=== PATIENT | female | born 1975 | race Caucasian/White ===

== ENCOUNTER 2022-12-18 22:47 | Emergency (ER) | payer OTHER, SELFPAY ==
--- NOTE | ~2022-12-18 | XR_ITS ---
Portable chest x-ray Comparison: None Clinical History: Dyspnea Findings: Lungs are clear, without focal consolidation or pleural effusion. Cardiomediastinal silho uette is unremarkable. Cervical spine fixation hardware noted. Impression: Clear lungs. Reviewed, dictated and finalized at location . [facility] SURGEON Impression: Clear lungs.
[2022-12-18 22:52] VITALS: BP 132/79; PULSE 88; RESP 20; TEMP 36.8; O2SAT 100
--- NOTE | 2022-12-18 23:28 | ECG_ITS ---
Measurements Intervals [place] Rate: 83 P: 53 VA: 158 QRS: 35 QRSD: 71 T: 30 QT: 339 QTc: 400 Interpretive Statements SINUS RHYTHM NORMAL ECG NO PREVIOUS ECG AVAILABLE FOR COMPARISON Electronically Signed On 12-19-2022 14:45:45 [employer] by Peyman De Leon M.D.
[2022-12-18 23:59] VITALS: BP 112/71; PULSE 95; RESP 14; TEMP 36.7; O2SAT 97
[2022-12-19] VITALS: PULSE 89
[2022-12-19] MEDS: LORazepam (*CRX) 0.5 MG TABLET PO (00:54)
--- NOTE | 2022-12-19 07:48 | ED.SOB ---
HPI - SOB/Dyspnea General Chief Complaint: Shortness of Breath/Dyspnea Stated Complaint: anxiety Time Seen by Provider: 12/18/22 23:30 History of Present Illness HPI Narrative: Patient with history of anxiety/depression who has been off her medications and is trying to use weed instead try taking a gummy earlier that was different string from what she is used to, and about an hour later started having a feel of anxiety, shortness of breath, and a feeling of lump in her throat. She tried make herself throw up. No chest pain. Related Data Home Medications Medication Instructions Recorded Confirmed baclofen 10 mg tablet 10 mg PO DAILY 10/26/19 bupropion HCl 300 mg 24 hr tablet, 300 mg PO QAM 10/26/19 extended release (Wellbutrin XL) cetirizine 10 mg capsule (Zyrtec) 10 mg PO DAILY 10/26/19 Allergies Allergy/AdvReac Type Severity Reaction Status Date / Time No Known Allergies Allergy Unverified 10/26/19 11:05 Review of Systems Review of Systems: CONST: No fever. HEENT: sore throat C/V: No chest pain RESP: Shortness of breath GI: Nausea : No dysuria. M/S: No joint pain. SKIN: No rash. NEURO: [No headache or focal numbness or weakness] PSYCH: Anxiety PMFSH Past Medical History Medical History (Updated 12/19/22 @ 07:49 by Crista Maurer MD) Anxiety Social History Social History Smoking status: Never smoker Alcohol intake: never Exam Narrative: EXAMINATION OF ORGAN SYSTEMS/BODY AREAS: Constitutional: Vital signs per nursing GENERAL: Slightly anxious HEAD: Normal with no signs of head trauma. EYES: EOMI, conjunctiva normal ENT: Hearing grossly intact, normal voice, airway intact LUNGS: Nonlabored breathing. HEART: [Regular rate and rhythm] ABD: [Soft], [nontender to palpation] EXT: Normal range of motion SKIN: [No rashes or lesions.] NEURO: [Alert and oriented x 3. No gross focal sensory or strength deficits.] PSYCH: Slightly anxious affect Course Vital Signs Vital signs: Vital Signs Temperature 98.2 F 12/18/22 22:52 Pulse Rate 88 12/18/22 22:52 Respiratory Rate 20 02/02/23 22:52 Blood Pressure 132/79 12/18/22 22:52 Pulse Oximetry 100 12/18/22 22:52 Oxygen Delivery Room Air 12/18/22 22:52 Temperature 98.1 F 12/18/22 23:59 Pulse Rate 89 12/19/22 00:00 Respiratory Rate 14 12/18/22 23:59 Blood Pressure 112/71 12/18/22 23:59 Pulse Oximetry 97 12/18/22 23:59 Oxygen Delivery Room Air 12/18/22 22:52 MDM - SOB/Dyspnea MDM Narrative Medical decision making narrative: 47-year-old female presenting with anxiety reaction after trying marijuana edible, vital signs stable here, she is well-appearing on exam, without any pharyngeal edema, and with normal voice, no airway compromise. I did obtain an EKG here that shows, interpretation normal sinus rhythm, rate 83, normal MN, QRS, QTc. chest x-ray on my interpretation does not show any obvious abnormality including no obvious pneumothorax or opacities. Suspect most likely anxiety, doubt PE as she is PERC negative, doubt ACS without chest pain and normal EKG. She is given small dose of Ativan, on reevaluation, is feeling much better, she is tolerating p.o. here without any issues, stable for discharge home and return precautions. I have urged her to follow-up with psychiatry to be back on her medications, she states she already has an appointment. Discharge Plan Discharge Clinical Impression: Anxiety Patient Disposition: Home, Self-Care Condition: Stable Instructions: Antibiotic Form, Anxiety (ED) Additional Instructions: Please follow up with your doctor in the next 2 days; you can always come back to the ER if you feel worse. Prescriptions: No Action bupropion HCl [Wellbutrin XL] 300 mg tablet extended release 24 hr 300 mg PO QAM Zyrtec 10 mg capsule 10 mg PO DAILY baclofen 10 mg tablet 10 mg PO DAILY
== END 2022-12-19 00:55 | disposition home or self-care (01) ==
PROVIDERS: Emergency Provider Emergency Medicine; PCP Emergency Medicine
DX: F41.9 Anxiety disorder, unspecified (principal)
CPT/HCPCS: 71045; 93005; 99283; A9270

== ENCOUNTER 2023-01-30 01:42 | Day surgery (SDC) | payer OTHER, SELFPAY ==
[2023-01-22 11:42] VITALS: BMI 24.7
[2023-01-30 13:05] VITALS: BP 115/72; PULSE 103; RESP 22; TEMP 36.6; O2SAT 99
[2023-01-30] MEDS: LACTATED RINGERS 1,000 ML 150 ML IV CONT (13:21)
--- NOTE | 2023-01-30 13:22 | SUR.PREOP ---
DR. CASH CONFIRMED NOT NEEDING A URINE TEST.
--- NOTE | 2023-01-30 13:33 | P.PNAN_ITS ---
Anes - Initial Pre Proc Eval Procedure: Operation Date: 01/30/23 14:30 Proposed Procedures p Screening Colonoscopy - Sin Campbell MD Date/Time: 01/30/23 13:33 Surgeon: Sin Campbell MD Pre Op Diagnosis: neoplasm screening Patient Data Age: 47 Gender: F Height: 1.68 m Weight: 70 kg Last Vital Signs Temp 36.6 C 01/30/23 13:05 Pulse 103 H 01/30/23 13:05 Resp 22 H 01/30/23 13:05 BP 115/72 01/30/23 13:05 Pulse Ox 99 01/30/23 13:05 O2 Del Method Room Air 01/30/23 13:05 Allergies Allergy/AdvReac Type Severity Reaction Status Date / Time diphenhydramine AdvReac Hypertensio Verified 01/30/23 13:08 [From Benadryl] n fexofenadine AdvReac Other Verified 01/30/23 13:08 Home Medications Medication Instructions Recorded Confirmed Type baclofen 10 mg tablet 10 mg PO DAILY 10/26/19 01/30/23 History bupropion HCl 300 mg 24 hr tablet, 300 mg PO QAM 10/26/19 01/30/23 History extended release (Wellbutrin XL) cetirizine 10 mg capsule (Zyrtec) 10 mg PO DAILY 10/26/19 01/30/23 History sodium,potassium,mag sulfates 17.5 See Rx Instructions PO .COMPLEX 01/15/23 01/30/23 Rx gram-3.13 gram-1.6 gram oral soln #354 mL (Suprep Bowel Prep Kit) eszopiclone 3 mg tablet 3 mg PO DAILY 01/22/23 01/30/23 History levothyroxine 25 mcg tablet 25 mcg PO DAILY 01/22/23 01/30/23 History (Synthroid) liothyronine 5 mcg tablet 5 mcg PO DAILY 01/22/23 01/30/23 History mirabegron 25 mg tablet,extended 25 mg PO DAILY 01/22/23 01/30/23 History release 24 hr (Myrbetriq) topiramate 50 mg tablet 50 mg PO DAILY 01/22/23 01/30/23 History trazodone 50 mg tablet 50 mg PO DAILY 01/22/23 01/30/23 History Patient hx anesthesia problems: none Family hx anesthesia problems: none Results Review: All pre-operative results and documents have been reviewed as part of the pre- operative evaluation. [facility] Past Medical History Medical History Anxiety Social History Social History Smoking status: Never smoker Alcohol intake: never Substance use: never Substance use type: does not use Living arrangements: with family Spiritual care concerns: No Anes - Eval Final PreProcedure Day of Procedure 01/30/23 13:33 Patient weight: normal Heart: regular rate and rhythm Lungs: clear to auscultation Airway: Mallampati scale class II Last oral intake: >/= 8 hours ASA classification: II Emergent: no Anesthetic plan: proceed Anesthesia type and monitoring: general GIVS and standard monitoring Results Review: All pre-operative results and documents have been reviewed as part of the pre- operative evaluation. Informed Consent: The patient's anesthetic plan and its attendant risks and benefits were discussed with the patient/family/POA. Questions were solicited and answers provided to the satisfaction of the patient/family/POA.
--- NOTE | 2023-01-30 13:39 | PM.IMHP ---
H&P: HPI History of Present Illness Date/Time: 01/30/23 13:39 Chief Complaint: Neoplasia screening. Narrative: This is a 47-year-old white female patient referred for screening colonoscopy. Patient's current weight appetite bowel movements are normal. Patient denies abdominal pain. She has had no bleeding. Family history is significant that her mother with colon Cancer. Review of Systems Review of Systems: Review of systems noncontributory. [facility] Past Medical History Medical History Anxiety Social History Social History Smoking status: Never smoker Alcohol intake: never Substance use: never Substance use type: does not use Living arrangements: with family Spiritual care concerns: No Meds Home Medications and Allergies Home Medications Medication Instructions Recorded Confirmed Type baclofen 10 mg tablet 10 mg PO DAILY 10/26/19 01/30/23 History bupropion HCl 300 mg 24 hr tablet, 300 mg PO QAM 10/26/19 01/30/23 History extended release (Wellbutrin XL) cetirizine 10 mg capsule (Zyrtec) 10 mg PO DAILY 10/26/19 01/30/23 History sodium,potassium,mag sulfates 17.5 See Rx Instructions PO .COMPLEX 01/15/23 01/30/23 Rx gram-3.13 gram-1.6 gram oral soln #354 mL (Suprep Bowel Prep Kit) eszopiclone 3 mg tablet 3 mg PO DAILY 01/22/23 01/30/23 History levothyroxine 25 mcg tablet 25 mcg PO DAILY 01/22/23 01/30/23 History (Synthroid) liothyronine 5 mcg tablet 5 mcg PO DAILY 01/22/23 01/30/23 History mirabegron 25 mg tablet,extended 25 mg PO DAILY 01/22/23 01/30/23 History release 24 hr (Myrbetriq) topiramate 50 mg tablet 50 mg PO DAILY 01/22/23 01/30/23 History trazodone 50 mg tablet 50 mg PO DAILY 01/22/23 01/30/23 History Allergies Allergy/AdvReac Type Severity Reaction Status Date / Time diphenhydramine AdvReac Hypertensio Verified 01/30/23 13:08 [From Benadl] n fexofenadine AdvReac Other Verified 01/30/23 13:08 Vital Signs Vital Signs - 24 hr 01/30/23 13:05 Temperature 97.8 F Pulse Rate 103 H Respiratory Rate 22 H Blood Pressure 115/72 Pulse Oximetry 99 Oxygen Delivery Room Air Exam Narrative: Physical exam reveals patient to be alert. Vital signs stable. HEENT exam is unremarkable. Patient is anicteric. Lungs are clear to auscultation and percussion. Heart is without murmur or extra sounds. Abdomen bowel sounds present soft nontender with no organomegaly. Digital external rectal exam normal. Assessment and Plan Assessment and plan (1) Family history of colon cancer in mother: Code(s): Z80.0 - Family history of malignant neoplasm of digestive organs Status: Acute Assessment and Plan: Patient's mother had had colon cancer. Plan for surveillance colonoscopy now consider this at 5 year intervals in the future.
[2023-01-30 14:40] VITALS: BP 112/64; PULSE 96; RESP 22; O2SAT 96
[2023-01-30 14:50] VITALS: BP 133/83; PULSE 94; RESP 23; O2SAT 94
[2023-01-30 15:00] VITALS: BP 128/73; PULSE 86; RESP 20; O2SAT 100
== END 2023-01-30 15:11 | disposition home or self-care (01) ==
PROVIDERS: PCP Emergency Medicine; Visit Provider Internal Medicine Gastroenterology
PROC: 0DJD8ZZ Inspection of Lower Intestinal Tract, Via Natural or Artificial Opening Endoscopic (ICD-10-PCS; CPT 45378; principal; 2023-01-30 14:30)
DX: Z12.11 Encounter for screening for malignant neoplasm of colon (principal); K63.5 Polyp of colon; K64.8 Other hemorrhoids; Z80.0 Family history of malignant neoplasm of digestive organs; F41.9 Anxiety disorder, unspecified
CPT/HCPCS: 45380; 88305; J2704; J7120

== ENCOUNTER 2023-02-03 18:44 | Emergency (ER) | payer OTHER, SELFPAY ==
--- NOTE | 2023-02-03 18:47 | ECG_ITS ---
Measurements Intervals [place] Rate: 109 P: 52 PA: 137 QRS: 57 QRSD: 72 T: 42 QT: 303 QTc: 408 Interpretive Statements SINUS TACHYCARDIA ABNORMAL ECG COMPARED TO ECG 12/19/2022 00:11:55 SINUS TACHYCARDIA NOW PRESENT Electronically Signed On 02-03-2023 21:50:49 CDT by Mark Centeno D.O.
[2023-02-03 19:00] VITALS: BP 128/68; PULSE 111; RESP 16; TEMP 36.7; O2SAT 100
[2023-02-03 19:27] LABS: Basophils Percent Auto 0.5 % (0.2-1.2); Eosinophils Absolute Auto 0.3 K/mm3 (0-0.3); Eosinophils Percent Auto 3.7 % (0-4.4); Hematocrit 40.1 % (37.0-47.0); Hemoglobin 13.8 g/dL (12.0-15.0); Immature Granulocyte Absolute 0.02 K/mm3 (0.00-0.031); Immature Granulocyte Percent A 0.3 % (0-0.5); Lymphocytes Absolute Auto 2.34 K/mm3 (0.9-3.2); Lymphocytes Percent Auto 32.1 % (18.3-44.2); Mean Corpuscular HGB Conc 34.4 g/dl (32-36); Mean Corpuscular Hemoglobin 31.7 pg (26-34); Mean Corpuscular Volume 92.2 fl (80-100); Mean Platelet Volume 8.8 fl (7.4-10.4); Monocytes Absolute Auto 0.4 K/mm3 (0.1-0.6); Monocytes Percent Auto 5.1 % (2.6-8.5); Neutrophils Absolute Auto 4.2 K/mm3 (1.3-6.7); Neutrophils Percent Auto 58.3 % (45.5-73.1); Platelet Count Result 308 k/mm3 (150-375); Red Blood Count 4.35 M/mm3 (4.2-5.4); Red Cell Distribution Width 12.3 % (11.5-14.5); White Blood Count 7.3 K/mm3 (4.5-10.0)
[2023-02-03 19:41] LABS: Alanine Aminotransferase 18 U/L (6-35); Albumin Level 4.4 g/dL (3.5-5.1); Alkaline Phosphatase 65 U/L (38-126); Anion Gap 6 mmol/L (8-16); Aspartate Amino Transferase 23 U/L (14-36); Bilirubin,Total 0.4 mg/dL (0.2-1.3); Blood Urea Nitrogen 16 mg/dL (7-17); Calcium 9.5 mg/dL (8.4-10.2); Carbon Dioxide 30 mmol/L (22-30); Chloride 104 mmol/L (98-107); Estimated Glomerular Filt Rate > 60; Glucose 79 mg/dL (65-110); Sodium 140 mmol/L (137-145)
--- NOTE | 2023-02-03 22:16 | PC.NURSE ---
patient states she has waitied too long and left from waiting area
== END 2023-02-03 22:16 | disposition left against medical advice (07) ==
PROVIDERS: Emergency Provider Emergency Medicine; PCP Emergency Medicine
DX: R00.0 Tachycardia, unspecified (principal); Z53.21 Procedure and treatment not carried out due to patient leaving prior to being seen by health care provider
CPT/HCPCS: 36415; 80053; 85025; 93005; 99199

== ENCOUNTER 2023-06-17 09:16 | Emergency (ER) | payer OTHER, SELFPAY ==
--- NOTE | 2023-06-17 09:21 | ED.FEMALEGU ---
HPI - Female Genitourinary General Chief complaint: Urogenital-Female Stated complaint: UTI SYMPTOMS Time Seen by Provider: 06/17/23 09:21 Source: patient and RN notes reviewed History of Present Illness HPI Narrative: Patient is a 47-year-old female presents to urgent care with complaints of a possible UTI due to urinary frequency, urgency, low back pain and odor. Patient states she has had some bouts of nausea which has been intermittent since her last UTI approximately 1 month ago. Patient states that she was being seen for her yearly physical and they noticed bacteria in her urine. Patient states that her urologist placed her on antibiotic, switched at 3 days later and she completed the 2nd round of antibiotics 1 month ago. Patient states that at that time she had no symptoms. Patient is currently denying any hematuria, current nausea or vomiting, or abdominal pain. Patient denies fever. Patient is increase water intake but otherwise continuing on her medications as prescribed. No other acute complaints. No acute distress noted. Patient aware of the plan of care. Some parts of this dictation were generated by voice recognition software and may contain typographical and/or grammatical inaccuracies. Related Data Home Medications Medication Instructions Recorded Confirmed bupropion HCl 300 mg 24 hr tablet, 300 mg PO QAM 10/26/19 06/17/23 extended release (Wellbutrin XL) cetirizine 10 mg capsule (Zyrtec) 10 mg PO DAILY 10/26/19 06/17/23 eszopiclone 3 mg tablet 3 mg PO DAILY 01/22/23 06/17/23 levothyroxine 25 mcg tablet 25 mcg PO DAILY 01/22/23 06/17/23 (Synthroid) liothyronine 5 mcg tablet 5 mcg PO DAILY 01/22/23 06/17/23 mirabegron 25 mg tablet,extended 25 mg PO DAILY 01/22/23 06/17/23 release 24 hr (Myrbetriq) topiramate 50 mg tablet 50 mg PO DAILY 01/22/23 06/17/23 trazodone 50 mg tablet 50 mg PO DAILY 01/22/23 06/17/23 alprazolam 1 mg tablet 1 mg PO DIRECTED 06/17/23 06/17/23 dulaglutide 1.5 mg/0.5 mL 1.5 mg subcut DIRECTED 06/17/23 06/17/23 subcutaneous pen injector (Trulicity) Allergies Allergy/AdvReac Type Severity Reaction Status Date / Time diphenhydramine AdvReac Hypertensio Verified 06/17/23 09:22 [From Benadryl] n fexofenadine AdvReac Other Verified 06/17/23 09:22 Review of Systems Review of Systems: CONSTITUTIONAL: Denies fever, chills, or sweats. EYES: Denies visual changes, redness, or discharge. ENT: Denies rhinorrhea, congestion, sore throat, or otalgia. CARDIOVASCULAR: Denies chest pain, palpitations, or edema. RESPIRATORY: Denies cough or dyspnea. GASTROINTESTINAL: Reports of suprapubic discomfort and intermittent nausea GENITOURINARY: Reports of urinary frequency, urgency, dysuria and odor SKIN: Denies rash or itching. MUSCULOSKELETAL: Reports of low back pain NEUROLOGIC: Denies headache, numbness, or weakness. All other systems reviewed are negative, except as documented in HPI. [facility] Past Medical History Medical History Anxiety Social History Social History Smoking status: Never smoker Alcohol intake: never Substance use: never Substance use type: does not use Living arrangements: with family Spiritual care concerns: No Comments At the time of my signature, I reviewed and agree with the nursing past medical, surgical, social, and family history. There is no relevant family history pertinent to the patient complaint. Exam Narrative: GENERAL: This is a well-nourished, well-developed patient, in no apparent distress. HEAD: normocephalic, atraumatic. EYES: PERRL. Sclera clear/white. Vision is grossly intact. EARS: External ears normal NOSE: External nose normal with no obvious nasal discharge, nares without redness, no rhinorrhea. THROAT: Mucous membranes moist NECK: Neck supple GASTROINTESTINAL: Abdomen soft, mild right sided suprapu
[2023-06-17 09:24] VITALS: BP 111/71; PULSE 83; RESP 18; TEMP 36.2; O2SAT 97
[2023-06-17 09:29] VITALS: BP 111/71; PULSE 83; RESP 18; TEMP 36.2; O2SAT 97
== END 2023-06-17 09:58 | disposition home or self-care (01) ==
PROVIDERS: Emergency Provider Nurse Practitioner Family; PCP Emergency Medicine
DX: R30.0 Dysuria (principal); F41.9 Anxiety disorder, unspecified
CPT/HCPCS: 81003; 87086; 99213; G0463

== ENCOUNTER 2023-08-14 10:57 | Emergency (ER) | payer OTHER, SELFPAY ==
--- NOTE | 2023-08-14 10:58 | ED.EAR ---
HPI - Ear Problem General Chief complaint: Ear Stated complaint: Left Ear Bleeding/Irritation Time Seen by Provider: 08/14/23 11:10 Source: patient and RN notes reviewed Mode of arrival: ambulatory Limitations: no limitations History of Present Illness HPI Narrative: 47-year-old female presents with concern for drainage and bleeding from her left ear. Reports she noticed it this morning. She denies pain. She denies injury or trauma to her ear. She reports she does use Q-tips. She also uses earplugs at night MD Complaint: ear pain Related Data Home Medications Medication Instructions Recorded Confirmed bupropion HCl 300 mg 24 hr tablet, 300 mg PO QAM 10/26/19 08/14/23 extended release (Wellbutrin XL) cetirizine 10 mg capsule (Zyrtec) 10 mg PO DAILY 10/26/19 08/14/23 eszopiclone 3 mg tablet 3 mg PO DAILY 01/22/23 08/14/23 levothyroxine 25 mcg tablet 25 mcg PO DAILY 01/22/23 08/14/23 (Synthroid) liothyronine 5 mcg tablet 5 mcg PO DAILY 01/22/23 08/14/23 topiramate 50 mg tablet 50 mg PO DAILY 01/22/23 08/14/23 trazodone 50 mg tablet 50 mg PO DAILY 01/22/23 08/14/23 alprazolam 1 mg tablet 1 mg PO DIRECTED 06/17/23 08/14/23 dulaglutide 1.5 mg/0.5 mL 1.5 mg subcut DIRECTED 06/17/23 08/14/23 subcutaneous pen injector (Trulicity) prasterone (dhea) 25 mg tablet 0 mg PO DAILY 08/14/23 08/14/23 (DHEA) Allergies Allergy/AdvReac Type Severity Reaction Status Date / Time diphenhydramine AdvReac Hypertensio Verified 08/14/23 11:06 [From Tanya] n fexofenadine AdvReac Other Verified 08/14/23 11:06 Review of Systems Review of Systems: CONSTITUTIONAL: Denies malaise, chills, sweats, or fever. EYES: Denies visual changes, redness, or discharge. ENT: Denies rhinorrhea, congestion, sinus pain, and sore throat. Reports drainage or bleeding from the left ear CARDIOVASCULAR: Denies chest pain, palpitations, or edema. RESPIRATORY: Denies cough. Denies dyspnea. GASTROINTESTINAL: Denies abdominal pain, nausea, vomiting, diarrhea SKIN: Denies rash or itching. MUSCULOSKELETAL: Denies myalgia. NEUROLOGIC: Denies headache. All systems reviewed & are unremarkable except as noted in HPI and below PMFSH Past Medical History Medical History Anxiety Social History Social History Smoking status: Never smoker Alcohol intake: never Substance use: never Substance use type: does not use Living arrangements: with family Spiritual care concerns: No Comments At time of signature, agree with nursing past medical, surgical, social and family history. There is no relevant family history pertinent to the presenting complaint Exam Narrative: GENERAL: Well-appearing, well-nourished, and in no acute distress. HEAD: Normocephalic EYES: PERRLA, conjunctivae clear ENT: Nares clear. Mucous membranes moist. Right TM pearly monsalve with sharp light reflex, left TM ruptured; no tragal tenderness. NECK: Supple. No lymphadenopathy CHEST: Clear to auscultation, breath sounds equal. No wheezing, rhonchi, rales, or stridor. No respiratory distress, speaks in full sentences. HEART: Regular rate and rhythm. No murmur heard. SKIN: Warm, dry, no rash. NEURO: Alert and oriented x3. PSYCH: Normal mood and affect Course Course Emergency Course: Patient is aware of diagnosis, understands and agrees to treatment plan. Anticipatory guidance given. Patient agrees to follow-up as directed and is aware of reasons to seek care at the emergency department. Portions of this record may have been created with voice recognition software Level of Care: Express Care Visit Vital Signs Vital signs: Reviewed. Medical Decision Making MDM Narrative Medical decision making narrative: Differential diagnosis considered: Duke virus, strep pharyngitis, allergic rhinitis, upper respiratory tract infection, sinusitis, rhinosinusi
[2023-08-14 11:12] VITALS: BP 108/69; PULSE 105; RESP 16; TEMP 36.6; O2SAT 100
== END 2023-08-14 11:22 | disposition home or self-care (01) ==
PROVIDERS: Emergency Provider Nurse Practitioner; PCP Emergency Medicine
DX: H72.92 Unspecified perforation of tympanic membrane, left ear (principal); Z79.899 Other long term (current) drug therapy
CPT/HCPCS: 99213; G0463

== ENCOUNTER 2023-10-06 14:19 | Emergency (ER) | payer OTHER, SELFPAY ==
[2023-10-06 14:32] VITALS: BP 111/62; PULSE 95; RESP 16; TEMP 37.3; O2SAT 100
--- NOTE | 2023-10-06 14:51 | ED.FEMALEGU ---
HPI - Female Genitourinary General Chief complaint: Urogenital-Female Stated complaint: Vaginal problems Time Seen by Provider: 10/06/23 14:50 Source: patient, RN notes reviewed and old records reviewed Mode of arrival: ambulatory Limitations: no limitations History of Present Illness HPI Narrative: 48 year old female presents to [facility] care with complaints of 1.5 weeks duration of vaginal itching but denies any vaginal discharge. Patient reports that she tried some Monistat cream for 2 days and it did not improve her symptoms.Patient denies any new sex partners, denies any new feminine products, new foods, new medications, denies being a diabetic, denies any urinary symptoms.Patient reports that she startedd HRT about 3 months ago through a wellness center. Patient is perimenopausal with last menses over a year ago, last October 2021. MD elicited complaint: other (vaginal itching) Pertinent past history: PID, overactive bladder and other (HRT) Onset (ago): week(s) (1.5) Vaginal discharge: none Associated symptoms: denies other symptoms Treatment prior to arrival: other (Monistat) Sexual activity: Yes Patient : No Related Data Home Medications Medication Instructions Recorded Confirmed bupropion HCl 300 mg 24 hr tablet, 300 mg PO QAM 10/26/19 10/06/23 extended release (Wellbutrin XL) cetirizine 10 mg capsule (Zyrtec) 10 mg PO DAILY 10/26/19 10/06/23 eszopiclone 3 mg tablet 3 mg PO DAILY 01/22/23 10/06/23 levothyroxine 25 mcg tablet 25 mcg PO DAILY 01/22/23 10/06/23 (Synthroid) liothyronine 5 mcg tablet 5 mcg PO DAILY 01/22/23 10/06/23 topiramate 50 mg tablet 50 mg PO DAILY 01/22/23 08/14/23 trazodone 50 mg tablet 50 mg PO DAILY 01/22/23 08/14/23 alprazolam 1 mg tablet 1 mg PO DIRECTED 06/17/23 10/06/23 dulaglutide 1.5 mg/0.5 mL 1.5 mg subcut DIRECTED 06/17/23 10/06/23 subcutaneous pen injector (Trulicity) prasterone (dhea) 25 mg tablet 0 mg PO DAILY 08/14/23 10/06/23 (DHEA) Allergies Allergy/AdvReac Type Severity Reaction Status Date / Time diphenhydramine AdvReac Hypertensio Verified 10/06/23 14:31 [From Benadryl] n fexofenadine AdvReac Other Verified 10/06/23 14:31 Review of Systems Review of Systems: CONSTITUTIONAL: Denies fever, chills, or sweats. EYES: Denies visual changes, redness, or discharge. ENT: Denies rhinorrhea, congestion, sore throat, or otalgia. CARDIOVASCULAR: Denies chest pain, palpitations, or edema. RESPIRATORY: Denies cough or dyspnea. GASTROINTESTINAL: Denies abdominal pain, nausea, vomiting, or diarrhea. GENITOURINARY: Denies dysuria or hematuria.reports internal and external itching of vagina SKIN: Denies rash or itching. MUSCULOSKELETAL: Denies back pain, joint pain, or myalgia. NEUROLOGIC: Denies headache, numbness, or weakness. PSYCHIATRIC: Reports history of anxiety or depression. 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 There is no relevant family history pertinent to the presenting complaint Exam Narrative: GENERAL: Well-appearing, well-nourished, and in no acute distress. HEAD: Normocephalic, atraumatic. EYES: PERRLA and
[2023-10-06 15:09] VITALS: BP 111/62; PULSE 95; RESP 16; TEMP 37.3; O2SAT 100
== END 2023-10-06 15:25 | disposition home or self-care (01) ==
PROVIDERS: Emergency Provider Registered Nurse; PCP Emergency Medicine
DX: N76.0 Acute vaginitis (principal); E06.3 Autoimmune thyroiditis; Z79.899 Other long term (current) drug therapy
CPT/HCPCS: 81003; 99213; G0463

== ENCOUNTER 2023-12-14 17:08 | Emergency (ER) | payer OTHER, SELFPAY ==
[2023-12-14 17:12] VITALS: BP 117/72; PULSE 104; RESP 16; TEMP 36.9; O2SAT 99
--- NOTE | 2023-12-14 17:17 | ED.GENADULT ---
HPI - General Adult General Chief complaint: Upper Respiratory Infection Stated complaint: Sinus Infection Symptoms Source: patient, RN notes reviewed and old records reviewed Mode of arrival: ambulatory Limitations: no limitations History of Present Illness HPI narrative: 48-year-old female presents to [facility] with complaint of right ear pain, pain around right ear, pain in right face with facial swelling, dizziness, that started 2-3 days ago. Patient has been putting tea [place] in her ear without relief. MD complaint: Ear pain Onset (ago): day(s) (2-3) Related Data Home Medications Medication Instructions Recorded Confirmed bupropion HCl 300 mg 24 hr tablet, 300 mg PO QAM 10/26/19 12/14/23 extended release (Wellbutrin XL) cetirizine 10 mg capsule (Zyrtec) 10 mg PO DAILY 10/26/19 12/14/23 eszopiclone 3 mg tablet 3 mg PO DAILY 01/22/23 12/14/23 levothyroxine 25 mcg tablet 25 mcg PO DAILY 01/22/23 12/14/23 (Synthroid) liothyronine 5 mcg tablet 5 mcg PO DAILY 01/22/23 12/14/23 topiramate 50 mg tablet 50 mg PO DAILY 01/22/23 12/14/23 trazodone 50 mg tablet 50 mg PO DAILY 01/22/23 12/14/23 alprazolam 1 mg tablet 1 mg PO DIRECTED 06/17/23 12/14/23 prasterone (dhea) 25 mg tablet 0 mg PO DAILY 08/14/23 12/14/23 (DHEA) Allergies Allergy/AdvReac Type Severity Reaction Status Date / Time diphenhydramine AdvReac Hypertensio Verified 12/14/23 17:13 [From Tanya] n fexofenadine AdvReac Other Verified 12/14/23 17:13 Review of Systems Constitutional: Constitutional: Reports no additional constitutional complaints, Denies body ache(s), Denies chills, Denies fatigue, Denies fever(s) and Denies headache(s) Eyes: Eyes: Reports no additional eye complaints and Denies blurry vision ENT: Reports system reviewed and no additional complaints, except as documented, Reports vertigo, Denies dizziness, Reports ear discharge, Reports otalgia, Reports facial pain, Denies headache(s), Denies nasal congestion, Denies nasal discharge, Denies sinus pain, Denies sinus pressure and Denies sore throat Cardiovascular: Cardiovascular: Reports no additional cardiovascular complaints, Denies chest pain, Denies chest pain at rest, Denies rapid heart rate and Denies dyspnea Respiratory: Respiratory: Reports no additional respiratory complaints, Denies chest congestion, Denies cough, Denies pain on inspiration, Denies pain with cough and Denies dyspnea Gastrointestinal: Gastrointestinal: Denies abdominal pain, Denies diarrhea, Denies nausea and Denies vomiting Integumentary/Breasts: Skin/Breast: Denies rash Neurologic: Reports system reviewed and no additional complaints, except as documented, Denies vertigo, Denies dizziness and Denies headache(s) Endocrine: Endocrine: Denies fatigue PMFSH Past Medical History Medical History Allergic urticaria Anxiety Depression 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 There is no relevant family history pertinent to the patient complaint. Exam Const: General: cooperative, healthy appearing, no acute distress and well nourished Nutritional Appearance: well nourished Orientation/consciousness: patient oriented x3 Limitations: no limitations HENMT: Head: normal to inspection and normocephalic E
== END 2023-12-14 17:34 | disposition home or self-care (01) ==
PROVIDERS: Emergency Provider Registered Nurse; PCP Emergency Medicine
DX: H60.93 Unspecified otitis externa, bilateral (principal); H66.93 Otitis media, unspecified, bilateral; R42 Dizziness and giddiness; E03.9 Hypothyroidism, unspecified; E06.3 Autoimmune thyroiditis; F41.9 Anxiety disorder, unspecified; F32.A Depression, unspecified; N32.81 Overactive bladder
CPT/HCPCS: 99213; G0463

== ENCOUNTER 2023-12-18 17:48 | Emergency (ER) | payer OTHER, SELFPAY ==
[2023-12-18 18:03] VITALS: BP 116/66; PULSE 97; RESP 16; TEMP 36.6; O2SAT 100
--- NOTE | 2023-12-18 18:04 | ECG_ITS ---
Measurements Intervals [place] Rate: 87 P: 37 RI: 150 QRS: 45 QRSD: 83 T: 16 QT: 334 QTc: 403 Interpretive Statements SINUS RHYTHM COMPARED TO ECG 02/03/2023 18:51:30 SINUS RHYTHM NOW PRESENT Electronically Signed On 12-19-2023 12:28:14 SUPERVISORY IT SPECIALIST by Edwardo Caraballo M.D.
--- NOTE | 2023-12-18 18:12 | ED.CHESTPAIN ---
HPI - Chest Pain General Chief Complaint: Chest Pain Stated Complaint: CHEST PRESSURE/SOB/DIZZY/NAUSEA Time Seen by Provider: 12/18/23 17:57 Source: patient and RN notes reviewed Mode of arrival: ambulatory Limitations: no limitations History of Present Illness HPI narrative: Patient presents today complaining constant midsternal chest pain x2 days that has been worsening since onset without radiation. Associated symptoms include shortness of breath, dizziness, lightheadedness, nausea, and pressure behind the eyes. Denies weakness, numbness or tingling in the extremities, abdominal pain. She currently rates her pain 8/10. No [id number] interventions prior to arrival. States she recently had a visit with a ux design lead and had a residential monitor that she wore for period of time. She does not yet have the results. Reports she did have an echocardiogram last year as well after a similar episode. She was told it was anxiety. Patient denies that she is anxious today. Related Data Home Medications Medication Instructions Recorded Confirmed bupropion HCl 300 mg 24 hr tablet, 300 mg PO QAM 10/26/19 12/18/23 extended release (Wellbutrin XL) cetirizine 10 mg capsule (Zyrtec) 10 mg PO DAILY 10/26/19 12/18/23 eszopiclone 3 mg tablet 3 mg PO DAILY 01/22/23 12/18/23 levothyroxine 25 mcg tablet 25 mcg PO DAILY 01/22/23 12/18/23 (Synthroid) liothyronine 5 mcg tablet 5 mcg PO DAILY 01/22/23 12/18/23 topiramate 50 mg tablet 50 mg PO DAILY 01/22/23 12/18/23 trazodone 50 mg tablet 50 mg PO DAILY 01/22/23 12/18/23 alprazolam 1 mg tablet 1 mg PO DIRECTED 06/17/23 12/18/23 prasterone (dhea) 25 mg tablet 0 mg PO DAILY 08/14/23 12/18/23 (DHEA) Allergies Allergy/AdvReac Type Severity Reaction Status Date / Time diphenhydramine AdvReac Hypertensio Verified 12/18/23 17:53 [From Benestuardo] n fexofenadine AdvReac Other Verified 12/18/23 17:53 Review of Systems Review of Systems: CONSTITUTIONAL: Denies body aches, fever, chills, or sweats. EYES: Denies visual changes, redness, or discharge. ENT: Denies rhinorrhea, congestion, sore throat, or otalgia. CARDIOVASCULAR: Denies palpitations, or edema.+ chest pain RESPIRATORY: Denies cough. + shortness of breath GASTROINTESTINAL: Denies abdominal pain, vomiting, or diarrhea.+ nausea GENITOURINARY: Denies dysuria or hematuria. SKIN: Denies rash, itching, or wounds. MUSCULOSKELETAL: Denies back pain, joint pain, or myalgia. NEUROLOGIC: Denies numbness, tingling, or weakness.+ headache, dizziness, lightheadedness PSYCH: Denies depression or anxiety. 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 Please see nursing chart for further information. There is no relevant family history pertinent to the presenting complaint Exam Narrative: GENERAL: Well-appearing, well-nourished, and in no acute distress. HEAD: Normocephalic, atraumatic. EYES: EOMI. No redness or drainage. Conjunctivae normal. ENT: Mucous membranes pink and moist. NECK: Normal AROM. Supple. No lymphadenopathy. CHEST: No respiratory distress. Clear to auscultation. Chest is nontender. HEART: Regular r
== END 2023-12-18 18:12 | disposition short-term general hospital (02) ==
PROVIDERS: Emergency Provider Nurse Practitioner; PCP Emergency Medicine
DX: R06.02 Shortness of breath (principal); R07.9 Chest pain, unspecified; E06.3 Autoimmune thyroiditis; Z79.899 Other long term (current) drug therapy
CPT/HCPCS: 93005; 99213; G0463

== ENCOUNTER 2023-12-18 18:29 | Emergency (ER) | payer OTHER, SELFPAY ==
--- NOTE | ~2023-12-18 | XR_ITS ---
EXAMINATION: XR chest 2V DATE: 12/18/2023 19:17 INDICATION: Shortness of breath and mid anterior chest pain TECHNIQUE: PA and lateral views of the chest were obtained. COMPARISON: Chest radiograph dated 12/18/2022 FINDINGS: The lungs remain clear with no focal airspace opacities, pulmonary edema, pleural effusion or pneumot horax. The cardiomediastinal silhouette is normal. Mild thoracic spondylosis. Again seen is instrumen danilo anterior spinal fusion at a couple levels in the mid to lower cervical spine. IMPRESSION: 1. No acute cardiopulmonary disease. Reviewed, dictated and finalized at location A. IN[facility] MACHINE OFFBEARER
--- NOTE | 2023-12-18 18:34 | ECG_ITS ---
Measurements Intervals [place] Rate: 88 P: 52 IN: 145 QRS: 43 QRSD: 76 T: 24 QT: 333 QTc: 403 Interpretive Statements SINUS RHYTHM COMPARED TO ECG 12/18/2023 18:01:21 NO SIGNIFICANT CHANGES Electronically Signed On 12-19-2023 12:28:37 CITY EDITOR by Edwardo Caraballo M.D.
[2023-12-18 19:10] LABS: Basophils Absolute Auto 0.1 K/mm3 (0.0-0.1); Basophils Percent Auto 0.6 % (0.2-1.2); Eosinophils Absolute Auto 0.2 K/mm3 (0-0.3); Hematocrit 44.1 % (37.0-47.0); Hemoglobin 15.1 g/dL (12.0-15.0); Immature Granulocyte Absolute 0.03 K/mm3 (0.00-0.031); Immature Granulocyte Percent A 0.4 % (0-0.5); Lymphocytes Absolute Auto 1.72 K/mm3 (0.9-3.2); Lymphocytes Percent Auto 21.9 % (18.3-44.2); Mean Corpuscular HGB Conc 34.2 g/dl (32-36); Mean Corpuscular Hemoglobin 31.6 pg (26-34); Mean Corpuscular Volume 92.3 fl (80-100); Mean Platelet Volume 8.9 fl (7.4-10.4); Monocytes Absolute Auto 0.5 K/mm3 (0.1-0.6); Monocytes Percent Auto 6.5 % (2.6-8.5); Neutrophils Absolute Auto 5.4 K/mm3 (1.3-6.7); Neutrophils Percent Auto 68.6 % (45.5-73.1); Platelet Count Result 309 k/mm3 (150-375); Red Blood Count 4.78 M/mm3 (4.2-5.4); White Blood Count 7.9 K/mm3 (4.5-10.0)
[2023-12-18 19:21] LABS: Alanine Aminotransferase 18 U/L (6-35); Albumin Level 4.5 g/dL (3.5-5.1); Alkaline Phosphatase 60 U/L (38-126); Anion Gap 8 mmol/L (8-16); Aspartate Amino Transferase 27 U/L (14-36); Bilirubin,Total 0.5 mg/dL (0.2-1.3); Blood Urea Nitrogen 16 mg/dL (7-17); Calcium 9.7 mg/dL (8.4-10.2); Carbon Dioxide 28 mmol/L (22-30); Chloride 102 mmol/L (98-107); Estimated Glomerular Filt Rate > 60; Glucose 85 mg/dL (65-110); Lipase 185 U/L (23-300); Potassium 3.7 mmol/L (3.4-5.0); Sodium 138 mmol/L (137-145)
[2023-12-18 19:25] LABS: INR 0.9
[2023-12-18 19:32] VITALS: BP 119/59; PULSE 88; RESP 14; TEMP 37.1; O2SAT 100
[2023-12-18 19:33] LABS: Troponin I < 0.012 ng/mL (0.000-0.034)
[2023-12-18] MEDS: ASPIRIN 81 MG CHEWABLE TABLET 324 MG PO (19:38)
[2023-12-18 21:04] VITALS: BP 118/65; PULSE 90; RESP 17; TEMP 36.8; O2SAT 100
[2023-12-18 22:04] VITALS: BP 116/56; PULSE 82; RESP 15; O2SAT 100
[2023-12-18 22:16] VITALS: BP 109/64; PULSE 84; RESP 21; O2SAT 100
--- NOTE | 2023-12-18 22:20 | ED.GENADULT ---
HPI - General Adult General Chief complaint: Chest Pain Stated complaint: CP, SOB, dizzy Time Seen by Provider: 12/18/23 22:02 Source: patient Mode of arrival: ambulatory Limitations: no limitations History of Present Illness HPI narrative: This is a 48-year-old female who presents to the ED with chief complaint of chest pain and heaviness intermittently for the past 2 days. Became more constant today. describes a central pain and heaviness. Denies any exertional symptoms. Denies shortness of breath. She does endorse palpitations. Denies any cardiac history. Denies syncope, lightheadedness, sweats, nausea, vomiting, leg swelling. Does endorse history of anxiety and used to take alprazolam but has not taken this in several years. Related Data Home Medications Medication Instructions Recorded Confirmed bupropion HCl 300 mg 24 hr tablet, 300 mg PO QAM 10/26/19 12/18/23 extended release (Wellbutrin XL) cetirizine 10 mg capsule (Zyrtec) 10 mg PO DAILY 10/26/19 12/18/23 eszopiclone 3 mg tablet 3 mg PO DAILY 01/22/23 12/18/23 levothyroxine 25 mcg tablet 25 mcg PO DAILY 01/22/23 12/18/23 (Synthroid) liothyronine 5 mcg tablet 5 mcg PO DAILY 01/22/23 12/18/23 topiramate 50 mg tablet 50 mg PO DAILY 01/22/23 12/18/23 trazodone 50 mg tablet 50 mg PO DAILY 01/22/23 12/18/23 alprazolam 1 mg tablet 1 mg PO DIRECTED 06/17/23 12/18/23 prasterone (dhea) 25 mg tablet 0 mg PO DAILY 08/14/23 12/18/23 (DHEA) Allergies Allergy/AdvReac Type Severity Reaction Status Date / Time diphenhydramine AdvReac Hypertensio Verified 12/18/23 22:07 [From Benerenl] n fexofenadine AdvReac Other Verified 12/18/23 22:07 Review of Systems Review of Systems: All systems as dictated in HPI PMFSH Past Medical History Medical History Allergic urticaria Anxiety Depression 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 HEAD: Normocephalic, atraumatic. EYES: PERRLA and EOMI. ENT: Nares clear, no rhinorrhea or epistaxis. Mucous membranes moist. Oropharynx without tonsillar hypertrophy exudate or other lesions. NECK: Supple. No adenopathy or masses. CHEST: No respiratory distress. Clear to auscultation. No wheezes rales or rhonchi HEART: Regular rate and rhythm. No murmur heard. Normal peripheral pulses. ABDOMEN: Soft, nontender, nondistended, normal active bowel sounds. MSK: Normal range of motion. No edema. SKIN: Warm, dry, no rash. NEURO: Alert and oriented x3. No focal deficits. PSYCH: Normal mood and affect. Course Vital Signs Vital signs: Vital Signs Temperature 98.8 F 12/18/23 19:32 Pulse Rate 88 12/18/23 19:32 Respiratory Rate 14 12/18/23 19:32 Blood Pressure 119/59 L 12/18/23 19:32 Pulse Oximetry 100 12/18/23 19:32 Oxygen Delivery Room Air 12/18/23 19:32 Temperature 98.2 F 12/18/23 21:04 Pulse Rate 86 12/18/23 23:41 Respiratory Rate 20 12/18/23 23:41 Blood Pressure 106/78 12/18/23 23:41 Pulse Oximetry 98 12/18/23 23:41 Oxygen Delivery Room Air 12/18/23 22:04 Medical Decision Making [facility] Narrative Medical decision making narrative: This is a 48-year-old female who presents to the ED with chief complaint of 2 days of chest pain. Vitals are normal. Exam is Unremarkable. EKG shows n
[2023-12-18 22:43] LABS: Troponin I < 0.012 ng/mL (0.000-0.034)
[2023-12-18] MEDS: MORPHINE SULFATE (*CRX) 4 MG/ML INJ IV PUSH (22:43)
[2023-12-18] MEDS: ONDANSETRON INJ 4 MG/2 ML VIAL IV PUSH (22:43)
[2023-12-18 22:50] LABS: D Dimer 0.35 ug/mL (<0.48)
[2023-12-18 23:01] VITALS: BP 112/67; PULSE 82; RESP 14; O2SAT 98
[2023-12-18 23:41] VITALS: BP 106/78; PULSE 86; RESP 20; O2SAT 98
== END 2023-12-18 23:48 | disposition home or self-care (01) ==
PROVIDERS: Student in an Organized Health Care Education/Training Program; Emergency Provider Physician Assistant; PCP Emergency Medicine
DX: R07.9 Chest pain, unspecified (principal); E06.3 Autoimmune thyroiditis; E03.9 Hypothyroidism, unspecified; N32.81 Overactive bladder
CPT/HCPCS: 36415; 71046; 80053; 83690; 84484; 85025; 85380; 85610; 85730; 93005; 96374; 96375; 99284; A9270; J2270; J2405

== ENCOUNTER 2024-09-15 12:41 | Emergency (ER) | payer OTHER, SELFPAY ==
--- NOTE | ~2024-09-15 | CT_ITS ---
CTA chest PE protocol Ordering provider: Kellen Garcia MD History: 49 years Female with . pleuritic CP, tachycardia . Comparison: None. Technique: CT angiogram chest was performed following timed intravenous injection of contrast. Thin s lice axial images and reformatted coronal images were obtained. Three dimensional reformatted images of the chest were also obtained using a [employer] workstation. . Automated exposure control and iterati ve reconstruction technique were employed. The dose-length product was 173.23 mGy-cm. 100 ML Omnipaqu e 350 was given IV. Findings: PULMONARY ARTERIES: No pulmonary embolus. VISUALIZED THORACIC INLET: Normal. MEDIASTINUM: Aorta/coronary arteries: Mild atheromatous disease. Heart/other: The heart is not enlarged. Lymph nodes: No mediastinal or hilar adenopathy. LUNGS: Groundglass appearance is seen in the right lower lobe superior segment suggestive of atypical or vir al pneumonia. Follow-up to resolution is advised. Dependent atelectatic changes are also noted in the lower lobes. No pulmonary nodules or masses. No infiltrates or effusions. No pneumothorax. VISUALIZED UPPER ABDOMEN: the visualized upper abdomen is normal. MUSCULOSKELETAL: Soft tissues: The superficial soft tissues are normal. Bilateral breast implants. Bones: Age appropriate degenerative changes of the spine. Postoperative changes in the lower cervical area. IMPRESSION: 1. Pneumonia in the superior segment of the right lower lobe. Follow-up to resolution is advised. Reviewed, dictated and finalized at location A. IMPRESSION: 1. Pneumonia in the superior segment of the right lower lobe. Follow-up to res olution is advised.
--- NOTE | ~2024-09-15 | XR_ITS ---
EXAMINATION: XR chest 2V DATE: 09/15/2024 13:32 INDICATION: Chest pain. TECHNIQUE: Frontal and lateral views of the chest were obtained. COMPARISON: Chest 2 views 12/18/2023 FINDINGS: There is no pneumonia, pleural effusion, or pneumothorax. The heart size is normal. There a re changes of anterior fusion procedure in cervical spine. Breast implants are noted. IMPRESSION: 1. No acute cardiopulmonary disease. Reviewed, dictated and finalized at location B.
--- NOTE | 2024-09-15 12:48 | ECG_ITS ---
Test Date: 2024-09-15 12:52:11 Measurements Intervals [place] Rate: 99 P: 58 [place]: 143 QRS: 62 QRSD: 72 T: 48 QT: 300 QTc: 385 Interpretive Statements SINUS RHYTHM No previous ECG available for comparison Electronically Signed On 09-15-2024 12:55:13 CDT by Zacarias Pena M.D.
--- NOTE | 2024-09-15 12:49 | ED_ITS ---
HPI - Chest Pain General Chief Complaint: Chest Pain <Eli Castillo PA-C - Last Filed: 09/16/24 11:40> Stated Complaint: chest pain <Eli Castillo PA-C - Last Filed: 09/16/24 11:40> Time Seen by Provider: 09/15/24 12:49 <Eli Castillo PA-C - Last Filed: 09/16/24 11:40> Focused HPI: This is a 49 year old female that present to the ER for left sided chest pain. Reports the pain is sharp. It makes it difficult for her to breath. Started about 30 minutes prior to arrival. She took a muscle relaxer with little relief. GENERAL: Well-appearing, well-nourished, and in no acute distress. HEAD: Normocephalic, atraumatic. CHEST: Clear to auscultation. ?No respiratory distress. HEART: Regular rate and rhythm.? NEURO: ?Alert and oriented x3. Patient screened in triage and initial orders placed.? ?Additional care and disposition to be based upon?diagnostic testing and treatment. <Eli Castillo PA-C - Last Filed: 09/16/24 11:40> History of Present Illness HPI narrative: 49-year-old female presenting with chest pain. States that earlier today she developed sudden onset sharp left-sided chest pain worsened with deep breathing. States that she did feel short of breath and lightheaded. The pain continued and has radiated to the middle of her chest. states that it has improved somewhat but it is still present. No leg swelling. No further complaints. <Kellen Garcia MD - Last Filed: 09/19/24 16:55> Related Data Home Medications: Home Medications Medication Instructions Recorded Confirmed prasterone (dhea) 25 mg tablet 0 mg PO DAILY 08/14/23 09/13/24 (DHEA) naltrexone 1.5 mg capsule mg PO 03/08/24 09/13/24 progesterone micronized 200 mg 300 mg PO QHS 03/08/24 09/13/24 capsule topiramate 50 mg tablet 50 mg PO BID 03/08/24 09/13/24 <MARY Wright Last Filed: 09/16/24 11:40> Allergies/Adverse Reactions: Allergies Allergy/AdvReac Type Severity Reaction Status Date / Time diphenhydramine AdvReac Hypertensio Verified 09/13/24 12:31 [From Benadryl] n fexofenadine AdvReac Other Verified 09/13/24 12:31 <Eli Castillo PA-C - Last Filed: 09/16/24 11:40> Review of Systems Review of Systems: All systems reviewed & are unremarkable except as noted in HPI and below <Kellen Garcia MD - Last Filed: 09/19/24 16:55> [facility] Past Medical History Medical History: Medical History Allergic urticaria Anxiety BMI 25.0-25.9,adult Depression 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 Other Neuromuscular scoliosis, multiple sites in spine <Eli Castillo PA-C - Last Filed: 09/16/24 11:40> Social History Social History: Social History Smoking status: Never smoker Second hand tobacco smoke exposure: No Alcohol intake: never Substance use: never Substance use type: does not use Do You Feel Safe in your Home?: Yes Lack of Transportation: No Lack of Food: Never True Current Housing: I Have Housing Concerned About Future Housing: No Difficulty Paying Gas/Electric Bills: No Difficulty Paying for Meds: No Currently Unemployed: No Education: Bachelor's Degree Difficulty w/ Childcare or Family Care: No Living arrangements: with family Occupation/Education: retired Additional occupation/education comments: [employer] Gender identity (if verbalized by the patient): Female Spiritual care concerns: No <Eli Castillo PA-C - Last Filed: 09/16/24 11:40> Exam Narrative: GENERAL: Well-appearing, in no acute distress, pleasant cooperative HEAD: Normocephalic, atraumatic. EYES: PERRLA and EOMI. ENT: grossly unremarkable NECK: Supple. CHEST: Clear to auscultation. No respiratory distress. HEART: tachycardic, regular rhythm ABDOMEN: Soft, nontender, nondistended EXTREMITIES: Normal range of motion. No edema. SKIN: Warm, dry, no rash. NEURO: Alert and oriented x3. PSYCH: Normal mood and affect. <Kellen Garcia MD - Last Filed: 09/19/24 16:55> Course Vital Signs Vital signs: Vital Signs Temperature 97.6 F 09/15/24 12:59 Pulse Rate 101 H 09/15/24 12:59 Respiratory Rate 16 09/15/24 12:59 Blood Pressure 103/69 09/15/24 12:59 Pulse Oximetry 100 09/15/24 12:59 Temperature 97.6 F 09/15/24 12:59 Pulse Rate 87 09/15/24 21:49 Respiratory Rate 15 09/15/24 21:49 Blood Pressure 124/82 09/15/24 21:49 Pulse Oximetry 100 09/15/24 21:49 Oxygen Delivery Room Air 09/15/24 18:16 <Eli Castillo PA-C - Last Filed: 09/16/24 11:40> Vital Signs Temperature 97.6 F 09/15/24 12:59 Pulse Rate 101 H 09/15/24 12:59 Respiratory Rate 16 09/15/24 12:59 Blood Pressure 103/69 09/15/24 12:59 Pulse Oximetry 100 09/15/24 12:59 Temperature 97.6 F 09/15/24 12:59 Pulse Rate 87 09/15/24 21:49 Respiratory Rate 15 09/15/24 21:49 Blood Pressure 124/82 09/15/24 21:49 Pulse Oximetry 100 09/15/24 21:49 Oxygen Delivery Room Air 09/15/24 18:16 <Kellen Garcia MD - Last Filed: 09/19/24 16:55> MDM - Chest Pain MDM Narrative Medical decision making narrative: 49-year-old female presenting with pleuritic chest pain. Patient tachycardic upon my evaluation. Remainder of her vitals are within normal limits. EKG per my interpretation shows normal sinus rhythm, no ST elevations or depressions. Blood work is unremarkable. Troponin is undetectable x2. CTA of the chest shows no pulmonary embolus but she does have a right lower lobe pneumonia. Will start her on azithromycin. Discussed appropriate supportive care. Recommend close PCP follow-up. Appropriate return precautions given. Discharged in stable condition. <Kellen Garcia MD - Last Filed: 09/19/24 16:55> Differential Diagnosis Differential diagnosis: Likely pneumothorax, atypical chest pain, costochondritis, chest pain and other ( Pneumonia, pulmonary embolus) <Kellen Garcia MD - Last Filed: 09/19/24 16:55> Medical Records Data Attestation: I reviewed the patient's medical records. <Kellen Garcia MD - Last Filed: 09/19/24 16:55> Lab Data Attestation: I reviewed the patient's lab results. <Kellen Garcia MD - Last Filed: 09/19/24 16:55> Result diagrams: 09/15/24 12:57 09/15/24 12:57 <Eli Castillo PA-C - Last Filed: 09/16/24 11:40> Labs: Lab Results 09/15/24 09/15/24 Range/Units 12:57 18:05 WBC 6.8 (4.5-10.0) K/mm3 RBC 4.44 (4.2-5.4) M/mm3 Hgb 14.1 (12.0-15.0) g/dL Hct 40.6 (37.0-47.0) % MCV 91.4 (80-100) fl MCH 31.8 (26-34) pg MCHC 34.7 (32-36) g/dl RDW 11.9 (11.5-14.5) % Plt Count 365 (150-375) k/mm3 MPV 9.1 (7.4-10.4) fl Immature Gran % (Auto) 0.3 (0-0.5) % Neut % (Auto) 63.4 (45.5-73.1) % Lymph % (Auto) 27.0 (18.3-44.2) % [place] % (Auto) 5.4 (2.6-8.5) % Eos % (Auto) 3.5 (0-4.4) % Baso % (Auto) 0.4 (0.2-1.2) % Lymph # (Auto) 1.83 (0.9-3.2) K/mm3 [place] # (Auto) 0.4 (0.1-0.6) K/mm3 Eos # (Auto) 0.2 (0-0.3) K/mm3 Baso # (Auto) 0.0 (0.0-0.1) K/mm3 Abs Immat Gran (auto) 0.02 (0.00-0.031) K/mm3 Absolute Neuts (auto) 4.3 (1.3-6.7) K/mm3 Absolute Nucleated RBC 0.000 (0.0-0.012) K/mm3 Nucleated RBC % 0.0 (0.0-0.2) % PT 12.9 (11.1-14.7) Seconds INR 1.0 APTT 30.0 (22.3-36.8) Seconds Sodium 137 (137-145) mmol/L Potassium 4.3 (3.4-5.0) mmol/L Chloride 102 (98-107) mmol/L Carbon Dioxide 29 (22-30) mmol/L Anion Gap 6 (4-12) mmol/L BUN 12 (7-17) mg/dL Creatinine 0.80 (0.7-1.0) mg/dL Estim Creat Clear Calc Not Reportable Estimated GFR > 60 (59 - ) Glucose 86 (65-110) mg/dL Calcium 9.5 (8.4-10.2) mg/dL Total Bilirubin 0.5 (0.2-1.3) mg/dL AST 20 (14-36) U/L ALT 13 (6-35) U/L Alkaline Phosphatase 63 (38-126) U/L Troponin I < 0.012 < 0.012 (0.000-0.034) ng/mL Total Protein 8.0 (6.3-8.2) g/dL Albumin 4.4 (3.5-5.1) g/dL Lipase 107 (23-300) U/L <Eli Castillo PA-C - Last Filed: 09/16/24 11:40> Lab Results 09/15/24 09/15/24 Range/Units 12:57 18:05 WBC 6.8 (4.5-10.0) K/mm3 RBC 4.44 (4.2-5.4) M/mm3 Hgb 14.1 (12.0-15.0) g/dL Hct 40.6 (37.0-47.0) % MCV 91.4 (80-100) fl MCH 31.8 (26-34) pg MCHC 34.7 (32-36) g/dl RDW 11.9 (11.5-14.5) % Plt Count 365 (150-375) k/mm3 MPV 9.1 (7.4-10.4) fl Immature Gran % (Auto) 0.3 (0-0.5) % Neut % (Auto) 63.4 (45.5-73.1) % Lymph % (Auto) 27.0 (18.3-44.2) % [place] % (Auto) 5.4 (2.6-8.5) % Eos % (Auto) 3.5 (0-4.4) % Baso % (Auto) 0.4 (0.2-1.2) % Lymph # (Auto) 1.83 (0.9-3.2) K/mm3 [place] # (Auto) 0.4 (0.1-0.6) K/mm3 Eos # (Auto) 0.2 (0-0.3) K/mm3 Baso # (Auto) 0.0 (0.0-0.1) K/mm3 Abs Immat Gran (auto) 0.02 (0.00-0.031) K/mm3 Absolute Neuts (auto) 4.3 (1.3-6.7) K/mm3 Absolute Nucleated RBC 0.000 (0.0-0.012) K/mm3 Nucleated RBC % 0.0 (0.0-0.2) % PT 12.9 (11.1-14.7) Seconds INR 1.0 APTT 30.0 (22.3-36.8) Seconds Sodium 137 (137-145) mmol/L Potassium 4.3 (3.4-5.0) mmol/L Chloride 102 (98-107) mmol/L Carbon Dioxide 29 (22-30) mmol/L Anion Gap 6 (4-12) mmol/L BUN 12 (7-17) mg/dL Creatinine 0.80 (0.7-1.0) mg/dL Estim Creat Clear Calc Not Reportable Estimated GFR > 60 (59 - ) Glucose 86 (65-110) mg/dL Calcium 9.5 (8.4-10.2) mg/dL Total Bilirubin 0.5 (0.2-1.3) mg/dL AST 20 (14-36) U/L ALT 13 (6-35) U/L Alkaline Phosphatase 63 (38-126) U/L Troponin I < 0.012 < 0.012 (0.000-0.034) ng/mL Total Protein 8.0 (6.3-8.2) g/dL Albumin 4.4 (3.5-5.1) g/dL Lipase 107 (23-300) U/L <Kellen Garcia MD - Last Filed: 09/19/24 16:55> Imaging Data Radiologist's impression: ITS Impressions Chest X-Ray 09/15/24 13:38 IMPRESSION: 1. No acute cardiopulmonary disease. Chest CTA 09/15/24 20:27 IMPRESSION: 1. Pneumonia in the superior segment of the right lower lobe. Follow-up to resolution is advised. <Kellen Garcia MD - Last Filed: 09/19/24 16:55> Critical Care Time Critical Care Time Critical Care Time: No <Kellen Garcia MD - Last Filed: 09/19/24 16:55> Discharge Plan Discharge Clinical Impression: Pneumonia, Chest pain, pleuritic <Eli Castillo PA-C - Last Filed: 09/16/24 11:40> Patient Disposition: Home, Self-Care <Eli Castillo PA-C - Last Filed: 09/16/24 11:40> Condition: Stable <Eli Castillo PA-C - Last Filed: 09/16/24 11:40> Instructions: Antibiotic Form, Pneumonia (ED) <MARY Wright Filed: 09/16/24 11:40> Additional Instructions: Your workup today shows pneumonia in your right lower lung. We have started you on antibiotics for this, please complete them as prescribed. We recommend using Tylenol and ibuprofen for pain control. Please alternate between the two so that you do not overdo either one. The remainder of your work-up is normal. Please follow-up closely with your PCP. If your symptoms worsen or other concerning symptoms arise, please return to the ER. <Eli Castillo PA-C - Last Filed: 09/16/24 11:40> Prescriptions: New azithromycin 250 mg tablet See Rx Instructions PO .COMPLEX Qty: 6 0RF Rx Instructions: For 250 mg dose pack: take 500 mg today (day 1), then 250 mg for 4 days (days 2-5) No Action prasterone (dhea) [DHEA] 25 mg Tablet 0 mg PO DAILY meclizine 12.5 mg tablet 12.5 mg PO TID PRN (Reason: dizziness) Qty: 7 0RF eszopiclone 3 mg tablet 3 mg PO DAILY Qty: 90 1RF progesterone micronized 200 mg capsule 300 mg PO QHS topiramate 50 mg tablet 50 mg PO BID naltrexone 1.5 mg capsule PO lorazepam 1 mg tablet 1 mg PO BID PRN (Reason: anxiety) Qty: 60 5RF levothyroxine [Synthroid] 25 mcg tablet 25 mcg PO DAILY Qty: 90 3RF baclofen 10 mg tablet 10 mg PO BID Qty: 60 3RF Zyrtec 10 mg capsule 10 mg PO DAILY Qty: 30 2RF trazodone 50 mg tablet 50 mg PO QHS Qty: 90 0RF <Eli Castillo PA-C - Last Filed: 09/16/24 11:40> Follow-up/Referrals: Luigi Damon MD [Primary Care Provider] - <Eli Castillo PA-C - Last Filed: 09/16/24 11:40>
[2024-09-15 12:59] VITALS: BP 103/69; PULSE 101; RESP 16; TEMP 36.4; O2SAT 100
[2024-09-15 13:07] LABS: Basophils Percent Auto 0.4 % (0.2-1.2); Eosinophils Absolute Auto 0.2 K/mm3 (0-0.3); Eosinophils Percent Auto 3.5 % (0-4.4); Hematocrit 40.6 % (37.0-47.0); Hemoglobin 14.1 g/dL (12.0-15.0); Immature Granulocyte Absolute 0.02 K/mm3 (0.00-0.031); Immature Granulocyte Percent A 0.3 % (0-0.5); Lymphocytes Absolute Auto 1.83 K/mm3 (0.9-3.2); Mean Corpuscular HGB Conc 34.7 g/dl (32-36); Mean Corpuscular Hemoglobin 31.8 pg (26-34); Mean Corpuscular Volume 91.4 fl (80-100); Mean Platelet Volume 9.1 fl (7.4-10.4); Monocytes Absolute Auto 0.4 K/mm3 (0.1-0.6); Monocytes Percent Auto 5.4 % (2.6-8.5); Neutrophils Absolute Auto 4.3 K/mm3 (1.3-6.7); Neutrophils Percent Auto 63.4 % (45.5-73.1); Platelet Count Result 365 k/mm3 (150-375); Red Blood Count 4.44 M/mm3 (4.2-5.4); Red Cell Distribution Width 11.9 % (11.5-14.5); White Blood Count 6.8 K/mm3 (4.5-10.0)
[2024-09-15 13:19] LABS: Prothrombin Time 12.9 Seconds (11.1-14.7)
[2024-09-15 13:25] LABS: Alanine Aminotransferase 13 U/L (6-35); Albumin Level 4.4 g/dL (3.5-5.1); Alkaline Phosphatase 63 U/L (38-126); Anion Gap 6 mmol/L (4-12); Aspartate Amino Transferase 20 U/L (14-36); Bilirubin,Total 0.5 mg/dL (0.2-1.3); Blood Urea Nitrogen 12 mg/dL (7-17); Calcium 9.5 mg/dL (8.4-10.2); Carbon Dioxide 29 mmol/L (22-30); Chloride 102 mmol/L (98-107); Estimated Glomerular Filt Rate > 60; Glucose 86 mg/dL (65-110); Lipase 107 U/L (23-300); Potassium 4.3 mmol/L (3.4-5.0); Sodium 137 mmol/L (137-145)
[2024-09-15 13:29] LABS: Troponin I < 0.012 ng/mL (0.000-0.034)
--- NOTE | 2024-09-15 17:57 | ECG_ITS ---
Test Date: 2024-09-15 17:57:44 Measurements Intervals [place] Rate: 91 P: 40 MI: 135 QRS: 48 QRSD: 90 T: 41 QT: 341 QTc: 420 Interpretive Statements SINUS RHYTHM NORMAL ECG Compared to ECG 09/15/2024 12:52:11 No significant changes Electronically Signed On 09-16-2024 08:09:26 CDT by Mark Centeno D.O.
[2024-09-15 18:18] VITALS: PULSE 96
[2024-09-15] MEDS: ASPIRIN 81 MG CHEWABLE TABLET 324 MG PO (18:26)
[2024-09-15 18:31] LABS: Troponin I < 0.012 ng/mL (0.000-0.034)
[2024-09-15] MEDS: KETOROLAC 15 MG/ML VIAL (*BKC) IV PUSH (19:23)
[2024-09-15] MEDS: MORPHINE SULFATE (*CRX) 4 MG/ML INJ IV PUSH (19:24)
[2024-09-15] MEDS: SODIUM CHLORIDE 0.9% IV 1,000 ML 999 ML IV CONT (19:24)
[2024-09-15 19:27] VITALS: BP 114/52; PULSE 101; RESP 15; O2SAT 100
[2024-09-15] MEDS: AZITHROMYCIN 250 MG TABLET 500 MG PO (21:45)
[2024-09-15 21:49] VITALS: BP 124/82; PULSE 87; RESP 15; O2SAT 100
== END 2024-09-15 21:50 | disposition home or self-care (01) ==
PROVIDERS: Emergency Medicine; Emergency Provider Emergency Medicine; PCP Family Medicine
DX: J18.9 Pneumonia, unspecified organism (principal); R07.81 Pleurodynia; F41.8 Other specified anxiety disorders; E06.3 Autoimmune thyroiditis
CPT/HCPCS: 36415; 71046; 71275; 80053; 83690; 84484; 85025; 85610; 85730; 93005; 96361; 96374; 96375; 99284; A9270; J1885; J2270; J7030; Q9967

== ENCOUNTER 2024-10-10 09:46 | Outpatient (CLI) | payer OTHER, SELFPAY ==
--- NOTE | ~2024-10-10 | XR_ITS ---
XR chest 2V Ordering provider: Joan Kirby NP History: 49 years Female with . follow up CXR. dx pneumonia x 3 wks ago. no improvement . Comparison: None. FINDINGS: MEDIASTINUM: The cardiac silhouette is not enlarged. LUNGS: No , effusions or pneumothorax. Prominent bronchovascular markings are seen in both para cardi ac areas with cystic like changes seen in the lateral view in the area of the lingula and middle lobe which is probably resolving pneumonia. Follow-up advised. OTHER: No free air under the diaphragm. IMPRESSION: Possible residual pneumonia in the area of the lingula. Reviewed, dictated and finalized at location A. ADOPTION COORDINATOR
== END 2024-10-10 09:47 | disposition home or self-care (01) ==
PROVIDERS: PCP Family Medicine
DX: J18.9 Pneumonia, unspecified organism (principal)
CPT/HCPCS: 71046

== ENCOUNTER 2024-10-26 12:44 | Outpatient (CLI) | payer OTHER, SELFPAY ==
--- NOTE | ~2024-10-26 | XR_ITS ---
EXAMINATION: XR chest 2V 10/26/2024 13:09 INDICATION: Follow-up pneumonia PROCEDURE: 2 view chest COMPARISON: 10/10/2024 FINDINGS: The lungs are clear. Interval resolution of lingular infiltrates. The cardiomediastinal penny [place]ou[place] is within normal limits. There are no pleural effusions. There is no pneumothorax suspected . IMPRESSION: 1: NO ACUTE CARDIOPULMONARY DISEASE. Reviewed, dictated and finalized at location B. RVISOR PIPE JOINTS
== END 2024-10-26 12:45 | disposition home or self-care (01) ==
LOC: ANHIMG 12:48
PROVIDERS: PCP Family Medicine
DX: J18.9 Pneumonia, unspecified organism (principal)
CPT/HCPCS: 71046

== ENCOUNTER 2024-10-31 15:15 | Outpatient (CLI) | payer OTHER, SELFPAY ==
[2024-10-31 15:43] LABS: Basophils Percent Auto 0.5 % (0.2-1.2); Eosinophils Absolute Auto 0.2 K/mm3 (0-0.3); Eosinophils Percent Auto 2.6 % (0-4.4); Hematocrit 41.2 % (37.0-47.0); Hemoglobin 14.3 g/dL (12.0-15.0); Immature Granulocyte Absolute 0.01 K/mm3 (0.00-0.031); Immature Granulocyte Percent A 0.1 % (0-0.5); Lymphocytes Absolute Auto 2.25 K/mm3 (0.9-3.2); Lymphocytes Percent Auto 30.4 % (18.3-44.2); Mean Corpuscular HGB Conc 34.7 g/dl (32-36); Mean Corpuscular Hemoglobin 31.3 pg (26-34); Mean Corpuscular Volume 90.2 fl (80-100); Mean Platelet Volume 8.9 fl (7.4-10.4); Monocytes Absolute Auto 0.4 K/mm3 (0.1-0.6); Monocytes Percent Auto 5.7 % (2.6-8.5); Neutrophils Absolute Auto 4.5 K/mm3 (1.3-6.7); Neutrophils Percent Auto 60.7 % (45.5-73.1); Platelet Count Result 348 k/mm3 (150-375); Red Blood Count 4.57 M/mm3 (4.2-5.4); Red Cell Distribution Width 12.3 % (11.5-14.5); White Blood Count 7.4 K/mm3 (4.5-10.0)
[2024-10-31 15:52] LABS: Alanine Aminotransferase 13 U/L (6-35); Albumin Level 4.5 g/dL (3.5-5.1); Alkaline Phosphatase 73 U/L (38-126); Anion Gap 4 mmol/L (4-12); Aspartate Amino Transferase 25 U/L (14-36); Bilirubin,Total 0.5 mg/dL (0.2-1.3); Blood Urea Nitrogen 15 mg/dL (7-17); Calcium 9.4 mg/dL (8.4-10.2); Carbon Dioxide 29 mmol/L (22-30); Chloride 104 mmol/L (98-107); Estimated Glomerular Filt Rate > 60; Glucose 77 mg/dL (65-110); Sodium 137 mmol/L (137-145)
[2024-10-31 16:17] LABS: Erythrocyte Sedimentation Rate 20 mm/hr (0-20)
[2024-11-02 06:08] LABS: CRP, High Sensitivity 2.4 mg/L
== END 2024-10-31 15:16 | disposition home or self-care (01) ==
PROVIDERS: PCP Family Medicine; Visit Provider Family Medicine
DX: G44.89 Other headache syndrome (principal); M35.9 Systemic involvement of connective tissue, unspecified; M54.81 Occipital neuralgia; M79.10 Myalgia, unspecified site; R50.9 Fever, unspecified
CPT/HCPCS: 36415; 80053; 85025; 85652; 86141

== ENCOUNTER 2024-11-12 05:40 | Inpatient (IN) | payer OTHER, SELFPAY ==
[2024-11-12] VITALS (18 sets, daily range): BP systolic 96–140; BP diastolic 48–98; PULSE 83–101; RESP 11–20; TEMP 36.2–36.6; O2SAT 96–100
--- NOTE | ~2024-11-12 | CT_ITS ---
EXAMINATION: CT abdomen pelvis w con DATE: 11/12/2024 08:13 INDICATION: Epigastric and right upper quadrant abdominal pain. TECHNIQUE: Computed tomography (CT) of the abdomen and pelvis was performed with 100 mL Omnipaque-350 intravenous contrast. Automated exposure control and iterative reconstruction technique were employe d. The dose-length product was 251.22 mGy-cm. COMPARISON: None FINDINGS: Minimal dependent atelectasis in the lower lobes. Heart size is normal. No pericardial or pleural eff usion. Bilateral breast implants. There is edematous wall thickening of the gallbladder suspicious fo r acute cholecystitis. Liver, spleen, pancreas, bilateral adrenal glands and kidneys are normal. Mauricio ls including appendix are normal. Bladder, uterus and bilateral adnexa are unremarkable. No free intr aperitoneal gas or fluid. No pathologically enlarged abdominal or pelvic lymphadenopathy. Moderate lo wer thoracic spondylosis. IMPRESSION: 1. Edematous wall thickening of the gallbladder suspicious for acute cholecystitis. Reviewed, dictated and finalized at location A. X ADMINISTRATOR IMPRESSION: 1. Edematous wall thickening of the gallbladder suspicious for acute cholecysti tis.
[2024-11-12 06:03] LABS: Basophils Percent Auto 0.4 % (0.2-1.2); Eosinophils Absolute Auto 0.1 K/mm3 (0-0.3); Hemoglobin 13.8 g/dL (12.0-15.0); Immature Granulocyte Absolute 0.04 K/mm3 (0.00-0.031); Immature Granulocyte Percent A 0.4 % (0-0.5); Lymphocytes Absolute Auto 2.04 K/mm3 (0.9-3.2); Lymphocytes Percent Auto 19.1 % (18.3-44.2); Mean Corpuscular HGB Conc 34.5 g/dl (32-36); Mean Corpuscular Volume 89.9 fl (80-100); Mean Platelet Volume 8.7 fl (7.4-10.4); Monocytes Absolute Auto 0.5 K/mm3 (0.1-0.6); Monocytes Percent Auto 4.3 % (2.6-8.5); Neutrophils Percent Auto 74.8 % (45.5-73.1); Platelet Count Result 304 k/mm3 (150-375); Red Blood Count 4.45 M/mm3 (4.2-5.4); Red Cell Distribution Width 12.4 % (11.5-14.5); White Blood Count 10.7 K/mm3 (4.5-10.0)
[2024-11-12 06:12] LABS: Alanine Aminotransferase 31 U/L (6-35); Alkaline Phosphatase 73 U/L (38-126); Anion Gap 1 mmol/L (4-12); Aspartate Amino Transferase 76 U/L (14-36); Bilirubin,Total 0.6 mg/dL (0.2-1.3); Blood Urea Nitrogen 14 mg/dL (7-17); Carbon Dioxide 28 mmol/L (22-30); Chloride 108 mmol/L (98-107); Estimated CRCL calculation 68 ml/min; Estimated Glomerular Filt Rate > 60; Glucose 82 mg/dL (65-110); Lipase 129 U/L (23-300); Potassium 3.4 mmol/L (3.4-5.0); Sodium 137 mmol/L (137-145)
[2024-11-12 06:24] LABS: BEDSIDEPREGUCG Negative (Negative)
[2024-11-12 06:31] LABS: Add Urine Microscopic? YES; Appearance Urine Cloudy (Clear); Bacteria Urine None Seen /hpf; Bilirubin Urine Negative (Negative); Blood Urine Negative (Negative); Color Urine Yellow (Yellow); Glucose Urine UA Negative (Negative); Ketones Urine Negative (Negative); Leukocyte Esterase Ur Trace LEU/UL (Negative); Nitrate Urine Negative (Negative); Non Pathogenic Casts 0-2; Protein Urine 1+ mg/dL (Negative); RBC Urine 0-2 /hpf (0-2); Specific Grav Ur 1.018 (1.001-1.035); Squamous Epithelial Cell Urine Few /hpf (Few); Urobilinogen Urine 0.2 mg/dL (<2.0); pH Urine >=9.0 (5.0-9.0)
[2024-11-12] MEDS: SODIUM CHLORIDE 0.9% IV 1,000 ML 999 ML IV CONT (08:07)
[2024-11-12] MEDS: HYDROmorphone HCL INJ (*CRX) 1 MG/ML SYR IV PUSH ×4 (08:07→21:46)
--- NOTE | 2024-11-12 09:40 | ED.GENADULT ---
HPI - General Adult General Chief complaint: Abdominal Pain Stated complaint: RUQ pain Time Seen by Provider: 11/12/24 07:01 History of Present Illness HPI narrative: This is a 49-year-old female presenting with chief of right upper quadrant. Patient says the pain started last night 7:00 p.m.. Stabbing pain that radiates to her back. It is constant and severe with no exacerbating relieving symptoms. She has never had pain like this in past. She has had multiple episodes of nausea and vomiting. One episode of loose stools. She denies fevers chills chest pain or shortness of breath. She still has her gallbladder. Related Data Home Medications ?Medication ?Instructions ?Recorded ?Confirmed ?Last Taken ?Type prasterone (dhea) 25 mg tablet 0 mg PO DAILY 08/14/23 10/31/24 Unknown History (DHEA) naltrexone 1.5 mg capsule mg PO 03/08/24 10/31/24 Unknown History progesterone micronized 200 mg 300 mg PO QHS 03/08/24 10/31/24 Unknown History capsule topiramate 50 mg tablet 50 mg PO BID 03/08/24 10/31/24 Unknown History Allergies Allergy/AdvReac Type Severity Reaction Status Date / Time diphenhydramine (From AdvReac Hypertensio Verified 10/31/24 13:39 Benadryl) n fexofenadine AdvReac Other Verified 10/31/24 13:39 PMFSH Past Medical History Medical History BMI 25.0-25.9,adult Overactive bladder Sinus problem Perimenopausal Depression 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 Other Neuromuscular scoliosis, multiple sites in spine Social History Social History Smoking status: Never smoker Second hand tobacco smoke exposure: No Alcohol intake: never Substance use: never Substance use type: does not use Do You Feel Safe in your Home?: Yes Lack of Transportation: No Lack of Food: Never True Current Housing: I Have Housing Concerned About Future Housing: No Difficulty Paying Gas/Electric Bills: No Difficulty Paying for Meds: No Currently Unemployed: No Education: Bachelor's Degree Difficulty w/ Childcare or Family Care: No Living arrangements: with family Occupation/Education: retired Additional occupation/education comments: [employer] Gender identity (if verbalized by the patient): Female Spiritual care concerns: No Exam Narrative: APPEARANCE: No apparent distress. Head: atraumatic. EYES: EOMI, NOSE: Atraumatic NECK: Trachea midline RESPIRATORY: No increased rate of breathing, clear to auscultation CARDIOVASCULAR: RRR, ABDOMINAL: Tenderness to palpation in the epigastric area with voluntary guarding, no CVA tenderness MUSCULOSKELETAl: No obvious deformities NEURO: Alert. Moving 4/4 extremities SKIN:: Warm, dry. Normal color PSYCHIATRIC: Normal affect Course Vital Signs Vital signs: Vital Signs Temperature 97.9 F 11/12/24 05:38 Pulse Rate 100 11/12/24 05:38 Respiratory Rate 18 11/12/24 05:38 Blood Pressure 114/48 L 11/12/24 05:38 Pulse Oximetry 100 11/12/24 05:38 Oxygen Delivery Room Air 11/12/24 05:38 Temperature 97.9 F 11/12/24 05:38 Pulse Rate 96 11/12/24 06:04 Respiratory Rate 18 11/12/24 06:04 Blood Pressure 114/48 L 11/12/24 06:04 Pulse Oximetry 100 11/12/24 06:04 Oxygen Delivery Room Air 11/12/24 05:38 Medical Decision Making [facility] Narrative Medical decision making narrative: -Course: 49 year female presenting with right upper quadrant abdominal pain. CT shows edema and thickening gallbladder wall. White count is 10.7. AST slightly elevated, normal bili and ALT. Patient received fluid resuscitation and pain medication is [employer] to palpation. General surgery has been consulted for acute cholecystitis. Case discussed with Dr. Leonard who will take her on his service. PRN pain medications placed in EMR in consultation w/ surgery. Admitted for further management. -DDX includes but is not limited to: Cholecystitis, Gastritis/PUD, Pancreatitis -Co-morbidities complicating care: Anxiety, migraines, back spasms -Independent interpretation of studies: labs and imaging reviewed -Discussion of Management/Consultants: Alon Leonard -Interventions: Dilaudid 1 mg -> .5 mg, Toradol 15mg, 2 L normal saline, Zosyn -Shared decision making / Disposition:Admitted. Vital Signs Vital Signs: Vital Signs Temperature 97.9 F 11/12/24 05:38 Pulse Rate 100 11/12/24 05:38 Respiratory Rate 18 11/12/24 05:38 Blood Pressure 114/48 L 11/12/24 05:38 Pulse Oximetry 100 11/12/24 05:38 Oxygen Delivery Room Air 11/12/24 05:38 Temperature 97.9 F 11/12/24 05:38 Pulse Rate 96 11/12/24 06:04 Respiratory Rate 18 11/12/24 06:04 Blood Pressure 114/48 L 11/12/24 06:04 Pulse Oximetry 100 11/12/24 06:04 Oxygen Delivery Room Air 11/12/24 05:38 Lab Data 11/12/24 05:57 11/12/24 05:57 Labs: Lab Results 11/12/24 11/12/24 11/12/24 Range/Units 05:57 06:19 06:22 WBC 10.7 H (4.5-10.0) K/mm3 RBC 4.45 (4.2-5.4) M/mm3 Hgb 13.8 (12.0-15.0) g/dL Hct 40.0 (37.0-47.0) % MCV 89.9 (80-100) fl MCH 31.0 (26-34) pg MCHC 34.5 (32-36) g/dl RDW 12.4 (11.5-14.5) % Plt Count 304 (150-375) k/mm3 MPV 8.7 (7.4-10.4) fl Immature Gran % (Auto) 0.4 (0-0.5) % Neut % (Auto) 74.8 H (45.5-73.1) % Lymph % (Auto) 19.1 (18.3-44.2) % [place] % (Auto) 4.3 (2.6-8.5) % Eos % (Auto) 1.0 (0-4.4) % Baso % (Auto) 0.4 (0.2-1.2) % Lymph # (Auto) 2.04 (0.9-3.2) K/mm3 [place] # (Auto) 0.5 (0.1-0.6) K/mm3 Eos # (Auto) 0.1 (0-0.3) K/mm3 Baso # (Auto) 0.0 (0.0-0.1) K/mm3 Abs Immat Gran (auto) 0.04 H (0.00-0.031) K/mm3 Absolute Neuts (auto) 8.0 H (1.3-6.7) K/mm3 Absolute Nucleated RBC 0.000 (0.0-0.012) K/mm3 Nucleated RBC % 0.0 (0.0-0.2) % Sodium 137 (137-145) mmol/L Potassium 3.4 (3.4-5.0) mmol/L Chloride 108 H (98-107) mmol/L Carbon Dioxide 28 (22-30) mmol/L Anion Gap 1 L (4-12) mmol/L BUN 14 (7-17) mg/dL Creatinine 0.80 (0.7-1.0) mg/dL Estim Creat Clear Calc 68 ml/min Estimated GFR > 60 (59 - ) Glucose 82 (65-110) mg/dL Calcium 9.0 (8.4-10.2) mg/dL Total Bilirubin 0.6 (0.2-1.3) mg/dL AST 76 H (14-36) U/L ALT 31 (6-35) U/L Alkaline Phosphatase 73 (38-126) U/L Total Protein 7.0 (6.3-8.2) g/dL Albumin 4.0 (3.5-5.1) g/dL Lipase 129 (23-300) U/L Urine Color Yellow (Yellow) Urine Appearance Cloudy H (Clear) Urine pH >=9.0 H (5.0-9.0) Ur Specific [place] 1.018 (1.001-1.035) Urine Protein 1+ H (Negative) mg/dL Urine Glucose (UA) Negative (Negative) mg/dL Urine Ketones Negative (Negative) mg/dL Ur Blood (Man) Negative (Negative) Urine Nitrate Negative (Negative) Urine Bilirubin Negative (Negative) Urine Urobilinogen 0.2 (<2.0) mg/dL Leukocyte Esterase Rfl Trace H (Negative) MAGEN/UL Urine RBC 0-2 (0-2) /hpf Urine WBC 11-20 H (0-3) /hpf Ur Squamous Epith Cells Few (Few) /hpf Urine Bacteria None seen /hpf Urine Casts 0-2 POC Urine HCG, Qual Negative (Negative) Influenza A (RT-PCR) (Negative) Influenza B (RT-PCR) (Negative) RSV (RT-PCR) (Negative) SARS-CoV-2 RNA (RT-PCR) (Negative) 11/12/24 Range/Units 08:12 WBC (4.5-10.0) K/mm3 RBC (4.2-5.4) M/mm3 Hgb (12.0-15.0) g/dL Hct (37.0-47.0) % MCV (80-100) fl MCH (26-34) pg MCHC (32-36) g/dl RDW (11.5-14.5) % Plt Count (150-375) k/mm3 MPV (7.4-10.4) fl Immature Gran % (Auto) (0-0.5) % Neut % (Auto) (45.5-73.1) % Lymph % (Auto) (18.3-44.2) % [place] % (Auto) (2.6-8.5) % Eos % (Auto) (0-4.4) % Baso % (Auto) (0.2-1.2) % Lymph # (Auto) (0.9-3.2) K/mm3 [place] # (Auto) (0.1-0.6) K/mm3 Eos # (Auto) (0-0.3) K/mm3 Baso # (Auto) (0.0-0.1) K/mm3 Abs Immat Gran (auto) (0.00-0.031) K/mm3 Absolute Neuts (auto) (1.3-6.7) K/mm3 Absolute Nucleated RBC (0.0-0.012) K/mm3 Nucleated RBC % (0.0-0.2) % Sodium (137-145) mmol/L Potassium (3.4-5.0) mmol/L Chloride (98-107) mmol/L Carbon Dioxide (22-30) mmol/L Anion Gap (4-12) mmol/L BUN (7-17) mg/dL Creatinine (0.7-1.0) mg/dL Estim Creat Clear Calc ml/min Estimated GFR (59 - ) Glucose (65-110) mg/dL Calcium (8.4-10.2) mg/dL Total Bilirubin (0.2-1.3) mg/dL AST (14-36) U/L ALT (6-35) U/L Alkaline Phosphatase (38-126) U/L Total Protein (6.3-8.2) g/dL Albumin (3.5-5.1) g/dL Lipase (23-300) U/L Urine Color (Yellow) Urine Appearance (Clear) Urine pH (5.0-9.0) Ur Specific [place] (1.001-1.035) Urine Protein (Negative) mg/dL Urine Glucose (UA) (Negative) mg/dL Urine Ketones (Negative) mg/dL Ur Blood (Man) (Negative) Urine Nitrate (Negative) Urine Bilirubin (Negative) Urine Urobilinogen (<2.0) mg/dL Leukocyte Esterase Rfl (Negative) MAGEN/UL Urine RBC (0-2) /hpf Urine WBC (0-3) /hpf Ur Squamous Epith Cells (Few) /hpf Urine Bacteria /hpf Urine Casts POC Urine HCG, Qual (Negative) Influenza A (RT-PCR) Negative (Negative) Influenza B (RT-PCR) Negative (Negative) RSV (RT-PCR) Negative (Negative) SARS-CoV-2 RNA (RT-PCR) Negative (Negative) Discharge Plan Discharge Clinical Impression: Abdominal pain, RUQ Patient Disposition: Still a Patient Condition: Stable Instructions: Antibiotic Form Patient Language: Albanian Prescriptions: No Action prasterone (dhea) [DHEA] 25 mg Tablet 0 mg PO DAILY progesterone micronized 200 mg capsule 300 mg PO QHS topiramate 50 mg tablet 50 mg PO BID naltrexone 1.5 mg capsule PO lorazepam 1 mg tablet 1 mg PO BID PRN (Reason: anxiety) Qty: 60 5RF levothyroxine [Synthroid] 25 mcg tablet 25 mcg PO DAILY Qty: 90 3RF baclofen 10 mg tablet 10 mg PO BID Qty: 60 3RF Zyrtec 10 mg capsule 10 mg PO DAILY Qty: 30 2RF trazodone 50 mg tablet 50 mg PO QHS Qty: 90 0RF eszopiclone 3 mg tablet 3 mg PO DAILY Qty: 90 1RF benzonatate 100 mg capsule 100 mg PO TID PRN (Reason: cough) Qty: 30 0RF Follow-up/Referrals: Luigi Damon MD [Primary Care Provider] -
[2024-11-12 09:42] LABS: Influenza A QL RT-PCR Negative (Negative); Influenza B QL RT-PCR Negative (Negative); RSV RNA, RT-PCR Negative (Negative); SARS-CoV-2 RNA PCR Negative (Negative)
[2024-11-12] MEDS: HYDROmorphone HCL INJ (*CRX) 1 MG/ML SYR 0.5 MG IV PUSH (10:16)
[2024-11-12] MEDS: PIPERACILLN/TAZ 3.375GM/NS50ML 3.375 GM/50 ML BAG IVPB (10:17)
[2024-11-12] MEDS: SODIUM CHLORIDE 0.9% IV 2,000 ML 999 ML IV CONT (10:17)
[2024-11-12] MEDS: KETOROLAC 15 MG/ML VIAL (*BKC) IV PUSH (10:45)
--- NOTE | 2024-11-12 11:30 | ADMGEN ---
This patient, Aliya Ortega, was admitted to Medical Room 341-01. Report received from LAXMI Hogue. Patient/family oriented to hospital policies and general routines including ID bracelet, bed and alarms, visiting hours, pain management, procedures, bathroom and other care routines, personal items, smoking policy, room service/diet, and visiting hours. Information on how to activate the Rapid Response Team has been discussed. Patient/Family are encouraged to report perceived risks to care and to ask questions if they do not understand what they are told or what they should do.
[2024-11-12] MEDS: LACTATED RINGERS 1,000 ML 125 ML IV CONT (12:15)
[2024-11-12] MEDS: HYDROmorphone HCL INJ (*CRX) 1 MG/ML SYR 2 MG IV PUSH (12:47)
--- NOTE | 2024-11-12 13:20 | PM.CNGS ---
Assessment and Plan Assessment and plan (1) Acute cholecystitis: Code(s): K81.0 - Acute cholecystitis Status: Acute Assessment and Plan: Patient with persistent severe epigastric abdominal pain and imaging consistent with acute cholecystitis. No stones were noted on CT scan but patient may still have gallstones. I explained this to her and described the procedure of laparoscopic cholecystectomy. The procedure, risks, benefits and alternatives were discussed. The usual length of the surgery as well as the recovery time were discussed. All questions were answered. She understands and wishes to proceed. History of Present Illness Consult details Consult date: 11/12/24 Reason for consult: abdominal pain Requesting physician: Moy Butt MD Narrative: Patient is a 49-year-old woman who had pizza for supper last night. She was awakened at about 330 this morning with excruciating epigastric abdominal pain. She had some vomiting as well. The pain was unrelenting and about 430 this morning she went to the emergency room via emergency services. She was evaluated in the emergency room and noted to have epigastric tenderness with guarding. Her white blood cell count was slightly elevated at 10,700 thousand seven hundred. Her liver enzymes were normal outside of a slight elevation of the AST. She had a CT scan of the abdomen and pelvis which showed acute cholecystitis. No stones were noted. Patient received couple of doses of Dilaudid in the emergency room. Since being admitted she continues to require narcotic analgesics for severe epigastric and back pain. She is admitted now for acute cholecystitis with plans to proceed with laparoscopic cholecystectomy today. 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 Other Neuromuscular scoliosis, multiple sites in spine Social History Social History Smoking status: Never smoker Second hand tobacco smoke exposure: No Alcohol intake: never Substance use: never Substance use type: does not use Do You Feel Safe in your Home?: Yes Lack of Transportation: No Lack of Food: Never True Current Housing: I Have Housing Concerned About Future Housing: No Difficulty Paying Gas/Electric Bills: No Difficulty Paying for Meds: No Currently Unemployed: No Education: Bachelor's Degree Difficulty w/ Childcare or Family Care: No Living arrangements: with family Occupation/Education: retired Additional occupation/education comments: [employer] Gender identity (if verbalized by the patient): Female Spiritual care concerns: No Meds Home Medications and Allergies Home Medications ?Medication ?Instructions ?Recorded ?Confirmed ?Type prasterone (dhea) 25 mg tablet 0 mg PO DAILY 08/14/23 10/31/24 History (DHEA) naltrexone 1.5 mg capsule 1.5 mg PO HS 03/08/24 11/12/24 History progesterone micronized 200 mg 300 mg PO QHS 03/08/24 10/31/24 History capsule baclofen 10 mg tablet 10 mg PO BID #60 tabs 07/19/24 11/12/24 Rx cetirizine 10 mg capsule (Zyrtec) 10 mg PO DAILY #30 caps 08/17/24 11/12/24 Rx trazodone 50 mg tablet 50 mg PO QHS #90 tabs 08/31/24 11/12/24 Rx lorazepam 1 mg tablet 1 mg PO BID PRN anxiety #60 tabs 09/13/24 11/12/24 Rx atogepant 60 mg tablet (Qulipta) 60 mg PO DAILY 11/12/24 11/12/24 History eszopiclone 3 mg tablet 3 mg PO HS 11/12/24 11/12/24 History gabapentin 100 mg capsule 100 mg PO HS 11/12/24 11/12/24 History Allergies Allergy/AdvReac Type Severity Reaction Status Date / Time diphenhydramine (From AdvReac Hypertensio Verified 10/31/24 13:39 Benadryl) n fexofenadine AdvReac Other Verified 10/31/24 13:39 Vital Signs Vital Signs - 24 hr 11/12/24 05:38 11/12/24 06:04 11/12/24 07:00 Temperature 36.6 C 36.6 C Pulse Rate 100 96 96 Respiratory Rate 18 18 16 Blood Pressure 114/48 L 114/48 L 106/66 Pulse Oximetry 100 100 100 Oxygen Delivery Room Air 11/12/24 08:00 11/12/24 09:00 11/12/24 10:00 Temperature 36.6 C 36.5 C 36.5 C Pulse Rate 96 93 91 Respiratory Rate 16 16 16 Blood Pressure 125/54 L 106/61 101/52 L Pulse Oximetry 100 98 98 Oxygen Delivery 11/12/24 11:44 Temperature 36.2 C L Pulse Rate 86 Respiratory Rate 18 Blood Pressure 106/56 L Pulse Oximetry 99 Oxygen Delivery Exam Const: General: cooperative, no acute distress, alert, awake and tired appearing; No comfortable Nutritional Appearance: well nourished Orientation/consciousness: No confusion HENMT: Head: normocephalic and atraumatic Mouth: Yes Normal oral and palatal mucosa present Eyes: Conjunctivae: conjunctivae normal Pupils: Equal, round and reactive pupils present EOM: EOMs intact bilaterally Neck: Neck: normal visual inspection, no lymphadenopathy and nontender Resp: Effort & Inspection: normal respiratory effort Auscultation: clear to auscultation bilaterally Cardio: Rate: regular rate Rhythm: regular rhythm Heart sounds: no gallops, no murmurs and no rubs GI: Inspection: normal to inspection, no abdominal wall ecchymosis, no edema, non-distended, scaphoid and scar (Abdominal plasty scar) GI Palp: Yes Firmness to palpation present (GI), Yes Tenderness to palpation present (GI) (Epigastric tenderness with guarding), Yes Guarding due to palpation present (GI), No Hepatomegaly present, No Splenomegaly present, No Hernia present and No Palpable mass present Auscultation: Hypoactive bowel sounds present Skin: Lesions: no lesions Rashes: no rashes Neuro: General: no focal motor deficits and CN's II-XI intact bilaterally Cranial nerves: Yes Equal, round and reactive pupils present, Yes Bilaterally intact EOM present, Yes facial symmetry and Yes Midline tongue present Speech: normal speech Motor exam (neuro): 5/5 motor strength present throughout and Motor abnormalities not present Extrem: General: no clubbing, cyanosis or edema and edema Psych: Appearance: well kempt Speech and movement: Clear speech present Affect: normal affect Attitude: cooperative Thought process: Normal thought process present Insight: Good insight present (Psych) Judgement: Good judgement present (Psych) Results Labs 11/12/24 05:57 11/12/24 05:57 Labs: Abnormal lab results 11/12/24 11/12/24 Range/Units 05:57 06:19 WBC 10.7 H (4.5-10.0) K/mm3 Neut % (Auto) 74.8 H (45.5-73.1) % Abs Immat Gran (auto) 0.04 H (0.00-0.031) K/mm3 Absolute Neuts (auto) 8.0 H (1.3-6.7) K/mm3 Chloride 108 H (98-107) mmol/L Anion Gap 1 L (4-12) mmol/L AST 76 H (14-36) U/L Urine Appearance Cloudy H (Clear) Urine pH >=9.0 H (5.0-9.0) Urine Protein 1+ H (Negative) mg/dL Leukocyte Esterase Rfl Trace H (Negative) MAGEN/UL Urine WBC 11-20 H (0-3) /hpf Diabetes panel 11/12/24 Range/Units 05:57 Sodium 137 (137-145) mmol/L Potassium 3.4 (3.4-5.0) mmol/L Chloride 108 H (98-107) mmol/L Carbon Dioxide 28 (22-30) mmol/L BUN 14 (7-17) mg/dL Creatinine 0.80 (0.7-1.0) mg/dL Glucose 82 (65-110) mg/dL Calcium 9.0 (8.4-10.2) mg/dL AST 76 H (14-36) U/L ALT 31 (6-35) U/L Alkaline Phosphatase 73 (38-126) U/L Total Protein 7.0 (6.3-8.2) g/dL Albumin 4.0 (3.5-5.1) g/dL Calcium panel 11/12/24 Range/Units 05:57 Calcium 9.0 (8.4-10.2) mg/dL Albumin 4.0 (3.5-5.1) g/dL Pituitary panel 11/12/24 Range/Units 05:57 Sodium 137 (137-145) mmol/L Potassium 3.4 (3.4-5.0) mmol/L Chloride 108 H (98-107) mmol/L Carbon Dioxide 28 (22-30) mmol/L BUN 14 (7-17) mg/dL Creatinine 0.80 (0.7-1.0) mg/dL Glucose 82 (65-110) mg/dL Calcium 9.0 (8.4-10.2) mg/dL Adrenal panel 11/12/24 Range/Units 05:57 Sodium 137 (137-145) mmol/L Potassium 3.4 (3.4-5.0) mmol/L Chloride 108 H (98-107) mmol/L Carbon Dioxide 28 (22-30) mmol/L BUN 14 (7-17) mg/dL Creatinine 0.80 (0.7-1.0) mg/dL Glucose 82 (65-110) mg/dL Calcium 9.0 (8.4-10.2) mg/dL Total Bilirubin 0.6 (0.2-1.3) mg/dL AST 76 H (14-36) U/L ALT 31 (6-35) U/L Alkaline Phosphatase 73 (38-126) U/L Total Protein 7.0 (6.3-8.2) g/dL Albumin 4.0 (3.5-5.1) g/dL All other labs normal.
--- NOTE | 2024-11-12 13:29 | WPDHPUPDATE1 ---
History and Physical Update Update Date/Time: 11/12/24 13:29 History and Physical has been reviewed, including an updated exam of the patient. There are NO changes in the patient's condition. Risks, benefits, and alternatives have been discussed and questions answered. Patient agrees to proceed with procedure.
--- NOTE | 2024-11-12 13:33 | PC.NURSE ---
To OR per bed, IV saline locked. Report given to LAXMI Benavides.
[2024-11-12] MEDS: LACTATED RINGERS 1,000 ML 30 ML IV CONT ×2 (13:35→14:58)
--- NOTE | 2024-11-12 13:36 | P.PNAN_ITS ---
Anes - Initial Pre Proc Eval Procedure: Operation Date: 11/12/24 13:30 Proposed Procedures p Laparoscopic Cholecystectomy - Alon Leonard MD Date/Time: 11/12/24 13:36 Surgeon: Alon Leonard MD Pre Op Diagnosis: Eval Cholecystitis Patient Data Age: 49 Gender: F Height: 1.68 m Weight: 73.3 kg Last Vital Signs Temp 97.1 F L 11/12/24 11:44 Pulse 86 11/12/24 11:44 Resp 18 11/12/24 11:44 BP 106/56 L 11/12/24 11:44 Pulse Ox 99 11/12/24 11:44 O2 Del Method Room Air 11/12/24 05:38 Allergies Allergy/AdvReac Type Severity Reaction Status Date / Time diphenhydramine (From AdvReac Hypertensio Verified 10/31/24 13:39 Benadryl) n fexofenadine AdvReac Other Verified 10/31/24 13:39 Home Medications ?Medication ?Instructions ?Recorded ?Confirmed ?Type prasterone (dhea) 25 mg tablet 0 mg PO DAILY 08/14/23 10/31/24 History (DHEA) naltrexone 1.5 mg capsule 1.5 mg PO HS 03/08/24 11/12/24 History progesterone micronized 200 mg 300 mg PO QHS 03/08/24 10/31/24 History capsule baclofen 10 mg tablet 10 mg PO BID #60 tabs 07/19/24 11/12/24 Rx cetirizine 10 mg capsule (Zyrtec) 10 mg PO DAILY #30 caps 08/17/24 11/12/24 Rx trazodone 50 mg tablet 50 mg PO QHS #90 tabs 08/31/24 11/12/24 Rx lorazepam 1 mg tablet 1 mg PO BID PRN anxiety #60 tabs 09/13/24 11/12/24 Rx atogepant 60 mg tablet (Qulipta) 60 mg PO DAILY 11/12/24 11/12/24 History eszopiclone 3 mg tablet 3 mg PO HS 11/12/24 11/12/24 History gabapentin 100 mg capsule 100 mg PO HS 11/12/24 11/12/24 History Laboratory Tests 11/12/24 11/12/24 11/12/24 05:57 06:19 06:22 WBC 10.7 H K/mm3 (4.5-10.0) RBC 4.45 M/mm3 (4.2-5.4) Hgb 13.8 g/dL (12.0-15.0) Hct 40.0 % (37.0-47.0) MCV 89.9 fl (80-100) MCH 31.0 pg (26-34) MCHC 34.5 g/dl (32-36) RDW 12.4 % (11.5-14.5) Plt Count 304 k/mm3 (150-375) MPV 8.7 fl (7.4-10.4) Immature Gran % (Auto) 0.4 % (0-0.5) Neut % (Auto) 74.8 H % (45.5-73.1) Lymph % (Auto) 19.1 % (18.3-44.2) Pettis % (Auto) 4.3 % (2.6-8.5) Eos % (Auto) 1.0 % (0-4.4) Baso % (Auto) 0.4 % (0.2-1.2) Lymph # (Auto) 2.04 K/mm3 (0.9-3.2) Pettis # (Auto) 0.5 K/mm3 (0.1-0.6) Eos # (Auto) 0.1 K/mm3 (0-0.3) Baso # (Auto) 0.0 K/mm3 (0.0-0.1) Abs Immat Gran (auto) 0.04 H K/mm3 (0.00-0.031) Absolute Neuts (auto) 8.0 H K/mm3 (1.3-6.7) Absolute Nucleated RBC 0.000 K/mm3 (0.0-0.012) Nucleated RBC % 0.0 % (0.0-0.2) Sodium 137 mmol/L (137-145) Potassium 3.4 mmol/L (3.4-5.0) Chloride 108 H mmol/L (98-107) Carbon Dioxide 28 mmol/L (22-30) Anion Gap 1 L mmol/L (4-12) BUN 14 mg/dL (7-17) Creatinine 0.80 mg/dL (0.7-1.0) Estim Creat Clear Calc 68 ml/min Estimated GFR > 60 (59 - ) Glucose 82 mg/dL (65-110) Calcium 9.0 mg/dL (8.4-10.2) Total Bilirubin 0.6 mg/dL (0.2-1.3) AST 76 H U/L (14-36) ALT 31 U/L (6-35) Alkaline Phosphatase 73 U/L (38-126) Total Protein 7.0 g/dL (6.3-8.2) Albumin 4.0 g/dL (3.5-5.1) Lipase 129 U/L (23-300) Urine Color Yellow (Yellow) Urine Appearance Cloudy H (Clear) Urine pH >=9.0 H (5.0-9.0) Ur Specific [place] 1.018 (1.001-1.035) Urine Protein 1+ H mg/dL (Negative) Urine Glucose (UA) Negative mg/dL (Negative) Urine Ketones Negative mg/dL (Negative) Ur Blood (Man) Negative (Negative) Urine Nitrate Negative (Negative) Urine Bilirubin Negative (Negative) Urine Urobilinogen 0.2 mg/dL (<2.0) Leukocyte Esterase Rfl Trace H MAGEN/UL (Negative) Urine RBC 0-2 /hpf (0-2) Urine WBC 11-20 H /hpf (0-3) Ur Squamous Epith Cells Few /hpf (Few) Urine Bacteria None seen /hpf Urine Casts 0-2 POC Urine HCG, Qual Negative (Negative) Influenza A (RT-PCR) Influenza B (RT-PCR) RSV (RT-PCR) SARS-CoV-2 RNA (RT-PCR) 11/12/24 08:12 WBC RBC Hgb Hct MCV MCH MCHC RDW Plt Count MPV Immature Gran % (Auto) Neut % (Auto) Lymph % (Auto) Pettis % (Auto) Eos % (Auto) Baso % (Auto) Lymph # (Auto) Pettis # (Auto) Eos # (Auto) Baso # (Auto) Abs Immat Gran (auto) Absolute Neuts (auto) Absolute Nucleated RBC Nucleated RBC % Sodium Potassium Chloride Carbon Dioxide Anion Gap BUN Creatinine Estim Creat Clear Calc Estimated GFR Glucose Calcium Total Bilirubin AST ALT Alkaline Phosphatase Total Protein Albumin Lipase Urine Color Urine Appearance Urine pH Ur Specific [place] Urine Protein Urine Glucose (UA) Urine Ketones Ur Blood (Man) Urine Nitrate Urine Bilirubin Urine Urobilinogen Leukocyte Esterase Rfl Urine RBC Urine WBC Ur Squamous Epith Cells Urine Bacteria Urine Casts POC Urine HCG, Qual Influenza A (RT-PCR) Negative (Negative) Influenza B (RT-PCR) Negative (Negative) RSV (RT-PCR) Negative (Negative) SARS-CoV-2 RNA (RT-PCR) Negative (Negative) Patient hx anesthesia problems: none Family hx anesthesia problems: none Results Review: All pre-operative results and documents have been reviewed as part of the pre- operative evaluation. 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 Other Neuromuscular scoliosis, multiple sites in spine Social History Social History Smoking status: Never smoker Second hand tobacco smoke exposure: No Alcohol intake: never Substance use: never Substance use type: does not use Do You Feel Safe in your Home?: Yes Lack of Transportation: No Lack of Food: Never True Current Housing: I Have Housing Concerned About Future Housing: No Difficulty Paying Gas/Electric Bills: No Difficulty Paying for Meds: No Currently Unemployed: No Education: Bachelor's Degree Difficulty w/ Childcare or Family Care: No Living arrangements: with family Occupation/Education: retired Additional occupation/education comments: [employer] Gender identity (if verbalized by the patient): Female Spiritual care concerns: No Anes - Eval Final PreProcedure Day of Procedure 11/12/24 13:36 Patient weight: overweight Heart: regular rate and rhythm Lungs: clear to auscultation Airway: Mallampati scale class III and special considerations (Prev C spine sx noted, limited extension. Prev post neck pain from occipital neuralgia and draining cyst. ) Neurological: alert and oriented Last oral intake: >/= 8 hours ASA classification: II Emergent: no Anesthetic plan: proceed Anesthesia type and monitoring: general ETT and standard monitoring Results Review: All pre-operative results and documents have been reviewed as part of the pre- operative evaluation. Hx of hashimotos thyroiditis, treated now and clinically euthyroid. Pt had recent occipital neuralgia ablation, now w drainage in the post neck from cyst that opened up. Informed Consent: The patient's anesthetic plan and its attendant risks and benefits were discussed with the patient/family/POA. Questions were solicited and answers provided to the satisfaction of the patient/family/POA.
[2024-11-12] MEDS: BUPIVACAINE/EPINEPHRINE 0.5% 30 ML VIAL INFILTRATE (14:09)
--- NOTE | 2024-11-12 14:57 | P.OP_ITS ---
Procedure Note - Detailed Date of Procedure 11/12/24 Pre-op Diagnosis Acute cholecystitis Post-op Diagnosis Same Procedure Performed Laparoscopic cholecystectomy Surgeon Alon Leonard MD Cloth Neutralizer Sin HASKINS Anesthesia General and Local Indications Patient had pizza for supper last night and was awakened about 3:00 a.m. this morning with excruciating epigastric pain that moved to her back. It was associated with vomiting. She came to the emergency room about 430. Evaluation there showed an elevated white blood cell count, tenderness in the epigastrium, and CT scan was consistent with acute cholecystitis. She has continued to have severe pain requiring intravenous Dilaudid. She is taken to surgery now for acute cholecystitis and laparoscopic cholecystectomy. Findings No large stones were noted, there was no biliary ductal dilatation, liver appeared normal. Description of Procedure Patient was taken to surgery and induced into general anesthesia. The abdomen is prepped and draped. Trocars were placed in the usual fashion using applied Medical optical trocars and a 5 mm camera. The gallbladder was retracted and was quite distended. A laparoscopic aspirator was used and the gallbladder was decompressed. A Vicryl endoloop was then used to close the cholecystotomy. The gallbladder was then freed from adhesions and retracted anterosuperiorly. Traction was placed on the infundibulum and dissection was carried out in the triangle of Calot. The cystic dusky and cystic artery were carefully dissected. Once they were delineated, the gallbladder was dissected off the liver at its lower 3rd. Critical view was achieved. I securely clipped and divided the cystic duct and cystic artery. The gallbladder was then further dissected free of its peritoneal attachments to the liver. It was then placed in an Endo-Catch bag and retrieved through the 10 11 epigastric trocar site. The epigastric trocar was then replaced. We exposed the gallbladder fossa and right upper quadrant. Suction, irrigation and some additional cautery was used in the gallbladder fossa to achieve good hemostasis. Further irrigation and suctioning were then carried out and all looked quite good with no evidence of bleeding or bile leakage. We then evacuated CO2 and removed the trocar sleeves. Skin wounds were closed with subcuticular 4-0 Monocryl skin suture. The wounds were dressed with Exofin surgical adhesive. The patient was awakened and taken to recovery in good condition. Sponge and needle counts were correct x2. Estimated Blood Loss -10 Drains No Packing No Pathology Yes (Gallbladder) Complications None Condition Stable Disposition PACU [facility] Billing Surgery - Charge Forward: Surgery Billing (Laparoscopic cholecystectomy)
[2024-11-12] MEDS: fentaNYL CITRATE INJ (*CRX) 100 MCG/2 ML VIAL 25 MCG IV PUSH ×8 (15:39→16:27)
--- NOTE | 2024-11-12 16:52 | PC.NURSE ---
Returned from OR per bed. Report received from LAXMI Echols.
--- NOTE | 2024-11-12 17:17 | PHAR ---
HOME MED ESZOPICLONE 3 MG TABLE; TAKE 1 TABLET PO DAILY. QULIPTA 60 MG TAB; TAKE 1 TAB PO DAILY. PILLS STILL IN SEAL MOLD YARD CRANE OPERATOR'S BOTTLE WITH PHARMACY LABEL ON IT. VERIFIED BY PHARMACY.
[2024-11-12] MEDS: LACTATED RINGERS 1,000 ML 100 ML IV CONT (17:25)
--- NOTE | 2024-11-12 18:22 | PHAR ---
PT'S HOME MED NALTREXONE 1.5 MG CAPSULE REVIEWED BY PHARMACY. APPEARS TO BE A COMPOUNDED CAPSULE WITH NO IDENTIFIABLE MARKINGS.
[2024-11-12] MEDS: ONDANSETRON INJ 4 MG/2 ML VIAL IV PUSH (20:10)
[2024-11-12] MEDS: oxyCODONE/ACETAMINOPHEN (*CRX) 5-325 MG TABLET 1 TABLET PO (22:16)
[2024-11-12] MEDS: BACLOFEN 10 MG TABLET PO (22:24)
[2024-11-12] MEDS: ESZOPICLONE 3 MG 3 EACH PO (22:24)
[2024-11-12] MEDS: NALTREXONE HCL 1.5 MG 1 EACH PO (22:25)
[2024-11-12] MEDS: traZODone HCL 50 MG TABLET PO (22:25)
[2024-11-13] VITALS (7 sets, daily range): BP systolic 97–117; BP diastolic 41–58; PULSE 74–90; RESP 16–20; TEMP 36.3–36.6; O2SAT 99–100
[2024-11-13] MEDS: IBUPROFEN IV 800 MG/200 ML 800 MG/200 ML BAG 400 MG IVPB (02:03)
[2024-11-13] MEDS: HYDROmorphone HCL INJ (*CRX) 1 MG/ML SYR 2 MG IV PUSH ×3 (04:38→18:39)
--- NOTE | 2024-11-13 04:46 | PC.NURSE ---
Patient has requested dilaudid throughout evening. PO meds and other pain meds were offered, tried and further denied. Stating that they were not successful on alleviating post op pain. Education was provided on the importance of PO pain medications and attainable expectations.
[2024-11-13 06:21] LABS: Hematocrit 31.7 % (37.0-47.0); Hemoglobin 10.8 g/dL (12.0-15.0); Mean Corpuscular HGB Conc 34.1 g/dl (32-36); Mean Corpuscular Hemoglobin 31.1 pg (26-34); Mean Corpuscular Volume 91.4 fl (80-100); Platelet Count Result 256 k/mm3 (150-375); Red Blood Count 3.47 M/mm3 (4.2-5.4); Red Cell Distribution Width 12.8 % (11.5-14.5); White Blood Count 8.8 K/mm3 (4.5-10.0)
[2024-11-13 06:34] LABS: Anion Gap -2 mmol/L (4-12); Blood Urea Nitrogen 6 mg/dL (7-17); Calcium 8.2 mg/dL (8.4-10.2); Carbon Dioxide 27 mmol/L (22-30); Chloride 111 mmol/L (98-107); Estimated CRCL calculation 77 ml/min; Estimated Glomerular Filt Rate > 60; Glucose 90 mg/dL (65-110); Potassium 3.6 mmol/L (3.4-5.0); Sodium 136 mmol/L (137-145)
[2024-11-13] MEDS: BACLOFEN 10 MG TABLET PO (09:23)
[2024-11-13] MEDS: ENOXAPARIN 40 MG/0.4 ML SYRINGE SUB-Q (09:23)
[2024-11-13] MEDS: oxyCODONE/ACETAMINOPHEN (*CRX) 10-325 MG TABLET 1 TAB PO ×2 (09:24→16:05)
[2024-11-13] MEDS: ONDANSETRON INJ 4 MG/2 ML VIAL IV PUSH (12:29)
--- NOTE | 2024-11-13 15:51 | PM.PNGS ---
Progress Note: A&P Assessment and Plan (1) History of laparoscopic cholecystectomy: Code(s): Z90.49 - Acquired absence of other specified parts of digestive tract Status: Acute Assessment and Plan: Doing well postop day 1. Still having quite a bit of pain which is not surprising. Continue oral as well as IV analgesics. Up in a chair and ambulate in room. Continue inpatient stay. (2) Acute cholecystitis: Code(s): K81.0 - Acute cholecystitis Status: Acute Assessment and Plan: Pathology pending. Stones not really noted. (3) Postoperative anemia: Code(s): D64.9 - Anemia, unspecified Status: Acute Assessment and Plan: Quite a drop in her H&H as well as her BUN. I doubt that the IV fluid intake is accurate. It appears that she had over 3 L of IV fluid just in the emergency room. There is no evidence that she is having bleeding and there was very little intraoperative loss. I reassured her regarding this anemia. Will recheck again in the morning. IV fluids have been stopped for now. Subjective Subjective Date/Time Seen: 11/13/24 15:51 Patient reports: still having pain (Requiring pills as well as IV narcotics still), voiding w/o difficulty, no bowel movement, afebrile and other (Eating very little so far) Exam Const: General: cooperative, comfortable, alert, awake and thin Orientation/consciousness: patient oriented x3 and No confusion GI: Inspection: no abdominal wall ecchymosis, no edema, non-distended, incision (All incisions dry and healing), scaphoid and no visible herniation GI Palp: Yes Soft to palpation and Yes Tenderness to palpation present (GI) (Mostly right upper quadrant) Objective Data Vital Signs Vital Signs: Vital Signs - 24 hr 11/12/24 15:55 11/12/24 16:10 11/12/24 16:25 Temperature Pulse Rate 98 91 99 Respiratory Rate 17 11 L 16 Blood Pressure 110/70 116/59 L 114/54 L Pulse Oximetry 100 97 96 Oxygen Delivery Room Air Room Air Room Air 11/12/24 16:46 11/12/24 17:53 11/12/24 18:11 Temperature 36.3 C L 36.2 C L 36.4 C L Pulse Rate 100 95 98 Respiratory Rate 16 16 16 Blood Pressure 114/50 L 118/51 L 96/63 L Pulse Oximetry 96 96 97 Oxygen Delivery 11/12/24 20:00 11/12/24 22:20 11/13/24 02:24 Temperature 36.3 C L 36.4 C L Pulse Rate 93 90 Respiratory Rate 18 18 Blood Pressure 130/66 97/46 L Pulse Oximetry 98 99 Oxygen Delivery Room Air 11/13/24 06:20 11/13/24 09:18 11/13/24 11:08 Temperature 36.3 C L 36.5 C Pulse Rate 87 88 Respiratory Rate 18 17 Blood Pressure 111/56 L 114/54 L 117/49 L Pulse Oximetry 99 99 Oxygen Delivery 11/13/24 14:21 Temperature 36.3 C L Pulse Rate 85 Respiratory Rate 16 Blood Pressure 108/58 L Pulse Oximetry 100 Oxygen Delivery Intake/Output Intake/Output: Intake & Output 11/10/24 11/11/24 11/12/24 11/13/24 23:59 23:59 23:59 23:59 Intake Total 1650 440 Balance 1650 440 Meds/Results Medications: Active Medications Generic Name Dose Route Start Last Admin Trade Name Freq PRN Reason Stop Dose Admin Acetaminophen 500 mg 11/12/24 16:35 Acetaminophen 500 Mg Tablet PO Q6H PRN Pain Rated 1-3 Baclofen 10 mg 11/12/24 17:00 11/13/24 09:23 Baclofen 10 Mg Tablet PO 10 mg BID SARAH Administration Enoxaparin Sodium 40 mg 11/13/24 09:00 11/13/24 09:23 Enoxaparin 40 Mg/0.4 Ml Syringe SUB-Q 40 mg DAILY SARAH Administration Gabapentin 100 mg 11/12/24 21:00 11/12/24 22:25 Gabapentin 100 Mg Capsule PO Not Given HS SARAH Hydromorphone HCl 2 mg 11/12/24 16:35 11/13/24 11:09 Hydromorphone Hcl Inj (*Crx) 1 Mg/Ml Syr IV PUSH 2 mg Q2H PRN Administration Breakthrough Pain Rated 7-10 or NPO Hydromorphone HCl 1 mg 11/12/24 16:35 11/12/24 21:46 Hydromorphone Hcl Inj (*Crx) 1 Mg/Ml Syr IV PUSH 1 mg Q2H PRN Administration Breakthrough Pain Rated 4-6 or NPO Ibuprofen 800 mg in 200 mls @ 400 mls/hr 11/12/24 16:35 11/13/24 02:48 Caldolor 800 Mg/200 Ml IVPB Infused Q6H PRN Infusion Breakthrough Pain Rated 1-3 or NPO Loratadine 10 mg 11/13/24 09:00 11/13/24 09:23 Loratadine 10 Mg Tablet PO Not Given QAM SARAH Lorazepam 1 mg 11/12/24 16:35 Lorazepam (*Crx) 1 Mg Tablet PO BID PRN anxiety Naloxone HCl 0.1 mg 11/12/24 16:35 Naloxone Hcl 0.4 Mg/Ml Vial IV PUSH Q2M PRN Opiate Reversal Atogepant [Qulipta] 60 mg 11/13/24 09:00 11/13/24 09:22 60 Mg Tablet Home PO 12/13/24 08:59 Not Given Med DAILY SARAH Eszopiclone 3 Mg 3 mg 11/12/24 21:00 11/12/24 22:24 Tablet Home Med PO 12/12/24 20:59 3 mg HS SARAH Administration Non-Formulary ( 1 each 11/12/24 21:00 11/12/24 22:25 Naltrexone Hcl 1.5 PO 12/12/24 20:59 1 each Mg Oral Capsule) HS SARAH Administration Ondansetron HCl 4 mg 11/12/24 10:25 11/13/24 12:29 Ondansetron Inj 4 Mg/2 Ml Vial IV PUSH 4 mg Q4H PRN Administration Nausea Oxycodone/Acetaminophen 1 tablet 11/12/24 16:35 11/12/24 22:16 Oxycodone/Acetaminophen (*Crx) 5-325 Mg Tablet PO 1 tablet Q4H PRN Administration Pain Rated 4-6 Oxycodone/Acetaminophen 1 tab 11/12/24 16:35 11/13/24 09:24 Oxycodone/Acetaminophen (*Crx) 10-325 Mg Tablet PO 1 tab Q6H PRN Administration Pain Rated 7-10 Trazodone HCl 50 mg 11/12/24 21:00 11/12/24 22:25 Trazodone Hcl 50 Mg Tablet PO 50 mg QHS SARAH Administration Radiology Results: ITS Impressions Abdomen/Pelvis CT 11/12/24 09:29 IMPRESSION: 1. Edematous wall thickening of the gallbladder suspicious for acute cholecystitis. Labs Labs: Laboratory Results - last 24 hr 11/13/24 05:27 WBC 8.8 RBC 3.47 L Hgb 10.8 L D Hct 31.7 L MCV 91.4 MCH 31.1 MCHC 34.1 RDW 12.8 Plt Count 256 MPV 9.0 Sodium 136 L Potassium 3.6 Chloride 111 H Carbon Dioxide 27 Anion Gap -2 L BUN 6 L D Creatinine 0.70 Estim Creat Clear Calc 77 Estimated GFR > 60 Glucose 90 Calcium 8.2 L H&H as well as BUN dropped significantly from yesterday to this morning. Most consistent with IV fluid resuscitation.
[2024-11-13] MEDS: oxyCODONE/ACETAMINOPHEN (*CRX) 5-325 MG TABLET 1 TABLET PO (21:30)
[2024-11-14 03:00] VITALS: BP 103/49; PULSE 81; RESP 20; TEMP 36.2; O2SAT 98
[2024-11-14] MEDS: oxyCODONE/ACETAMINOPHEN (*CRX) 10-325 MG TABLET 1 TAB PO (04:16)
[2024-11-14 05:55] VITALS: BP 115/66; PULSE 73; RESP 20; TEMP 36.4; O2SAT 99
[2024-11-14 06:01] LABS: Hematocrit 32.7 % (37.0-47.0); Mean Corpuscular HGB Conc 33.6 g/dl (32-36); Mean Corpuscular Volume 95.1 fl (80-100); Mean Platelet Volume 8.9 fl (7.4-10.4); Platelet Count Result 244 k/mm3 (150-375); Red Blood Count 3.44 M/mm3 (4.2-5.4); Red Cell Distribution Width 12.8 % (11.5-14.5); White Blood Count 6.3 K/mm3 (4.5-10.0)
[2024-11-14 06:17] LABS: Alanine Aminotransferase 51 U/L (6-35); Albumin Level 3.2 g/dL (3.5-5.1); Alkaline Phosphatase 50 U/L (38-126); Anion Gap -2 mmol/L (4-12); Aspartate Amino Transferase 43 U/L (14-36); Bilirubin,Total 0.3 mg/dL (0.2-1.3); Blood Urea Nitrogen 7 mg/dL (7-17); CRP < 0.5 mg/dL (<1.0); Calcium 8.5 mg/dL (8.4-10.2); Carbon Dioxide 33 mmol/L (22-30); Chloride 106 mmol/L (98-107); Estimated CRCL calculation 61 ml/min; Estimated Glomerular Filt Rate > 60; Glucose 85 mg/dL (65-110); Potassium 3.3 mmol/L (3.4-5.0); Sodium 137 mmol/L (137-145)
[2024-11-14] MEDS: oxyCODONE/ACETAMINOPHEN (*CRX) 5-325 MG TABLET 1 TABLET PO ×2 (08:26→12:40)
[2024-11-14] MEDS: ENOXAPARIN 40 MG/0.4 ML SYRINGE SUB-Q (08:26)
[2024-11-14] MEDS: BACLOFEN 10 MG TABLET PO (08:26)
--- NOTE | 2024-11-14 11:15 | P.DS_ITS ---
DS: Admitting Diagnosis Discharge Date 11/14/2024 Admitting Diagnosis Acute cholecystitis DS: Discharge Diagnosis Discharge Diagnosis (1) Acute cholecystitis: Code(s): K81.0 - Acute cholecystitis Status: Acute DS: Summary Hospital Course Reason for hospitalization: This is a 49-year-old woman who presented to the ED 2 days ago for evaluation of epigastric abdominal pain. Workup in the ED showed CT evidence of acute cholecystitis. She was admitted in the setting for treatment and surgical evaluation. Hospital Course: The patient continued to have severe abdominal pain after admission and decided to proceed with surgery after discussing treatment options. She underwent laparoscopic cholecystectomy by Dr. Agosto on 11/12/2024. She was found to have acute cholecystitis in surgery was straightforward. She was requiring IV analgesics for pain control postop day 1. Postoperative labs showed a drop in her hemoglobin as well as her BUN. She did not have any signs of active bleeding and this was felt to likely be dilutional given at least 3-4 liters of IV fluids on admission. She was monitored postoperatively and transition to oral pain medications. By postop day 2, her postoperative pain was controlled with Percocet. Her hemoglobin actually went up slightly to 11.0 on labs this morning. Potassium 3.3 today and replaced with oral KCL. She is tolerating a low-fat diet. She is stable for discharge today. Status at Discharge Functional status at discharge: independent ambulation Overall status at discharge: patient is progressing back to baseline Time Spent with Patient Time attestation: Total time spent providing and/or coordinating discharge services: Exam Const: General: comfortable and no acute distress GI: Inspection: non-distended and incision (incisions dry and intact) GI Palp: Yes Soft to palpation, Yes Tenderness to palpation present (GI) (incisional) and No Guarding due to palpation present (GI) Auscultation: normal bowel sounds Neuro: General: moves all extremities and no focal motor deficits Extrem: General: no edema Psych: Mental Status: mental status grossly normal Insight: Good insight present (Psych) DS: Data Data Completed and Pending Pending studies at discharge: Pending at discharge 11/12/24 14:13 Surgical [PTH] Routine Labs on day of discharge: Labs from last 24 hours 11/14/24 05:25 WBC 6.3 RBC 3.44 L Hgb 11.0 L Hct 32.7 L MCV 95.1 MCH 32.0 MCHC 33.6 RDW 12.8 Plt Count 244 MPV 8.9 Sodium 137 Potassium 3.3 L Chloride 106 Carbon Dioxide 33 H Anion Gap -2 L BUN 7 Creatinine 0.90 Estim Creat Clear Calc 61 Estimated GFR > 60 Glucose 85 Calcium 8.5 Total Bilirubin 0.3 AST 43 H ALT 51 H Alkaline Phosphatase 50 C-Reactive Protein < 0.5 Total Protein 6.0 L Albumin 3.2 L Procedures/Treatments: Procedures Operation Date: 11/12/24 13:30 Actual Procedure Side Surgeon p Laparoscopic Cholecystectomy Alon Agosto MD Imaging Radiologist's impression: ITS Impressions Abdomen/Pelvis CT 11/12/24 09:29 IMPRESSION: 1. Edematous wall thickening of the gallbladder suspicious for acute cholecystitis. Discharge Plan Discharge Attending physician on discharge: Alon Agosto Discharging Clinician: Tami Atwood Anticipated Discharge Date/Time: 11/14/24 11:20 Patient Disposition: Home, Self-Care Activity: may shower, no straining, no driving and other - see discharge instructions Diet: low fat Wound Care Instructions: incision open to air Discharge Instructions: DISCHARGE INSTRUCTION SHEET FOR HERNIA AND LAP VANESSA SURGERIES DR. AGOSTO 1. May shower the day after surgery over incisions. Do not submerge in water for 2 weeks. 2. Call office for: * Wound increasingly painful or bleeding * Vomiting * Fever of greater than 101 degrees 3. Expect some blood on dressing and old blood on skin. 4. If no bowel movement for three days, take 1 oz. (30 ml) Milk of Magnesia, if no results, take Fleets enema. 5. No heavy lifting > 10-15 pounds x 2-3 weeks for laparoscopic cholecystectomy. 6. No driving for 3 days or while taking narcotic pain medications. 7. Up walking 10-30 minutes three times per day. 8. Resume previous home medications. 9. Follow-up in [address] Agosto. Call for an appointment. [phone] 10. Oral pain medications prescription will be sent to the pharmacy electronically. Patient Instructions: Antibiotic Form Patient Language: Icelandic Stand Alone Forms: General Discharge Information Follow-up/Referrals: Alon Agosto MD [Physician] - 2 Weeks Discharge Medications: New oxycodone-acetaminophen 5-325 mg Tablet 1 tablet PO Q4-6H PRN (Reason: Pain Rated 4-6) Qty: 20 0RF potassium chloride 20 mEq Packet 20 meq PO DAILY Qty: 6 0RF Continued prasterone (dhea) [DHEA] 25 mg Tablet 0 mg PO DAILY progesterone micronized 200 mg capsule 300 mg PO QHS naltrexone 1.5 mg capsule 1.5 mg PO HS lorazepam 1 mg tablet 1 mg PO BID PRN (Reason: anxiety) Qty: 60 5RF Qulipta 60 mg tablet 60 mg PO DAILY gabapentin 100 mg capsule 100 mg PO HS eszopiclone 3 mg tablet 3 mg PO HS baclofen 10 mg tablet 10 mg PO BID Qty: 60 3RF Zyrtec 10 mg capsule 10 mg PO DAILY Qty: 30 2RF trazodone 50 mg tablet 50 mg PO QHS Qty: 90 0RF Date of admission: 11/12/24 10:26 Primary Care Provider: Luigi Damon Admitting Provider: Alon Agosto Attending physician on admission: Alon Agosto Condition: Stable Quality VTE Prophylaxis VTE prophylaxis: mechanical ordered and pharmacologic ordered
[2024-11-14] MEDS: POTASSIUM CHLORIDE 20 MEQ PACKET (FOR LIQUID) PO (12:00)
== END 2024-11-14 13:10 | disposition home or self-care (01) | DRG 419 ==
LOC: ANHED 10:30 → ANH3MED 10:58
PROVIDERS: Emergency Medicine; Admitting Provider Surgery; Emergency Provider Emergency Medicine; PCP Family Medicine; Visit Provider Nurse Practitioner Family
PROC: 0FT44ZZ Resection of Gallbladder, Percutaneous Endoscopic Approach (ICD-10-PCS; CPT 47562; principal; 2024-11-12 13:30)
DX: K81.0 Acute cholecystitis (principal); D64.89 Other specified anemias; E06.3 Autoimmune thyroiditis; N32.81 Overactive bladder; F41.9 Anxiety disorder, unspecified; F32.A Depression, unspecified; Z20.822 Contact with and (suspected) exposure to COVID-19; Z80.0 Family history of malignant neoplasm of digestive organs
CPT/HCPCS: 36415; 74177; 80048; 80053; 81001; 81025; 83690; 85025; 85027; 86140; 87086; 87637; 88304; 96361; 99285; A9270; G0378; J0330; J1100; J1171; J1650; J1741; J1885; J2405; J2543; J2704; J3010; J7030; J7120; Q9967

== ENCOUNTER 2024-12-05 10:38 | Outpatient (CLI) | payer OTHER, SELFPAY ==
[2024-12-05 11:16] LABS: Basophils Absolute Auto 0.1 K/mm3 (0.0-0.1); Basophils Percent Auto 1.1 % (0.2-1.2); Eosinophils Absolute Auto 0.2 K/mm3 (0-0.3); Eosinophils Percent Auto 4.2 % (0-4.4); Hematocrit 42.1 % (37.0-47.0); Hemoglobin 14.2 g/dL (12.0-15.0); Immature Granulocyte Absolute 0.01 K/mm3 (0.00-0.031); Immature Granulocyte Percent A 0.2 % (0-0.5); Lymphocytes Absolute Auto 1.88 K/mm3 (0.9-3.2); Lymphocytes Percent Auto 35.7 % (18.3-44.2); Mean Corpuscular HGB Conc 33.7 g/dl (32-36); Mean Corpuscular Hemoglobin 31.2 pg (26-34); Mean Corpuscular Volume 92.5 fl (80-100); Mean Platelet Volume 8.9 fl (7.4-10.4); Monocytes Absolute Auto 0.3 K/mm3 (0.1-0.6); Monocytes Percent Auto 6.1 % (2.6-8.5); Neutrophils Absolute Auto 2.8 K/mm3 (1.3-6.7); Neutrophils Percent Auto 52.7 % (45.5-73.1); Platelet Count Result 361 k/mm3 (150-375); Red Blood Count 4.55 M/mm3 (4.2-5.4); Red Cell Distribution Width 12.7 % (11.5-14.5); White Blood Count 5.3 K/mm3 (4.5-10.0)
[2024-12-05 11:37] LABS: Alanine Aminotransferase 11 U/L (6-35); Albumin Level 4.4 g/dL (3.5-5.1); Alkaline Phosphatase 62 U/L (38-126); Anion Gap 8 mmol/L (4-12); Aspartate Amino Transferase 18 U/L (14-36); Bilirubin,Total 0.5 mg/dL (0.2-1.3); Blood Urea Nitrogen 13 mg/dL (7-17); CRP < 0.5 mg/dL (<1.0); Calcium 9.3 mg/dL (8.4-10.2); Carbon Dioxide 29 mmol/L (22-30); Chloride 103 mmol/L (98-107); Estimated Glomerular Filt Rate > 60; Glucose 86 mg/dL (65-110); Potassium 4.1 mmol/L (3.4-5.0); Sodium 140 mmol/L (137-145)
== END 2024-12-05 10:39 | disposition home or self-care (01) ==
LOC: ANHLAB 10:40
PROVIDERS: Visit Provider Surgery
DX: R10.11 Right upper quadrant pain (principal)
CPT/HCPCS: 36415; 80053; 85025; 86140

== ENCOUNTER 2024-12-06 11:28 | Emergency (ER) | payer OTHER, SELFPAY ==
[2024-12-06] VITALS (8 sets, daily range): BP systolic 108–149; BP diastolic 67–87; PULSE 96–104; RESP 16–18; TEMP 36.6; O2SAT 98–100
--- NOTE | ~2024-12-06 | US_ITS ---
US right upper quadrant INDICATION: Abdominal pain. Recent cholecystectomy. PROCEDURE: Realtime right upper abdominal ultrasound. COMPARISON: CT dated 11/12/2024 FINDINGS: Pancreas not well visualized due to bowel gas. Liver echotexture is normal without focal m ass or intrahepatic biliary dilatation. There is normal directional flow in the portal vein. Gallbladder is surgically absent. Common bile duct measures 4 mm. IMPRESSION: 1: Unremarkable limited abdominal ultrasound status post recent cholecystectomy. Reviewed, dictated and finalized at location A. POTATO ARRANGER IMPRESSION: 1: Unremarkable limited abdominal ultrasound status post recent cholecystectomy .
--- NOTE | ~2024-12-06 | CT_ITS ---
CT of the Abdomen and Pelvis: Indication: Abdominal pain, status post cholecystectomy Technique: 2.5 mm axial scans were obtained through the abdomen and pelvis following intravenous adm inistration of 100 cc of Omnipaque 350. Dose reduction technique was used on this scan by utilizing a utomated exposure control and iterative reconstruction technique. The dose-length product (DLP) was 3 49.56 mGy-cm. COMPARISON: 11/12/2024 Findings: Scans through the lung bases are unremarkable. The liver, spleen, pancreas, adrenals and kidneys are within normal limits. Status post cholecystecto my. No evidence of aortic aneurysm. No lymphadenopathy. No bowel obstruction or bowel wall thickening. There is no evidence to suggest acute appendicitis. Images through the pelvis were performed. Urinary bladder unremarkable. No pelvic mass seen. No ascit es. Impression: No significant abnormalities seen. Reviewed, dictated and finalized at [facility]. VISION SCRIPT WRITER Impression: No significant abnormalities seen.
[2024-12-06 12:13] LABS: BEDSIDEPREGUCG Negative (Negative)
[2024-12-06 12:28] LABS: Basophils Percent Auto 0.5 % (0.2-1.2); Eosinophils Absolute Auto 0.2 K/mm3 (0-0.3); Eosinophils Percent Auto 3.2 % (0-4.4); Hematocrit 41.2 % (37.0-47.0); Hemoglobin 14.4 g/dL (12.0-15.0); Immature Granulocyte Absolute 0.02 K/mm3 (0.00-0.031); Immature Granulocyte Percent A 0.3 % (0-0.5); Lymphocytes Absolute Auto 1.98 K/mm3 (0.9-3.2); Lymphocytes Percent Auto 33.4 % (18.3-44.2); Mean Corpuscular Hemoglobin 31.6 pg (26-34); Mean Corpuscular Volume 90.4 fl (80-100); Mean Platelet Volume 8.7 fl (7.4-10.4); Monocytes Absolute Auto 0.3 K/mm3 (0.1-0.6); Monocytes Percent Auto 5.4 % (2.6-8.5); Neutrophils Absolute Auto 3.4 K/mm3 (1.3-6.7); Neutrophils Percent Auto 57.2 % (45.5-73.1); Platelet Count Result 348 k/mm3 (150-375); Red Blood Count 4.56 M/mm3 (4.2-5.4); Red Cell Distribution Width 12.4 % (11.5-14.5); White Blood Count 5.9 K/mm3 (4.5-10.0)
[2024-12-06 12:29] LABS: Alanine Aminotransferase 11 U/L (6-35); Albumin Level 4.4 g/dL (3.5-5.1); Alkaline Phosphatase 72 U/L (38-126); Anion Gap 10 mmol/L (4-12); Aspartate Amino Transferase 20 U/L (14-36); Bilirubin,Total 0.6 mg/dL (0.2-1.3); Blood Urea Nitrogen 13 mg/dL (7-17); Calcium 9.1 mg/dL (8.4-10.2); Carbon Dioxide 24 mmol/L (22-30); Chloride 104 mmol/L (98-107); Estimated CRCL calculation 68 ml/min; Estimated Glomerular Filt Rate > 60; Glucose 90 mg/dL (65-110); Lipase 104 U/L (23-300); Potassium 4.1 mmol/L (3.4-5.0); Sodium 138 mmol/L (137-145)
[2024-12-06 12:30] LABS: Add Urine Microscopic? NO; Appearance Urine Clear (Clear); Bilirubin Urine Negative (Negative); Blood Urine Negative (Negative); Color Urine Yellow (Yellow); Glucose Urine UA Negative (Negative); Ketones Urine Negative (Negative); Leukocyte Esterase Ur Negative LEU/UL (Negative); Nitrate Urine Negative (Negative); Protein Urine Negative (Negative); Specific Grav Ur 1.014 (1.001-1.035); Urobilinogen Urine 0.2 mg/dL (<2.0); pH Urine 6.5 (5.0-9.0)
[2024-12-06] MEDS: SODIUM CHLORIDE 0.9% IV 1,000 ML 999 ML IV CONT (12:35)
[2024-12-06] MEDS: ONDANSETRON INJ 4 MG/2 ML VIAL IV PUSH ×2 (12:35→15:37)
[2024-12-06] MEDS: HYDROmorphone HCL INJ (*CRX) 1 MG/ML SYR IV PUSH ×2 (12:35→15:38)
--- NOTE | 2024-12-06 13:15 | ED_ITS ---
HPI - General Adult General Chief complaint: Abdominal Pain Stated complaint: gallbladder surgery two days ago, N/V Time Seen by Provider: 12/06/24 12:19 History of Present Illness HPI narrative: Patient 49-year-old female who presents emergency department with chief complaint of right upper quadrant pain. The patient reports she had a cholecystectomy done by Dr. Leonard and reports he has continued to have pain in her right upper quadrant since then. The patient was seen in the office yesterday and was concerned for possible bile leak. Patient is scheduled to have a HIDA scan in the near future but is having scheduling difficulties. Related Data Home Medications ?Medication ?Instructions ?Recorded ?Confirmed ?Last Taken ?Type prasterone (dhea) 25 mg tablet 0 mg PO DAILY 08/14/23 11/14/24 Unknown History (DHEA) naltrexone 1.5 mg capsule 1.5 mg PO HS 03/08/24 11/12/24 11/11/24 History progesterone micronized 200 mg 300 mg PO QHS 03/08/24 11/14/24 Unknown History capsule atogepant 60 mg tablet (Qulipta) 60 mg PO DAILY 11/12/24 11/12/24 Unknown History eszopiclone 3 mg tablet 3 mg PO HS 11/12/24 11/12/24 11/11/24 History gabapentin 100 mg capsule 100 mg PO HS 11/12/24 11/12/24 Unknown History Allergies Allergy/AdvReac Type Severity Reaction Status Date / Time diphenhydramine (From AdvReac Hypertensio Verified 12/06/24 11:53 Benadryl) n fexofenadine AdvReac Other Verified 12/06/24 11:53 Review of Systems 2 Review of Systems: A 10 system review of systems was completed on the patient and is negative except for what is stated in the HPI. Nursing and ancillary documentation was reviewed. 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 Leonard Hx of abdominoplasty Status post hysteroscopic ablation of endometrium H/O cervical spine surgery History of breast augmentation Family History Family History Father Multiple sclerosis Diabetes mellitus Mother Carcinoma of colon Sibling No problems noted. Other Neuromuscular scoliosis, multiple sites in spine Social History Social History Smoking status: Never smoker Second hand tobacco smoke exposure: No Alcohol intake: never Substance use: never Substance use type: does not use Do You Feel Safe in your Home?: Yes Lack of Transportation: No Lack of Food: Never True Current Housing: I Have Housing Concerned About Future Housing: No Difficulty Paying Gas/Electric Bills: No Difficulty Paying for Meds: No Currently Unemployed: No Education: Bachelor's Degree Difficulty w/ Childcare or Family Care: No Living arrangements: with family Occupation/Education: retired Additional occupation/education comments: [employer] Gender identity (if verbalized by the patient): Female Spiritual care concerns: No Exam 2 Narrative: GENERAL: Well-appearing, well-nourished, and in no acute distress. HEAD: Normocephalic, atraumatic. EYES: PERRLA and EOMI. ENT: Nares clear, no rhinorrhea or epistaxis. Mucous membranes moist. NECK: Supple. CHEST: Clear to auscultation. No respiratory distress. HEART: Regular rate and rhythm. No murmur heard. Normal peripheral pulses. ABDOMEN: Soft, tenderness to palpation the right upper quadrant, nondistended, normal active bowel sounds. EXTREMITIES: Normal range of motion. No edema. SKIN: Warm, dry, no rash. NEURO: No focal deficits. Alert and oriented x3. PSYCH: Normal mood and affect. Course Vital Signs Vital signs: Vital Signs Temperature 36.6 C 12/06/24 11:39 Pulse Rate 104 H 12/06/24 11:39 Respiratory Rate 18 12/06/24 11:39 Blood Pressure 124/78 12/06/24 11:39 Pulse Oximetry 100 12/06/24 11:39 Oxygen Delivery Room Air 12/06/24 11:39 Temperature 36.6 C 12/06/24 11:39 Pulse Rate 96 12/06/24 12:37 Respiratory Rate 18 12/06/24 12:37 Blood Pressure 110/75 12/06/24 12:37 Pulse Oximetry 100 12/06/24 12:37 Oxygen Delivery Room Air 12/06/24 11:39 Medical Decision Making MDM Narrative Medical decision making narrative: Differential diagnosis includes bile leak, postoperative pain Laboratory studies were obtained on the patient which within normal limits Gallbladder ultrasound was negative CT scan of the abdomen pelvis showed no acute abnormality Attempts were made to obtain a HIDA scan in the emergency department but there is currently not enough dosing to be able to do the study this was discussed with Dr. Leonard who will follow the patient as an outpatient Vital Signs Vital Signs: Vital Signs Temperature 36.6 C 12/06/24 11:39 Pulse Rate 104 H 12/06/24 11:39 Respiratory Rate 18 12/06/24 11:39 Blood Pressure 124/78 12/06/24 11:39 Pulse Oximetry 100 12/06/24 11:39 Oxygen Delivery Room Air 12/06/24 11:39 Temperature 36.6 C 12/06/24 11:39 Pulse Rate 96 12/06/24 12:37 Respiratory Rate 18 12/06/24 12:37 Blood Pressure 110/75 12/06/24 12:37 Pulse Oximetry 12/06/24 12:37 Oxygen Delivery Room Air 12/06/24 11:39 Lab Data 12/06/24 11:56 12/06/24 11:56 Labs: Lab Results 12/06/24 12/06/24 12/06/24 Range/Units 11:56 12:07 12:11 WBC 5.9 (4.5-10.0) K/mm3 RBC 4.56 (4.2-5.4) M/mm3 Hgb 14.4 (12.0-15.0) g/dL Hct 41.2 (37.0-47.0) % MCV 90.4 (80-100) fl MCH 31.6 (26-34) pg MCHC 35.0 (32-36) g/dl RDW 12.4 (11.5-14.5) % Plt Count 348 (150-375) k/mm3 MPV 8.7 (7.4-10.4) fl Immature Gran % (Auto) 0.3 (0-0.5) % Neut % (Auto) 57.2 (45.5-73.1) % Lymph % (Auto) 33.4 (18.3-44.2) % Ramsey % (Auto) 5.4 (2.6-8.5) % Eos % (Auto) 3.2 (0-4.4) % Baso % (Auto) 0.5 (0.2-1.2) % Lymph # (Auto) 1.98 (0.9-3.2) K/mm3 Ramsey # (Auto) 0.3 (0.1-0.6) K/mm3 Eos # (Auto) 0.2 (0-0.3) K/mm3 Baso # (Auto) 0.0 (0.0-0.1) K/mm3 Abs Immat Gran (auto) 0.02 (0.00-0.031) K/mm3 Absolute Neuts (auto) 3.4 (1.3-6.7) K/mm3 Absolute Nucleated RBC 0.000 (0.0-0.012) K/mm3 Nucleated RBC % 0.0 (0.0-0.2) % Sodium 138 (137-145) mmol/L Potassium 4.1 (3.4-5.0) mmol/L Chloride 104 (98-107) mmol/L Carbon Dioxide 24 (22-30) mmol/L Anion Gap 10 (4-12) mmol/L BUN 13 (7-17) mg/dL Creatinine 0.76 (0.7-1.0) mg/dL Estim Creat Clear Calc 68 ml/min Estimated GFR > 60 (59 - ) Glucose 90 (65-110) mg/dL Calcium 9.1 (8.4-10.2) mg/dL Total Bilirubin 0.6 (0.2-1.3) mg/dL AST 20 (14-36) U/L ALT 11 (6-35) U/L Alkaline Phosphatase 72 (38-126) U/L Total Protein 7.0 (6.3-8.2) g/dL Albumin 4.4 (3.5-5.1) g/dL Lipase 104 (23-300) U/L Urine Color Yellow (Yellow) Urine Appearance Clear (Clear) Urine pH 6.5 (5.0-9.0) Ur Specific [place] 1.014 (1.001-1.035) Urine Protein Negative (Negative) mg/dL Urine Glucose (UA) Negative (Negative) mg/dL Urine Ketones Negative (Negative) mg/dL Ur Blood (Man) Negative (Negative) Urine Nitrate Negative (Negative) Urine Bilirubin Negative (Negative) Urine Urobilinogen 0.2 (<2.0) mg/dL Leukocyte Esterase Rfl Negative (Negative) MAGEN/UL POC Urine HCG, Qual Negative (Negative) Discharge Plan Discharge Clinical Impression: Abdominal pain Patient Disposition: Home, Self-Care Condition: Stable Instructions: Antibiotic Form, Abdominal Pain (ED) Additional Instructions: Please follow-up with Dr. Leonard. Please get the HIDA scan done as an outpatient Patient Language: Syrian Prescriptions: New oxycodone-acetaminophen [Percocet] 5-325 mg tablet 1 tablet PO Q6H PRN (Reason: pain) Qty: 12 0RF ondansetron 4 mg tablet,disintegrating 4 mg PO Q8H PRN (Reason: nausea and vomiting) Qty: 10 0RF ondansetron 4 mg tablet,disintegrating 4 mg PO Q8H PRN (Reason: nausea and vomiting) Qty: 10 0RF No Action prasterone (dhea) [DHEA] 25 mg Tablet 0 mg PO DAILY progesterone micronized 200 mg capsule 300 mg PO QHS naltrexone 1.5 mg capsule 1.5 mg PO HS lorazepam 1 mg tablet 1 mg PO BID PRN (Reason: anxiety) Qty: 60 5RF Qulipta 60 mg tablet 60 mg PO DAILY gabapentin 100 mg capsule 100 mg PO HS eszopiclone 3 mg tablet 3 mg PO HS baclofen 10 mg tablet 10 mg PO BID Qty: 60 3RF Zyrtec 10 mg capsule 10 mg PO DAILY Qty: 30 2RF trazodone 50 mg tablet 50 mg PO QHS Qty: 90 0RF Follow-up/Referrals: UNKNOWN,DOCTOR [Primary Care Provider] -
--- OUTSIDE RECORDS SUMMARY | 2024-12-08 17:52 | XMS_ITS | Clinical Summary ---
Author Organization [facility] Address [address] [place] [place] [address] Care Team Providers Care Funeral Home Manager Name Role Phone Luigi Damon MD Primary Care Provider [phone] Source Comments [facility],non-owned Affiliates and Associated Physician Practices is amultiple site organization consisting of ambulatory clinics and hospital sitesin [place], [place], [place] and [place]. This disclosure is being madepursuant to the Care Everywhere program and may not contain all information available regarding this patient. Last updated 18.[facility] Allergies Active Allergy Reactions Criticality Noted Date Comments Benadryl Elevated Blood Pressure Medium 03/19/2003 Cat Hair Extract Urticaria,Eye Redness,Shortness of Breath High 11/17/2022 Diphenhydramine Elevated Blood Pressure,Other Medium 02/05/2008 Raised B/P when given IV during Promethazine Other,Psychiatric Medium 04/19/2001 Irrational behavior, Hallucinations Shakes, Lack of Control
Reaction(s ): Unknown; Note: SHAKES, LACK OF CONTROL Medications * Be aware that medications may not be up to date on this document. Alwaysverify current medications with the patient. Medication Sig Dispensed Refills Start Date End Date Status triamcinolone acetonide (Kenalog) injection 1 mL Active ALPRAZolam (Xanax) 0.5 MG tablet 12/18/2023 Active cetirizine (ZyrTEC) 10 MG tablet Active Estradiol (ESTROGEL TD) 07/20/2023 Active LORazepam (Ativan) 0.5 MG tablet 03/06/2023 Active liothyronine (Cytomel) 5 MCG tablet Active meclizine (Antivert) 12.5 MG tablet 12/14/2023 Active meloxicam (Mobic) 15 MG tablet 11/17/2022 Active naltrexone 1 mg/ml compd solution 10/19/2023 Active testosterone 100 mg/DHEA 50mg/g 100 mg/50 mg/gm CREA topical compd 07/20/2023 Active progesterone 100 MG SUPP SUPP 07/20/2023 Active spironolactone (Aldactone) 100 MG tablet 04/05/2024 Active SUMAtriptan (Imitrex) 50 MG tablet 11/17/2022 Active Testosterone 11/03/2023 Active topiramate (Topamax) 100 MG tablet Active topiramate (Topamax) 50 MG tablet 04/19/2012 Active traZODone (Desyrel) 50 MG tablet 04/19/2011 Active levothyroxine (Synthroid) 25 MCG tablet Take 1 (one) tablet by mouth 03/08/2024 Active eszopiclone (Lunesta) 3 MG tablet Take 1 (one) tablet by mouth 03/08/2024 Active buPROPion XL 24hr (Wellbutrin-XL) 150 MG tablet Take 1 (one) tablet by mouth 01/12/2024 Active erenumab-aooe (Aimovig) 70 MG/ML auto injector pen Inject 1 mL subcutaneously 04/04/2024 Active baclofen (Lioresal) 10 MG tablet Take 1 (one) tablet by mouth 01/12/2024 Active ROPivacaine 5 MG/ML SOLN 50 mL, EPINEPHrine 1 MG/ML SOLN 0.3 mg, morphine 4 MG/ML SOLN 4 mg, ketorolac 30 mg/mL SOLN 30 mg Active Galcanezumab-gnlm (Emgality) 120 MG/ML auto-injector pen Inject 1 mL subcutaneously 03/31/2024 Active tirzepatide (Mounjaro) 7.5 MG/0.5ML injection Inject 12.5 mg subcutaneously every 7 days Takes on Fridays Active estradiol 0.0125% vaginal cream Insert 1 (one) g into the vagina at bedtime Active oxyCODONE, immediate release, (Roxicodone) 5 MG tabletIndications :Bilateral occipital neuralgia Take 1 (one) tablet by mouth every 6 hours as needed for Pain 20 tablet 05/23/2024 Active Additional Information Patient not taking.Reported on 11/02/2024 acetaminophen (Tylenol) 325 MG tablet Take 2 (two) tablets by mouth Every 6 Hours (03,09,15,21) Maximum allowable Acetaminophen amount = 4 Grams (4000 mg) / 24 hours. 60 tablet 05/23/2024 Active gabapentin (Neurontin) 300 MG capsule Take 1 (one) capsule by mouth 2 times daily 60 capsule 05/23/2024 Active Additional Information Patient not taking.Reported on 11/02/2024 oxyCODONE, immediate release, (Roxicodone) 5 MG tabletIndications :Bilateral occipital neuralgia Take 1 (one) tablet by mouth every 6 hours as needed for Pain 15 tablet 05/25/2024 Active Additional Information Patient not taking.Reported on 11/02/2024 traMADol (Ultram) 50 MG tablet Take 1 (one) tablet by mouth once Takes at night Active methylPREDNISolon e (Medrol Dosepak) 4 MG tablet Take by mouth as directed Take as directed by mouth per package instructions. 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 Claustrophobia 05/17/2024 Fear of flying 05/17/2024 Hyperlipidemia, unspecified 05/17/2024 Other spondylosis with radiculopathy, cervical r egion 05/17/2024 Stress incontinence (female) (male) 05/17/2024 Urticaria due to cold and heat 05/17/2024 Chronic migraine w/o aura w/ o status migrainosus, not intractable 12/29/2023 Pain of both hip joints 02/20/2023 Buster thyroiditis, fibrous variant 2 DUB (dysfunctional uterine bleeding) 10/01/2017 Fibroid 10/01/2017 Post-traumatic stress disorder, chronic 05/23/20 16 Occipital neuralgia 01/18/2016 Cervicalgia 12/19/2015 Overview (05/17/2024): As she has already tried PT, chiropractor, and pain managment w/o success for this, I will place referral for Dr. Martinez. Other specified disorders of bone density and structure, unspecified site 02/08/2012 Hypermetropia, unspecified eye 03/09/2009 Migraine headache 11/11/2007 Chronic pain disorder 04/19/2001 Adjustment disorder with mixed anxiety and depre ssed mood Decreased libido Insomnia, unspecified Encounters Date Type Department Care Team Description 12/08/2024 3:08 PM [facility] Hospital Encounter [facility] CAT SCAN [address] [place] [address] Krystin Granados PA-C 12/08/2024 3:07 PM [facility] Hospital Encounter [facility] CAT SCAN [address] [place] [address] Krystin Granados PA-C 12/08/2024 Travel 11/25/2024 Travel 11/02/2024 10:30 AM CLUB LICENSEE Office Visit [facility] Surgery [address] [place] [address] Negrita Moore MD Bilateral occipital neuralgia (Primary Dx); Chronic migraine w/o aura w/o status migrainosus, not intractable; Fluid collection at surgical site, initial encounter 11/02/2024 Travel from Last 3 Months Social History Tobacco Use Types Packs/Day Years Used Date Smoking Tobacco: Former Cigarettes 0.1 2 2 000 - 2002 Passive Smoke Exposure: Past Smokeless Tobacco: Never Tobacco Cessation:Counseling Given: Not Answered Alcohol Use Standard Drinks/Week Comments Yes 0 (1 standard drink = 0.6 oz pur e alcohol) rare Sex and Gender Information Value Date Recorded Sex Assigned at Not on file Gender Identity Not on file Sexual Orientation Not on file Last Filed Vital Signs Vital Sign Reading Time Taken Comments Blood Pressure 98/74 11/02/2024 10:19 AM CLUB LICENSEE Pulse 87 11/02/2024 10:19 AM CLUB LICENSEE Temperature 36.9 ??C (98.4 ??F) 08/10/2024 1:01 PM CD T Respiratory Rate 18 08/10/2024 1:01 PM CDT Oxygen Saturation 100% 11/02/2024 10:19 AM CLUB LICENSEE Inhaled Oxygen Concentration - - Weight 64.9 kg (143 lb) 11/02/2024 10:19 AM CLUB LICENSEE Height 160 cm (5' 3 ) 11/02/2024 10:19 AM CLUB LICENSEE Body Mass Index 25.33 11/02/2024 10:19 AM CLUB LICENSEE Plan of Treatment Upcoming Encounters Date Type Department Care Team (Late st Contact Info) Description 12/14/2024 1:30 PM CLUB LICENSEE Office Visit [facility] - [facility] [address] [phone] Esequiel Chapman MD [address] [place] [address] Health Maintenance Due Date Last Done Comments COLOGUARD (AGES 45-75) - COLON CA SCREENING 1973 COLON MONITORING 1973 COLONOSCOPY - COLON CA SCREENING 1973 CT COLONOGRAPHY - COLON CA SCREENING 1973 Colorectal Cancer Screening 1973 FIT - COLON CA SCREENING 1973 FLEX SIG - COLON CA SCREENING 1973 LIPID TESTING 1973 MAMMOGRAM 1973 PAP SMEAR 1973 HIV SCREENING 1988 HEPATITIS C SCREENING 08/29/1991 DTAP/TDAP/TD VACCINES (1 - Tdap) 1992 HEPATITIS B VACCINE (1 of 3 - 19+ 3-dose series) 1992 PNEUMOCOCCAL VACCINE 50+ (1 of 1 - PCV) 2023 ZOSTER VACCINE (1 of 2) 2023 COVID-19 VACCINE (4 - season) 2024 03/31/2022, 06/14/2021, 04/04/2021 INFLUENZA VACCINE (#1) 2024 7, 08/29/2014, 08/24/2013, Additional history exists SCREENING FOR DIABETES 11/02/2024 DEPRESSION SCREENING 11/16/2024 HIB VACCINE Aged Out No longer eligi ble based on patient's age to complete this topic HPV VACCINE Aged Out No longer eligi ble based on patient's age to complete this topic MENINGOCOCCAL (Group B) VACCINE Aged Out No longer eligible based on patient's age to complete this topic MENINGOCOCCAL VACCINE Aged Out No shubham sonu eligible based on patient's age to complete this topic Procedures Procedure Name Priority Date/Time Associated Diagnosis Comments CREATININE - POCT INTERFACED Routine 12/08/2024 3:16 PM CLUB LICENSEE from Last 3 Months Results * (ABNORMAL) CREATININE - POCT INTERFACED (12/08/2024 3:16 PM CLUB LICENSEE) Creatinine POCT 1.18 0.30 - 1.30 mg/dL 12/08/2024 3:18 PM CLUB LICENSEE [facility] eGFR 56(L) >=90 mL/min/1.7 3 m2 12/08/2024 3:18 PM CLUB LICENSEE [facility] Blood BLOOD SPECIMEN / Unknown 12/08/2024 3:16 PM CLUB LICENSEE 12/08/2024 3:18 PM CLUB LICENSEE Krystin Granados PA-C LAB - POINT OF CARE ORDERABLES Performing Organization Address City/State/[facility] Co de Phone Number [facility] [address] [place] [address], [facility] [phone] from Last 3 Months Care Teams Funeral Home Manager Relationship Specialty Start Date End Date Luigi Damon MD [address] [place] [address] PCP - General Family Medicine 06/03/24
--- OUTSIDE RECORDS SUMMARY | 2024-12-08 17:52 | XMS_ITS | Referral Summary ---
Author Organization [facility] Address [address] [place] [address] Care Team Providers Care Vegetable Handler Name Role Phone Luigi Damon MD Primary Care Provider [phone] Source Comments [facility],non-owned Affiliates and Associated Physician Practices is amultiple site organization consisting of ambulatory clinics and hospital sitesin [place], [place], [place] and [place]. This disclosure is being madepursuant to the Care Everywhere program and may not contain all information available regarding this patient. Last updated 18.[facility] Encounters Date Type Department Care Team Description 12/08/2024 Travel 12/08/2024 3:07 PM ACID REMOVER Hospital Encounter [facility] CAT SCAN [address] [place] [address] Krystin Granados PA-C 12/08/2024 3:08 PM ACID REMOVER Hospital Encounter [facility] [address] [place] [address] Krystin Granados PA-C 11/25/2024 Travel 11/02/2024 Travel 11/02/2024 10:30 AM ACID REMOVER Office Visit [facility] - [facility] [address] [place] [address] Negrita Moore MD Bilateral occipital neuralgia (Primary Dx); Chronic migraine w/o aura w/o status migrainosus, not intractable; Fluid collection at surgical site, initial encounter from Last 3 Months Allergies Active Allergy Reactions Criticality Noted Date [...] Take 1 (one) tablet by mouth 01/12/2024 5 Active erenumab-aooe (Aimovig) 70 MG/ML auto injector [...] depre ssed mood Decreased libido Insomnia, unspecified Social History Tobacco Use Types Packs/Day Years [...] Comments Blood Pressure 98/74 11/02/2024 10:19 AM ACID REMOVER Pulse 87 11/02/2024 10:19 AM ACID REMOVER Temperature 36.9 ??C (98.4 ??F) 08/10/2024 1:01 PM CD T Respiratory Rate 18 08/10/2024 1:01 PM CDT Oxygen Saturation 100% 11/02/2024 10:19 AM ACID REMOVER Inhaled Oxygen Concentration - - Weight 64.9 kg (143 lb) 11/02/2024 10:19 AM ACID REMOVER Height 160 cm (5' 3 ) 11/02/2024 10:19 AM ACID REMOVER Body Mass Index 25.33 11/02/2024 10:19 AM ACID REMOVER Plan of Treatment Upcoming Encounters Date Type Department Care Team (Late st Contact Info) Description 12/14/2024 1:30 PM ACID REMOVER Office Visit [facility] - Plastic Surgery [address] [phone] Esequiel Chapman MD [address] [place] [address] Procedures Procedure Name Priority Date/Time Associated Diagnosis Comments CREATININE - POCT INTERFACED Routine 12/08/2024 3:16 PM ACID REMOVER from Last 3 Months Results * (ABNORMAL) CREATININE - POCT INTERFACED (12/08/2024 3:16 PM ACID REMOVER) Creatinine POCT 1.18 0.30 - 1.30 mg/dL 12/08/2024 3:18 PM ACID REMOVER [facility] eGFR 56(L) >=90 mL/min/1.7 3 m2 12/08/2024 3:18 PM ACID REMOVER [facility] Blood BLOOD SPECIMEN / Unknown 12/08/2024 3:16 PM ACID REMOVER 12/08/2024 3:18 PM ACID REMOVER Krystin Granados PA-C LAB - POINT OF CARE ORDERABLES [facility] [address] [place] [address], [facility] [phone] from Last 3 Months Care Teams Vegetable Handler Relationship Specialty Start Date End Date Luigi Damon MD [address] [place] [phone] PCP - General Family Medicine 06/03/24
--- OUTSIDE RECORDS SUMMARY | 2024-12-08 17:52 | XMS_ITS | Patient Health Summary ---
Author Organization [facility] Address [address] [place] [address] Care Team Providers Care Biodiesel Production Associate Name Role Phone Luigi Damon MD Primary Care Provider [phone] Note from [facility],non-owned Affiliates and Associated Physician Practices is amultiple site organization consisting of ambulatory clinics and hospital sitesin [place], [place], [place] and [place]. This disclosure is being madepursuant to the Care Everywhere program and may not contain all information available regarding this patient. Last updated 18.[facility] Allergies * Benadryl(Elevated Blood Pressure) -Medium Criticality * Cat Hair Extract(Urticaria,Eye Redness,Shortness of Breath) -High Criticality * Diphenhydramine(Elevated Blood Pressure,Other) -Medium Criticality * Promethazine(Other,Psychiatric) -Medium Criticality Medications * Be aware that medications may not be up to date on this document. Alwaysverify current medications with the patient. * triamcinolone acetonide (Kenalog) injection 1 mL * ALPRAZolam (Xanax) 0.5 MG tablet(Started 12/18/2023) * cetirizine (ZyrTEC) 10 MG tablet * Estradiol (ESTROGEL TD)(Started 07/20/2023) * LORazepam (Ativan) 0.5 MG tablet(Started 03/06/2023) * liothyronine (Cytomel) 5 MCG tablet * meclizine (Antivert) 12.5 MG tablet(Started 12/14/2023) * meloxicam (Mobic) 15 MG tablet(Started 11/17/2022) * naltrexone 1 mg/ml compd solution(Started 10/19/2023) * testosterone 100 mg/DHEA 50mg/g 100 mg/50 mg/gm CREA topical compd(Started 07/20/2023) * progesterone 100 MG SUPP SUPP(Started 07/20/2023) * spironolactone (Aldactone) 100 MG tablet(Started 04/05/2024) * SUMAtriptan (Imitrex) 50 MG tablet(Started 11/17/2022) * Testosterone(Started 11/03/2023) * topiramate (Topamax) 100 MG tablet * topiramate (Topamax) 50 MG tablet(Started 04/19/2012) * traZODone (Desyrel) 50 MG tablet(Started 04/19/2011) * levothyroxine (Synthroid) 25 MCG tablet(Started 03/08/2024) Take 1 (one) tablet by mouth * eszopiclone (Lunesta) 3 MG tablet(Started 03/08/2024) Take 1 (one) tablet by mouth * buPROPion XL 24hr (Wellbutrin-XL) 150 MG tablet(Started 01/12/2024) Take 1 (one) tablet by mouth * erenumab-aooe (Aimovig) 70 MG/ML auto injector pen(Started 04/04/2024) Inject 1 mL subcutaneously * baclofen (Lioresal) 10 MG tablet(Started 01/12/2024) Take 1 (one) tablet by mouth * ROPivacaine 5 MG/ML SOLN 50 mL, EPINEPHrine 1 MG/ML SOLN 0.3 mg, morphine 4 MG/ML SOLN 4 mg, ketorolac 30 mg/mL SOLN 30 mg * Galcanezumab-gnlm (Emgality) 120 MG/ML auto-injector pen(Started 03/31/2024) Inject 1 mL subcutaneously * tirzepatide (Mounjaro) 7.5 MG/0.5ML injection Inject 12.5 mg subcutaneously every 7 days Takes on Fridays * estradiol 0.0125% vaginal cream Insert 1 (one) g into the vagina at bedtime * oxyCODONE, immediate release, (Roxicodone) 5 MG tablet(Started 05/23/2024) Take 1 (one) tablet by mouth every 6 hours as needed for Pain * acetaminophen (Tylenol) 325 MG tablet(Started 05/23/2024) Take 2 (two) tablets by mouth Every 6 Hours (03,09,15,21) Maximum allowable Acetaminophen amount = 4 Grams (4000 mg) / 24 hours. * gabapentin (Neurontin) 300 MG capsule(Started 05/23/2024) Take 1 (one) capsule by mouth 2 times daily * oxyCODONE, immediate release, (Roxicodone) 5 MG tablet(Started 05/25/2024) Take 1 (one) tablet by mouth every 6 hours as needed for Pain * traMADol (Ultram) 50 MG tablet Take 1 (one) tablet by mouth once Takes at night * methylPREDNISolone (Medrol Dosepak) 4 MG tablet(Started 06/08/2024) Take by mouth as directed Take as directed by mouth per package instructions. * gabapentin (Neurontin) 100 MG capsule(Started 11/02/2024) Take 1 (one) capsule by mouth at bedtime Active Problems Problem Noted Date Diagnosed Date [...] 05/23/20 16 Occipital neuralgia 01/18/2016 Cervicalgia 12/19/2015 Other specified disorders of bone density and [...] Comments Blood Pressure 98/74 11/02/2024 10:19 AM FIRE EXTINGUISHER REPAIRER INSPECTOR Pulse 87 11/02/2024 10:19 AM FIRE EXTINGUISHER REPAIRER INSPECTOR Temperature 36.9 ??C (98.4 ??F) 08/10/2024 1:01 PM CD T Respiratory Rate 18 08/10/2024 1:01 PM CDT Oxygen Saturation 100% 11/02/2024 10:19 AM FIRE EXTINGUISHER REPAIRER INSPECTOR Inhaled Oxygen Concentration - - Weight 64.9 kg (143 lb) 11/02/2024 10:19 AM FIRE EXTINGUISHER REPAIRER INSPECTOR Height 160 cm (5' 3 ) 11/02/2024 10:19 AM FIRE EXTINGUISHER REPAIRER INSPECTOR Body Mass Index 25.33 11/02/2024 10:19 AM FIRE EXTINGUISHER REPAIRER INSPECTOR Procedures * CREATININE - POCT INTERFACED(Performed 12/08/2024) * ENDOTRACHEAL TUBE NOTE(Performed 05/23/2024) * IA TRANSECT GREAT OCCIPITAL NERV(Performed 05/23/2024) Performed for Bilateral occipital neuralgia Results * (ABNORMAL) CREATININE - POCT INTERFACED (12/08/2024 3:16 PM FIRE EXTINGUISHER REPAIRER INSPECTOR) Creatinine POCT 1.18 0.30 - 1.30 mg/dL 12/08/2024 3:18 PM FIRE EXTINGUISHER REPAIRER INSPECTOR [facility] eGFR 56(L) >=90 mL/min/1.7 3 m2 12/08/2024 3:18 PM FIRE EXTINGUISHER REPAIRER INSPECTOR [facility] Blood BLOOD SPECIMEN / Unknown 12/08/2024 3:16 PM FIRE EXTINGUISHER REPAIRER INSPECTOR 12/08/2024 3:18 PM FIRE EXTINGUISHER REPAIRER INSPECTOR Krystin Granados PA-C LAB - POINT OF CARE ORDERABLES [facility] [address] [place] [id number], [facility] [phone] * ETT LINE PERFORMABLE (05/23/2024 8:59 AM CDT) Narrative Anaid Pruitt Anes Asst - 05/23/2024 8:59 AM CDT Anaid Pruitt Anes Asst ? 05/23/2024 ??9:00 AM Endotracheal Tube Placement: ? Patient Location: OR. Intubation Event Date/Time: ??05/23/2024 8:33 AM Procedure: intubation ([id number]) Procedure Section: ?? Sedation: under general anesthesia. Indications for Airway Management: ??anesthesia Procedure pretreatments used? ??No Induction: standard IV Patient Position: ??sniffing Mask Ventilation: easy. Blade Type: Escobedo Blade Size: 2 Laryngoscopy View: grade 1 (full cords) Intubation Adjuncts: cricoid pressure and stylet Tube: endotracheal tube Placement: oral Tube type: cuff - inflated Tube Size (MM): 6.5 Depth of Insertion (CM): 21 Measured From: lips Cuff volume (mL): ??8 Cuff Inflated With: air Number of Attempts: 1. Placement Verified By: direct visualization, bilateral breath sounds, chest auscultation and CO2 monitor Tube secured with: ??adhesive tape. Dentition unchanged? ??Yes Difficult Airway? ??No. Procedure Start Time: 05/23/2024 8:33 AM. Staff Section ? Anesthesia Provider: Anaid Pruitt Anes Asst, Performed the procedure Yony Garduno MD [facility] Care Teams Biodiesel Production Associate Relationship Specialty Start Date End Date Luigi Damon MD [address] [place] [address] PCP - General Family Medicine 06/03/24
--- OUTSIDE RECORDS SUMMARY | 2024-12-08 17:52 | XMS_ITS ---
Author Organization [facility] Address [address] [place] [address] Care Team Providers Care Remelt Sugar Boiler Name Role Phone Marisol YARBROUGH, Luigi Primary Care Provider Dr. Peyman Yen Unavailable [phone] REASON FOR VISIT Reschedule Botox Encounters Encounter Location Date Provider Diagnosis [facility] [address] [place] [address] 11/29/2024 Peyman Alberto Plan Of Treatment Next Appt Details Provider Name:Sharmin steward, 12/15/2024 10:30:00 AM, [address] [facility], [address], [place], [address], Progress Notes * Aliya BANSALDOB: [birth year] (49 yo F)Acc No.[id number]:11/29/2024 Patient:?Aliya BANSAL :1975???Age:49 Y???Sex:Female Address:[address] [place] [address], [id number] * true * Date:? 

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
--- OUTSIDE RECORDS SUMMARY | 2024-12-08 17:52 | XMS_ITS ---
Author Organization [facility] Address [address] [place] [address] Care Team Providers Care Capacity Planner Name Role Phone Marisol YARBROUGH, Luigi Primary Care Provider Dr. Peyman Yen Unavailable [phone] Sharmin Santos Unavailable [phone] REASON FOR VISIT Kar YI Approved 10/03/2024-05/01/2025 Encounters Encounter Location Date Provider Diagnosis [facility] [address] [place] [address] 11/02/2024 Sharmin Santos Plan Of Treatment Next Appt Details Provider Name:Sharmin steward, 12/15/2024 10:30:00 AM, [address] [facility], [address], [address], Progress Notes * Aliya BANSALDOB: [birth year] (49 yo F)Acc No.[id number]:11/02/2024 Patient:?Aliya BANSAL :1975???Age:49 Y???Sex:Female Address:[address] [place] [address], [address] * true * Date:? Generated for Printi ng/Faxing/eTransmitting on:?12/08/2024 05:52 PM MANAGER ROOM
--- OUTSIDE RECORDS SUMMARY | 2024-12-08 17:53 | XMS_ITS | Patient Health Record ---
Author Organization [facility] Address [address] [facility] [address] [place] [address] Care Team Providers Care Seo Strategist Name Role Phone Weston YARBROUGH, Jamison Primary Care Provider Cedric RosenbergStephanie Unavailable [phone] Reason For Referral No Information Plan Of Treatment No Information Insurance Providers Payer Name Payer Address Payer Phone Subscriber Number Group Number Insured Name Patient Relationship to Insured Coverage Start Date Coverage End Date [employer] [address] [place] [address] [id number] Aliya Ortega Self - patient is the insured Medical (General) History Surgical History Surgery Date(Month/Year) endometrial ablation; 2023-02-07 Cervical spine surgery; 2023-02-07
--- OUTSIDE RECORDS SUMMARY | 2024-12-08 17:53 | XMS_ITS ---
Author Organization [facility] Address [address] [facility] [address] [place] [address] Care Team Providers Care Laundry Operator Wash Room Name Role Phone Weston YARBROUGH, Jamison Primary Care Provider Unavailabl e hCet Stephanie Unavailable [phone] zzzzMigration, zzzzProvider Unavailable Unav ailable REAS[place] V[place]IT [place] [place] En[place] Location Date Provider Diagnosis [facility] [address] [facility] [address] [place] [address] 09/06/2023 zzzzProvider zzzzMigration Plan Of Treatment No Information Progress Notes * ROLF AliyaDOB: [birth year] (49 yo F)Acc No.[id number]:09/06/2023 Patient:?Aliya BANSAL :1975???Age:48 Y???Sex:Female Address:[address] [facility] [address] Subjective: * Chief Complaints: * ???[place] [place] Medical History:? * Surgical History:?Cervical s pine surgery; [id number] ablation; 2023-02-07 * Hospitalization/Major Diagno stic Procedure:? * Family History:?Migrated Fam patsy History: Colon cancer , Diabetes , Multiple sclerosis , Stroke .? * Medications:? Objective: * Vitals:? * Physical Examination:? Assessment: Plan: * Treatment: * Procedure Codes:? * * Date:?
--- OUTSIDE RECORDS SUMMARY | 2024-12-08 17:53 | XMS_ITS | Continuity of Care Document ---
Author Organization [facility] Address [address] [address] [place] [address] Phone Care Team Providers Care Chemical Preparer Name Role Phone Jamison Ontiveros MD Unavailable Unavailable Allergies, Adverse Reactions, Alerts Substance Reaction Status Criticality DIPHENHYDRAMINE HCL AnaphylaxisAltered Heart Rate Acti ve No Information cat dander Hives / Skin RashRed EyesTrouble Breathin g Active No Information Medications Medication Instructions Dosage Effective Dates (start - stop) Status Comments Ativan 0.5 mg tablet take 1 Tablet by oral route 3 times every day as needed as needed 0.5 MG - Active PRN for anxiety, avoid driving or operate machines Trulicity 1.5 mg/0.5 mL subcutaneous pen injector inject (1.5MG) by subcutaneous route every week 1.5 MG - Active Lunesta 3 mg tablet take 1 tablet by oral route every day at bedtime 3 MG - Active Zyrtec 10 mg tablet take 1 tablet by oral route every day 10 MG - Active trazodone 50 mg tablet take 1 tablet by oral route every bedtime after meals 50 MG - Active Synthroid 25 mcg tablet take 1 tablet by oral route every day 25 MCG - Active cyclobenzaprine 10 mg tablet take 1 tablet by oral route 2 times every day as needed 10 MG - Active PRN for pain , avoid driving or operate machines Wellbutrin XL 300 mg 24 hr tablet, extended release take 1 tablet by oral route every morning 300 MG - Active Addyi 100 mg tablet take 1 tablet by oral route every day at bedtime 100 MG - Active Myrbetriq 25 mg tablet,extended release take 1 tablet by oral route every day swallowing whole with water. Do not crush, chew and/or divide. 25 MG - Active Imitrex 50 mg tablet take 1 tablet by oral route as needed 50 MG - Active PRN for migraine meloxicam 15 mg tablet take 1 tablet by oral route every day 15 MG - Active Topamax 100 mg tablet take 1 Tablet by oral route 1 times every day - Active Procedures Procedure Date OFFICE/OUTPATIENT VISIT, EST OFFICE/OUTPATIENT VISIT, EST OFFICE/OUTPATIENT VISIT, EST OFFICE/OUTPATIENT VISIT, EST OFFICE/OUTPATIENT VISIT, EST OFFICE/OUTPATIENT VISIT, EST OFFICE/OUTPATIENT VISIT, EST OFFICE/OUTPATIENT VISIT, EST OFFICE/OUTPATIENT VISIT, EST OFFICE/OUTPATIENT VISIT, EST OFFICE/OUTPATIENT VISIT, EST OFFICE/OUTPATIENT VISIT, NEW Advance Directives Directive Yes / No Effective Date File Name No Information Encounters Encounter Description Practice Location Reason(s) For Visit Diagnoses Date Provider Providers Copied on Encounter OFFICE/OUTPA TIENT VISIT, [facility], [address] [place], [id number], tel:[phone] [facility] [place] anxiety1 (chief complaint) Generalized Anxiety Disorder 4 Weston Garcia [address] [facility] [place], [address] , [place]. tel:[phone] [facility] [place], [address] [facility] [place] [address], [place] tel:[phone] [facility] [place] No Information 3 Weston Garcia [address], [address] [place], [address] , [place]. tel:[phone] OFFICE/OUTPA TIENT VISIT, [facility], [address] [place], [address], [place] tel:[phone] [facility] [place] hashimoto1 (chief complaint) back pain1 (chief complaint) sick (chief complaint) insomnia1 (chief complaint) weight gain1 (chief complaint) Primary insomniaHashimoto's thyroiditisOther spondylosis, lumbar regionAbnormal weight gainViral infection 3 Weston Swift. [address], [place], [place], [address] , [place]. tel:[phone] OFFICE/OUTPA TIENT VISIT, [facility], [address] [place], [address], [place] tel:[phone] [facility] [place] urine creatine (chief complaint) hematuria1 (chief complaint) UTI1 (chief complaint) Asymptomatic microscopic hematuriaAcute cystitis without hematuriaRenal disease 3 Weston Swfit. [address] [facility] [place], [address] , [place]. tel:[phone] OFFICE/OUTPA TIENT VISIT, [facility], [address] [place], [address], [place] tel:[phone] [facility] [place] urine creatine1 (chief complaint) allergy1 (chief complaint) insomnia1 (chief complaint) hashimoto1 (chief complaint) back pain1 (chief complaint) Other spondylosis, lumbar regionHashimoto's thyroiditisAllergic rhinitis due to pollenPrimary insomniaAsymptomati c microscopic hematuria 3 Weston Swift. [address], [place], [place], [address] , [place]. tel:[phone] OFFICE/OUTPA TIENT VISIT, EST [facility] [place], [address] [place], [address], [place] tel:[phone] [facility] [place] anxiety1 (chief complaint) insomnia1 (chief complaint) tachycardi a1 (chief complaint) weight1 (chief complaint) Primary insomniaGeneralized Anxiety DisorderPalpitation sAbnormal weight gain Feb- 3 Weston Swift. [address], [place], [place], [address] , [place]. tel:[phone] OFFICE/OUTPA TIENT VISIT, [facility], [address], [place], [place], [address], [place] tel:[phone] [facility] [place] tachycardi a1 (chief complaint) anxiety1 (chief complaint) weight gain1 (chief complaint) PalpitationsHashimo to's thyroiditisGenerali zed Anxiety DisorderAbnormal weight gain 3 Ontiveros Jamison. [address], [place], [place], [address] , [place]. tel:[phone] OFFICE/OUTPA TIENT VISIT, [facility], [address], [place], [place], [address], [place] tel:[phone] [facility] [place] polyp1 (chief complaint) tachycardi a1 (chief complaint) anxiety1 (chief complaint) Generalized Anxiety DisorderHashimoto's thyroiditisPolyp of colonPalpitations 3 Ontiveros Jamison. [address], [place], [place], [address] , [place]. tel:[phone] OFFICE/OUTPA TIENT VISIT, [facility], [address], [place], [place], [address], [place] tel:[phone] [facility] [place] hashimoto1 (chief complaint) b12 (chief complaint) joint pain1 (chief complaint) anxiety1 (chief complaint) Murali's thyroiditisGenerali zed Anxiety DisorderPain in unspecified jointVitamin B12 deficiencyEncounter for oth screening for malignant neoplasm of breastEncounter for screening for malignant neoplasm of colon 3 Ontiveros Jamison. [address], [place], [place], [address] , [place]. tel:[phone] OFFICE/OUTPA TIENT VISIT, [facility], [address], [place], [place], [address], [place] tel:[phone] [facility] [place] anxiety1 (chief complaint) Generalized Anxiety DisorderDyspnea 3 Weston Swift. [address], [place], [place], [address] , [place]. tel:[phone] OFFICE/OUTPA TIENT VISIT, [facility], [address], [place], [place], [address], [place] tel:[phone] [facility] [place] insomnia1 (chief complaint) hashimoto1 (chief complaint) weight1 (chief complaint) joint pain1 (chief complaint) anxiety1 (chief complaint) Primary insomniaHashimoto's thyroiditisPain in unspecified jointAbnormal weight gainPain in right hipGeneralized Anxiety Disorder 3 Weston Swift. [address], [place], [place], [address] , [place]. [phone] OFFICE/OUTPA TIENT VISIT, [facility], [address], [place], [place], [address], [place] tel:[phone] [facility] [place] weight gain1 (chief complaint) Murali's thyroiditisAbnormal weight gain 3 Weston Swift. [address], [place], [place], [address] , [place]. [phone] OFFICE/OUTPA TIENT VISIT, [facility], [address], [place], [place], [address], [place] tel:[phone] [facility] [place] hashimoto1 (chief complaint) anxiety1 (chief complaint) insomnia1 (chief complaint) OAB (chief complaint) headache1 (chief complaint) neck pain1 (chief complaint) Abnormal weight gainPrimary insomniaTension headacheHashimoto's thyroiditisOveracti ve bladderCervicalgiaD epressionDecreased libido 3 Weston Swift. [address], [place], [place], [address] , [place]. tel:[phone] Family History Family Member Type Diagnosis Age At Onset Mother Problem stroke (Cause Of ) 72 Father Problem DM Brother Problem Alive and well Father Problem MS Mother Problem colon CA 72 Payers Payer name Insurance type Covered republican ID Authoriza tion(s) No Information Social History Type Description Quantity Date Captured Comments Alcohol Use Details hard liquor 2 drinks rarely Caffeine Use Details energy drinks 0-1 drinks per day Tobacco Use Status Current non-smoker 22 Smoking Status Never smoker Sex Female Chief Complaint And Reason For Visit From encounter dated '12/28/2023 17:18'. anxiety1 (chief complaint). Description: Pt has chronic anxiety and depression Pt takes wellbutrin and ativan PRn and doing ok Pt did not picking supervisor refill for ativan from last year and the script . Pt only takes ativan PRn. Pt denies any suicidal or homicidal thought or any crying spells . Plan Of Treatment Date Type Action Status Referral Ordered: Pain Medicine (related to Other spondylosis, lumbar region) ordered Referral Ordered: Referrals: Pain Medicine. Evaluate and treat ordered Referral Ordered: MRI LUMBAR SPINE W/O DYE ordered Referral Ordered: Cardiology (related to Palpitations) ordered Referral Ordered: Referrals: Cardiology. Evaluate and treat ordered Referral Ordered: COLONOSCOPY AND BIOPSY ordered Referral Ordered: MAMMOGRAM, SCREENING ordered Referral Referred To: Stephanie Rosenberg MD [address] [facility]
[address] [place], [place], [address] Ordered: Referrals: Stephanie Rosenberg MD. Evaluate and treat ordered Referral Ordered: SHAHNAZ BLACK -Allopathic & Osteopathic Physicians : Orthopaedic Surgery (related to Pain in right hip) ordered Referral Referred To: SHAHNAZ BLACK [facility] [place], [place], [phone] Ordered: Referrals: Allopathic & Osteopathic Physicians : Orthopaedic Surgery. SHAHNAZ BLACK. Evaluate and treat ordered Referral Ordered: Manjinder Bowles MD -[facility]opathic [facility]opathic Physicians : Obstetrics & Gynecology (related to Decreased libido) ordered Referral Ordered: Urology (related to Overactive bladder) ordered Referral Ordered: Neurology (related to Tension headache) ordered Referral Referred To: Manjinder Bowles MD [address] [facility] [place], [place], [phone] Ordered: Referrals: Allopathic & Osteopathic Physicians : Obstetrics & Gynecology. Manjinder Bowles MD. Evaluate and treat ordered Referral Ordered: Referrals: Neurology. Evaluate and treat ordered Referral Ordered: Referrals: Urology. Evaluate and treat ordered History Of Present Illness Encounter Date Complaint History Of Prese nt Illness anxiety1 Pt has chronic a nxiety and depression Pt takes wellbutrin and ativan PRn and doing ok Pt did not picking supervisor refill for ativan from last year and the script . Pt only takes ativan PRn. Pt denies any suicidal or homicidal thought or any crying spells . hashimoto1 Pt has murali . Pt is on synthroid Pt saw a [employer] at chiropractor office and she is on progesterone ,T3. 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 Pt states that she is feeling better with above meds. back pain1 Pt has chronic l ow back pain Pt denies any loss of bowel or bladder control or saddle area paresthesia Pt denies any neuropathy symptoms. Her MRI is unremarkable. sick Pt c/o acute ons et of sinus congestion ,dry cough, muscle ache, headache for 5 days Pt denies any fever Pt had negative COVID testing yesterday Pt was vaccinated for COVID without boosters insomnia1 Pt has chronic i nsomnia. Pt takes lunesta and doing ok. Pt needs refill weight gain1 Pt has gained la rge amount of weight Pt went to [facility] and she has been eating poorly urine creatine Pt has high urin creatine on UA from lab from [facility] .pt had repeat 24 hour urine creatine which was in normal range hematuria1 Pt does not have any hematuria on repeat microscopic urine test UTI1 Pt c/o mild dysu paula with some low pelvic pressure with mild nausea with urinary frequency and urgency x 2 days Pt denies any fever chill ,vomiting . Pt denies any flank pain urine creatine1 Pt did some lab work from [facility] recently and her renal function and serum creatine is ok but urine creatine is high around 300, then 100s .she also has some hematuria as well. pt denies any urinary symptoms allergy1 Pt has seasonal allergy. Pt is on zyrtec and doing ok. insomnia1 Pt has insomnia Pt takes trazodone qhs PRN and doing ok. hashimoto1 Pt has murali and pt takes synthroid and doing ok Pt denies any dysphagia or neck pain back pain1 Pt has chronic l ow back pain. Pt denies any sciatica Pt denies any loss of bowel or bladder control or saddle area paresthesia Pt has been doing chiropractice adjustment but has not helped. Pt c/o constant low back pain with muscle spasm, especially with movement. Pt denies any injury weight1 Pt stared trulic ity 1.5 mg sc weekly and she notices appetite suppression Pt has not lost much weight yet tachycardia1 Pt has mild tach ycardia with palpitation, which resolved without cytomel. Pt has blanca with cardiology next week. anxiety1 Pt has chronic a nxiety and depression Pt takes wellbutrin and ativan and she is doing well Pt denies any suicidal or homicidal thought. Pt denies any crying spells Pt take ativan 0.5 mg in AM and she takes 1 mg at night which works very well for her. Pt is off buspar. insomnia1 Pt has chronic i nsomnia Pt takes lunesta qhs and doing well Pt denies any snoring tachycardia1 Pt recently went to ER due to tachycardia and she was told that it is due to anxiety Pt also stopped taking cytomel and her tachycardia resolved. Pt denies any chest pain or sob or palpitation anxiety1 Pt has anxiety a nd depression Pt takes wellbutrin, buspar and she feels that ativan PRn is helping anxiety .Pt denies any suicidal or homicidal thought Pt denies any crying spells weight gain1 Pt has been miah gaines to try to lose weight Pt has not lost much weight Pt denies any Gi side effects polyp1 Pt had colonosco py done last week which showed hyperplastic polyp and she needs to repeat in 5 years .Pt denies any lower GI issue tachycardia1 pt has been noti cing intermittent tachycardia wit palpitation Pt denies any chest pain, Pt went to Er last night and she had EKG and some lab done and she was told that tachyoddia due to anxiety? anxiety1 Pt has chronic a nxiety and depression Pt takes wellbutrin and buspar and she still feels very anxious. Pt is worried about her daughter health and she also has some stress building her home. hashimoto1 Pt has murali , which is confirmed by lab and ultrasound. Pt is 25 mcg synthroid and she felt much more energy and focused and currently the symptoms returned similar like before starting synthroid .Pt feels fatigue, cloudy brained and also intermittent flash of dizziness. Pt denies any headache Pt denies any syncope. Pt states that all her symptoms went away when she first started the synthroid but now returned. b12 Pt has high b12 Pt has been taking b12 supplement joint pain1 Pt has bilateral hip, wrist and chronic neck pain. ,pt has mildly high ETA protein. Her RA and lupus all negative. Pt does have chronic neck pain post multiple cervical surgery. anxiety1 Pt has chronic a nxiety and depression Pt takes wellbutrin and buspar and she is doing better Pt denies any suicidal or homicidal thought pt denies any crying spells Pt states that buspar does help with anxiety anxiety1 Pt has chronic a nxiety and depression. Pt takes wellbutrin 300 mg in AM ,Pt denies any suicidal or homicidal thought Pt denies any crying spells. Pt has been having more anxiety lately with frequent panic attacks. Pt just moved here and she has a lot of going on with kids and building new house and she has been very excessively anxious and she has been having panic attacks. Pt had a panic attacks two weeks ago after trying some gummy edibles. Pt states that she will not try marijuana anymore. Pt had acute onset of panic attacks, shortness of breath, lump in her throat. Pt was transferred to ER via ambulance and she had negative EKG and chest x ray and sent home after some ativan, which did make her feel better. insomnia1 Pt has chronic i nsomnia Pt takes lunesta and doing ok Pt denies any insomnia while on lunesta hashimoto1 Pt has murali pt denies any dysphagia or neck pain Pt takes synthroid 25 mcg synthroid and she did feel better but now she feels lethargic again recently with dizziness. Pt states that fatigue and dizziness resolved when she first tarted synthroid. Pt denies any headache weight1 Pt started ozemp ic last month since she already paid for it and she has not tried trulicity yet Pt will finish ozempic for two more weeks and then she will try trulicity then. Pt did lose some weight with ozempic Pt denies any side effects joint pain1 Pt has diffuse j oint pain including hip, neck, and hand. Pt states that right hip pain is worse Pt states that she has tendinitis with right hip chronically. Pt denies any recent injury Pt denies any hip swelling or erythema or warmth anxiety1 Pt has chronic a nxiety and depression Pt takes wellbutrin and doing well Pt denies any suicidal or homicidal thought pt denies any crying spells weight gain1 Pt has murali thyroid disease and she is on synthroid and she gained more than 20 pounds during last 6 months Pt is seeing weight management clinic and she was started o ozempic recently which is very expensive and not covered by her insurance. insomnia1 Pt has chronic i nsomnia Pt takes lunesta and trazodone and doing ok OAB Pt has OAB Pt is on mybetriq and doing ok. 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 headache1 Pt has chronic t ension and migraine headache. Pt takes imitrex Prn and she takes topamax and she gets botox injection regularly .Pt needs neurology referral. Pt had normal MRi of brain in the past for headache . Pt doing ok with botox and topamax and imitrex PRN neck pain1 Pt has chronic n lydia pain. Pt is s/p cervical fusion x 2 .Pt takes baclofen PRN and doing ok Pt denies any radiculopathy hashimoto1 Pt has murali . Pt denies any dysphagia or neck pain Pt just started on synthroid recently. Pt had thyroid ultrasound several weeks ago anxiety1 Pt has chronic a nxiety and depression. Pt takes wellbutrin and doing ok Pt denies any suicidal or homicidal thought Pt denies any crying spells Instructions Date Instruction Additional Infor mation No Information Assessments Type Assessment Date assessment Generalized Anxiety Disorder Dec Mental Status Date Cognitive Assessment Orientation - [place] ed to time, place, person, situation.
--- OUTSIDE RECORDS SUMMARY | 2024-12-08 17:53 | XMS_ITS | Patient Health Record ---
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 Peyman Sommers Unavailable [phone] [facility], Provider Unavailable Unavailab Sharmin Rubin Unavailable [phone] Allergies Allergen (clinical drug ingredient) Drug/Non Drug Allergy documented on EMR Reaction Allergy Type Onset Date Status diphenhydramine Benadryl Allergy other reaction Drug Allergy Active ondansetron Ondansetron other reaction Drug Allergy Active Reason For Referral Reason [id number] Referring Provider First Name Luigi Referring Provider Last Name Marisol Referred Organization [facility] Referred Provider Peyman Alberto Referred Address [address] [place], [place],[address], Referred Provider Specialty Neurology Referral Priority Routine Reason Botox PA for G43.709 Diagnosis 1 Chronic migraine wit hout aura, not intractable, without status migrainosus (G43.709) Referral Organization [facility] Referring Provider First Name Peyman Referring Provider Last Name Remy Referring Provider Speciality Neurology Referred Organization [facility] Referred Provider Abhay Alberto Referred Address [address] [place], [place],[address], Referred Provider Specialty Neurology Referral Priority Routine Reason Evaluate and treat Diagnosis 1 Cervicalgia (M54.2) Diagnosis 2 Myalgia, unspecified site (M79.10) Referral Organization [facility] Referring Provider First Name Peyman Referring Provider Last Name Remy Referring Provider Speciality Neurology Referred Provider [facility] [place] Referral Priority Routine Reason 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 Diagnosis 1 Myalgia, unspecified site (M79.10) Diagnosis 2 Occipital neuralgia (M54.81) Referral Organization [facility] Referring Provider First Name Peyman Referring Provider Last Name Remy [facility] Referred Provider Esequiel Chapman Referred Provider Specialty Plastic and Reconstructive Surgery Referral Priority Routine Reason Evaluate and treat PT for myofascial work and scar tissue massage Diagnosis 1 Cervicalgia (M54.2) Diagnosis 2 Myalgia, unspecified site (M79.10) Referring Provider First Name Sharmin Referring Provider Last Name Tom Referring Provider [facility] Neurology Referred Provider [facility] PT [place] Referral Priority Routine Medications Medication SIG (Take, Route, Frequency, Duration) Notes Start Date End Date Status Tirzepatide 7.5 MG/0.5ML as directed Subcutaneous Active Imitrex 100 MG 1 tab(s) orally once Active Levothyroxine Sodium 25 MCG 1 tab(s) orally once a day Active Doxycycline 40 MG 1 capsule in the morning on an empty stomach Orally Once a day Not-Taking Lunesta 3 MG 1 tab(s) orally once [...] 1 tab(s) orally once a day Active Baclofen 10 MG 1 tab(s) orally 3 times a day Active traMADol HCl 50 MG 1 tab(s) orally every 6 hours Active diazePAM 10 MG 1 tablet Orally once, prior to MRI for 1 days As needed 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 06/09/2024 Active Topamax 50 MG 1 tab(s) orally 2 times a day Active Qulipta 60 MG 1 tab(s) orally once a day for 30 days 03/24/2024 Active Social History Tobacco Use: Social History Observation Description Date Details (start date - stop date) Never Smoker NA - NA Smoking Smart Form: Question Answer Notes Are you a: never smoker Tobacco Control (Standard) Question Answer Notes Tobacco use: Nonsmoker Problems Problem Type SNOMED Code ICD Code Onset Dates Problem Status W/U Status Risk Notes Problem Chronic migraine without aura, non-refractory (disorder) (055095365986014 ) Migraine without aura, not intractable, without status migrainosus (G43.009) Active confirmed Problem Migraine with aura (0189858) Migraine with aura, not intractable, without status migrainosus (G43.109) Active confirmed Problem Chronic migraine without aura, non-intractable (325714799272210 ) Chronic migraine without aura, not intractable, without status migrainosus (G43.709) Active confirmed Problem Insomnia (534044138) Insomnia, unspecified (G47.00) Active confirmed Problem Cervicalgia (04798012) Cervicalgia (M54.2) Active confirmed Problem Occipital neuralgia (37501744) Occipital neuralgia (M54.81) Active confirmed Problem Paresthesia (finding) (31790932) Paresthesia of skin (R20.2) Active confirmed Vital Signs Respiratory Rate 17 /min 03/31/2024 Oximetry 100 % 06/09/2024 Blood pressure diastolic 78 mm Hg 06/09/2024 Height 67 in 11/01/2024 Blood pressure systolic 110 mm Hg 06/09/2024 Weight 150.6 lbs 06/09/2024 BMI 23.58 kg/m2 06/09/2024 Encounters Encounter Location Date Provider Diagnosis [address] [address] 04/30/2024 Provider [facility] Chronic migraine without aura, not intractable, without status migrainosus G43.[address] [employer] [address] [address] 03/24/2024 Peyman Alberto Chronic migraine without aura, not intractable, without status migrainosus G43.709 ; Cervicalgia M54.2 ; Myalgia, unspecified site M79.10 ; Occipital neuralgia M54.81 and Insomnia, unspecified G47.00 [address] [employer] [address] [place] [address] 03/31/2024 Peyman Alberto Chronic migraine without aura, not intractable, without status migrainosus G43.709 ; Cervicalgia M54.2 ; Myalgia, unspecified site M79.10 ; Occipital neuralgia M54.81 and Insomnia, unspecified G47.00 [facility] [address] [place], [place] [address] [address] [place] [address] 06/09/2024 Peyman Alberto Chronic migraine without aura, not intractable, without status migrainosus G43.709 and Paresthesia of skin R20.2 [facility] [address] [place], [place] [address] [address] [address] 06/15/2024 Peyman Alberto Chronic migraine without aura, not intractable, without status migrainosus G43.[address] [employer] [address] [address] 09/08/2024 Sharmin Santos Chronic migraine without aura, not intractable, without status migrainosus G43.709 ; Cervicalgia M54.2 ; Myalgia, unspecified site M79.10 and Occipital neuralgia M54.81 [facility] [address] [place] [address] 11/01/2024 Sharmin Santos Chronic migraine without aura, not intractable, without status migrainosus G43.709 ; Cervicalgia M54.2 ; Myalgia, unspecified site M79.10 and Occipital neuralgia M54.81 [facility] [address] [place], [place] [address] [address] [address] 03/28/2024 Peyman Alberto [facility] [address] [place] [address] 03/28/2024 Peyman Alberto Chronic migraine without aura, not intractable, without status migrainosus G43.709 [facility] [address] [place], [place] [address] [address] [place] [address] 04/12/2024 Peyman Alberto [facility] [address] [place] [address] 06/09/2024 Peyman Alberto [facility] [address] [place] [address] 06/14/2024 Peyman Alberto [facility] [address] [place] [address] 06/21/2024 Peyamn Alberto [facility] [address] [place] [address] 06/23/2024 Peyman Alberto [facility] [address] [place] [address] 08/23/2024 Peyman Alberto [facility] [address] [place] [address] 11/01/2024 Sharmin Santos [facility] [address] [place] [address] 11/02/2024 Sharmin Santos [facility] [address] [facility] [address] [place] [address] 11/29/2024 Peyman Alberto Assessments Encounter Date Diagnosis (ICD Code) Assessment Notes Treatment Notes Treatment Clinical Notes Section Notes 03/24/2024 Chronic migraine without aura, not intractable, without status migrainosus (ICD-10 - G43.709) -Abortive treatment plan: Sumatriptan 100 mg.-Preventive treatment plan: Continue topiramate at present dose. Continue Botox, we will take over injections here. Add injections to bilateral masseter and levator scapulae. I gave a sample injection of Aimovig 70 mg. Add Qulipta 60 mg. Patient counseled r.e. potential side effects. Assess effect of injections today. -Educated the patient on migraine lifestyle recommendations. I recommended the following measures: avoid known triggers of migraine, drink > 100 fluid ounces of non-caffeinated fluid daily, limit caffeine to 2 servings/day, sleep 7-8 hours/night and address any sleep concerns with us and report symptoms of snoring or fatigue; healthy management of stress; avoid treating headaches more than 2 days/week with abortive medication unless approved in treatment plan; can take Riboflavin 400 mg and Magnesium 500 mg daily as supplements; keep scheduled follow-up appointments CancelRx Response got Denied on 2024-03-30 16:27:45 for 'Qulipta 60 mg tablet'Pharmacy Notes: Patient no longer under Provider care. [facility] Address: [address] [place], [address] Phone: [phone] Fax: [phone] She has intractable chronic migraine. Cervicalgia and myofascial pain are significant triggers. Will try trigger point injections and peripheral nerve blocks today. Recommended PT. Continue to advance anti-migraine therapy. 03/24/2024 Cervicalgia (ICD-10 - M54.2) Physical Therapy at [facility] PT in [place]. She has intractable chronic migraine. Cervicalgia and myofascial pain are significant triggers. Will try trigger point injections and peripheral nerve blocks today. Recommended PT. Continue to advance anti-migraine therapy. 03/28/2024 Chronic migraine without aura, not intractable, without status migrainosus (ICD-10 - G43.709) 03/31/2024 Chronic migraine without aura, not intractable, without status migrainosus (ICD-10 - G43.709) -Abortive treatment plan: Sumatripan 100 mg. -Preventive treatment plan: Continue Topiramate 100 mg daily. Continue Botox injections. Prescribe Aimovig 70 mg q4 weeks. Assess effect of injections today. -Educated the patient on migraine lifestyle recommendations. I recommended the following measures: avoid known triggers of migraine, drink > 100 fluid ounces of non-caffeinated fluid daily, limit caffeine to 2 servings/day, sleep 7-8 hours/night and address any sleep concerns with us and report symptoms of snoring or fatigue; healthy management of stress; avoid treating headaches more than 2 days/week with abortive medication unless approved in treatment plan; can take Riboflavin 400 mg and Magnesium 500 mg daily as supplements; keep scheduled follow-up appointments 03/31/2024 Cervicalgia (ICD-10 - M54.2) 04/30/2024 Chronic migraine without aura, not intractable, without status migrainosus (ICD-10 - G43.709) 06/09/2024 Chronic migraine without aura, not intractable, without status migrainosus (ICD-10 - G43.709) -Abortive treatment plan: Sumatriptan.-Preve ntive treatment plan: Topiramate, Aimovig, Botox.-Educated the patient on migraine lifestyle recommendations. I recommended the following measures: avoid known triggers of migraine, drink > 100 fluid ounces of non-caffeinated fluid daily, limit caffeine to 2 servings/day, sleep 7-8 hours/night and address any sleep concerns with us and report symptoms of snoring or fatigue; healthy management of stress; avoid treating headaches more than 2 days/week with abortive medication unless approved in treatment plan; can take Riboflavin 400 mg and Magnesium 500 mg daily as supplements; keep scheduled follow-up appointments Recommend Brain MRI to r/o minor cerebral ischemia or CHIEF SUBSTATION OPERATOR demyelination as cause of left-sided facial numbness, noting that this could also be a migrainosus symptom 06/09/2024 Paresthesia of skin (ICD-10 - R20.2) Brain MRI w/wo contrast to evaluate. Prescribe Valium 10 mg #1 to take prior to MRI. 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 Recommend Brain MRI to r/o minor cerebral ischemia or CHIEF SUBSTATION OPERATOR demyelination as cause of left-sided facial numbness, noting that this could also be a migrainosus symptom 06/15/2024 Chronic migraine without aura, not intractable, without status migrainosus (ICD-10 - G43.709) 09/08/2024 Chronic migraine without aura, not intractable, without status migrainosus (ICD-10 - G43.709) MRI brain did not show evidence of ischemia or demyelination. I referred the patient to PT for myofascial work and scar tissue massage. This should help with the pain and pressure sensation she continues to have in the posterior head and occipital region s/p nerve decompression surgery. -Abortive treatment plan: Continue Sumatriptan.-Preve ntive treatment plan: Discontinue Aimovig. Continue Topamax. Continue Botox. -Educated the patient on migraine lifestyle recommendations. I recommended the following measures: avoid known triggers of migraine, drink > 100 fluid ounces of non-caffeinated fluid daily, limit caffeine to 2 servings/day, sleep 7-8 hours/night and address any sleep concerns with us and report symptoms of snoring or fatigue; healthy management of stress; avoid treating headaches more than 2 days/week with abortive medication unless approved in treatment plan; can take Riboflavin 400 mg and Magnesium 500 mg daily as supplements; keep scheduled follow-up appointments 09/08/2024 Cervicalgia (ICD-10 - M54.2) Referral to PT for myofascial work and scar tissue massage to [facility] in [place]. 11/01/2024 Chronic migraine without aura, not intractable, without status migrainosus (ICD-10 - G43.709) -Abortive treatment plan: Continue sumatriptan-Preven tive treatment plan: Continue topamax 100 mg daily. Continue Botox. Start Qulipta 60 mg.-Educated the patient on migraine lifestyle recommendations. I recommended the following measures: avoid known triggers of migraine, drink > 100 fluid ounces of non-caffeinated fluid daily, limit caffeine to 2 servings/day, sleep 7-8 hours/night and address any sleep concerns with us and report symptoms of snoring or fatigue; healthy management of stress; avoid treating headaches more than 2 days/week with abortive medication unless approved in treatment plan; can take Riboflavin 400 mg and Magnesium 500 mg daily as supplements; keep scheduled follow-up appointments 11/01/2024 Cervicalgia (ICD-10 - M54.2) Resume PT for myofascial work and scar tissue massage when possible. 4) Follow up with Dr. Chapman (s/p nerve decompression surgery). 09/08/2024 Myalgia, unspecified site (ICD-10 - M79.10) Referral to PT for myofascial work and scar tissue massage to [facility] in [place]. 11/01/2024 Myalgia, unspecified site (ICD-10 - M79.10) Resume PT for myofascial work and scar tissue massage when possible. 03/24/2024 Myalgia, unspecified site (ICD-10 - M79.10) Physical Therapy at [facility] PT in [place]. Assess effect of injections today. She has intractable chronic migraine. Cervicalgia and myofascial pain are significant triggers. Will try trigger point injections and peripheral nerve blocks today. Recommended PT. Continue to advance anti-migraine therapy. 03/31/2024 Myalgia, unspecified site (ICD-10 - M79.10) Assess effect of injections today. 11/01/2024 Occipital neuralgia (ICD-10 - M54.81) Follow up with Dr. Chapman (s/p nerve decompression surgery). 09/08/2024 Occipital neuralgia (ICD-10 - M54.81) 03/31/2024 Occipital neuralgia (ICD-10 - M54.81) Assess effect of injections today. Referral to Dr. Esequiel Chapman at [facility] for bilateral greater occipital and supraorbital neurolysis. 03/24/2024 Occipital neuralgia (ICD-10 - M54.81) Continue current medications. Assess effect of injections today She has intractable chronic migraine. Cervicalgia and myofascial pain are significant triggers. Will try trigger point injections and peripheral nerve blocks today. Recommended PT. Continue to advance anti-migraine therapy. 03/24/2024 Insomnia, unspecified (ICD-10 - G47.00) Recommended melatonin 5 to 10 mg an hour before bedtime. Discussed sleep hygiene and stress reduction. Discussed how sleep disruption can affect headaches or migraine She has intractable chronic migraine. Cervicalgia and myofascial pain are significant triggers. Will try trigger point injections and peripheral nerve blocks today. Recommended PT. Continue to advance anti-migraine therapy. 03/31/2024 Insomnia, unspecified (ICD-10 - G47.00) Recommended melatonin 10 mg an hour before bedtime. Discussed sleep hygiene and stress reduction. Discussed how sleep disruption can affect headaches or migraine Plan Of Treatment Pending Test Test Name Order Date MRI : Brain (with and without gadolinium ) 06/09/2024 Next Appt Details Provider Name:Sharmin steward, 12/15/2024 10:30:00 AM, [address] [facility], [address], [address], Insurance Providers Payer Name Payer Address Payer Phone Subscriber Number Group Number Insured Name Patient Relationship to Insured Coverage Start Date Coverage End Date [facility] [address] [place] [phone] [id number] Aliya Ortega Self - patient is the insured Medical (General) History Medical History History ICD Code Migraine with aura Cervical DDD s/p spinal fusion [facility] Surgical History Surgery Date(Month/Year) Cervical spinal fusion Tonsillectomy
--- OUTSIDE RECORDS SUMMARY | 2024-12-08 17:53 | XMS_ITS | Data Portability ---
Author Organization [facility], Main Office Address [address] [place] [address] Care Team Providers Care Media Relations Specialist Name Role Phone BELÉN VICENTE Primary Care Provider MELISSA VICENTE Referring Provider [phone] Assessment Encounter Date Assessment Date Assessment LastModified by Organization Details LastModified Time 02/20/2023 02/20/2023 47-year-old female presenting for follow-up of her bilateral trochanteric bursitis. She got cortisone injections last time, and they helped quite a lot. She has been doing physical therapy and that has helped with the pain as well. She does report noticing some pain in the groin and low back, but her primary complaint is still over the lateral hips. Physical exam: She has tenderness palpation of bilateral greater trochanter and distal down the ITB band. She has minimal discomfort with hip range of motion. She has negative straight leg raise bilateral plan Will continue physical therapy and anti-inflammato farrukh. We gave her a renewal for a PT order. Follow-up in 6 weeks [email or web address] Not available 02/20/2023 12:22:00 Plan of Treatment Reminders Order Date Submit Date Provider Last Modified By Organization Details Last Modified Time Details Appointments None recorded. Lab None recorded. Referral physical therapist referral - continuatio n of therapy for pete hip 2022 023 [facility], [address], [place], [address], 09:57:33 Procedures None recorded. Surgeries None recorded. Imaging None recorded. Medication Orders None recorded. Patient TargetsNo targets recorded. Patient InstructionsNo instructions recorded. Reason for Referral Physical Therapist Referral for Bilateral hip joint pain Pete hip continuation of therapy for pete hip Referring Physician: Freddy Hagen, Orthopedic Surgery, Encounter Date: 02/20/2023 Results Created Date Observation Date Name Description Value Unit Range Abnormal Flag Note LastModifiedBy Organization Detail LastModifiedTime 12/31/19 23 12/31/2022 XR, hip, unila teral , 2 or 3 view No observ ation record ed. [id number] [place] [address], [place], [address], 01/15/2023 01:52:19 Result Notes None recorded. Problems Name Problem SNOMED Code Status Onset Date Resolution Date Notes Provider Name and Address Organization Details Recorded Time Bilateral hip joint pain [id number] 100 Active 2022 BEATRICE Cabrera, [place] - [facility] [employer] [facility] 10:48:42 Problem Notes None recorded. Procedures Surgical History Date Name Laterality Status Provider Name and Address Organization Details Recorded Time Neck Surgeries completed Not Available [facility] 01/15/2023 01:48:46 Imaging Results Imaging Date Name Status LastModified by Organiz ation Details LastModified Time 12/31/2022 XR, hip, unilateral , 2 or 3 view completed [id number] [place] [address] [facility] [address] [address], [place], [address], 01/15/2023 01:52:19 Procedure Notes None recorded. Medical Equipment None Reported. Allergies Allergen ID Allergen Name Allergen Category Reaction Reaction Severity Criticality Documentation Date Start Date Code Code System Note Provider Name and Address Organization Details Recorded Time 97621 Benadryl medicatio n Not available Not available Not available 01/15/202304460 7 RxNorm Not Available [facility] 01:52:15 Medications Name Sig Start Date Stop Date Status Note LastModified by Organization Details LastModified Time cyclobenzap rine 10 mg tablet active Not Available Not Available Not Available trazodone 50 mg tablet active Not Available Not Available Not Available cetirizine 10 mg tablet active Not Available Not Available Not Available benzonatate 200 mg capsule 12/31 completed Not Available Not Available Not Available hydrocodone 5 mg-acetamin ophen 325 mg tablet active Not Available Not Available No t Available meloxicam 15 mg tablet active Not Available Not Available Not Available sumatriptan 50 mg tablet active Not Available Not Available Not Available acetaminoph en 300 mg-codeine 30 mg tablet 12/31 completed Not Available Not Available Not Available Tamiflu 75 mg capsule 12/31 completed Not Available Not Available Not Available liothyronin e 5 mcg tablet active Not Available Not Available Not Available lorazepam 0.5 mg tablet TAKE 1 TABLET BY MOUTH TWICE DAILY NEEDED FOR ANXIETY. AVOID DRIVING active Not Available Not Available No t Available Valium 5 mg tablet 12/31 completed Not Available Not Available Not Available Synthroid 25 mcg tablet active Not Available Not Available Not Available Kenalog 10 mg/mL suspension for injection In office injection administe red by the provider active [facility]: 0003- 0494- 20 Not Available Not Available Not Available baclofen 10 mg tablet active Not Available Not Available No t Available buspirone 7.5 mg tablet active Not Available Not Available Not Available polyethylen e glycol 3350 17 gram/dose oral powder 12/31 completed Not Available Not Available Not Available methylpredn isolone 4 mg tablets in a dose pack 12/31 completed Not Available Not Available Not Available topiramate 100 mg tablet active Not Available Not Available Not Available Premarin 0.625 mg/gram vaginal cream active Not Available Not Available Not Available Wellbutrin XL 300 mg 24 hr tablet, extended release active Not Available Not Available Not Available topiramate 50 mg tablet active Not Available Not Available Not Available eszopiclone 3 mg tablet active Not Available Not Available Not Available sodium,pota ssium,mag sulfates 17.5 gram-3.13 gram-1.6 gram oral soln MIX AND DRINK DIRECTED active Not Available Not Available No t Available ropivacaine (PF) 5 mg/mL (0.5 %) injection solution Take 20 mg by injection route. active [facility] 38923 -064- 01 Not Available Not Available Not Available Myrbetriq 25 mg tablet,exte nded release active Not Available Not Available Not Available Trulicity 0.75 mg/0.5 mL subcutaneou s pen injector active Not Available Not Available Not Available Addyi 100 mg tablet TAKE 1 TABLET BY MOUTH EVERY NIGHT AT BEDTIME active Not Available Not Available No t Available [facility] ODT 75 mg disintegrat ing tablet 12/31 completed Not Available Not Available Not Available Vitals Date Recorded Body mass index (BMI) Body height Body weight Provider Name and Address Organization Details Last Updated DateTime 12/31/2022 25.3 kg/m2 167.64 cm 97866 g Not Available [facility] 01/15/2023 01:49:27 Date Recorded Body height Body mass index (BMI) Body weight Provider Name and Address Organization Details Last Updated DateTime 02/20/2023 167.64 cm 24.7 kg/m2 11182.63 g BEATRICE Cabrera [place] [facility] 02/20/2023 10:48:20 Social History None recorded. Functional Status None recorded. Mental Status None recorded. Family History Relationship Description Onset Age of this Age Resolved Age Notes LastModified by Organization Details LastModified Time Mother Cerebrovascu lar accident [id number] Not available 01/15/2023 01:48:49 Mother Family history of malignant neoplasm [id number] Not available 01/15/2023 01:48:50 Father Hypertensive disorder [id number] Not available 01/15/2023 01:48:50 Father Diabetes mellitus [id number] Not available 01/15/2023 01:48:50 Medical History Condition Response SKIN PROBLEMS Y ARTHRITIS Y URINARY/BLADDER/KIDNEY PROBLEMS Y Gynecological HistoryNo gynecological history recorded. Obstetrics History GPAL:G 0 P 0 0 0 0 Past Encounters Encounter ID Performer Location Encounter Start Date Encounter Closed Date Diagnosis/Indication Diagnosis SNOMED-CT Code Diagnosis ICD10 Code Diagnosis Note [id number] [facility] [place] [address] [place] [address] 12/31/2022 00:00:00 12/31/2022 12:16:48 [id number] Freddy Hagen MD [facility] [place] [address] [place] [address] 02/20/2023 10:46:35 02/20/2023 11:27:24 Bilateral hip joint pain [id number] 7825292 M25.551 M25.552 Health Concerns Section Related Observation LastModified by Organization Detai ls LastModified Time None Recorded Concern Status LastModified by Organization Details LastModified Time None Recorded Advance Directives Directive None Recorded Payers Encounter Date Sequence Insurance Name Policy Number Policy Hartman Covered Member ID Hartman Member ID Guarantor Name 02/20/2023 1 [facility] - DOS PRIOR TO 2024 - [employer] () Andrew Ortega [id number] Aliya Ortega OBGyn Episode No OBEpisode recorded.
--- OUTSIDE RECORDS SUMMARY | 2024-12-08 17:53 | XMS_ITS ---
Author Organization [facility] Address [address] [place] [address] Care Team Providers Care Machine Ii Engraver Name Role Phone Weston YARBROUGH, Jamison Primary Care Provider Unavailabl e Chet Stephanie Unavailable [phone] zzzzMigration, zzzzProvider Unavailable Unav ailable REASON FOR VISIT [facility] Encounters Encounter Location Date Provider Diagnosis [facility] [address] [facility] [address] [place] [address] 09/05/2023 zzzzProvider zzzzMigration Plan Of Treatment No Information Progress Notes * Aliya BANSALDOB: [birth year] (49 yo F)Acc No.[id number]:09/05/2023 Patient:?Xiomara BANSALricia :1975???Age:48 Y???Sex:Female Address:[address] [address] Subjective: * Chief Complaints: * ???[facility] * Medical History:? * Surgical History:? * Hospitalization/Major Diagno stic Procedure:? * Medications:? Objective: * Vitals:? * Physical Examination:? Assessment: Plan: * Treatment: * Procedure Codes:? * * Date:?
--- OUTSIDE RECORDS SUMMARY | 2024-12-08 17:53 | XMS_ITS | Clinical Summary ---
Author Organization [facility] Address [address] [place] [address]. [place], [place] [address] [place] [address] Care Team Providers Care Display Designer Outside Name Role Phone Jamison Otniveros MD Primary Care Provider [phone] Allergies Active Allergy Reactions Criticality Noted Date Comments Diphenhydramine Other (see comment) Low 01/01/2023 Hypertension Promethazine Unknown Low 01/01/2023 Medications Eszopiclone 3 MG Tab Take 3 mg by mouth nightly at bedtime. 12/12/2022 Active baclofen (LIORESAL) 10 MG tablet Take 1 tablet (10 mg total) by mouth 3 (three) times daily as needed. 12/02/2022 Active TRULICITY 1.5 MG/0.5ML injection Inject 1.5 mg into the skin once a week. 03/06/2023 Active SYNTHROID 25 MCG tablet Take 1 tablet (25 mcg total) by mouth every morning. 01/18/2023 Active LORazepam (ATIVAN) 0.5 MG tablet Take 1 tablet (0.5 mg total) by mouth 3 (three) times daily as needed. 03/06/2023 Active traZODone (DESYREL) 50 MG tablet Take 1 tablet (50 mg total) by mouth nightly as needed. 03/16/2023 Active cetirizine (ZYRTEC) 10 MG tablet Take 1 tablet (10 mg total) by mouth daily. 03/26/2022 Active SUMAtriptan (IMITREX) 50 MG tablet Take 1 tablet (50 mg total) by mouth as needed. 01/12/2023 Active topiramate (TOPAMAX) 50 MG Tab Take 1 tablet (50 mg total) by mouth 2 (two) times daily. 01/01/2023 Active vibegron (GEMTESA) 75 MG tablet Take 1 tablet (75 mg total) by mouth daily. Active ALPRAZolam (XANAX) 1 MG tabletIndicatio ns:Chest pressure Take 1 tablet (1 mg total) by mouth nightly as needed for Sleep. 12 tablet 05/29/2023 Active Active Problems No known active problems Family History Medical History Relation Comments Diabetes Father Hypertension Maternal Grandfather Hypertension Maternal Grandmother Thyroid Disease Maternal Grandmother Stroke Mother Relation Status Comments Brother Alive Father Alive Maternal Grandfather Maternal Grandmother Mother (Age 71) Social History Tobacco Use Types Packs/Day Years Used Date Smoking Tobacco: Former Cigarettes Q uit: 2001 Smokeless Tobacco: Former Tobacco Cessation:Counseling Given: Not Answered Alcohol Use Standard Drinks/Week Comments Not Currently 0 (1 standard drink = 0.6 oz pur e alcohol) Comments No Sex and Gender Information Value Date Recorded Sex Assigned at Not on file Legal Sex Female 9:15 AM CDT Gender Identity Not on file Sexual Orientation Not on file Occupation Industry Job Start Date Job End Date [employer] Not on file Not on file Not on file Last Filed Vital Signs Vital Sign Reading Time Taken Comments Blood Pressure 126/81 05/29/2023 2:00 PM CDT Pulse 79 05/29/2023 2:00 PM CDT Temperature 36.4 ??C (97.6 ??F) 05/29/2023 11:10 AM C DT Respiratory Rate 21 05/29/2023 2:00 PM CDT Oxygen Saturation 98% 05/29/2023 2:00 PM CDT Inhaled Oxygen Concentration - - Weight 69.4 kg (153 lb) 05/29/2023 11:10 AM CDT Height 170.2 cm (5' 7 ) 05/29/2023 11:10 AM CDT Body Mass Index 23.96 05/29/2023 11:10 AM CDT Plan of Treatment Health Maintenance Due Date Last Done Comments Cervical Cancer Screening Pa p Smear (Age 30 to 64) Every 3 Years 1973 Colorectal Cancer Screening Colonoscopy (10 Years) 1973 Annual Physical 1976 Hepatitis C 1991 DTaP, Tdap and Td Vaccines ( 1 - Tdap) 1992 Hepatitis B Vaccines (1 of 3 - 19+ 3-dose series) 1992 Cervical Cancer Screening Pa p with HPV Testing (Age 30 to 64) Every 5 Years 2003 Cervical Cancer Screening with HPV 2003 Mammogram Screening 2013 Zoster Vaccines (1 of 2) 2023 COVID-19 Vaccine (1 - 2023-2 5 season) 2024 Influenza Adult (#1) 2024 Meningococcal Vaccine Aged Out No shubham sonu eligible based on patient's age to complete this topic Pneumococcal Vaccine: Pediat rics (0 to 5 Years) and At-Risk Patients (6 to 64 Years) Aged Out No longer eligible b ased on patient's age to complete this topic RSV Immunizations Under 20 Months Aged Out No longer eligible based on patient's age to complete this topic Insurance Care Teams Display Designer Outside Relationship Specialty Start Date End Date Jamison Ontiveros MD [address] [place] [address] PCP - General FAMILY PRACTICE 02/26/23
--- OUTSIDE RECORDS SUMMARY | 2024-12-08 17:53 | XMS_ITS | Data Portability ---
Author Organization [facility] Address [address] [place] [address] Assessment No assessment recorded. Plan of Treatment Reminders Order Date Submit Date Provider Last Modified By Organization Details Last Modified Time Details Appointments None recorded . Lab cortisol , am, serum 03/10/20 [email or web address] [facility], [address] [place] [address], [address], 2 12:16:44 dexameth asone, serum 03/10/20 [email or web address] [facility], [address], [address], 2 12:16:43 HbA1c (hemoglo bin A1c), blood 03/10/20 [place] [employer] [facility], [address] [facility], [address], [address], 2 07:39:57 BMP, serum or plasma 03/10/20 [employer] [facility], [address] [facility], [address], [address], 2 07:39:56 insulin, serum 03/10/20 [place] [employer] [facility], [address], [address], 2 07:39:57 Referral None recorded . Procedures None recorded . Surgeries None recorded . Imaging None recorded . Medication Orders None recorded . Patient TargetsNo targets recorded. Patient InstructionsNo instructions recorded. Reason for Referral None Reported. Results Created Date Observation Date Name Description Value Unit Range Abnormal Flag Note LastModifiedBy Organization Detail LastModifiedTime 03/10/20 22 03/11/2022 BASIC METAB OLIC PANEL glucose 92 mg/dL 65-99 normal Fasti ng refer ence inter zuri Not Available [employer] [address] [place], [address], 03/11/2022 07:39:56 03/10/20 22 03/11/2022 BASIC METAB OLIC PANEL urea nitrogen (BUN) 24 mg/dL 7-25 normal Not Available [facility] [employer] [address] [place], [address], 03/11/2022 07:39:56 03/10/20 22 03/11/2022 BASIC METAB OLIC PANEL creatinine 0.84 mg/dL 0.50-1 .10 normal Not Available [facility] [employer] [address] [place], [address], 03/11/2022 07:39:56 03/10/20 22 03/11/2022 BASIC METAB OLIC PANEL eGFR non-afr. sudanese 82 mL/mi n/1.7 3m2 > or = 60 normal Not Available [employer] [address] [place], [address], 03/11/2022 07:39:56 03/10/20 22 03/11/2022 BASIC METAB OLIC PANEL eGFR 95 mL/mi n/1.7 3m2 > or = 60 normal Not Available [employer] [address] [place], [address], 03/11/2022 07:39:56 03/10/20 22 03/11/2022 BASIC METAB OLIC PANEL BUN/creatini ne ratio NOT APPLIC ABLE (calc ) 6-22 Not Available [employer] [address] [place], [address], 03/11/2022 07:39:56 03/10/20 22 03/11/2022 BASIC METAB OLIC PANEL sodium 142 mmol/ L 135-14 6 normal Not Available [address] [place], [address], 03/11/2022 07:39:56 03/10/20 22 03/11/2022 BASIC METAB OLIC PANEL potassium 4.6 mmol/ L 3.5-5. 3 normal Not Available [facility] [employer] [address] [place], [address], 03/11/2022 07:39:56 03/10/20 22 03/11/2022 BASIC METAB OLIC PANEL chloride 109 mmol/ L 98-110 normal Not Available [address] [place], [address], 03/11/2022 07:39:56 03/10/20 22 03/11/2022 BASIC METAB OLIC PANEL carbon dioxide 27 mmol/ L 20-32 normal Not Available [facility] [employer] [address] [place], [address], 03/11/2022 07:39:56 03/10/20 22 03/11/2022 BASIC METAB OLIC PANEL calcium 9.3 mg/dL 8.6-10 .2 normal Not Available [facility] [employer] [address] [place], [address], 03/11/2022 07:39:56 03/10/20 22 03/11/2022 INSUL IN insulin 6.0 uIU/m L normal Refer ence Range < or = 19.6 Risk: Optim al < or = 19.6 Moder ate NA High >19.6 Adult cardi ovasc ular event risk categ ory cut point s (opti mal, moder ate, high) are based on [facility] popul ation data from 11/04 11. This insul in assay shows stron g cross -reac tivit y for some insul in analo gs (lisp ro, aspar t, and glarg ine) and much lower cross -reac tivit y with other s (dete tavia, gluli sine) . Not Available [employer] [facility] [place], [address], 03/11/2022 07:39:57 03/10/20 22 03/11/2022 HEMOG LOBIN A1C hemoglobin A1C 5.0 %_of_ total _HGB <5.7 normal For the purpo se of scree sonny for the prese nce of diabe debra: <5.7% Consi stent with the absen ce of diabe debra 5.7-6 .4% Consi stent with incre ased risk for diabe debra (pred iabet es) > or =6.5% Consi stent with diabe debra This assay resul t is consi stent with a decre ased risk of diabe debra. Curre ntly, no conse nsus exist s nury rios use of hemog lobin A1c for diagn osis of diabe debra in child stacey. Accor ding to Ameri can Diabe debra Assoc iatio n (ADA) guide lines , hemog lobin A1c <7.0% repre sents optim al contr ol in non-p regna nt diabe tic patie nts. Diffe rent metri cs may apply to speci fic patie nt popul ation s. Stand ards of Medic al Care in Diabe debra(A DA). Not Available [employer] [place], [address], 03/11/2022 07:39:57 03/11/20 22 03/19/2022 DEXAM ETHAS ONE dexamethason e 150 NG/dL Refer ence Range s for Dexam ethas one: Basel ine: Less than 20 ng/dL 1 mg dexam ethas one overn ight: 180-5 50 ng/dL (8:00 -10:0 0 AM) This test was devel oped and its liz tical perfo rmanc e jaoo cteri stics have been deter mined by [facility] [employer] Kamla Capyanira trano . It has not been clear ed or appro ivan by FDA. This assay has been valid ated pursu ant to the CLIA regul ation s and is used for clini kati purpo ses. Not Available [employer] [facility] [address] [place], [address], 03/19/2022 12:16:43 03/11/20 22 03/19/2022 CORTI ANGUS, A.M. cortisol, A.M. 0.6 mcg/d L low Refer ence Range 8 a.m. (7-9 a.m.) Speci men: 4.0-2 2.0 Not Available [employer] [facility] [address] [place], [address], 03/19/2022 12:16:44 Result Notes None recorded. 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 Naveed Zamarripa MD [address], [place], [address], [facility] 2 18:50:40 Posttraumatic stress disorder 55136722 Active 2021 Naveed Zamarripa MD [address], [place], [place], [address] [place] [address] 3, [facility] 2 18:50:57 Chronic pain 78462324 Active 2021 Naveed Zamarripa MD [address], [place], [address], [facility] 2 18:51:05 Migraine 74343803 Active 2021 Naveed Zamarripa MD [address], [place], [address], [facility] 2 18:51:12 Problem Notes None recorded. Procedures Surgical History Date Name Laterality Status Provider Name and Address Organization Details Recorded Time 11/16/19 18 primary fusion of cervical spine completed Mora [facility] 03/06/2022 10:01:05 11/16/19 11 primary fusion of cervical spine completed Mora [facility] 03/06/2022 10:01:02 11/16/18 98 tonsillectomy completed Mora Edi [facility] 03/06/2022 10:01:13 11/16/18 98 LEEP completed Mora Edi [facility] 03/06/2022 10:01:25 Imaging Results None recorded. Procedure Notes None recorded. Medical Equipment None Reported. Allergies Allergen ID Allergen Name Allergen Category Reaction Reaction Severity Criticality Documentation Date Start Date Code Code System Note Provider Name and Address Organization Details Recorded Time 1397337 Benadryl medicatio n Not available Not available Not available 03/06/202256297 7 RxNorm Mora Edi null, [facility] 2 10:01:39 7731170 Phenergan medicatio n Not available Not available Not available 03/06/2022 84905 8 RxNorm Mora Edi null, [facility] 2 10:01:45 Medications Name Sig Start Date Stop Date Status Note LastModified by Organization Details LastModified Time trazodone 50 mg tablet active Not Available Not Available No t Available cetirizine 10 mg tablet active Not Available Not Available Not Available meloxicam 15 mg tablet active Not Available Not Available No t Available topiramate 25 mg tablet active Not Available Not Available Not Available Imitrex 50 mg tablet Take by oral route. active prn Not Available Not Available No t Available DOK 100 mg capsule 03/06 completed Not Available Not Available Not Available baclofen 10 mg tablet active Not Available Not Available No t Available olopatadine 0.1 % eye drops active Not Available Not Available Not Available codeine 10 mg-guaifenes in 100 mg/5 mL oral liquid 03/06 completed Not Available Not Available Not Available polyethylene glycol 3350 17 gram/dose oral powder active Not Available Not Available Not Available diazepam 5 mg tablet 03/06 completed Not Available Not Available Not Available Premarin 0.625 mg/gram vaginal cream active Not Available Not Available Not Available bupropion HCl XL 300 mg 24 hr tablet, extended release active Not Available Not Available Not Available eszopiclone 3 mg tablet active Not Available Not Available Not Available Addyi 100 mg tablet TAKE 1 TABLET BY MOUTH EVERY NIGHT AT BEDTIME active Not Available Not Available No t Available Sodium Fluoride 5000 Plus 1.1 % dental cream BRUSH YOUR TEETH ONCE TO THREE TIMES DAILY active Not Available Not Available No t Available Vitals Date Recorded Body weight Body mass index (BMI) Body height Heart rate Systolic blood pressure Diastolic blood pressure Provider Name and Address Organization Details Last Updated DateTime 2 34142.3 3 g 26.8 kg/m2 167.64 cm 76 /min 118 mm[Hg] 64 mm[Hg] Carlita Soto [facility] 2 08:51:26 Social History Question Answer Notes LastModified by Organizat ion Details LastModified Time Tobacco Smoking Status Never Smoker Mora schultz, [facility] 03/06/2022 10:04:37 What Is Your Level Of Alcohol Consumption? None Information not available 03/06/2022 How Many Children Do You Have? 2 Information not available 03/06/2022 Sex: Unknown Functional Status None recorded. Mental Status None recorded. Family History Relationship Description Onset Age of this Age Resolved Age Notes LastModified by Organization Details LastModified Time Father Multiple sclerosis lung Not available 2021 10:03:11 Mother Malignant tumor of colon lung Not available 2021 10:03:22 Mother Malignant tumor of lung lung Not available 2021 10:03:33 Unspecified Relation Disorder of thyroid gland grandm other lung Not available 03/06/2022 10:03:53 Unspecified Relation Malignant neoplasm of brain grandf ather lung Not available 03/06/2022 10:04:08 Daughter Disorder of thyroid gland lung Not available 2021 10:04:13 Medical History No medical history recorded. Gynecological HistoryNo gynecological history recorded. 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 Unless TFTs beginning to move into hypothyroi dism (elevating TSH) there is no role for beginning treatment now. Weight gain 8746252 R63. 5 Will assess for cortisol excess in light of her concerns. This test to be done in the near future. Diabetes m benedict screening 988174307 Z13.1 Labs today. Health Concerns Section Related Observation LastModified by Organization Detai ls LastModified Time None Recorded Concern Status LastModified by Organization Details LastModified Time None Recorded Advance Directives Directive None Recorded Payers Encounter Date Sequence Insurance Name Policy Number Policy Hartman Covered Member ID Hartman Member ID Guarantor Name 03/10/2022 1 [facility] () Aliya Ortega [id number] Aliya Jordan Notes Date Note Type Note Provider Name and Address Organization Details Recorded Time 03/10/2022 text/html Aliya has bee n diagnosed with euthroid Buster's based on positive TPO Ab and normal TFTs (TSH 0.955 in January 2022). She is concerned about a number of sx to include ongoing weight gain. She wonders about insulin resistance and diabetic risk. Her last period was over 5 months ago and she has had labs that suggest moving into menopause. Naveed Zamarripa MD [address], [place], [address], [facility] [employer] [facility] 03/10/2022 18:57:29 OBGyn Episode No OBEpisode recorded.
--- OUTSIDE RECORDS SUMMARY | 2024-12-08 17:53 | XMS_ITS | Clinical Summary ---
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
--- OUTSIDE RECORDS SUMMARY | 2024-12-08 17:53 | XMS_ITS | Data Portability ---
Author Organization [place] - [facility], Main Office - [facility] Address [address] [place] [address] Assessment No assessment recorded. Plan of Treatment Reminders Order Date Submit Date Provider Last Modified By Organization Details Last Modified Time Details Appointments None recorded. Lab None recorded. Referral None recorded. Procedures None recorded. Surgeries None recorded. Imaging XR, cervical spine, 4 or 5 view 2017 018 [email or web address] 0 [facility], [address] [place] [address], [address], 8 09:22:09 electromyo gram - Bilateral Upper Extremity EMG/NCS.Pl ease FAX report to [email or web address] [place] [address]), [address] [place], [address], 8 11:40:33 XR, cervical spine, 2 or 3 view 2017 018 [email or web address] 0 [facility], [address] [place] [address], [address], 8 14:32:51 Medication Orders carisoprod ol 350 mg tablet 2017 018 [id number], [address] [place] [address], [place], [id number], 8 10:58:55 Senokot-S 8.6 mg-50 mg tablet 2017 018 [facility] #[id number], [address] [facility], [place], [id number], 8 10:57:35 hydrocodon e 10 mg-acetami nophen 325 mg tablet 2017 018 [facility] #[id number], [address] [facility], [place], [id number], 8 10:58:55 hydrocodon e 10 mg-acetami nophen 325 mg tablet 2017 018 [id number], [address] [facility], [place], [id number], 8 13:29:47 Lunesta 2 mg tablet 2017 018 [id number], [address], [place], [id number], 8 13:29:47 tizanidine 4 mg tablet 2017 018 [facility], [address] [facility], [place], [id number], 8 13:26:32 hydrocodon e 10 mg-acetami nophen 325 mg tablet [address] [facility] #01213, [address], [place], [id number], 8 14:34:11 tizanidine 4 mg tablet [address] [facility] #[id number], [address] [facility], [place], [id number], 8 14:34:11 Patient TargetsNo targets recorded. Patient Instructions Encounter Date Encounter Id Patient Instructions Last Modified By Organization Details Last Modified Time 07/22/2018 [id number] neck pain: care instructions [facility] Not available 07/22/2018 08:37:58 carpal tunnel syndrome: care instructions dpa Not available 07/22/2018 09:16:09 carpal tunnel syndrome: exercises [email or web address] Not available 07/22/2018 09:16:09 I reviewed the images with the patient. I discussed with her that she does have findings on the MRI although they are not severe and without pressure on the cord or nerves. However, she does have some findings on the exam. I recommended that she consider continued non operative modalities. I also discussed the options of an ACDF at C4-5 and C6-7 which will require removal of the plate at C5-6. I also recommended that she go ahead with an EMG of the bilateral upper extremities. I advised that if she does have the carpal tunnel then some of the hand symptoms would not resolve with ACDF. She would like to continue with the EMG/NCS. I will have her contacted once this is completed. This note was written using a scribe, Arely Hester PA-C. While all attempts were made to remove errors in this human resources recruiter the note may contain typographical, grammatical, and contextual errors. dpa Not available 07/22/2018 09:21:35 09/16/2018 [id number] Patient elects t o proceed with surgery as scheduled; ACDF C4-5, C6-7; GISELLE with fusion exploration at C5-6 on 09/17/2018. Patient received her post operative medications today. Prior to prescribing, the state prescription drug monitoring program database was reviewed to eliminate duplicate prescribing and over-prescribing of controlled substances. Consent and orders completed. I had a long discussion today regarding the risks, benefits, alternatives/optio ns, and the procedure. Models were used as appropriate to describe the procedure in detail. I informed the patient that not every single possible outcome can be discussed but the major possible complications were discussed. Those discussed were the risk of blood clots in the legs or lungs, pneumonias, heart attacks, strokes, blindness and even . Also the risk of great vessel injury or esophageal injury was discussed as well as the intraoperative risks of nerve root injury causing chronic pain, numbness, or weakness in an extremity. The risk of spinal cord injury was also discussed with the concomitant risk of quadriplegia or paraplegia. Also, the risk of dural tears or punctures was discussed as well as postoperative infections. Additionally, I discussed the guarantee of difficulty swallowing and hoarseness after the procedure and that these are typically temporary but there is a small risk of permanency. Overall, no guarantees about outcomes were made. The patient verbalized understanding of all issues discussed. The patient elects to proceed and solicits surgery. Verbal consent was obtained to proceed with the procedure. The written consent will be signed at the hospital. This note was written using a Arely wilson PA-C. While all attempts were made to remove errors in this human resources recruiter the note may contain typographical, grammatical, and contextual errors. dpa Not available 09/16/2018 12:29:57 09/30/2018 [id number] Routine precautions and restrictions were provided for cervical fusion about two weeks postoperatively. The restrictions discussed are basically the same as upon hospital discharge. Prohibition of NSAIDs was stressed. The patient was instructed to continue the use of cervical collar as previously instructed and begin to taper the use of narcotics. Refills were provided as needed. Follow-up in about 4-6 weeks. I will provide her with tizanidine for the muscle spasms and a prescription for Lunesta for sleeping. I will also refill her hydrocodone today. I will see her back at her next scheduled visit on 10/21/2018 before she moves away. This note was written using a Arely wilson PA-C. While all attempts were made to remove errors in this human resources recruiter the note may contain typographical, grammatical, and contextual errors. dpa Not available 09/30/2018 13:30:15 10/21/2018 [id number] Routine precautions and restrictions were provided for cervical fusion about 6-8 weeks postoperatively. The patient may now use NSAIDs as desired and will wean from the cervical collar. The patient was instructed to taper off all narcotics but refills were provided as needed. The patient may now begin lifting up to about 25 pounds at home as desired and may increase all other activities of daily living as the body allows. This is her last visit due to moving. She will have repeat radiographs completed once she has moved and will send those to me to review. She will contact the office as needed. This note was written using a scribe, Cassandra Guzman CMA. While all attempts were made to remove errors in this human resources recruiter the note may contain typographical, grammatical, and contextual errors. [email or web address] Not available 10/21/2018 14:38:11 Reason for Referral None Reported. Results Created Date Observation Date Name Description Value Unit Range Abnormal Flag Note LastModifiedBy Organization Detail LastModifiedTime 08/06/20 18 elect romyo gram + nerve condu ction study No observ ation record ed. [email or web address] Not Available 11/2017 16:23:30 09/18/20 18 09/17/2018 XR, cervi kati spine No observ ation record ed. breanna [facility] [address], [place], [place], [address], 09/20/2018 16:15:33 09/18/20 18 09/17/2018 XR, cervi kati spine No observ ation record ed. breanna [facility] [address], [place], [address], 09/20/2018 16:18:06 Result Notes None recorded. Procedures Surgical History Date Name Laterality Status Provider Name and Address Organization Details Recorded Time 09/22/20 18 ANTERIOR CERVICAL DISCECTOMY AND FUSION FOR DECOMPRESSION (SURG) completed Rachel Paul [facility] 09/22/2018 11:21:50 Neck or Cervical Spine Surgery completed Lily Pang [facility] 07/22/2018 08:22:21 tonsilectomy/joya oids completed Lily Pang [facility] 07/22/2018 08:22:24 [place] Teeth Extraction completed Lily Pang [facility] 07/22/2018 08:22:27 General Surgery completed Lily Pang [facility], 07/22/2018 08:22:32 Imaging Results Imaging Date Name Status LastModified by Organization Details LastModified Time 08/06/2018 electromyogram + nerve conduction study completed [email or web address] Information not available 08/16/2018 16:23:30 09/17/2018 XR, cervical spine completed breanna Saucedo [facility] [address], [place], [address], 09/20/2018 16:15:33 09/17/2018 XR, cervical spine completed [facility] Lewis Barrios [facility] [address] [place], [address], 09/20/2018 16:18:06 Procedure Notes None recorded. Medical Equipment None Reported. Allergies Allergen ID Allergen Name Allergen Category Reaction Reaction Severity Criticality Documentation Date Start Date Code Code System Note Provider Name and Address Organization Details Recorded Time [id number] 2824e Phenergan medicatio n Not available Not available Not available 07/22/2018 47936 8 RxNorm Not Available Not Available Not Available [id number] 2824e Benadryl medicatio n Not available Not available Not available 07/22/2018 80856 7 RxNorm Not Available Not Available Not Available Medications Name Sig Start Date Stop Date Status Note LastModified by Organization Details LastModified Time carisoprodo l 350 mg tablet TK 1 T PO Q 8 H PRN FOR MUSCLE SPASMS active Not Available Not Available No t Available cyclobenzap rine 10 mg tablet 2017 active Not Available Not Available Not Avai lable tizanidine 2 mg tablet 07/22 completed Not Available Not Available Not Available tizanidine 4 mg tablet Take 1 tablet every 8 hours by oral route as needed. 2017 active Not Available Not Available Not Avai lable ondansetron HCl 8 mg tablet 07/22 completed Not Available Not Available Not Available Imitrex STATdose Pen 6 mg/0.5 mL subcutaneou s pen injector 07/22 completed Not Available Not Available Not Available methylpredn isolone 4 mg tablet 07/22 completed Not Available Not Available Not Available sumatriptan 50 mg tablet 07/22 completed Not Available Not Available Not Available topiramate 25 mg tablet TK 1 T PO BID active Not Available Not Available No t Available hydroxyzine HCl 50 mg tablet active Not Available Not Available Not Available acetaminoph en 300 mg-codeine 30 mg tablet 07/22 completed Not Available Not Available Not Available sulfamethox azole 800 mg-trimetho prim 160 mg tablet 07/22 completed Not Available Not Available Not Available hydrocodone 10 mg-acetamin ophen 325 mg tablet 1-2 tablets every 4 hours as needed for pain 2017 active Not Available Not Available Not Avai lable tramadol 50 mg tablet TK 1 T PO Q 6 H PRN P active Not Available Not Available No t Available ondansetron 8 mg disintegrat ing tablet 07/22 completed Not Available Not Available Not Available prednisone 10 mg tablets in a dose pack TAKE BY MOUTH DAILY DIRECTED ON PACKAGE active Not Available Not Available No t Available meloxicam 7.5 mg tablet TK 1 TO 2 TS PO QD PRN WITH FOOD active Not Available Not Available No t Available oxycodone-a cetaminophe n 5 mg-325 mg tablet active Not Available Not Available No t Available amoxicillin 875 mg tablet TK 1 T PO BID FOR 7 DAYS active Not Available Not Available No t Available famotidine 20 mg tablet active Not Available Not Available Not Available IBU 600 mg tablet TK 1 T PO WITH 2 EXTRA STRENGTH TYLENOL QID FOR 3 TO 5 DAYS FOR PAIN active Not Available Not Available No t Available baclofen 10 mg tablet TK 1 T PO BID IN THE MORNING AND AT NOON active Not Available Not Available No t Available bupropion HCl XL 150 mg 24 hr tablet, extended release active Not Available Not Available Not Available Senokot-S 8.6 mg-50 mg tablet 1-4 tabs PO BID PRN 2017 active Not Available Not Available Not Avai lable eszopiclone 2 mg tablet TK 1 T PO ONCE D active Not Available Not Available No t Available Lunesta 3 mg tablet TK 1 T PO QD HS active Not Available Not Available No t Available Lunesta active Not Available Not Avail able Not Available diclofenac 1 % topical gel APPLY 1 GRAM AA TID active Not Available Not Available No t Available Vitals Date Recorded Heart rate Provider Name an d Address Organization Details Last Updated DateTime 07/22/2018 109 /min Lily Pang [facility], 07/22/2018 08:18:41 Date Recorded Body height Provider Name an d Address Organization Details Last Updated DateTime 07/22/2018 167.64 cm Lily BAUTISTA [facility], 07/22/2018 08:18:45 Date Recorded Body mass index (BMI) Body weight Provider Name and Address Organization Details Last Updated DateTime 07/22/2018 23.4 kg/m2 20899.89 g Lily BAUTISTA - [facility], 07/22/2018 08:18:52 Date Recorded Body height Provider Name an d Address Organization Details Last Updated DateTime 10/21/2018 167.64 cm Jagruti BAUTISTA - [facility], 10/21/2018 13:59:57 Date Recorded Body mass index (BMI) Body weight Provider Name and Address Organization Details Last Updated DateTime 10/21/2018 23.4 kg/m2 16714.89 g Jagruti BAUTISTA - [facility], 10/21/2018 14:00:04 Date Recorded Heart rate Provider Name an d Address Organization Details Last Updated DateTime 10/21/2018 97 /min Jagruti BAUTISTA - [facility], 10/21/2018 14:00:22 Date Recorded Systolic blood pressure Diastolic blood pressure Provider Name and Address Organization Details Last Updated DateTime 07/22/2018 123 mm[Hg] 85 mm[Hg] Lily BAUTISTA - [facility], 07/22/2018 08:18:39 Date Recorded Systolic blood pressure Diastolic blood pressure Provider Name and Address Organization Details Last Updated DateTime 10/21/2018 113 mm[Hg] 77 mm[Hg] Jagruti BAUTISTA - [facility], 10/21/2018 14:00:10 Social History Question Answer Notes LastModified by Organizat ion Details LastModified Time Tobacco Smoking Status Never Smoker LILY Noriega - [facility], 07/22/2018 08:20:49 Do You Have An Advance Directive? Yes Information not available 07/22/2018 What Is Your Level Of Alcohol Consumption? None Information not available 07/22/2018 How Many Years Have You Consumed Alcohol? 0 Information not available 07/22/2018 Is Blood Transfusion Acceptable In An Emergency? Yes Information not available 07/22/2018 How Much Tobacco Do You Chew? None Information not available 07/22/2018 Are You Currently Employed? No Information not available 07/22/2018 Which Illicit Or Recreational Drugs Have You Used? None Information not available 07/22/2018 Who Is Your Employer? Retired Information not available 07/22/2018 What Is Your Occupation? Retired Information not available 07/22/2018 Which Of Your Hands Is Dominant? Right Information not available 07/22/2018 Single Or Multi-level Home/work? Multi Level Home Information not available 07/22/2018 How Many Years Have You Used Illicit Or Recreational Drugs? 0 Information not available 07/22/2018 Live Alone Or With Others? With Others Information not available 07/22/2018 Samaritan Preference Religion Information not available 07/22/2018 Ethnic Identity Informati on not available 07/22/2018 Diet Type Regular Information no t available 07/22/2018 Education Level College Informati on not available 07/22/2018 Current Resident Of Care Home Or Rehab Facility No Information not available 07/22/2018 If Yes, Name And Phone Number Of Facility No Information not available 07/22/2018 Marital Status Informatio n not available 07/22/2018 What Was The Date Of Your Most Recent Tobacco Screening? 10/21/2018 Information not available 06/08/2019 How Many Children Do You Have? 2 Information not available 07/22/2018 At What Age Did You Start Smoking Tobacco? 0 Information not available 07/22/2018 How Much Tobacco Do You Smoke? No Information not available 07/22/2018 What Types Of Sporting Activities Do You Participate In? None Information not available 07/22/2018 General Stress Level Low Information not available 07/22/2018 How Many Years Have You Smoked Tobacco? 0 Information not available 07/22/2018 Sex: Unknown Functional Status Question Answer Note LastModified by Organization D etails LastModified Time Are you able to care for yourself? Yes Information n ot available 07/22/2018 What is your exercise level? None Information not available 07/22/2018 Mental Status None recorded. Family History Relationship Description Onset Age of this Age Resolved Age Notes LastModified by Organization Details LastModified Time Father No current problems or disability Not available 04/2018 08:20:43 Mother No current problems or disability Not available 04/2018 08:20:43 Notes:10/21/18 TD Medical History Condition Response Pancreatitis N HEME - Anemia N Gout N Hyperthyroidism N Rheumatoid arthritis N Irritable bowel syndrome N Osteoarthrosis N HEENT - Wears corrective lenses Y COPD N Depression Y Pneumonia N Peptic ulcer disease N History of head and neck tumor N NEURO - Cerebral palsy N Skin infection N Active aids N Mitral valve prolapse N Renal failure N HIV positive N GI - GERD N Joint injury N Hypercholesterolemia N Hypoparathyroidism N MS - Fracture N Cerebrovascular accident N Fibromyalgia N PSYCHE - Claustrophobia Y Neuromuscular disease N Poliomyelitis / post polio N ENDOCRINE - Obesity N Hearing impairment N Dysvascular amputation LE N Other diagnosis Y Anxiety disorder N Deformity N CHEST - Sleep apnea N Crohn's disease N Pulmonary embolism N Chronic venous stasis disease N Psychosis N Coagulopathy N Cardiac valvular disease N Asthma N Blood clotting disorder N Are you under pain mgmt treatment N Fragility fracture N Vertigo N Hepatitis N Neuropathy N Coronary artery disease N Pressure sore N Diabetes Type II (NIDDM) N Skin ulceration N Bipolar disorder N Hypothyroidism N Legally blind N Glaucoma N Peripheral vascular disease N Pacemaker N Sinusitis / sinus infection N Cystic fibrosis N Sickle cell N Cholecystitis N VASCULAR - Deep venous thrombosis N Osteomyelitis N SKIN - Rash N INFECTIOUS - Current active infection N Previous myocadial infarction N Heart murmur N Itp / ttp N Lupus Arthritis N Congestive heart failure N Skin bruising N Diabetes Type I (IDDM) N HEART - Arrhythmia N Chemically anticoagulated N Fracture non-union N Dental caries / gingivitis N Dysvascular gangrene N - Cystitis N Renal dialysis N Dementia N Diverticulitis N Ulcerative colitis N MISC - Cancer N Seizure disorder N Organ transplant N Hypertension N Osteoporosis N Gynecological HistoryNo gynecological history recorded. Obstetrics History GPAL:G 0 P 0 0 0 0 Past Encounters Encounter ID Performer Location Encounter Start Date Encounter Closed Date Diagnosis/Indication Diagnosis SNOMED-CT Code Diagnosis ICD10 Code Diagnosis Note [id number] Nick Reddy MD [facility] [address] [place] [address] 07/22/2018 08:09:01 07/22/2018 09:22:08 Neck pain 03815398 M54.2 Carpal meg martin syndrome 75531706 G56.03 bilateral Cervical s pondylosis without myelopathy 565485121 M47.812 C5-6 Cervical radiculitis 110 20613 M54.12 bilateral [id number] Nick Reddy MD [facility] [address] [place] [address] 09/16/2018 10:24:08 09/16/2018 11:16:22 Cervical radiculitis 82912041 M54.12 bilateral Cervical s pondylosis without myelopathy 605429226 M47.812 C5-6 Carpal meg martin syndrome 75031469 G56.03 bilateral Neck pain 40919631 M54.2 Spinal citlaly nosis in cervical region 77062668 M48.02 ACDF C4-5, C6-7; GISELLE with fusion exploratio n at C5-6 on 09/17/2018 . 07/22/2018 appt notes: I reviewed the images with the patient. I discussed with her that she does have findings on the MRI although they are not severe and without pressure on the cord or nerves. However, she does have some findings on the exam. I recommende d that she consider continued non operative modalities . I also discussed the options of an ACDF at C4-5 and C6-7 which will require removal of the plate at C5-6. I also recommende d that she go ahead with an EMG of the bilateral upper extremitie s. I advised that if she does have the carpal tunnel then some of the hand symptoms would not resolve with ACDF. She would like to continue with the EMG/NCS. I will have her contacted once this is completed. 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 Postproced ural state finding [id number] Z98.890 s/p ACDF C4-5, C6-7; GISELLE with fusion exploratio n at C5-6 on 09/17/2018 . [id number] Nick Reddy MD [facility] [address] [place] [address] 10/21/2018 13:54:54 10/21/2018 14:32:51 Spinal stenosis in cervical region 81053966 M48.02 Resolved s/p ACDF C4-5, C6-7; GISELLE with fusion exploratio n at C5-6 on 09/17/2018 . Postproced ural state finding [id number] Z98.890 s/p ACDF C4-5, C6-7; GISELLE with fusion exploratio n at C5-6 on 09/17/2018 . Health Concerns Section Related Observation LastModified by Organization Detai ls LastModified Time None Recorded Concern Status LastModified by Organization Details LastModified Time None Recorded Advance Directives Directive Y: Payers Encounter Date Sequence Insurance Name Policy Number Policy Hartman Covered Member ID Hartman Member ID Guarantor Name 07/22/2018 1 [employer] () Andrew Ortega [id number] Aliya Ortega 09/16/2018 1 [employer] () Andrew Ortega [id number] Aliya Ortega 09/30/2018 1 [employer] () Andrew Ortega [id number] Aliya Ortega 10/21/2018 1 [employer] () Andrew Ortega [id number] Aliya Ortega Notes Date Note Type Note Provider Name and Address Organization Details Recorded Time 07/22/2018 text/html C-spineReported bypatient.Location:b ilateral Quality:constant Severity:severe Duration:18 years Context:cannot identify Alleviating Factors:rest; OTC medication; NSAIDs; antispasmodics Aggravating Factors:lifting; carrying; twisting; pushing/pulling; ROM; weightbearing; previous surgery; computer use Associated Symptoms:instability ( tripping );radiati on down arm Previous Surgery:surgical procedure: (Fusion at C5-6); date: (2010) Prior Imaging:MRI Previous Injections:helped a little Previous Physical Therapy:helped a little Work Related:no Working:no; RetiredNotes: Never a smokerPMH:Depression , Claustrophobia 07/22/2018 42 year old female here today for evaluation of her cervical spine. She is known to me as I have operated on her . She has had about 18 years of neck pain and had surgery in 2010 at [facility]. She has had trigger point injections, facet injections, FREEDOM's, PT, and botox injections as well. She reports that she has headaches associated with the neck pain. She reports that she does have radicular pain into the bilateral upper extremities. She reports that she takes tramadol, lunesta, baclofen, tizanidine but no narcotics. She does not wish to continue with medications. She is currently in PM. She has had an EMG with a positive findings for carpal tunnel but this has been some time ago. She does describe some tripping with ambulation. Her most recent FREEDOM was last year and she has done PT recently here on her cervical spine. Nick Reddy MD [address] [place], [address], [facility] - [facility], 07/22/2018 09:22:15 09/16/2018 text/html C-spineReported bypatient.Location:b ilateral Quality:constant Severity:severe Duration:18 years Context:cannot identify Alleviating Factors:rest; OTC medication; NSAIDs; antispasmodics Aggravating Factors:lifting; carrying; twisting; pushing/pulling; ROM; weightbearing; previous surgery; computer use Associated Symptoms:instability ( tripping );radiati on down arm Previous Surgery:surgical procedure: (Fusion at C5-6); date: (2010) Prior Imaging:MRI Previous Injections:helped a little Previous Physical Therapy:helped a little Work Related:no Working:no; RetiredNotes: Never a smokerPMH:Depression , Claustrophobia 07/22/2018 42 year old female here today for evaluation of her cervical spine. She is known to me as I have operated on her . She has had about 18 years of neck pain and had surgery in 2010 at [facility]. She has had trigger point injections, facet injections, FREEDOM's, PT, and botox injections as well. She reports that she has headaches associated with the neck pain. She reports that she does have radicular pain into the bilateral upper extremities. She reports that she takes tramadol, lunesta, baclofen, tizanidine but no narcotics. She does not wish to continue with medications. She is currently in PM. She has had an EMG with a positive findings for carpal tunnel but this has been some time ago. She does describe some tripping with ambulation. Her most recent FREEDOM was last year and she has done PT recently here on her cervical spine. 09/16/2018 43 year old female here today for follow up of her lumbar spine. Patient opted to proceed with surgery as scheduled on 09/17/2018; ACDF C4-5, C6-7; GISELLE with fusion exploration at C5-6. Nick Reddy MD [address] [place], [address], [facility] - [facility], 09/16/2018 12:30:11 09/30/2018 text/html Fracture/Post-Op Follow UpReported bypatient.Numbness:n one Weakness:none Tingling:none 07/22/2018 42 year old female here today for evaluation of her cervical spine. She is known to me as I have operated on her . She has had about 18 years of neck pain and had surgery in 2010 at [facility]. She has had trigger point injections, facet injections, FREEDOM's, PT, and botox injections as well. She reports that she has headaches associated with the neck pain. She reports that she does have radicular pain into the bilateral upper extremities. She reports that she takes tramadol, lunesta, baclofen, tizanidine but no narcotics. She does not wish to continue with medications. She is currently in PM. She has had an EMG with a positive findings for carpal tunnel but this has been some time ago. She does describe some tripping with ambulation. Her most recent FREEDOM was last year and she has done PT recently here on her cervical spine. 09/16/2018 43 year old female here today for follow up of her lumbar spine. Patient opted to proceed with surgery as scheduled on 09/17/2018; ACDF C4-5, C6-7; GISELLE with fusion exploration at C5-6. 09/30/2018 43 year old female here today for her 2 week follow up s/p ACDF C4-5, C6-7; GISELLE with fusion exploration at C5-6 on 09/17/2018. She is doing well but does report some interscapular pain and some trouble sleeping. Her headaches have resolved. She does report that she had an allergic reaction to Soma. This required ED visit. She requests something different for the muscle spasms. She is moving November 01 due to her being in the . Nick Reddy MD [address] [place], [address], [facility] - [facility], 09/30/2018 13:30:26 10/21/2018 text/html Fracture/Post-Op Follow UpReported bypatient.Numbness:n one Weakness:none Tingling:none 07/22/2018 42 year old female here today for evaluation of her cervical spine. She is known to me as I have operated on her . She has had about 18 years of neck pain and had surgery in 2010 at [facility]. She has had trigger point injections, facet injections, FREEDOM's, PT, and botox injections as well. She reports that she has headaches associated with the neck pain. She reports that she does have radicular pain into the bilateral upper extremities. She reports that she takes tramadol, lunesta, baclofen, tizanidine but no narcotics. She does not wish to continue with medications. She is currently in PM. She has had an EMG with a positive findings for carpal tunnel but this has been some time ago. She does describe some tripping with ambulation. Her most recent FREEODM was last year and she has done PT recently here on her cervical spine. 09/16/2018 43 year old female here today for follow up of her lumbar spine. Patient opted to proceed with surgery as scheduled on 09/17/2018; ACDF C4-5, C6-7; GISELLE with fusion exploration at C5-6. 09/30/2018 43 year old female here today for her 2 week follow up s/p ACDF C4-5, C6-7; GISELLE with fusion exploration at C5-6 on 09/17/2018. She is doing well but does report some interscapular pain and some trouble sleeping. Her headaches have resolved. She does report that she had an allergic reaction to Soma. This required ED visit. She requests something different for the muscle spasms. She is moving November 01 due to her being in the . 10/21/2018 43 year old female here today for her 6 week follow up s/p ACDF C4-5, C6-7; GISELLE with fusion exploration at C5-6 on 09/17/2018. She is doing well without complaints. She is moving to [place] for her husbands job. Nick Reddy MD [address] [place], [address], [place] - [facility], 10/21/2018 14:43:36 OBGyn Episode No OBEpisode recorded.
--- OUTSIDE RECORDS SUMMARY | 2024-12-08 17:54 | XMS_ITS | Clinical Summary ---
Author Organization [facility] Medical Office Building B Address [address] [place] [address] Care Team Providers Care Tsa Screener Name Role Phone Luigi Damon MD Primary Care Provider + [phone] Allergies Active Allergy Reactions Criticality Noted Date Comments Cat Dander Hives,Redness,Cindy rtness of breath High 11/17/2022 Cat Hair Standardized Allergenic Extract Eye irritation,Shortn ess of breath,Urticaria High 11/17/2022 Diphenhydramine Other (See comments) Medium 03/19/2003 Hypertension Raised B/P when given IV during Promethazine Mental status changes,Other (See comments) Medium 04/19/2001 Hallucinations Irrational behavior, Hallucinations Shakes, Lack of Control
Reaction(s ): Unknown; Note: SHAKES, LACK OF CONTROL Medications baclofen (LIORESAL) 10 mg tablet 3 Active busPIRone (BUSPAR) 7.5 mg tablet Take 1 tablet (7.5 mg total) by mouth 2 (two) times a day 3 Active Addyi 100 mg tablet 3 Active Wellbutrin XL 300 mg 24 hr tablet 3 Active eszopiclone (LUNESTA) 3 mg tablet 3 Active cetirizine (ZyrTEC) 10 mg tablet Take 1 tablet (10 mg total) by mouth daily 2 Active cyclobenzaprine (FLEXERIL) 10 mg tablet Take 1 tablet (10 mg total) by mouth every 12 hours 3 Active LORazepam (ATIVAN) 0.5 mg tablet Take 1 tablet (0.5 mg total) by mouth 3 (three) times a day as needed 3 Active meloxicam (Mobic) 15 mg tablet Take 1 tablet (15 mg total) by mouth daily 3 Active SUMAtriptan (IMITREX) 50 mg tablet Take 1 tablet (50 mg total) by mouth as needed 3 Active traZODone (DESYREL) 50 mg tablet Take 1 tablet (50 mg total) by mouth nightly as needed 3 Active topiramate (TOPAMAX) 50 mg tabletIndicatio ns:Chronic migraine w/o aura w/o status migrainosus, not intractable Take 1 tablet (50 mg total) by mouth 2 (two) times a day 60 tablet 11 3 Active testosterone micronized, bulk, 100 % powder 2 3 Active ALPRAZolam (XANAX) 0.5 mg tablet Take by mouth 2 (two) times a day as needed 4 Active Emgality Pen 120 mg/mL pen injector Inject 120 mg under the skin 4 03/30/20 25 Active hydrOXYzine (ATARAX) 50 mg tablet Take 1 tablet (50 mg total) by mouth 3 (three) times a day as needed 8 Active spironolactone (ALDACTONE) 100 mg tablet 4 Active tirzepatide (Mounjaro) 7.5 mg/0.5 mL pen injector Inject 7.5 mg under the skin once a week Active traMADoL (ULTRAM) 50 mg tablet Take 1 tablet (50 mg total) by mouth once Active naltrexone 1.5 mg capsule Take by mouth daily Active estradioL (ESTRACE) 0.01 % (0.1 mg/gram) vaginal cream Insert 2 g into the vagina daily Active levothyroxine (SYNTHROID) 50 mcg tabletIndicatio ns:Buster's disease,Abnorma l thyroid function test 1 tab po morning with empty stomach, 45 minutes before food/medications /supplement. Taking consistently and correctly to ensure good/stable absorption of the thyroid hormone medication. 30 tablet 3 4 Active Active Problems Problem Noted Date Diagnosed Date Chronic migraine w/o aura w/ o status migrainosus, not intractable 12/29/2023 Surgical History Surgery Date Site/Laterality Comments NECK SURGERY Medical History Medical History Date Comments Headache, tension-type Migraine Family History Medical History Relation Name Comments Diabetes Father Stroke Mother Relation Name Status Comments Father Mother Social History Tobacco Use Types Packs/Day Years Used Date Smoking Tobacco: Never Smokeless Tobacco: Never Tobacco Cessation:Counseling Given: Not Answered Personal Safety Answer Date Recorded Getting School Help Needed Not on file 11/22 Comments Unknown Sex and Gender Information Value Date Recorded Sex Assigned at Not on file Legal Sex Female 3:03 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 Gender Identity Not on file Sexual Orientation Not on file Obstetrics History Last Filed Vital Signs Vital Sign Reading Time Taken Comments Blood Pressure 114/80 08/04/2024 1:50 PM CDT Pulse 98 08/04/2024 1:50 PM CDT Temperature 36.4 ??C (97.6 ??F) 08/04/2024 1:50 PM CD T Respiratory Rate 18 03/24/2024 10:5 8 AM CDT Oxygen Saturation 96% 03/24/2024 10: 58 AM CDT Inhaled Oxygen Concentration - - Weight 66.2 kg (145 lb 14.4 oz) 08/04/2024 1:50 PM CDT Height 170.2 cm (5' 7 ) 08/04/2024 1:50 PM CDT Body Mass Index 22.85 08/04/2024 1:50 PM CDT Plan of Treatment Health Maintenance Due Date Last Done Comments Breast Cancer Screening-Mammogram 1973 Cervical Cancer Screening 1973 Colon Cancer Screening-Colonoscopy 1973 Depression Screening 1973 Hepatitis C Screening 1973 Regular Well Visit/Exam 18-64 1991 DTaP/Tdap/Td Vaccine (2 - Td or Tdap) 05/13/2022 05/13/2012, 05/31/2003, 06/17/1993 Zoster Vaccine (1 of 2) 2023 Covid-19 Vaccine ( season) 2024 03/31/2022, 06/14/2021, 04/04/2021 Influenza Vaccine (#1) 2024 7, 08/29/2014, 08/24/2013, Additional history exists Pneumococcal vaccine <65 Aged Out No longer eligible based on patient's age to complete this topic Insurance [facility] Care Teams Tsa Screener Relationship Specialty Start Date End Date Luigi Damon MD [address] [place] [address] PCP - General Family Medicine 03/24/24
--- OUTSIDE RECORDS SUMMARY | 2024-12-08 17:54 | XMS_ITS | Referral Summary ---
Author Organization [facility] Medical Office Building B Address [address] [place] [address] Care Team Providers Care Vibrator Equipment Tester Name Role Phone Luigi Damon MD Primary Care Provider + [phone] Allergies Active Allergy Reactions Criticality Noted Date [...] w/ o status migrainosus, not intractable 12/29/2023 Social History Tobacco Use Types Packs/Day Years Used Date Smoking Tobacco: Never Smokeless Tobacco: Never Tobacco Cessation:Counseling Given: Not Answered Personal Safety Answer Date Recorded Getting School Help Needed Not on file 11/22 Comments Unknown Sex and Gender Information Value Date Recorded Sex Assigned at Not on file Legal Sex Female 3:03 PM 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
--- OUTSIDE RECORDS SUMMARY | 2024-12-08 18:15 | XMS_ITS | Continuity of Care Document ---
Author Organization [facility] Address [address] [place] [address] [place] [address] Phone Care Team Providers Care Ferry Pilot Name Role Phone Jamison Ontiveros MD Unavailable [...] route every morning 300 MG - Active Topamax 100 mg tablet take 1 Tablet by oral route 1 times every day - Active meloxicam 15 mg tablet take 1 tablet by oral route every day 15 MG - Active Imitrex 50 mg tablet take 1 tablet by oral route as needed 50 MG - Active PRN for migraine Myrbetriq 25 mg tablet,extended release take 1 tablet by oral route every day swallowing whole with water. Do not crush, chew and/or divide. 25 MG - Active Addyi 100 mg tablet take 1 tablet by oral route every day at bedtime 100 MG - Active Procedures Procedure Date OFFICE/OUTPATIENT VISIT, [...] Providers Copied on Encounter OFFICE/OUTPA TIENT VISIT, [facility], [address] [place], [place], [id number], tel:[phone] [facility] anxiety1 (chief complaint) Generalized Anxiety Disorder 4 Weston Garcia [address] [facility] [place], [address] , [place]. tel:[phone] [facility], [address] [place], [address], [place] tel:[phone] [facility] No Information 3 Weston Garcia [address], [address] [place], [address] , [place]. tel:[phone] OFFICE/OUTPA TIENT VISIT, [facility], [address] [place], [address], [place] tel:[phone] [facility] hashimoto1 (chief complaint) back pain1 (chief complaint) sick (chief complaint) insomnia1 (chief complaint) weight gain1 (chief complaint) Primary insomniaHashimoto's thyroiditisOther spondylosis, lumbar regionAbnormal weight gainViral infection 3 Weston Swift. [address], [place], [place], [address] , [place]. tel:[phone] OFFICE/OUTPA TIENT VISIT, [facility], [address] [place], [address], [place] tel:[phone] [facility] urine creatine (chief complaint) hematuria1 (chief complaint) UTI1 (chief complaint) Asymptomatic microscopic hematuriaAcute cystitis without hematuriaRenal disease 3 Weston Swift. [address] [facility] [place], [address] , [place]. tel:[phone] OFFICE/OUTPA TIENT VISIT, [facility], [address] [place], [address], [place] tel:[phone] [facility] urine creatine1 (chief complaint) allergy1 (chief complaint) insomnia1 (chief complaint) hashimoto1 (chief complaint) back pain1 (chief complaint) Other spondylosis, lumbar regionHashimoto's thyroiditisAllergic rhinitis due to pollenPrimary insomniaAsymptomati c microscopic hematuria 3 Weston Swift. [address], [place], [place], [address] , [place]. tel:[phone] OFFICE/OUTPA TIENT VISIT, EST [facility], [address] [place], [address], [place] tel:[phone] [facility] anxiety1 (chief complaint) insomnia1 (chief complaint) tachycardi a1 (chief complaint) weight1 (chief complaint) Primary insomniaGeneralized Anxiety DisorderPalpitation sAbnormal weight gain Feb- 3 Weston Swift. [address], [place], [place], [address] , [place]. tel:[phone] OFFICE/OUTPA TIENT VISIT, [facility], [address], [place], [place], [address], [place] tel:[phone] [facility] tachycardi a1 (chief complaint) anxiety1 (chief complaint) weight gain1 (chief complaint) PalpitationsHashimo to's thyroiditisGenerali zed Anxiety DisorderAbnormal weight gain 3 Ontiveros Jamison. [address], [address], [place], [place], [address] , [place]. tel:[phone] OFFICE/OUTPA TIENT VISIT, [facility], [address], [place], [place], [address], [place] tel:[phone] [facility] polyp1 (chief complaint) tachycardi a1 (chief complaint) anxiety1 (chief complaint) Generalized Anxiety DisorderHashimoto's thyroiditisPolyp of colonPalpitations 3 Ontiveros Jamison. [address], [address], [place], [place], [address] , [place]. tel:[phone] OFFICE/OUTPA TIENT VISIT, [facility], [address], [place], [place], [address], [place] tel:[phone] [facility] hashimoto1 (chief complaint) b12 (chief complaint) joint pain1 (chief complaint) anxiety1 (chief complaint) Murali's thyroiditisGenerali zed Anxiety DisorderPain in unspecified jointVitamin B12 deficiencyEncounter for oth screening for malignant neoplasm of breastEncounter for screening for malignant neoplasm of colon 3 Ontievros Jamison. [address], [place], [place], [address] , [place]. tel:[phone] OFFICE/OUTPA TIENT VISIT, [facility], [address], [place], [place], [address], [place] tel:[phone] [facility] anxiety1 (chief complaint) Generalized Anxiety DisorderDyspnea 3 Weston Swift. [address], [place], [place], [address] , [place]. tel:[phone] OFFICE/OUTPA TIENT VISIT, [facility], [address], [place], [place], [address], [place] tel:[phone] [facility] insomnia1 (chief complaint) hashimoto1 (chief complaint) weight1 (chief complaint) joint pain1 (chief complaint) anxiety1 (chief complaint) Primary insomniaHashimoto's thyroiditisPain in unspecified jointAbnormal weight gainPain in right hipGeneralized Anxiety Disorder 3 Weston Swift. [address], [place], [place], [address] , [place]. [phone] OFFICE/OUTPA TIENT VISIT, [facility], [address], [place], [place], [address], [place] tel:[phone] [facility] weight gain1 (chief complaint) Murali's thyroiditisAbnormal weight gain 3 Weston Swift. [address], [place], [place], [address] , [place]. [phone] OFFICE/OUTPA TIENT VISIT, [facility], [address], [place], [place], [address], [place] tel:[phone] [facility] hashimoto1 (chief complaint) anxiety1 (chief complaint) insomnia1 (chief complaint) OAB (chief complaint) headache1 (chief complaint) neck pain1 (chief complaint) Abnormal weight gainPrimary insomniaTension headacheHashimoto's thyroiditisOveracti ve bladderCervicalgiaD epressionDecreased libido 3 Weston Swift. [address], [place], [place], [address] , [place]. tel:[phone] Family History Family Member Type Diagnosis Age At Onset Mother Problem stroke (Cause Of ) 72 Father Problem DM Brother Problem Alive and well Father Problem MS Mother Problem colon CA 72 Payers Payer name Insurance type Covered constitution party ID Authoriza tion(s) No Information Social History [...] PRn and doing ok Pt did not machine pecan picker refill for ativan from last year and [...] Referred To: Stephanie Rosenberg MD [address] [facility]
[address] [place], [place], [address] Ordered: Referrals: Stephanie Rosenberg MD. Evaluate and treat ordered Referral Ordered: SHAHNAZ BLACK -Allopathic & Osteopathic Physicians : Orthopaedic Surgery (related to Pain in right hip) ordered Referral Referred To: SHAHNAZ BLACK [facility] [place], [place], [phone] Ordered: Referrals: Allopathic & Osteopathic Physicians : Orthopaedic Surgery. SHAHNAZ BLACK. Evaluate and treat ordered Referral Ordered: Manjinder Bowles MD -[facility]opathic [facility] Osteopathic Physicians : Obstetrics & Gynecology (related to Decreased libido) ordered Referral Ordered: Urology (related to Overactive bladder) ordered Referral Ordered: Neurology (related to Tension headache) ordered Referral Referred To: Manjinder Bowles MD [address] [facility] [place], [place], [phone] Ordered: Referrals: Allopathic & Osteopathic Physicians : [...] PRn and doing ok Pt did not machine pecan picker refill for ativan from last year and the script . Pt only takes ativan PRn. Pt denies any suicidal or homicidal thought or any crying spells . hashimoto1 Pt has murali . Pt is on synthroid Pt saw a TELETYPE TECHNICIAN at chiropractor office and she is on progesterone ,T3. T4 and naltrexone and DHEA and she was referred to endo by her canoe inspector final and she is waiting for blanca. Pt [...] urin creatine on UA from lab from [facility] .pt had repeat 24 hour urine creatine [...] creatine1 Pt did some lab work from [facility] recently and her renal function and serum [...] mybetriq and doing ok. Pt needs uro real estate associate attorney referral. headache1 Pt has chronic t ension [...] Mental Status Date Cognitive Assessment Orientation - [place] ed to time, place, person, situation.
--- OUTSIDE RECORDS SUMMARY | 2024-12-08 18:15 | XMS_ITS | Clinical Summary ---
Author Organization [facility] Address [address] [place] [address] Care Team Providers Care Special Assets Officer Name Role Phone Luigi Damon MD Primary Care Provider [phone] Source Comments [facility],non-owned Affiliates and Associated Physician Practices is amultiple site organization consisting of ambulatory clinics and hospital sitesin [place], [place], [place] and [place]. This disclosure is being madepursuant to the Care Everywhere program and may not contain all information available regarding this patient. Last updated 18.[facility] Allergies Active Allergy Reactions Criticality Noted Date [...] Department Care Team Description 12/08/2024 3:08 PM [facility] Hospital Encounter [facility] CAT SCAN [address] [place] [address] Krystin Granados PA-C 12/08/2024 3:07 PM [facility] Hospital Encounter [facility] CAT SCAN [address] [place] [address] Krystin Granados PA-C 12/08/2024 Travel 11/25/2024 Travel 11/02/2024 10:30 AM GAS FLOW REGULATOR Office Visit [facility] - Plastic Surgery [address] [facility] [place] [address] Negrita Moore MD Bilateral occipital neuralgia (Primary [...] Comments Blood Pressure 98/74 11/02/2024 10:19 AM GAS FLOW REGULATOR Pulse 87 11/02/2024 10:19 AM GAS FLOW REGULATOR Temperature 36.9 ??C (98.4 ??F) 08/10/2024 1:01 PM CD T Respiratory Rate 18 08/10/2024 1:01 PM CDT Oxygen Saturation 100% 11/02/2024 10:19 AM GAS FLOW REGULATOR Inhaled Oxygen Concentration - - Weight 64.9 kg (143 lb) 11/02/2024 10:19 AM GAS FLOW REGULATOR Height 160 cm (5' 3 ) 11/02/2024 10:19 AM GAS FLOW REGULATOR Body Mass Index 25.33 11/02/2024 10:19 AM GAS FLOW REGULATOR Plan of Treatment Upcoming Encounters Date Type Department Care Team (Late st Contact Info) Description 12/14/2024 1:30 PM GAS FLOW REGULATOR Office Visit [facility] - Plastic Surgery [address] [id number] Esequiel Chapman MD [address] [place] [address] Health Maintenance Due Date Last [...] - POCT INTERFACED Routine 12/08/2024 3:16 PM GAS FLOW REGULATOR from Last 3 Months Results * (ABNORMAL) CREATININE - POCT INTERFACED (12/08/2024 3:16 PM GAS FLOW REGULATOR) Creatinine POCT 1.18 0.30 - 1.30 mg/dL 12/08/2024 3:18 PM GAS FLOW REGULATOR [facility] eGFR 56(L) >=90 mL/min/1.7 3 m2 12/08/2024 3:18 PM GAS FLOW REGULATOR [facility] Blood BLOOD SPECIMEN / Unknown 12/08/2024 3:16 PM GAS FLOW REGULATOR 12/08/2024 3:18 PM GAS FLOW REGULATOR Krystin Granados PA-C LAB - POINT OF CARE ORDERABLES Performing Organization Address City/State/[facility] Co de Phone Number [facility] [address] [place] [address], [facility] [phone] from Last 3 Months Care Teams Special Assets Officer Relationship Specialty Start Date End Date Luigi Damon MD [address] [place] [address] PCP - General Family Medicine 06/03/24
--- OUTSIDE RECORDS SUMMARY | 2024-12-08 18:15 | XMS_ITS | Referral Summary ---
Author Organization [facility] Address [address] [place] [address] Care Team Providers Care Corporate Compliance Officer Name Role Phone Luigi Damon MD Primary Care Provider [phone] Source Comments [facility],non-owned Affiliates and Associated Physician Practices is amultiple site organization consisting of ambulatory clinics and hospital sitesin [place], [place], [place] and [place]. This disclosure is being madepursuant to the Care Everywhere program and may not contain all information available regarding this patient. Last updated 18.[facility] Encounters Date Type Department Care Team Description 12/08/2024 Travel 12/08/2024 3:07 PM PRESS WRITER Hospital Encounter [facility] CAT SCAN [address] [place] [address] Krystin Granados PA-C 12/08/2024 3:08 PM PRESS WRITER Hospital Encounter [facility] CAT SCAN [address] [place] [address] Krystin Granados PA-C 11/25/2024 Travel 11/02/2024 Travel 11/02/2024 10:30 AM PRESS WRITER Office Visit [facility] - Plastic Surgery [address] [facility] [place] [address] Negrita Moore MD Bilateral occipital neuralgia (Primary [...] Comments Blood Pressure 98/74 11/02/2024 10:19 AM PRESS WRITER Pulse 87 11/02/2024 10:19 AM PRESS WRITER Temperature 36.9 ??C (98.4 ??F) 08/10/2024 1:01 PM CD T Respiratory Rate 18 08/10/2024 1:01 PM CDT Oxygen Saturation 100% 11/02/2024 10:19 AM PRESS WRITER Inhaled Oxygen Concentration - - Weight 64.9 kg (143 lb) 11/02/2024 10:19 AM PRESS WRITER Height 160 cm (5' 3 ) 11/02/2024 10:19 AM PRESS WRITER Body Mass Index 25.33 11/02/2024 10:19 AM PRESS WRITER Plan of Treatment Upcoming Encounters Date Type Department Care Team (Late st Contact Info) Description 12/14/2024 1:30 PM PRESS WRITER Office Visit [facility] - Plastic Surgery [address] [id number] Esequiel Chapman MD [address] [place] [address] Procedures Procedure Name Priority Date/Time Associated Diagnosis Comments CREATININE - POCT INTERFACED Routine 12/08/2024 3:16 PM PRESS WRITER from Last 3 Months Results * (ABNORMAL) CREATININE - POCT INTERFACED (12/08/2024 3:16 PM PRESS WRITER) Creatinine POCT 1.18 0.30 - 1.30 mg/dL 12/08/2024 3:18 PM PRESS WRITER [facility] eGFR 56(L) >=90 mL/min/1.7 3 m2 12/08/2024 3:18 PM PRESS WRITER [facility] Blood BLOOD SPECIMEN / Unknown 12/08/2024 3:16 PM PRESS WRITER 12/08/2024 3:18 PM PRESS WRITER Krystin Granados PA-C LAB - POINT OF CARE ORDERABLES [facility] [address] [place] [address], [place] [phone] from Last 3 Months Care Teams Corporate Compliance Officer Relationship Specialty Start Date End Date Luigi Damon MD [address] [place] [phone] PCP - General Family Medicine 06/03/24
--- OUTSIDE RECORDS SUMMARY | 2024-12-08 18:15 | XMS_ITS | Clinical Summary ---
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
--- OUTSIDE RECORDS SUMMARY | 2024-12-08 18:15 | XMS_ITS | Patient Health Summary ---
Author Organization [facility] Address [address] [place] [address] Care Team Providers Care City Engineer Name Role Phone Luigi Damon MD Primary Care Provider [phone] Note from [facility],non-owned Affiliates and Associated Physician Practices is amultiple site organization consisting of ambulatory clinics and hospital sitesin [place], [place], [place] and [place]. This disclosure is being madepursuant to the Care Everywhere program and may not contain all information available regarding this patient. Last updated 18.[facility] Allergies * Benadryl(Elevated Blood Pressure) -Medium Criticality [...] Comments Blood Pressure 98/74 11/02/2024 10:19 AM [employer]OTECTION [employer]IE[employer] Pulse 87 11/02/2024 10:19 AM [employer]OTECTION [employer] Temperature 36.9 ??C (98.4 ??F) 08/10/2024 1:01 PM CD T Respiratory Rate 18 08/10/2024 1:01 PM CDT Oxygen Saturation 100% 11/02/2024 10:19 AM [employer] Inhaled Oxygen Concentration - - Weight 64.9 kg (143 lb) 11/02/2024 10:19 AM [employer] Height 160 cm (5' 3 ) 11/02/2024 10:19 AM [employer]OTECTION [employer] Body Mass Index 25.33 11/02/2024 10:19 AM [employer]OTECTION [employer] Procedures * CREATININE - POCT INTERFACED(Performed 12/08/2024) * ENDOTRACHEAL TUBE NOTE(Performed 05/23/2024) * MA TRANSECT GREAT OCCIPITAL NERV(Performed 05/23/2024) Performed for Bilateral occipital neuralgia Results * (ABNORMAL) CREATININE - POCT INTERFACED (12/08/2024 3:16 PM [employer]) Creatinine POCT 1.18 0.30 - 1.30 mg/dL 12/08/2024 3:18 PM [employer] [facility] eGFR 56(L) >=90 mL/min/1.7 3 m2 12/08/2024 3:18 PM [employer] [facility] Blood BLOOD SPECIMEN / Unknown 12/08/2024 3:16 PM [employer]OTECTION [employer] 12/08/2024 3:18 PM [employer] Krystin Granados PA-C LAB - POINT OF CARE ORDERABLES [facility] [address] [place] [address], [facility] [phone] * ETT LINE PERFORMABLE (05/23/2024 8:59 AM CDT) Narrative Anaid Pruitt Anes Asst - 05/23/2024 8:59 AM CDT Anaid Pruitt Anes Asst ? 05/23/2024 ??9:00 AM Endotracheal Tube Placement: ? Patient Location: OR. Intubation Event Date/Time: ??05/23/2024 8:33 AM Procedure: intubation ([id number]) Procedure Section: ?? Sedation: under general anesthesia. [...] procedure Yony Garduno MD GENERAL ANESTHESIA O [facility] Care Teams City Engineer Relationship Specialty Start Date End Date Luigi Damon MD [address] [place] [address] PCP - General Family Medicine 06/03/24
--- OUTSIDE RECORDS SUMMARY | 2024-12-08 18:16 | XMS_ITS | Referral Summary ---
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
--- OUTSIDE RECORDS SUMMARY | 2024-12-08 18:16 | XMS_ITS | Clinical Summary ---
Author Organization [facility] Address [address] [place] [address]. [place], [place] [address] [place] [address] Care Team Providers Care Medical Records Auditor Name Role Phone Jamison Ontiveros MD Primary Care Provider [phone] Allergies Active Allergy Reactions Criticality Noted Date [...] to complete this topic Insurance Care Teams Medical Records Auditor Relationship Specialty Start Date End Date Jamison Ontiveros MD [address] [place] [address] PCP - General FAMILY PRACTICE 02/26/23
--- OUTSIDE RECORDS SUMMARY | 2024-12-08 18:16 | XMS_ITS | Clinical Summary ---
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
== END 2024-12-06 16:19 | disposition home or self-care (01) ==
PROVIDERS: Emergency Medicine; Emergency Provider Emergency Medicine
DX: R10.11 Right upper quadrant pain (principal); E06.3 Autoimmune thyroiditis; F41.8 Other specified anxiety disorders
CPT/HCPCS: 36415; 74177; 76705; 80053; 81003; 81025; 83690; 85025; 96361; 96374; 96375; 96376; 99284; J1171; J2405; J7030; Q9967

== ENCOUNTER 2024-12-20 08:08 | Outpatient (CLI) | payer OTHER, SELFPAY ==
--- NOTE | ~2024-12-20 | NM_ITS ---
EXAMINATION: NM hepatobiliary wo pharm DATE: 12/20/2024 10:03 INDICATION: Right upper quadrant abdominal pain status post cholecystectomy. COMPARISON: CT abdomen and pelvis 12/06/2024 TECHNIQUE: 5 mCi Tc-99m mebrofenin (Choletec) was administered intravenously. Scintigraphic images o f the abdomen were obtained for one hour. FINDINGS: There is normal clearance of radiotracer from the blood pool. There is homogeneous tracer u ptake by the liver. Activity progresses to the bowel. IMPRESSION: 1. No bile leak. Reviewed, dictated and finalized at location A. D FINISHER IMPRESSION: 1. No bile leak.
--- OUTSIDE RECORDS SUMMARY | 2024-12-20 08:18 | XMS_ITS | Continuity of Care Document ---
Author Organization [facility] Address [address] [place] [address] [place] [address] Phone Care Team Providers Care Flame Burner Name Role Phone Jamison Ontiveros MD Unavailable [...] day at bedtime 3 MG - Active Synthroid 25 mcg tablet take 1 tablet by oral route every day 25 MCG - Active trazodone 50 mg tablet take 1 tablet by oral route every bedtime after meals 50 MG - Active Zyrtec 10 mg tablet take 1 tablet by oral route every day 10 MG - Active cyclobenzaprine 10 mg tablet take [...] on Encounter OFFICE/OUTPA TIENT VISIT, [facility], [address] [place], [place], [address], tel:[phone] [facility] anxiety1 (chief complaint) Generalized Anxiety Disorder 4 Weston Garcia [address] [facility] [place], [address] , [place]. tel:[phone] [facility], [address] [employer] [place], [address], [place] tel:[phone] [facility] No Information 3 Weston Garcia [address], [address], [address] , [place]. tel:[phone] OFFICE/OUTPA TIENT VISIT, [facility], [address] [place], [place], [address], [place] tel:[phone] [facility] hashimoto1 (chief complaint) back pain1 (chief complaint) sick (chief complaint) insomnia1 (chief complaint) weight gain1 (chief complaint) Primary insomniaHashimoto's thyroiditisOther spondylosis, lumbar regionAbnormal weight gainViral infection 3 Weston Swift. [address], [place], [place], [address] , [place]. tel:[phone] OFFICE/OUTPA TIENT VISIT, [facility], [address] [place], [place], [address], [place] tel:[phone] [facility] urine creatine (chief complaint) hematuria1 (chief complaint) UTI1 (chief complaint) Asymptomatic microscopic hematuriaAcute cystitis without hematuriaRenal disease 3 Weston Swift. [address] [facility] [place], [address] , [place]. tel:[phone] OFFICE/OUTPA TIENT VISIT, [facility], [address] [place], [address], [place] tel:[phone] [facility] urine creatine1 (chief complaint) allergy1 (chief complaint) insomnia1 (chief complaint) hashimoto1 (chief complaint) back pain1 (chief complaint) Other spondylosis, lumbar regionHashimoto's thyroiditisAllergic rhinitis due to pollenPrimary insomniaAsymptomati c microscopic hematuria 3 Weston Swift. [address], [place], [place], [address] , [place]. tel:[phone] OFFICE/OUTPA TIENT VISIT, EST [facility], [address] [place], [address], [place] tel:[phone] [facility] anxiety1 (chief complaint) insomnia1 (chief complaint) tachycardi a1 (chief complaint) weight1 (chief complaint) Primary insomniaGeneralized Anxiety DisorderPalpitation sAbnormal weight gain Feb- 3 Weston Swift. [address], [place], [place], [address] , [place]. tel:[phone] OFFICE/OUTPA TIENT VISIT, [facility], [address], [place], [place], [address], [place] tel:[phone] [facility] tachycardi a1 (chief complaint) anxiety1 (chief complaint) weight gain1 (chief complaint) PalpitationsHashimo to's thyroiditisGenerali zed Anxiety DisorderAbnormal weight gain 3 Ontiveros Jamison. [address], [place], [place], [address] , [place]. tel:[phone] OFFICE/OUTPA TIENT VISIT, [facility], [address], [place], [place], [address], [place] tel:[phone] [facility] polyp1 (chief complaint) tachycardi a1 (chief complaint) anxiety1 (chief complaint) Generalized Anxiety DisorderHashimoto's thyroiditisPolyp of colonPalpitations 3 Ontiveros Jamison. [address], [address], [place], [place], [address] , [place]. tel:[phone] OFFICE/OUTPA TIENT VISIT, [facility], [address], [place], [place], [address], [place] tel:[phone] [facility] hashimoto1 (chief complaint) b12 (chief complaint) joint pain1 (chief complaint) anxiety1 (chief complaint) Murali's thyroiditisGenerali zed Anxiety DisorderPain in unspecified jointVitamin B12 deficiencyEncounter for oth screening for malignant neoplasm of breastEncounter for screening for malignant neoplasm of colon 3 Ontiveros Jamison. [address], [address], [place], [place], [address] , [place]. tel:[phone] OFFICE/OUTPA TIENT VISIT, [facility], [address], [place], [place], [address], [place] tel:[phone] [facility] anxiety1 (chief complaint) Generalized Anxiety DisorderDyspnea 3 Weston Swift. [address], [place], [place], [address] , [place]. tel:[phone] OFFICE/OUTPA TIENT VISIT, [facility], [address], [place], [place], [address], [place] tel:[phone] [facility] insomnia1 (chief complaint) hashimoto1 (chief complaint) weight1 (chief complaint) joint pain1 (chief complaint) anxiety1 (chief complaint) Primary insomniaHashimoto's thyroiditisPain in unspecified jointAbnormal weight gainPain in right hipGeneralized Anxiety Disorder 3 Weston Swift. [address], [place], [place], [address] , [place]. [phone] OFFICE/OUTPA TIENT VISIT, [facility], [address], [place], [place], [address], [place] tel:[phone] [facility] weight gain1 (chief complaint) Murali's thyroiditisAbnormal weight gain 3 Weston Swift. [address], [place], [place], [address] , [place]. [phone] OFFICE/OUTPA TIENT VISIT, [facility], [address], [place], [place], [address], [place] tel:[phone] [facility] hashimoto1 (chief complaint) anxiety1 (chief complaint) insomnia1 (chief complaint) OAB (chief complaint) headache1 (chief complaint) neck pain1 (chief complaint) Abnormal weight gainPrimary insomniaTension headacheHashimoto's thyroiditisOveracti ve bladderCervicalgiaD epressionDecreased libido 3 Weston Swift. [address], [place], [place], [address] , [place]. tel:[phone] Family History Family Member Type Diagnosis Age At Onset Mother Problem stroke (Cause Of ) 72 Father Problem DM Brother Problem Alive and well Father Problem MS Mother Problem colon CA 72 Payers Payer name Insurance type Covered libertarian ID Authoriza tion(s) No Information Social History [...] PRn and doing ok Pt did not burr picker refill for ativan from last year [...] To: Stephanie Rosenberg MD [address] [facility]
[address] [place], [place], [id number] Ordered: Referrals: Stephanie Rosenberg MD. Evaluate and treat ordered Referral Ordered: SHAHNAZ BLACK -Allopathic & Osteopathic Physicians : Orthopaedic Surgery (related to Pain in right hip) ordered Referral Referred To: SHAHNAZ BLACK [facility] [place], [place], [phone] Ordered: Referrals: Allopathic & Osteopathic Physicians : Orthopaedic Surgery. SHAHNAZ BLACK. Evaluate and treat ordered Referral Ordered: Neurology (related to Tension headache) ordered Referral Ordered: Urology (related to Overactive bladder) ordered Referral Ordered: Manjinder Bowles MD -[facility]opathic & Osteopathic Physicians : Obstetrics & Gynecology (related to Decreased libido) ordered Referral Referred To: Manjinder Bowles MD [address] [facility] [place], [place], [phone] Ordered: Referrals: Allopathic & Osteopathic Physicians : [...] PRn and doing ok Pt did not burr picker refill for ativan from last year and the script . Pt only takes ativan PRn. Pt denies any suicidal or homicidal thought or any crying spells . hashimoto1 Pt has murali . Pt is on synthroid Pt saw a HOUSE RN at chiropractor office and she is on progesterone ,T3. T4 and naltrexone and DHEA and she was referred to endo by her detective captain and she is waiting for blanca. Pt [...] Umberto and she has been eating poorly UTI1 Pt c/o mild dysu paula with some low pelvic pressure with mild nausea with urinary frequency and urgency x 2 days Pt denies any fever chill ,vomiting . Pt denies any flank pain hematuria1 Pt does not have any hematuria on repeat microscopic urine test urine creatine Pt has high urin creatine on UA from lab from [facility] .pt had repeat 24 hour urine creatine which was in normal range back pain1 Pt has chronic l ow back pain. Pt denies any sciatica Pt denies any loss of bowel or bladder control or saddle area paresthesia Pt has been doing chiropractice adjustment but has not helped. Pt c/o constant low back pain with muscle spasm, especially with movement. Pt denies any injury hashimoto1 Pt has murali and pt takes synthroid and doing ok Pt denies any dysphagia or neck pain insomnia1 Pt has insomnia Pt takes trazodone qhs PRN and doing ok. allergy1 Pt has seasonal allergy. Pt is on zyrtec and doing ok. urine creatine1 Pt did some lab work from [facility] recently and her renal function and serum creatine is ok but urine creatine is high around 300, then 100s .she also has some hematuria as well. pt denies any urinary symptoms anxiety1 Pt has chronic a nxiety and depression Pt takes wellbutrin and ativan and she is doing well Pt denies any suicidal or homicidal thought. Pt denies any crying spells Pt take ativan 0.5 mg in AM and she takes 1 mg at night which works very well for her. Pt is off buspar. tachycardia1 Pt has mild tach ycardia with palpitation, which resolved without cytomel. Pt has blanca with cardiology next week. weight1 Pt stared trulic ity 1.5 mg sc weekly and she notices appetite suppression Pt has not lost much weight yet insomnia1 Pt has chronic i nsomnia Pt [...] weight Pt denies any Gi side effects anxiety1 Pt has chronic a nxiety and depression Pt takes wellbutrin and buspar and she still feels very anxious. Pt is worried about her daughter health and she also has some stress building her home. tachycardia1 pt has been noti cing intermittent tachycardia wit palpitation Pt denies any chest pain, Pt went to [facility] last night and she had EKG and some lab done and she was told that tachyoddia due to anxiety? polyp1 Pt had colonosco py done last week which showed hyperplastic polyp and she needs to repeat in 5 years .Pt denies any lower GI issue hashimoto1 Pt has murali , which is [...] ativan, which did make her feel better. anxiety1 Pt has chronic a nxiety and depression Pt takes wellbutrin and doing well Pt denies any suicidal or homicidal thought pt denies any crying spells joint pain1 Pt has diffuse j oint pain including hip, neck, and hand. Pt states that right hip pain is worse Pt states that she has tendinitis with right hip chronically. Pt denies any recent injury Pt denies any hip swelling or erythema or warmth weight1 Pt started ozemp ic last month since she already paid for it and she has not tried trulicity yet Pt will finish ozempic for two more weeks and then she will try trulicity then. Pt did lose some weight with ozempic Pt denies any side effects hashimoto1 Pt has murali pt denies any dysphagia or neck pain Pt takes synthroid 25 mcg synthroid and she did feel better but now she feels lethargic again recently with dizziness. Pt states that fatigue and dizziness resolved when she first tarted synthroid. 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 neck pain1 Pt has chronic n lydia pain. Pt is s/p cervical fusion x 2 .Pt takes baclofen PRN and doing ok Pt denies any radiculopathy headache1 Pt has chronic t ension and migraine headache. Pt takes imitrex Prn and she takes topamax and she gets botox injection regularly .Pt needs neurology referral. Pt had normal MRi of brain in the past for headache . Pt doing ok with botox and topamax and imitrex PRN OAB Pt has OAB Pt is on mybetriq and doing ok. Pt needs uro home office claim specialist referral. insomnia1 Pt has chronic i nsomnia Pt takes lunesta and trazodone and doing ok hashimoto1 Pt has murali . Pt denies [...] Mental Status Date Cognitive Assessment Orientation - [place] ed to time, place, person, situation.
--- OUTSIDE RECORDS SUMMARY | 2024-12-20 08:18 | XMS_ITS | Data Portability ---
Author Organization [facility], Main Office Address [address] [place] [address] Care Team Providers Care Head Batcher Name Role Phone BELÉN VICENTE Primary Care Provider [phone] MELISSA VICENTE Referring Provider Assessment Encounter Date Assessment Date Assessment LastModified [...] of therapy for pete hip 2022 023 [facility], [address], [place], [address], 09:57:33 Procedures None recorded. Surgeries None recorded. [...] 3 view No observ ation record ed. [id number] [facility] [place] [address], [place], [address], 01/15/2023 01:52:19 Result Notes None recorded. Problems Name Problem SNOMED Code Status Onset Date Resolution Date Notes Provider Name and Address Organization Details Recorded Time Bilateral hip joint pain 80940030454149 100 Active 2022 BEATRICE Cabrera, [place] - [facility] [employer] [facility] 10:48:42 Problem Notes None recorded. Procedures Surgical History Date Name Laterality Status Provider Name and Address Organization Details Recorded Time Neck Surgeries completed Not Available Formerly [facility] 01/15/2023 01:48:46 Imaging Results Imaging Date Name Status LastModified by Organiz ation Details LastModified Time 12/31/2022 XR, hip, unilateral , 2 or 3 view completed [id number] [facility] [place] [address], [address], 01/15/2023 01:52:19 Procedure Notes None recorded. Medical Equipment None Reported. Allergies Allergen ID Allergen Name Allergen Category Reaction Reaction Severity Criticality Documentation Date Start Date Code Code System Note Provider Name and Address Organization Details Recorded Time 37063 Benadryl medicatio n Not available Not available Not available 01/15/202308036 7 RxNorm Not Available [facility] 01:52:15 Medications Name Sig Start Date Stop [...] injection administe red by the provider active [facility]: 0003- 0494- 20 Not Available Not Available [...] Take 20 mg by injection route. active [facility] 01321 -064- 01 Not Available Not Available Not Available Myrbetriq 25 mg tablet,exte nded release active Not Available Not Available Not Available Trulicity 0.75 mg/0.5 mL subcutaneou s pen injector active Not Available Not Available Not Available Addyi 100 mg tablet TAKE 1 TABLET BY MOUTH EVERY NIGHT AT BEDTIME active Not Available Not Available No t Available [facility] ODT 75 mg disintegrat ing tablet 12/31 completed Not Available Not Available Not Available Vitals Date Recorded Body mass index (BMI) Body height Body weight Provider Name and Address Organization Details Last Updated DateTime 01/15/2023 25.3 kg/m2 167.64 cm 87431 g Not Available [facility] 01/15/2023 01:49:27 Date Recorded Body height Body mass index (BMI) Body weight Provider Name and Address Organization Details Last Updated DateTime 02/20/2023 167.64 cm 24.7 kg/m2 10067.63 g BEATRICE Cabrera [place] - [facility] 02/20/2023 10:48:20 Social History None recorded. Functional Status None recorded. Mental Status None recorded. Family History Relationship Description Onset Age of this Age Resolved Age Notes LastModified by Organization Details LastModified Time Mother Cerebrovascu lar accident [id number] Not available 01/15/2023 01:48:49 Mother Family history of malignant neoplasm [id number] Not available 01/15/2023 01:48:50 Father Hypertensive disorder [id number] Not available 01/15/2023 01:48:50 Father Diabetes mellitus [id number] Not available 01/15/2023 01:48:50 Medical History Condition Response URINARY/BLADDER/KIDNEY PROBLEMS Y SKIN PROBLEMS Y ARTHRITIS Y Gynecological HistoryNo gynecological history recorded. Obstetrics History GPAL:G 0 P 0 0 0 0 Past Encounters Encounter ID Performer Location Encounter Start Date Encounter Closed Date Diagnosis/Indication Diagnosis SNOMED-CT Code Diagnosis ICD10 Code Diagnosis Note [id number] [facility] [place] [address] [place] [address] 12/31/2022 00:00:00 12/31/2022 12:16:48 [id number] Freddy Hagen MD [facility] [place] [address] [place] [address] 02/20/2023 10:46:35 02/20/2023 11:27:24 Bilateral hip joint pain [id number] M25.551 M25.552 Health Concerns Section Related Observation LastModified by Organization Detai ls LastModified Time None Recorded Concern Status LastModified by Organization Details LastModified Time None Recorded Advance Directives Directive None Recorded Payers Encounter Date Sequence Insurance Name Policy Number Policy Hartman Covered Member ID Hartman Member ID Guarantor Name 02/20/2023 1 [facility] - DOS PRIOR TO 2024 - [employer] () Andrew Ortega [id number] Aliya Ortega OBGyn Episode No OBEpisode recorded.
--- OUTSIDE RECORDS SUMMARY | 2024-12-20 08:19 | XMS_ITS | Clinical Summary ---
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
--- OUTSIDE RECORDS SUMMARY | 2024-12-20 08:19 | XMS_ITS | Referral Summary ---
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
--- OUTSIDE RECORDS SUMMARY | 2024-12-20 08:19 | XMS_ITS | Clinical Summary ---
Author Organization [facility] Address [address] [place] [address] Care Team Providers Care Data Collection Interviewer Name Role Phone Luigi Damon MD Primary Care Provider [phone] Source Comments [facility],non-owned Affiliates and Associated Physician Practices is amultiple site organization consisting of ambulatory clinics and hospital sitesin [place], [place], [place] and [place]. This disclosure is being madepursuant to the Care Everywhere program and may not contain all information available regarding this patient. Last updated 18.[facility] Allergies Active Allergy Reactions Criticality Noted Date [...] mouth at bedtime 30 capsule 11/02/2024 Active tirzepatide (Mounjaro) 7.5 MG/0.5ML injection as directed Subcutaneous Active azithromycin (Zithromax) 250 MG tablet TK 2 TS PO ON DAY 1, THEN TK 1 T PO D FOR 4 DAYS 09/16/2024 Active benzonatate (Tessalon) 100 MG capsule Take 1 (one) capsule by mouth 3 times daily as needed for cough 10/12/2024 Active cefUROXime (Ceftin) 500 MG tablet Take 1 (one) tablet by mouth every 12 hours 10/10/2024 Active diazePAM (Valium) 10 MG tablet 1 tablet Orally once, prior to MRI for 1 days As needed 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 06/09/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 Active doxycycline (Oracea) 40 MG capsule 1 capsule in the morning on an empty stomach Orally Once a day Active dulaglutide (Trulicity) 0.75 MG/0.5ML injection Active Naltrexone HCl, Pain, (Lotrexone) 1.5 MG CAPS Take by mouth once daily Active ondansetron, disintegrating, (Zofran ODT) 4 MG tablet DISSOLVE 1 TABLET ON THE TONGUE EVERY 8 HOURS NEEDED FOR NAUSEA OR VOMITING 12/08/2024 Active oxyCODONE-acetami nophen (Percocet) 5-325 MG tablet Take 1 (one) tablet by mouth every 6 hours as needed pain 12/06/2024 Active Klor-Con 20 MEQ packet DISSOLVE CONTENTS OF 1 PACKET IN LIQUID AND TAKE BY MOUTH DAILY 11/14/2024 Active Active Problems Problem Noted Date Diagnosed [...] Encounters Date Type Department Care Team Description 12/14/2024 1:30 PM PROFILE TRIMMER Office Visit [facility] - Plastic Surgery [address] [place] [phone] Esequiel Chapman MD Cubital tunnel syndrome on left (Primary Dx); Spine pain 12/14/2024 Travel 12/08/2024 3:08 PM PROFILE TRIMMER - 12/08/2024 11:59 PM PROFILE TRIMMER Hospital Encounter [facility] CAT SCAN [address] [place] [address] Krystin Granados PA-C Discharge Disposition: Home or Self Care 12/08/2024 3:07 PM PROFILE TRIMMER Hospital Encounter [facility] CAT SCAN [address] [place] [address] Krystin Granados PA-C Discharge Disposition: Home or Self Care 12/08/2024 Travel 11/25/2024 Travel 11/02/2024 10:30 AM PROFILE TRIMMER Office Visit [facility] - Plastic Surgery [address] [place] [address] Negrita Moore MD Bilateral occipital neuralgia (Primary [...] Comments Blood Pressure 98/74 11/02/2024 10:19 AM PROFILE TRIMMER Pulse 105 12/14/2024 1:23 PM PROFILE TRIMMER Temperature 37.1 ??C (98.8 ??F) 12/14/2024 1:23 PM CS T Respiratory Rate 18 12/14/2024 1:23 PM PROFILE TRIMMER Oxygen Saturation 99% 12/14/2024 1:23 PM PROFILE TRIMMER Inhaled Oxygen Concentration - - Weight 65.8 kg (145 lb) 12/14/2024 1:23 PM PROFILE TRIMMER Height 160 cm (5' 3 ) 12/14/2024 1:23 PM PROFILE TRIMMER Body Mass Index 25.69 12/14/2024 1:23 PM PROFILE TRIMMER Plan of Treatment Upcoming Encounters Date Type Department Care Team (Late st Contact Info) Description 12/27/2024 10:30 AM PROFILE TRIMMER Appointment [facility] EEG/EMG [address] [place] [phone] Shaneka Ma DO [address] [place] [address] 02/22/2025 1:15 PM CDT Office Visit [facility] - [facility] [address] [phone] Esequiel Chapman MD [address] [place], [place] [phone] Health Maintenance Due Date Last Done Comments [...] VACCINE (1 of 2) 2023 COVID-19 VACCINE ( - season) 2024 03/31/2022, 06/14/2021, 04/04/2021 INFLUENZA [...] Procedure Name Priority Date/Time Associated Diagnosis Comments CT HEAD W CONTRAST NAM 12/08/2024 3: 28 PM PROFILE TRIMMER Bilateral occipital neuralgia Chronic migraine w/o aura w/o status migrainosus, not intractable Fluid collection at surgical site, initial encounter CT NECK SOFT TISSUE W CONT NAM 12/08/2024 3:27 PM PROFILE TRIMMER Bilateral occipital neuralgia Chronic migraine w/o aura w/o status migrainosus, not intractable Fluid collection at surgical site, initial encounter CREATININE - POCT INTERFACED Routine 12/08/2024 3:16 PM PROFILE TRIMMER from Last 3 Months Results * CT Head W Contrast (12/08/2024 3:28 PM PROFILE TRIMMER) Anatomical Region Laterality Modality Head Computed Tomogra phy 12/09/2024 8:41 AM PROFILE TRIMMER Impressions 12/09/2024 2:32 PM PROFILE TRIMMER IMPRESSION: 1.No significant fluid collection at the scalp identified. No other pathologic process identified. > Dictated by Josué Kumar MD - Diagnostic Milieu Counselor. I, Anderson Ignacio MD have personally reviewed and interpreted this examination/study. > Interpreting Provider: Anderson Ignacio MD on 12/09/2024 2:32 PM Narrative 12/09/2024 2:32 PM PROFILE TRIMMER PROCEDURE: ??CT HEAD W CONTRAST, DATE/TIME OF EXAM: ??12/08/2024 3:30 PM, LOCATION ??[facility] INDICATION: M54.81: Bilateral occipital neuralgia G43.709: Chronic migraine w/o aura w/o status migrainosus, not intractable T88.8XXA: Fluid collection at surgical site, initial encounter EXAMINATION: Computed tomography (CT) of the head with contrast ADDITIONAL CLINICAL INFORMATION: Ordering Provider Reason For Exam: ??fluid collection to the posterior occiput s/p migraine surgery on May 2024 with plastic surgery. Fluid collection/drainage from posterior scalp. Technologist Note: Additional: ??Right and left third and lesser occipital nerves neurectomy, Right greater occipital nerve neurectomy, Left greater occipital nerve neurectomy. CONTRAST: ??IOPAMIDOL 76 % IV SOLN:100 mL TECHNIQUE: CT of the head was performed without contrast according to standard protocol. CT dose reduction technique was used, including Automated Exposure Control. COMPARISON: No prior study is available for comparison at the time of this dictation. FINDINGS: No acute intra- or extra-axial fluid collections are identified. The ventricles are of normal size, shape, and morphology. The basilar cisterns are patent. No mass effect or midline shift is seen. The monsalve-white matter differentiation is normal. No acute calvarial fracture is identified. The orbits appear normal. The paranasal sinuses are clear. The mastoid air cells are clear. No soft tissue abnormality is identified. [place] right cerebellar tonsil (series 5 image 32). No pathologic contrast enhancement. Thickening of frontal bone anteriorly at calvarium. Procedure Note Anderson Ignacio MD - 12/09/2024 PROCEDURE: CT HEAD W CONTRAST, DATE/TIME OF EXAM: 12/08/2024 3:30 PM, LOCATION [facility] INDICATION: M54.81: Bilateral occipital neuralgia G43.709: Chronic migraine w/o aura w/o status migrainosus, notintractable T88.8XXA: Fluid collection at surgical site, initial encounter EXAMINATION: Computed tomography (CT) of the head with contrast ADDITIONAL CLINICAL INFORMATION: Ordering Provider Reason For Exam: fluid collection to the posterior occiput s/p migraine surgery on May 2024 with plastic surgery. Fluid collection/drainage from posterior scalp. Technologist Note: Additional: Right and left third and lesser occipital nervesneurectomy, Right greater occipital nerve neurectomy, Left greater occipital nerve neurectomy. CONTRAST: IOPAMIDOL 76 % IV SOLN:100 mL TECHNIQUE: CT of the head was performed without contrast according to standard protocol. CT dose reduction technique was used, including Automated Exposure Control. COMPARISON: No prior study is available for comparison at the time ofthis dictation. FINDINGS: No acute intra- or extra-axial fluid collections are identified. The ventricles are of normal size, shape, and morphology. The basilarcisterns are patent. No mass effect or midline shift is seen. The monsalve-whitematter differentiation is normal. No acute calvarial fracture is identified.The orbits appear normal. The paranasal sinuses are clear. The mastoid air cells are clear. No soft tissue abnormality is identified. [place] cerebellar tonsil (series 5 image 32). No pathologic contrastenhancement. Thickening of frontal bone anteriorly at calvarium. IMPRESSION: 1.No significant fluid collection at the scalp identified. No other pathologic process identified. > Dictated by Josué Kumar MD - Diagnostic Milieu Counselor. Anderson Wills MD have personally reviewed and interpreted this examination/study. > Interpreting Provider: Anderson Ignacio MD on 12/09/2024 2:32 PM Krystin YI-C CT ORDERABLES * CT Neck Soft Tissue W Cont (12/08/2024 3:27 PM PROFILE TRIMMER) Anatomical Region Laterality Modality Head Computed Tomogra phy 12/09/2024 8:05 AM PROFILE TRIMMER Impressions 12/09/2024 3:08 PM PROFILE TRIMMER IMPRESSION: 1. No pathologic process identified in the neck. 2. Postsurgical changes of anterior cervical discectomy and fusion at C4-C7 vertebral bodies. The left screw in C7 vertebral body is fractured. Report dictated by Josué Kumar MD, (residential real estate assistant). Anderson Wills MD have personally reviewed and interpreted this examination/study. > Interpreting Provider: Anderson Ignacio MD on 12/09/2024 3:08 PM Narrative 12/09/2024 3:08 PM PROFILE TRIMMER PROCEDURE: ??CT NECK SOFT TISSUE W CONT, DATE/TIME OF EXAM: ??12/08/2024 3:28 PM, LOCATION ??[facility] INDICATION: M54.81: Bilateral occipital neuralgia G43.709: Chronic migraine w/o aura w/o status migrainosus, not intractable T88.8XXA: Fluid collection at surgical site, initial encounter ADDITIONAL CLINICAL INFORMATION: Ordering Provider Reason For Exam: ??fluid collection to the posterior occiput s/p migraine surgery on May 2024 with plastic surgery. Fluid collection/drainage from posterior scalp. Technologist Note: Additional: ??Right and left third and lesser occipital nerves neurectomy, Right greater occipital nerve neurectomy, Left greater occipital nerve neurectomy. TECHNIQUE: CT of the neck was performed following the uneventful administration of intravenous contrast according to standard protocol. Contrast: IOPAMIDOL 76 % IV SOLN:100 mL COMPARISON: No prior study is available for comparison at the time of this dictation. FINDINGS: Multiple small subcentimeter lymph nodes are noted in both sides of the neck with no evidence of cervical lymphadenopathy. The muscles of the neck appear normal. The cervical internal carotid arteries and internal jugular veins appear normal. Fascial planes are preserved and the deep spaces of the neck appear normal. The nasopharynx, oropharynx, hypopharynx and larynx appear normal. The visualized airway is patent. The visualized portions of the posterior fossa and brain appear normal. There is cervical degenerative disc and joint disease. The visualized orbits and paranasal sinuses appear normal. The thyroid gland is normal. The visible lung apices are clear. Postsurgical changes of anterior cervical discectomy and fusion at the C4-C7 vertebral bodies. The left screw in the C7 vertebral body is fractured. Procedure Note Anderson Ignacio MD - 12/09/2024 PROCEDURE: CT NECK SOFT TISSUE W CONT, DATE/TIME OF EXAM: 53:28 PM, LOCATION [facility] INDICATION: M54.81: Bilateral occipital neuralgia G43.709: Chronic migraine w/o aura w/o status migrainosus, notintractable T88.8XXA: Fluid collection at surgical site, initial encounter ADDITIONAL CLINICAL INFORMATION: Ordering Provider Reason For Exam: fluid collection to the posterior occiput s/p migraine surgery on May 2024 with plastic surgery. Fluid collection/drainage from posterior scalp. Technologist Note: Additional: Right and left third and lesser occipital nervesneurectomy, Right greater occipital nerve neurectomy, Left greater occipital nerve neurectomy. TECHNIQUE: CT of the neck was performed following the uneventful administration of intravenous contrast according to standard protocol. Contrast: IOPAMIDOL 76 % IV SOLN:100 mL COMPARISON: No prior study is available for comparison at the time ofthis dictation. FINDINGS: Multiple small subcentimeter lymph nodes are noted in both sides of the neck with no evidence of cervical lymphadenopathy. The muscles of theneck appear normal. The cervical internal carotid arteries and internaljugular veins appear normal. Fascial planes are preserved and the deep spaces of the neck appear normal. The nasopharynx, oropharynx, hypopharynx andlarynx appear normal. The visualized airway is patent. The visualized portions of the posterior fossa and brain appear normal. There is cervical degenerative disc and joint disease. The visualized orbits and paranasal sinuses appear normal. The thyroid gland is normal. The visible lung apices are clear. Postsurgical changes of anterior cervical discectomy and fusion at the C4-C7 vertebral bodies. The left screw in the C7 vertebral body is fractured. IMPRESSION: 1. No pathologic process identified in the neck. 2. Postsurgical changes of anterior cervical discectomy and fusion atC4-C7 vertebral bodies. The left screw in C7 vertebral body is fractured. Report dictated by Josué Kumar MD, (residential real estate assistant). I, Anderson Ignacio MD have personally reviewed and interpreted this examination/study. > Interpreting Provider: Anderson Ignacio MD on 12/09/2024 3:08 PM Krystin rGanados PA-C CT ORDERABLES * (ABNORMAL) CREATININE - POCT INTERFACED (12/08/2024 3:16 PM PROFILE TRIMMER) Creatinine POCT 1.18 0.30 - 1.30 mg/dL 12/08/2024 3:18 PM PROFILE TRIMMER [facility] eGFR 56(L) >=90 mL/min/1.7 3 m2 12/08/2024 3:18 PM PROFILE TRIMMER [facility] Blood BLOOD SPECIMEN / Unknown 12/08/2024 3:16 PM PROFILE TRIMMER 12/08/2024 3:18 PM PROFILE TRIMMER Krystin Granados PA-C LAB - POINT OF CARE ORDERABLES [facility] [address] [place] [address], [facility] [phone] from Last 3 Months Care Teams Data Collection Interviewer Relationship Specialty Start Date End Date Luigi Damon MD [address] [place] [address] PCP - General Family Medicine 06/03/24
--- OUTSIDE RECORDS SUMMARY | 2024-12-20 08:19 | XMS_ITS | Referral Summary ---
Author Organization [facility] Address [address] [place] [address] Care Team Providers Care Component Lab Tech Name Role Phone Luigi Damon MD Primary Care Provider [phone] Source Comments [facility],non-owned Affiliates and Associated Physician Practices is amultiple site organization consisting of ambulatory clinics and hospital sitesin [place], [place], [place] and [place]. This disclosure is being madepursuant to the Care Everywhere program and may not contain all information available regarding this patient. Last updated 18.[facility] Encounters Date Type Department Care Team Description 12/14/2024 Travel 12/14/2024 1:30 PM SPORTS TEAM MARKETING INTERN Office Visit [facility] - Plastic Surgery [address] [address] Esequiel Chapman MD Cubital tunnel syndrome on left (Primary Dx); Spine pain 12/08/2024 Travel 12/08/2024 3:07 PM SPORTS TEAM MARKETING INTERN Hospital Encounter [facility] CAT SCAN [address] [place] [address] Krystin Granados PA-C Discharge Disposition: Home or Self Care 12/08/2024 3:08 PM SPORTS TEAM MARKETING INTERN - 12/08/2024 11:59 PM SPORTS TEAM MARKETING INTERN Hospital Encounter [facility] CAT SCAN [address] [place] [address] Krystin Granados PA-C Discharge Disposition: Home or Self Care 11/25/2024 Travel 11/02/2024 Travel 11/02/2024 10:30 AM SPORTS TEAM MARKETING INTERN Office Visit [facility] - Plastic Surgery [address] [facility] [place] [phone] Negrita Moore MD Bilateral occipital neuralgia (Primary [...] 1 days 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/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 Active doxycycline (Oracea) 40 MG [...] Former Cigarettes 0.1 2 2 000 - 2001 Passive Smoke Exposure: Past Smokeless Tobacco: Never [...] Comments Blood Pressure 98/74 11/02/2024 10:19 AM SPORTS TEAM MARKETING INTERN Pulse 105 12/14/2024 1:23 PM SPORTS TEAM MARKETING INTERN Temperature 37.1 ??C (98.8 ??F) 12/14/2024 1:23 PM CS T Respiratory Rate 18 12/14/2024 1:23 PM SPORTS TEAM MARKETING INTERN Oxygen Saturation 99% 12/14/2024 1:23 PM SPORTS TEAM MARKETING INTERN Inhaled Oxygen Concentration - - Weight 65.8 kg (145 lb) 12/14/2024 1:23 PM SPORTS TEAM MARKETING INTERN Height 160 cm (5' 3 ) 12/14/2024 1:23 PM SPORTS TEAM MARKETING INTERN Body Mass Index 25.69 12/14/2024 1:23 PM SPORTS TEAM MARKETING INTERN Plan of Treatment Upcoming Encounters Date Type Department Care Team (Late st Contact Info) Description 12/27/2024 10:30 AM SPORTS TEAM MARKETING INTERN Appointment [facility] EEG/EMG [address] [place] [phone] Shaneka Ma DO [address] [place] [phone] 02/22/2025 1:15 PM CDT Office Visit [facility] - [facility] Surgery [address] [phone] Esequiel Chapman MD [address] [place], [place] [phone] Procedures Procedure Name Priority Date/Time Associated Diagnosis Comments CT HEAD W CONTRAST [facility] 12/08/2024 3: 28 PM SPORTS TEAM MARKETING INTERN Bilateral occipital neuralgia Chronic migraine w/o aura w/o status migrainosus, not intractable Fluid collection at surgical site, initial encounter CT NECK SOFT TISSUE W CONT [facility] 12/08/2024 3:27 PM SPORTS TEAM MARKETING INTERN Bilateral occipital neuralgia Chronic migraine w/o aura w/o status migrainosus, not intractable Fluid collection at surgical site, initial encounter CREATININE - POCT INTERFACED Routine 12/08/2024 3:16 PM SPORTS TEAM MARKETING INTERN from Last 3 Months Results * CT Head W Contrast (12/08/2024 3:28 PM SPORTS TEAM MARKETING INTERN) Anatomical Region Laterality Modality Head Computed Tomogra phy 12/09/2024 8:41 AM SPORTS TEAM MARKETING INTERN Impressions 12/09/2024 2:32 PM SPORTS TEAM MARKETING INTERN IMPRESSION: 1.No significant fluid collection at the scalp identified. No other pathologic process identified. > Dictated by Josué Kumar MD - Diagnostic Cupola Tapper Helper. IAnderson MD have personally reviewed and interpreted this examination/study. > Interpreting Provider: Anderson Ignacio MD on 12/09/2024 2:32 PM Narrative 12/09/2024 2:32 PM SPORTS TEAM MARKETING INTERN PROCEDURE: ??CT HEAD W CONTRAST, DATE/TIME OF EXAM: ??12/08/2024 3:30 PM, LOCATION ??[facility] INDICATION: M54.81: Bilateral occipital neuralgia G43.709: Chronic [...] clear. No soft tissue abnormality is identified. [place] right cerebellar tonsil (series 5 image 32). No pathologic contrast enhancement. Thickening of frontal bone anteriorly at calvarium. Procedure Note Anderson Ignacio MD - 12/09/2024 PROCEDURE: CT HEAD W CONTRAST, DATE/TIME OF EXAM: 12/08/2024 3:30 PM, LOCATION [facility] INDICATION: M54.81: Bilateral occipital neuralgia G43.709: Chronic [...] clear. No soft tissue abnormality is identified. [place] cerebellar tonsil (series 5 image 32). No pathologic contrastenhancement. Thickening of frontal bone anteriorly at calvarium. IMPRESSION: 1.No significant fluid collection at the scalp identified. No other pathologic process identified. > Dictated by Josué Kumar MD - Diagnostic Cupola Tapper Helper. Anderson Wills MD have personally reviewed and interpreted this examination/study. > Interpreting Provider: Anderson Ignacio MD on 12/09/2024 2:32 PM Krystin Granados PA-C CT ORDERABLES * CT Neck Soft Tissue W Cont (12/08/2024 3:27 PM SPORTS TEAM MARKETING INTERN) Anatomical Region Laterality Modality Head Computed Tomogra phy 12/09/2024 8:05 AM SPORTS TEAM MARKETING INTERN Impressions 12/09/2024 3:08 PM SPORTS TEAM MARKETING INTERN IMPRESSION: 1. No pathologic process identified in the neck. 2. Postsurgical changes of anterior cervical discectomy and fusion at C4-C7 vertebral bodies. The left screw in C7 vertebral body is fractured. Report dictated by Josué Kumar MD, (university president). Anderson Wills MD have personally reviewed and interpreted this examination/study. > Interpreting Provider: Anderson Ignacio MD on 12/09/2024 3:08 PM Narrative 12/09/2024 3:08 PM SPORTS TEAM MARKETING INTERN PROCEDURE: ??CT NECK SOFT TISSUE W CONT, DATE/TIME OF EXAM: ??12/08/2024 3:28 PM, LOCATION ??[facility] INDICATION: M54.81: Bilateral occipital neuralgia G43.709: Chronic [...] CONT, DATE/TIME OF EXAM: 53:28 PM, LOCATION [facility] INDICATION: M54.81: Bilateral occipital neuralgia G43.709: Chronic [...] fractured. Report dictated by Josué Kumar MD, (university president). I, Anderson Ignacio MD have personally reviewed and interpreted this examination/study. > Interpreting Provider: Anderson Ignacio MD on 12/09/2024 3:08 PM Krystin Granados PA-C CT ORDERABLES * (ABNORMAL) CREATININE - POCT INTERFACED (12/08/2024 3:16 PM SPORTS TEAM MARKETING INTERN) Creatinine POCT 1.18 0.30 - 1.30 mg/dL 12/08/2024 3:18 PM SPORTS TEAM MARKETING INTERN [facility] eGFR 56(L) >=90 mL/min/1.7 3 m2 12/08/2024 3:18 PM SPORTS TEAM MARKETING INTERN [facility] Blood BLOOD SPECIMEN / Unknown 12/08/2024 3:16 PM SPORTS TEAM MARKETING INTERN 12/08/2024 3:18 PM SPORTS TEAM MARKETING INTERN Krystin Granados PA-C LAB - POINT OF CARE ORDERABLES Performing Organization Address City/State/[facility] Co de Phone Number [facility] [address] [place] [address], [facility] [phone] from Last 3 Months Care Teams Component Lab Tech Relationship Specialty Start Date End Date Luigi Damon MD [address] [place] [phone] PCP - General Family Medicine 06/03/24
--- OUTSIDE RECORDS SUMMARY | 2024-12-20 08:19 | XMS_ITS | Clinical Summary ---
Author Organization [facility] Address [address] [place] [address] Care Team Providers Care Charge Accounts Audit Clerk Name Role Phone Luigi Damon MD Primary Care Provider [phone] Allergies Active Allergy Reactions Criticality Noted Date [...] on file Legal Sex Female 3:03 PM FIGURE MODEL Gender Identity Not on file Sexual Orientation [...] patient's age to complete this topic Insurance [facility] Care Teams Charge Accounts Audit Clerk Relationship Specialty Start Date End Date Luigi Damon MD [address] [place] [address] PCP - General Family Medicine 03/24/24
--- OUTSIDE RECORDS SUMMARY | 2024-12-20 08:19 | XMS_ITS | Patient Health Summary ---
Author Organization [facility] Address [address] [place] [address] Care Team Providers Care Refrigeration Service Inspector Name Role Phone Luigi Damon MD Primary Care Provider [phone] Note from [facility],non-owned Affiliates and Associated Physician Practices is amultiple site organization consisting of ambulatory clinics and hospital sitesin [place], [place], [place] and [place]. This disclosure is being madepursuant to the Care Everywhere program and may not contain all information available regarding this patient. Last updated 18.[facility] Allergies * Benadryl(Elevated Blood Pressure) [...] 1 (one) capsule by mouth at bedtime * tirzepatide (Mounjaro) 7.5 MG/0.5ML injection as directed Subcutaneous * azithromycin (Zithromax) 250 MG tablet(Started 09/16/2024) TK 2 TS PO ON DAY 1, THEN TK 1 T PO D FOR 4 DAYS * benzonatate (Tessalon) 100 MG capsule(Started 10/12/2024) Take 1 (one) capsule by mouth 3 times daily as needed for cough * cefUROXime (Ceftin) 500 MG tablet(Started 10/10/2024) Take 1 (one) tablet by mouth every 12 hours * diazePAM (Valium) 10 MG tablet(Started 06/09/2024) 1 tablet Orally once, prior to MRI for 1 days As needed 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 * doxycycline (Oracea) 40 MG capsule 1 capsule in the morning on an empty stomach Orally Once a day * dulaglutide (Trulicity) 0.75 MG/0.5ML injection * Naltrexone HCl, Pain, (Lotrexone) 1.5 MG CAPS Take by mouth once daily * ondansetron, disintegrating, (Zofran ODT) 4 MG tablet(Started 12/08/2024) DISSOLVE 1 TABLET ON THE TONGUE EVERY 8 HOURS NEEDED FOR NAUSEA OR VOMITING * oxyCODONE-acetaminophen (Percocet) 5-325 MG tablet(Started 12/06/2024) Take 1 (one) tablet by mouth every 6 hours as needed pain * Klor-Con 20 MEQ packet(Started 11/14/2024) DISSOLVE CONTENTS OF 1 PACKET IN LIQUID AND TAKE BY MOUTH DAILY Active Problems Problem Noted Date Diagnosed Date 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 Claustrophobia 05/17/2024 Fear of flying 05/17/2024 Hyperlipidemia, unspecified 05/17/2024 Other spondylosis with radiculopathy, cervical r egion 05/17/2024 Stress incontinence (female) (male) 05/17/2024 Urticaria due to cold and heat 05/17/2024 Chronic migraine w/o aura w/ o status migrainosus, not intractable 12/29/2023 Pain of both hip joints 02/20/2023 Buster thyroiditis, fibrous variant DUB (dysfunctional uterine bleeding) 10/01/2017 Fibroid 10/01/2017 [...] Comments Blood Pressure 98/74 11/02/2024 10:19 AM MARGARINE CHURN OPERATOR Pulse 105 12/14/2024 1:23 PM MARGARINE CHURN OPERATOR Temperature 37.1 ??C (98.8 ??F) 12/14/2024 1:23 PM CS T Respiratory Rate 18 12/14/2024 1:23 PM MARGARINE CHURN OPERATOR Oxygen Saturation 99% 12/14/2024 1:23 PM MARGARINE CHURN OPERATOR Inhaled Oxygen Concentration - - Weight 65.8 kg (145 lb) 12/14/2024 1:23 PM MARGARINE CHURN OPERATOR Height 160 cm (5' 3 ) 12/14/2024 1:23 PM MARGARINE CHURN OPERATOR Body Mass Index 25.69 12/14/2024 1:23 PM MARGARINE CHURN OPERATOR Procedures * CT HEAD W CONTRAST(Performed 12/08/2024) Performed for Bilateral occipital neuralgia, Chronic migraine w/o aura w/o status migrainosus, not intractable, Fluid collection at surgical site, initial encounter * CT NECK SOFT TISSUE W CONT(Performed 12/08/2024) Performed for Bilateral occipital neuralgia, Chronic migraine w/o aura w/o status migrainosus, not intractable, Fluid collection at surgical site, initial encounter * CREATININE - POCT INTERFACED(Performed 12/08/2024) * ENDOTRACHEAL TUBE NOTE(Performed 05/23/2024) * DE TRANSECT GREAT OCCIPITAL NERV(Performed 05/23/2024) Performed for Bilateral occipital neuralgia Results * CT Head W Contrast (12/08/2024 3:28 PM MARGARINE CHURN OPERATOR) Anatomical Region Laterality Modality Head Computed Tomogra phy 12/09/2024 8:41 AM MARGARINE CHURN OPERATOR Impressions 12/09/2024 2:32 PM MARGARINE CHURN OPERATOR IMPRESSION: 1.No significant fluid collection at the scalp identified. No other pathologic process identified. > Dictated by Josué Kumar MD - Diagnostic Director Industrial. I, Anderson Ignacio MD have personally reviewed and interpreted this examination/study. > Interpreting Provider: Anderson Ignacio MD on 12/09/2024 2:32 PM Narrative 12/09/2024 2:32 PM MARGARINE CHURN OPERATOR PROCEDURE: ??CT HEAD W CONTRAST, DATE/TIME OF EXAM: ??12/08/2024 3:30 PM, LOCATION ??[facility] INDICATION: M54.81: Bilateral occipital neuralgia G43.709: [...] clear. No soft tissue abnormality is identified. [place] right cerebellar tonsil (series 5 image 32). No pathologic contrast enhancement. Thickening of frontal bone anteriorly at calvarium. Procedure Note Anderson Ignacio MD - 12/09/2024 PROCEDURE: CT HEAD W CONTRAST, DATE/TIME OF EXAM: 12/08/2024 3:30 PM, LOCATION [facility] INDICATION: M54.81: Bilateral occipital neuralgia G43.709: [...] clear. No soft tissue abnormality is identified. [place] cerebellar tonsil (series 5 image 32). No pathologic contrastenhancement. Thickening of frontal bone anteriorly at calvarium. IMPRESSION: 1.No significant fluid collection at the scalp identified. No other pathologic process identified. > Dictated by Josué Kumar MD - Diagnostic Director Industrial. Anderson Wills MD have personally reviewed and interpreted this examination/study. > Interpreting Provider: Anderson Ignacio MD on 12/09/2024 2:32 PM Krystin Granados PA-C CT ORDERABLES * CT Neck Soft Tissue W Cont (12/08/2024 3:27 PM MARGARINE CHURN OPERATOR) Anatomical Region Laterality Modality Head Computed Tomogra phy 12/09/2024 8:05 AM MARGARINE CHURN OPERATOR Impressions 12/09/2024 3:08 PM MARGARINE CHURN OPERATOR IMPRESSION: 1. No pathologic process identified in the neck. 2. Postsurgical changes of anterior cervical discectomy and fusion at C4-C7 vertebral bodies. The left screw in C7 vertebral body is fractured. Report dictated by Josué Kumar MD, (vice president education). Anderson Wills MD have personally reviewed and interpreted this examination/study. > Interpreting Provider: Anderson Ignacio MD on 12/09/2024 3:08 PM Narrative 12/09/2024 3:08 PM MARGARINE CHURN OPERATOR PROCEDURE: ??CT NECK SOFT TISSUE W CONT, DATE/TIME OF EXAM: ??12/08/2024 3:28 PM, LOCATION ??[facility] INDICATION: M54.81: Bilateral occipital neuralgia G43.709: [...] SOFT TISSUE W CONT, DATE/TIME OF EXAM: :28 PM, LOCATION [facility] INDICATION: M54.81: Bilateral occipital neuralgia G43.709: [...] fractured. Report dictated by Josué Kumar MD, (vice president education). I, Anderson Ignacio MD have personally reviewed and interpreted this examination/study. > Interpreting Provider: Anderson Ignacio MD on 12/09/2024 3:08 PM Krystin YI-Fabiana CT ORDERABLES * (ABNORMAL) CREATININE - POCT INTERFACED (12/08/2024 3:16 PM MARGARINE CHURN OPERATOR) Creatinine POCT 1.18 0.30 - 1.30 mg/dL 12/08/2024 3:18 PM MARGARINE CHURN OPERATOR [facility] eGFR 56(L) >=90 mL/min/1.7 3 m2 12/08/2024 3:18 PM MARGARINE CHURN OPERATOR [facility] Blood BLOOD SPECIMEN / Unknown 12/08/2024 3:16 PM MARGARINE CHURN OPERATOR 12/08/2024 3:18 PM MARGARINE CHURN OPERATOR Krystin Granados PA-C LAB - POINT OF CARE ORDERABLES [address] [address], [facility] [phone] * ETT LINE PERFORMABLE (05/23/2024 8:59 AM CDT) Narrative Anaid Pruitt Anes Asst - 05/23/2024 8:59 AM CDT PruittAnaid goncalves Anes Asst ? 05/23/2024 ??9:00 AM Endotracheal Tube Placement: ? Patient Location: OR. Intubation Event Date/Time: ??05/23/2024 8:33 AM Procedure: intubation (86201) Procedure Section: ?? Sedation: under general anesthesia. [...] procedure Yony Garduno MD GENERAL ANESTHESIA [facility] Teams Refrigeration Service Inspector Relationship Specialty Start Date End Date Luigi Damon MD [address] [place] [address] PCP - General Family Medicine 06/03/24
--- OUTSIDE RECORDS SUMMARY | 2024-12-20 08:19 | XMS_ITS | Clinical Summary ---
Author Organization [facility] Address [address] [place] [address]. [place], [place] [address] [place] [address] Care Team Providers Care Architecture Faculty Member Name Role Phone Jamison Ontiveros MD Primary Care Provider [phone] Allergies Active Allergy Reactions Criticality Noted Date [...] season) 2024 Influenza Adult (#1) 2024 Meningococcal B Vaccine Aged Out No l onger eligible based on patient's age to complete this topic Meningococcal Vaccine Aged Out No shubham sonu [...] to complete this topic Insurance Care Teams Architecture Faculty Member Relationship Specialty Start Date End Date Jamison Ontiveros MD [facility] [place] [address] PCP - General FAMILY PRACTICE 02/26/23
== END 2024-12-20 08:09 | disposition home or self-care (01) ==
PROVIDERS: PCP Family Medicine; Visit Provider Surgery
DX: Z90.49 Acquired absence of other specified parts of digestive tract (principal)
CPT/HCPCS: 78226; A9537

== ENCOUNTER 2025-06-01 14:49 | Outpatient (CLI) | payer OTHER, SELFPAY ==
--- OUTSIDE RECORDS SUMMARY | 2025-06-01 14:56 | XMS_ITS | Data Portability ---
Author Organization [facility] Address [address] [place] [address] Assessment No assessment recorded. Plan of Treatment Reminders Order Date Submit Date Provider Last Modified By Organization Details Last Modified Time Details Appointments None recorded . Lab cortisol , am, serum 03/10/20 [facility], [address], [address], 2 12:16:44 dexameth asone, serum 03/10/20 [facility], [address], [address], 2 12:16:43 HbA1c (hemoglo bin A1c), blood 03/10/20 BRIAN [facility], [address], [address], 2 07:39:57 BMP, serum or plasma 03/10/20 [facility], [address], [address], 2 07:39:56 insulin, serum 03/10/20 [facility], [address], [address], 2 07:39:57 Referral None recorded . Procedures [...] ng refer ence inter zuri Not Available [facility] [address] [place], [address], 03/11/2022 07:39:56 03/10/20 22 03/11/2022 BASIC METAB OLIC PANEL urea nitrogen (BUN) 24 mg/dL 7-25 normal Not Available [facility] [address] [place], [address], 03/11/2022 07:39:56 03/10/20 22 03/11/2022 BASIC METAB OLIC PANEL creatinine 0.84 mg/dL 0.50-1 .10 normal Not Available [facility] [address] [place], [address], 03/11/2022 07:39:56 03/10/20 22 03/11/2022 BASIC METAB OLIC PANEL eGFR non-afr. hungarian 82 mL/mi n/1.7 3m2 > or = 60 normal Not Available [facility] [address] [place], [address], 03/11/2022 07:39:56 03/10/20 22 03/11/2022 BASIC METAB OLIC PANEL eGFR 95 mL/mi n/1.7 3m2 > or = 60 normal Not Available [facility] [address] [place], [address], 03/11/2022 07:39:56 03/10/20 22 03/11/2022 BASIC METAB OLIC PANEL BUN/creatini ne ratio NOT APPLIC ABLE (calc ) 6-22 Not Available [facility] [address] [place], [address], 03/11/2022 07:39:56 03/10/20 22 03/11/2022 BASIC METAB OLIC PANEL sodium 142 mmol/ L 135-14 6 normal Not Available [facility] [address] [place], [address], 03/11/2022 07:39:56 03/10/20 22 03/11/2022 BASIC METAB OLIC PANEL potassium 4.6 mmol/ L 3.5-5. 3 normal Not Available [facility] [address] [place], [address], 03/11/2022 07:39:56 03/10/20 22 03/11/2022 BASIC METAB OLIC PANEL chloride 109 mmol/ L 98-110 normal Not Available [address] [place], [address], 03/11/2022 07:39:56 03/10/20 22 03/11/2022 BASIC METAB OLIC PANEL carbon dioxide 27 mmol/ L 20-32 normal Not Available [facility] [address] [place], [address], 03/11/2022 07:39:56 03/10/20 22 03/11/2022 BASIC METAB OLIC PANEL calcium 9.3 mg/dL 8.6-10 .2 normal Not Available [facility] [address] [place], [address], 03/11/2022 07:39:56 03/10/20 22 03/11/2022 INSUL IN [...] (dete tavia, gluli sine) . Not Available [facility] [place], [address], 03/11/2022 07:39:57 03/10/20 22 03/11/2022 HEMOG LOBIN [...] Curre ntly, no conse nsus exist s regar blanca use of hemog lobin A1c for diagn [...] Care in Diabe debra(A DA). Not Available [facility] [place], [address], 03/11/2022 07:39:57 03/11/20 22 03/19/2022 DEXAM ETHAS ONE dexamethason e 150 NG/dL Refer ence Range s for Dexam ethas one: Basel ine: Less than 20 ng/dL 1 mg dexam ethas one overn ight: 180-5 50 ng/dL (8:00 -10:0 0 AM) This test was devel oped and its liz tical perfo rmanc e joao cteri stics have been deter mined by [facility] [place] [employer] [facility] . It has not been clear ed or appro ivan by FDA. This assay has been valid ated pursu ant to the CLIA regul ation s and is used for clini kati purpo ses. Not Available [facility] [address] [place], [address], 03/19/2022 12:16:43 03/11/20 22 03/19/2022 CORTI ANGUS, A.M. cortisol, A.M. 0.6 mcg/d L low Refer ence Range 8 a.m. (7-9 a.m.) Speci men: 4.0-2 2.0 Not Available [facility] [address] [place], [address], 03/19/2022 12:16:44 Result Notes None recorded. 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 2 18:50:40 Posttraumatic stress disorder 45460805 Active 2021 Naveed Zamarripa MD [address], [place], [address], [facility] 2 18:50:57 Chronic pain 60679241 Active 2021 Naveed Zamarripa MD [address], [place], [address], [facility] 2 18:51:05 Migraine 57767302 Active 2021 Naveed Zamarripa MD [address], [place], [address], [facility] 2 18:51:12 Problem Notes None recorded. Procedures Surgical History Date Name Laterality Status Provider Name and Address Organization Details Recorded Time 11/16/19 18 primary fusion of cervical spine completed [facility] 03/06/2022 10:01:05 11/16/19 11 primary fusion of cervical spine completed [facility] 03/06/2022 10:01:02 11/16/18 98 tonsillectomy completed Mora Edi [facility] 03/06/2022 10:01:13 11/16/18 98 LEEP completed Mora Edi [facility] 03/06/2022 10:01:25 Imaging Results None recorded. Procedure Notes None recorded. Medical Equipment None Reported. Allergies Allergen ID Allergen Name Allergen Category Reaction Reaction Severity Criticality Documentation Date Start Date Code Code System Note Provider Name and Address Organization Details Recorded Time 3072498 Benadryl medicatio n Not available Not available Not available 03/06/202229374 7 RxNorm Mora Edi null, [facility] 2 10:01:39 0754705 Phenergan medicatio n Not available Not available Not available 03/06/2022 68788 8 RxNorm Mora Edi null, [facility] 2 10:01:45 Medications Name Sig Start [...] index (BMI) Body height Heart rate Systolic And Diastolic Provider Name and Address Organization Details Last Updated DateTime 03/10/2022 77805.33 g 26.8 kg/m2 167.64 cm 76 /min 118/64 mm[Hg] Carlita Soto [facility] 03/10/2022 08:51:26 Social History Question Answer Notes LastModified by Organizat ion Details LastModified Time Tobacco Smoking Status Never Smoker Mora schultz [facility] 03/06/2022 10:04:37 How Many Children Do You Have? 2 Information not available 03/06/2022 Sex: Unknown Functional Status Question Answer Note LastModified by Organization D etails LastModified Time What is your level of alcohol consumption? None Information not available 03/06/2022 Mental Status None recorded. Family History Relationship Description Onset Age of this Age Resolved Age Notes LastModified by Organization Details LastModified Time Father Multiple sclerosis lung Not available 2021 10:03:11 Mother Malignant tumor of colon lung Not available 2021 10:03:22 Mother Malignant neoplasm of lung lung Not available 2021 10:03:33 [...] SNOMED-CT Code Diagnosis ICD10 Code Diagnosis Note [id number] Naveed Zamarripa MD [facility] _[place] [facility]* [address] [place] [address],[address] [address] 03/10/2022 08:06:25 03/10/2022 10:45:31 Buster thyroiditis 89202381 E06.3 We discussed Buster' s pathophysi ology and indication s for LT4 therapy. Unless TFTs beginning to move into hypothyroi dism (elevating TSH) there is no role for beginning treatment now. Weight gain 9185041 R63. 5 Will assess for cortisol excess in light of her concerns. This test to be done in the near future. Diabetes shirley mcmullen screening 323189281 Z13.1 Labs today. Health Concerns Section Related Observation LastModified by Organization Detai ls LastModified Time None Recorded Concern Status LastModified by Organization Details LastModified Time None Recorded Advance Directives Directive None Recorded Payers Insurance Date Sequence Insurance Name Policy Number Policy Hartman Covered Member ID Hartman Member ID Guarantor Name 03/14/2022 1 [facility] () Aliya Ortega [id number] Aliya Ortega Notes Date Note Type Note [...] Zamarripa MD [address], [place], [address], [facility] 03/10/2022 18:57:29 OBGyn Episode No OBEpisode recorded.
--- OUTSIDE RECORDS SUMMARY | 2025-06-01 14:56 | XMS_ITS | Encounter Summary ---
Author Organization [facility] Address [facility] [place] [address] Care Team Providers Care Lead Auditor Name Role Phone Jamison Ontiveros MD Primary Care Provider [phone] Luigi Damon MD Primary Care Provider [phone] Encounter Details Date Type Department Care Team (Late st Contact Info) Description 03/22/2025 Pre-Procedure Call [facility] Pre[place] [address] Yeni Shell, DIRECTOR OUTCOMES [address] [facility] [address] [place] [address] Anesthesia Record Procedure Summary Procedure Name Responsible Anesthesiologist Anesthesia Start Time Anesthesia Stop Time MRI CERV SPINE WWO CON Vania Singh MD 03/29/25 1052 03/29/25 1152 Events Date Time Event Comment 03/29/2025 0844 0844 AN Anesthesia Prepped 1052 An Start Patient ID and consent checked and patient reassessed. 1052 An Start Data 1057 An Data Art 1058 Preoxygenation 1059 An Induction The patient was reevaluated immediately before moderate or deep sedation use and before anesthesia induction. 1100 An LMA 1102 Anesthesia Ready 1149 An Emergence 1152 LMA Removed 1152 Face Mask Applied 1152 an stop data 1152 Post Anesthetic Care Handoff I completed my handoff to the receiving nurse during which we: 1. Identified the patient 2. Identified the responsible provider 3. Reviewed the pertinent medical history 4. Discussed the surgical course 5. Reviewed intra-op anesthesia management and issues during anesthesia 6. Set expectations for post-procedure period 7. Allowed opportunity for questions and acknowledgement of understanding. 1152 An Stop Meds * Agents No agents on file. * Blood No blood administrations on file. Lines, Drains, and Airways Type Details Placement Removal Peripheral IV Placement Date: 03/16 03/10; Placement Time: 0904; Placed Outside of This Facility?: No; Size: 18 G; Orientation: Left; Location: Antecubital; Site Prep: Chlorhexidine; Local Anesthetic: None; Insertion attempts: 1; Ultrasound-guided Placement?: No; Patient Tolerance: Tolerated well; Removal Date: 03/29/25; Removal Time: 1259; Removal Reason: Patient Discharged 03/29/25 0904 by Kinza Andrews RN 03/29/25 1259 by Carol Baron RN Supraglottic Airway Placement Date: 03/16 03/10; Placement Time: 1100; Mask Ventilate: Not attempted; Airway Device: LMA; LMA Size: 4; Placed Outside of This Facility?: No; Placed By: QUINN; Style: i-gel; Insertion Attempts:1; Breath Sounds:Clear bilaterally, Equal bilaterally; Placement Verified By: Capnography, Auscultation, Chest Rise; Extubation Assessment: Patient spontaneously breathing, Deep breathes w/equal chest movements, Atraumatic, Able to swallow; Removal Date: 03/29/25; Removal Time: 1152; Removal Person: SOFTWARE RELIABILITY ENGINEER; Removal Reason: End of Case 03/29/25 1100 by Zhanna Hollingsworth CRNA 03/29/25 1152 by Manuel Sommer CRNA documented in this encounter Social History Tobacco Use Types Packs/Day Years Used Date Smoking Tobacco: Former Cigarettes 0.5 32.5 S tarted: 1992 Smokeless Tobacco: Former Tobacco Cessation:Counseling Given: Not Answered Alcohol Use Standard Drinks/Week Comments Not Currently 0 (1 standard drink = 0.6 oz pur e alcohol) Comments No Sex and Gender Information Value Date Recorded Sex Assigned at Female 02/20/2025 12:47 PM CDT Legal Sex Female 9:15 AM CDT Gender Identity Not on file Sexual Orientation Not on file Occupation Industry Job Start Date Job End Date [employer] Not on file Not on file Not on file documented as of this encounter Last Filed Vital Signs Vital Sign Reading Time Taken Comments Blood Pressure - - Pulse - - Temperature - - Respiratory Rate - - Oxygen Saturation - - Inhaled Oxygen Concentration - - Weight 60.3 kg (133 lb) 03/22/2025 3:36 PM CDT Height 167.6 cm (5' 6) 03/22/2025 3:36 PM CDT Body Mass Index 21.47 03/22/2025 3:36 PM CDT documented in this encounter Progress Notes * Neris Bhakta RN - 03/22/2025 3:20 PM CDT Claustrophobia is getting worse. Failed open MRI with ativan/valium. MRI needed. She had 2 neck surgeries and still has numbness/tingling. Possible broken screw at C7 Can you climb 2 flights of stairs without CP or extreme SOB? Yes, denies CP or extreme SOB Are you physically able to do the same things today that you could 6 months ago? yes What is your average blood pressure? 115/70s Any recent heart testing? (EKG, stress test, Echo?) 2022 Do you see a cant gang sawyer? Who is it? None 0800 Arrival, will drive her home and stay ovenright NPO after midnight documented in this encounter OR Notes * OR PreOp - Kellen Obando CNP - 03/22/2025 3:52 PM CDT Chart reviewed. Per phone interview, patient denies any SOB/CP with 2 FOS or recent changes in activity tolerance in past 6 months. Per phone interview, patient denies having a cant gang sawyer. Previoustesting 2/2 palpitations available and results copied. Per RN Note: Claustrophobia is getting worse. Failed open MRI with ativan/valium. MRI needed. She had 2 neck surgeries and still has numbness/tingling. Possible broken screw at C7 EKG 05/29/23 SINUS RHYTHM No previous ECG available for comparison No ischemic changes Rate 86 Echo 05/29/23 The left ventricular size is normal. The left ventricular systolic function is normal. Estimated left ventricular ejection fraction is 65-70%. Left ventricular diastolic function is normal. The right ventricular size is normal. Right ventricular systolic function is normal MCT 03/27/23 40-day mobile cardiac telemetry with limited data totaling only 11% of the total monitoring. There were no sustained arrhythmias observed. documented in this encounter Plan of Treatment Not on file documented as of this encounter Visit Diagnoses Not on filedocumented in this encounter Care Teams Lead Auditor Relationship Specialty Start Date End Date Jamison Ontiveros MD [address] [place] [address] PCP - General FAMILY PRACTICE 02/26/23 03/27/25 Luigi Damon MD [address] [place] [address] PCP - General FAMILY PRACTICE 03/28/25 documented as of this encounter
--- OUTSIDE RECORDS SUMMARY | 2025-06-01 14:56 | XMS_ITS | Encounter Summary ---
Author Organization [facility] Address [facility] [place] [address] Care Team Providers Care Fingernail Sculpturer Name Role Phone Luigi Damon MD Primary Care Provider [phone] Reason for Referral * Imaging (Routine) - Closed Specialty Diagnoses / Procedures Referred By Contac t Referred To Contact RADIOLOGY Diagnoses Neck pain Procedures CT CERV SPINE WO Jodi Garcia MD [address] [facility] [address] [place] [address] Phone: tel: fax: Referral ID Status Reason Start Date Expiration Date Visits Re quested Visits Authorized [id number] Closed 04/17/2025 04/18/2026 1 1 Reason for Visit * Imaging (Routine) - Closed Specialty Diagnoses / Procedures Referred By Contac t Referred To Contact RADIOLOGY Diagnoses Neck pain Procedures CT CERV SPINE WO Jodi Garcia MD [address] [facility] [address] [place] [address] Phone: tel: fax: Referral ID Status Reason Start Date Expiration Date Visits Re quested Visits Authorized [id number] Closed 04/17/2025 04/18/2026 1 1 Encounter Details Date Type Department Care Team (Latest Contact Info) Description 05/30/2025 12:42 PM CDT - 05/30/2025 11:59 PM CDT Hospital Encounter [facility] [place] [address] [place] [address] Jodi Uriostegui MD [address] [facility] [address] [place] [address] Arrived Discharge Disposition: Home or Self Care (Routine Discharge) Social History Tobacco Use Types Packs/Day Years Used Date Smoking Tobacco: Former Cigarettes 0.5 2 1 - 1994 Smokeless Tobacco: Former Alcohol Use Standard Drinks/Week Comments Not Currently [...] on file documented as of this encounter Medications at Time of Discharge AJOVY 225 MG/1.5ML Solution Prefilled Syringe every 30 (thirty) days. For Migraine 02/17/2025 baclofen (LIORESAL) 10 MG tablet Take 2 tablets (20 mg total) by mouth 3 (three) times daily as needed. 12/02/2022 cetirizine (ZYRTEC) 10 MG tablet Take 1 tablet (10 mg total) by mouth daily. 03/26/2022 Eszopiclone 3 MG Tab Take 3 mg by mouth nightly at bedtime. 12/12/2022 LIOTRIX, T3-T4, OR Take 1 tablet by mouth daily. 70/10mcg LORazepam (ATIVAN) 0.5 MG tablet Take 2 tablets (1 mg total) by mouth 2 (two) times a day. 03/06/2023 Naltrexone HCl, Pain, (NALTREX) 4.5 MG Cap Take 1 tablet by mouth daily. NON FORMULARY Glutathione injections, NAD injections pregabalin (LYRICA) 100 MG capsule Take 1 capsule (100 mg total) by mouth 3 (three) times daily. Usually takes 2 times/day 02/23/2025 SUMAtriptan (IMITREX) 50 MG tablet Take 1 tablet (50 mg total) by mouth as needed. 01/12/2023 Testosterone Powder Apply 0.1 Applications topically daily. Under bicep daily 08/31/2024 tirzepatide (MOUNJARO) 12.5 MG/0.5ML injectionIndicat ions:Diabetes Mellitus Inject into the skin once a week. Indications: Diabetes Thursday topiramate (TOPAMAX) 50 MG Tab Take 1 tablet (50 mg total) by mouth 2 (two) times daily. 01/01/2023 traZODone (DESYREL) 50 MG tablet Take 1 tablet (50 mg total) by mouth nightly as needed. 03/16/2023 vitamin D3, cholecalciferol, 125 mcg capsule Take 1 capsule (125 mcg total) by mouth daily. documented as of this encounter Plan of Treatment Pending Results Name Type Priority Associated Diagnoses Date /Time CT CERV SPINE WO CON CT Routine Neck pain 05/30/2025 1:00 PM CDT Scheduled Orders Name Type Priority Associated Diagnoses Orde r Schedule CT CERV SPINE WO CON CT Routine Neck pain Once for 1 Occurrences starting 05/30/2025 until 05/30/2025 documented as of this encounter Visit Diagnoses Diagnosis Neck pain Cervicalgia documented in this encounter Care Teams Fingernail Sculpturer Relationship Specialty Start Date End Date Luigi Damon MD [address] [place] [address] PCP - General FAMILY PRACTICE 03/28/25 documented as of this encounter
--- OUTSIDE RECORDS SUMMARY | 2025-06-01 14:57 | XMS_ITS | Referral Summary ---
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 Gender Identity Not on file Sexual Orientation Not on file Last Filed Vital Signs Vital Sign Reading Time Taken Comments Blood Pressure 114/80 08/04/2024 1:50 PM CDT Pulse 98 08/04/2024 1:50 PM CDT Temperature 36.4 C (97.6 F) 08/04/2024 1:50 PM CDT Respiratory Rate 18 03/24/2024 10:5 8 AM CDT Oxygen Saturation 96% 03/24/2024 10: 58 AM CDT Inhaled Oxygen Concentration - - Weight 66.2 kg (145 lb 14.4 oz) 08/04/2024 1:50 PM CDT Height 170.2 cm (5' 7) 08/04/2024 1:50 PM CDT Body Mass Index 22.85 08/04/2024 1:50 PM CDT Plan of Treatment Not on file Insurance [facility] Care Teams Coremaking Machine Setter Relationship Specialty Start Date End Date Luigi Damon MD [address] [place] [address] PCP - General Family Medicine 03/24/24
--- OUTSIDE RECORDS SUMMARY | 2025-06-01 14:57 | XMS_ITS | Clinical Summary ---
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 Gender Identity Not on file Sexual [...] (1 of 2) 2023 Covid-19 Vaccine ( - season) 2024 03/31/2022, 06/14/2021, 04/04/2021 Influenza Vaccine (#1) 2025 7, 08/29/2014, 08/24/2013, Additional history exists Hepatitis B Screening Completed 08/29/2014 , 03/20/2014, 02/14/2014 Pneumococcal vaccine <65 Aged Out No longer eligible based on patient's age to complete this topic Insurance [facility] Care Teams Metal Template Maker Relationship Specialty Start Date End Date Luigi Damon MD [address] [place] [address] PCP - General Family Medicine 03/24/24
--- OUTSIDE RECORDS SUMMARY | 2025-06-01 14:57 | XMS_ITS | Clinical Summary ---
Author Organization [facility] Address [address] [place] [address] Care Team Providers Care Crm Administrator Name Role Phone Luigi Damon MD Primary Care Provider [phone] Allergies Active Allergy Reactions Criticality Noted Date Comments Diphenhydramine Other (see comment) Low 01/01/2023 Hypertension Promethazine Other (see comment) Low 01/01/2023 Oversedation - lost 24 hours of the day Medications Eszopiclone 3 MG Tab Take 3 mg by mouth nightly at bedtime. 3 Active baclofen (LIORESAL) 10 MG tablet Take 2 tablets (20 mg total) by mouth 3 (three) times daily as needed. 3 Active LORazepam (ATIVAN) 0.5 MG tablet Take 2 tablets (1 mg total) by mouth 2 (two) times a day. 3 Active traZODone (DESYREL) 50 MG tablet Take 1 tablet (50 mg total) by mouth nightly as needed. 3 Active cetirizine (ZYRTEC) 10 MG tablet Take 1 tablet (10 mg total) by mouth daily. 2 Active SUMAtriptan (IMITREX) 50 MG tablet Take 1 tablet (50 mg total) by mouth as needed. 3 Active topiramate (TOPAMAX) 50 MG Tab Take 1 tablet (50 mg total) by mouth 2 (two) times daily. 3 Active tirzepatide (MOUNJARO) 12.5 MG/0.5ML injectionIndica tions:Diabetes Mellitus Inject into the skin once a week. Indications: Diabetes Cathleen Active pregabalin (LYRICA) 100 MG capsule Take 1 capsule (100 mg total) by mouth 3 (three) times daily. Usually takes 2 times/day 5 Active Naltrexone HCl, Pain, (NALTREX) 4.5 MG Cap Take 1 tablet by mouth daily. Active LIOTRIX, T3-T4, OR Take 1 tablet by mouth daily. 70/10mcg Active Testosterone Powder Apply 0.1 Applications topically daily. Under bicep daily 4 Active NON FORMULARY Glutathione injections, NAD injections Active vitamin D3, cholecalciferol , 125 mcg capsule Take 1 capsule (125 mcg total) by mouth daily. Active AJOVY 225 MG/1.5ML Solution Prefilled Syringe every 30 (thirty) days. For Migraine 5 Active Active Problems No known active problems Encounters Date Type Department Care Team Description 05/30/2025 12:42 PM CDT - 05/30/2025 11:59 PM CDT Hospital Encounter [facility] [place] [address] Jodi Uriostegui MD Arrived Discharge Disposition: Home or Self Care (Routine Discharge) 05/30/2025 Travel 03/29/2025 10:52 AM CDT Anesthesia Event [facility] [place] [address] Vania Singh MD Jarvis, Brittany L, CORPORATE SECURITY OFFICER 03/29/2025 7:55 AM CDT - 03/29/2025 1:07 PM CDT Hospital Encounter [facility] [place] [address] Yeni Shell FNP Non-Staff, Provider Discharge Disposition: Home or Self Care (Routine Discharge) 03/29/2025 Travel 03/22/2025 Pre-Procedure Call [facility] [place] [address] Capar, Yeni R, SCREW MACHINE TOOL SETTER from Last 3 Months Family History Medical History Relation Comments Diabetes Father Hypertension Maternal Grandfather Hypertension Maternal Grandmother Thyroid Disease Maternal Grandmother Stroke Mother Relation Status Comments Brother Alive Father Alive Maternal Grandfather Maternal Grandmother Mother (Age 71) Social History Tobacco Use Types Packs/Day Years Used Date Smoking Tobacco: Former Cigarettes 0.5 2 1 993 - 1994 Smokeless Tobacco: Former Tobacco Cessation:Counseling Given: Not [...] Sign Reading Time Taken Comments Blood Pressure 108/69 03/29/2025 12:56 PM CDT Pulse 89 03/29/2025 12:56 PM CDT Temperature 36.1 C (97 F) 03/29/2025 12:56 PM CDT Respiratory Rate 18 03/29/2025 12:5 6 PM CDT Oxygen Saturation 98% 03/29/2025 12: 56 PM CDT Inhaled Oxygen Concentration - - Weight 60.3 kg (132 lb 15.7 oz) 03/29/2025 8:54 AM CDT Height 167.6 cm (5' 5.98) 03/29/2025 8:54 AM CD T Body Mass Index 21.47 03/29/2025 8:54 AM CDT Plan of Treatment Health Maintenance Due Date Last Done Comments Cervical Cancer Screening Pap Smear (Age 30 to 64) Every 3 Years 1973 Colorectal Cancer Screening Colonoscopy (10 Years) 1973 Annual Physical 1976 Hepatitis C 1991 Cervical Cancer Screening Pap with HPV Testing (Age 30 to 64) Every 5 Years 2003 Cervical Cancer Screening with HPV 2003 Mammogram Screening 2013 Pneumococcal Vaccine: 50+ Years (1 of 1 - PCV) 2023 Zoster Vaccines (1 of 2) 2023 COVID-19 Vaccine ( season) 2024 03/31/2022, 06/14/2021, 04/04/2021 DTaP, Tdap and Td Vaccines (3 - Td or Tdap) 10/04/2034 10/04/2024, 05/13/2012, 05/31/2003, Additional history exists Meningococcal Vaccine Aged Out 02/06/2005, 993 No longer eligible based on patient's age to complete this topic Hepatitis B Vaccines Completed 08/29/2014, 03/20/2014, 02/14/2014 Meningococcal B Vaccine Aged Out No l onger eligible based on patient's age to complete this topic RSV Immunizations Under 20 Months Aged Out No longer eligible based on patient's age to complete this topic Procedures Procedure Name Priority Date/Time Associated Diagnosis Comments MRI CERV SPINE WWO CON Routine 03/29/2025 12:01 PM CDT Neck pain from Last 3 Months Results * MRI CERV SPINE WWO CON (03/29/2025 12:01 PM CDT) Anatomical Region Laterality Modality Spine Magnetic Resonan ce 04/03/2025 10:0 7 AM CDT Impressions 04/05/2025 9:16 AM CDT IMPRESSION: Mild multilevel cervical spondylosis, as described above. Ordered By: YENI SHELL Interpreted By: Andrew Ignacio MD, 04/03/2025 10:07 AM Narrative 04/05/2025 9:[address] [facility] [address] [place], [place] [address] Examination: MRI CERV SPINE WWO CON, 03/29/2025 10:50 AM. Technique: Multiplanar multisequence magnetic resonance images of the cervical spine were obtained before and after the administration of 12 mL of Dotarem injected through the IV, without evidence of an adverse reaction. Clinical history: Cervicalgia, neck pain Comparison: None available Findings: There is straightening of the normal cervical lordosis that is likely positional. The cervical vertebral bodies and facets are well aligned. The cervical vertebral body heights are preserved. Anterior fusion of C4-5. Additional anterior fusion of C6-7. Suggestion of incomplete segmentation involving the C5-6 intervertebral disc level. The cervical spinal cord has a normal signal throughout its course. No abnormal enhancement of the cervical spinal cord. C2-3: No significant spinal canal or neural foraminal stenosis. C3-4: No significant spinal canal or neural foraminal stenosis. C4-5: Posterior endplate marginal osteophytes impress the ventral thecal sac. No significant spinal canal stenosis. Uncovertebral joint hypertrophy. Mild left neural foraminal stenosis. No right neural foraminal stenosis. C5-6: No significant spinal canal or neural foraminal stenosis. C6-7: Posterior endplate marginal osteophytes impress the ventral thecal sac. No significant spinal canal stenosis. Uncovertebral joint hypertrophy. Mild to moderate left neural foraminal stenosis. Mild right neural foraminal stenosis. C7-T1: No significant spinal canal or neural foraminal stenosis. Procedure Note Andrew Ignacio MD - 04/05/[address] [address] Examination: MRI CERV SPINE [facility], 03/29/2025 10:50 AM. Technique: Multiplanar multisequence magnetic resonance images of thecervical spine were obtained before and after the administration of 12 mLof Dotarem injected through the IV, without evidence of an adversereaction. Clinical history: Cervicalgia, neck pain Comparison: None available Findings: There is straightening of the normal cervical lordosis that is likelypositional. The cervical vertebral bodies and facets are well aligned. Thecervical vertebral body heights are preserved. Anterior fusion of C4-5.Additional anterior fusion of C6- 7. Suggestion of incomplete segmentationinvolving the C5-6 intervertebral disc level. The cervical spinal cord hasa normal signal throughout its course. No abnormal enhancement of thecervical spinal cord. C2-3: No significant spinal canal or neural foraminal stenosis. C3-4: No significant spinal canal or neural foraminal stenosis. C4-5: Posterior endplate marginal osteophytes impress the ventral thecalsac. No significant spinal canal stenosis. Uncovertebral jointhypertrophy. Mild left neural foraminal stenosis. No right neuralforaminal stenosis. C5-6: No significant spinal canal or neural foraminal stenosis. C6-7: Posterior endplate marginal osteophytes impress the ventral thecalsac. No significant spinal canal stenosis. Uncovertebral jointhypertrophy. Mild to moderate left neural foraminal stenosis. Mild rightneural foraminal stenosis. C7-T1: No significant spinal canal or neural foraminal stenosis. IMPRESSION: Mild multilevel cervical spondylosis, as described above. Ordered By: YENI SHELL Interpreted By: Andrew Ignacio MD, 04/03/2025 10:07 AM us Yeni Shell SCREW MACHINE TOOL SETTER MRI Final Result from Last 3 Months Insurance Care Teams Crm Administrator Relationship Specialty Start Date End Date Luigi Damon MD [address] [place] [address] PCP - General FAMILY PRACTICE 03/28/25
--- OUTSIDE RECORDS SUMMARY | 2025-06-01 14:57 | XMS_ITS ---
MANUAL LYMPHATIC DRAINAGE, MANUAL TRACTION), 1 OR MORE REGIONS, EACH 15 MINUTES 02/12 DoD INJECTION(S), ANESTHETIC AGENT(S) AND/OR STEROID; GREATER OCCIPITAL NERVE 10/27 DoD WAIVER SERVICES; NOT OTHERWISE SPECIFIED (NOS) 10/21 DoD WAIVER SERVICES; NOT OTHERWISE SPECIFIED (NOS) 09/11 DoD INSERTION OF NON-INDWELLING BLADDER CATHETER (EG, STRAIGHT CATHETERIZATION FOR RESIDUAL URINE) 09/02 [facility] ELECTROCARDIOGRAM, ROUTINE ECG WITH AT LEAST 12 LEADS; WITH INTERPRETATION AND REPORT 07/22 [facility] CHEMODENERVATION OF TRUNK MUSCLE(S); 1-5 MUSCLE(S) 07/15 DoD WAIVER SERVICES; NOT OTHERWISE SPECIFIED (NOS) 07/15 DoD WAIVER SERVICES; NOT OTHERWISE SPECIFIED (NOS) 04/17 [facility] OUTPATIENT CLINIC VISIT SPECIMEN COLLECTION FOR SEVERE ACUTE RESPIRATORY SYNDROME CORONAVIRUS 2 (SARS-COV-2) (CORONAVIRUS DISEASE [COVID-19]), ANY SPECIMEN SOURCE 04/17 [facility] SEVERE AC RESPIRATORY SYNDROME CORONAVIRUS 2 (SARSCOV-2) (CORONAVIRUS DIS [COVID-19]) VACCINE,MRNALNP,SP CATINA PROTEIN,PRESERVATI VE FREE,30 MCG/0.3ML DOSAGE,DILUENT RECONSTITUTED,FOR INTRAMUSCULAR USE 03/31 DoD INJECTION(S); SINGLE OR MULTIPLE TRIGGER POINT(S), 3 OR MORE MUSCLES 12/30 DoD WAIVER SERVICES; NOT OTHERWISE SPECIFIED (NOS) 12/25 DoD TELE ASSESS & MGT SRV PROV QUAL NONPHYS HLTH CARE PRO TO EST PAT,PARENT,GUARD NOT ORIG REL ASSESS & MGT SRV PROV W/IN PREV 7 DAYS NOR LEAD ASSESS & MGT SRV/PX W/IN NXT 24 HR/SOON APT;5-10 MIN MED DIS 12/23 DoD WAIVER SERVICES; NOT OTHERWISE SPECIFIED (NOS) 11/12 DoD INJECTION(S), ANESTHETIC AGENT(S) AND/OR STEROID; GREATER OCCIPITAL NERVE 09/11 DoD WAIVER SERVICES; NOT OTHERWISE SPECIFIED (NOS) 09/05 DoD WAIVER SERVICES; NOT OTHERWISE SPECIFIED (NOS) 07/17 DoD TELE ASSESS & MGT SRV PROV QUAL NONPHYS HLTH CARE PRO TO EST PAT,PARENT,GUARD NOT ORIG REL ASSESS & MGT SRV PROV W/IN PREV 7 DAYS NOR LEAD ASSESS & MGT SRV/PX W/IN NXT 24 HR/SOON APT;5-10 MIN MED DIS 07/15 DoD SCREENING PAPANICOLAOU SMEAR; OBTAINING, PREPARING AND CONVEYANCE OF CERVICAL OR VAGINAL SMEAR TO LABORATORY 06/21 DoD IMMUNIZATION ADM,INTRAMUSCULAR INJ,SEVERE AC RESPIRATORY SYNDROME CORONAVIR 2 (SARSCOV-2) (CORONAVIR DIS [COVID-19]) VACC,MRNALNP,SPIKE PROT,PRESRV FREE,30 MCG/0.3ML DOS,DILUENT RECONSTITUT;2ND DOSE 06/14 DoD WAIVER SERVICES; NOT OTHERWISE SPECIFIED (NOS) 05/29 DoD INJECTION(S); SINGLE OR MULTIPLE TRIGGER POINT(S), 1 OR 2 MUSCLE(S) 05/14 DoD WAIVER SERVICES; NOT OTHERWISE SPECIFIED (NOS) 04/12 DoD IMMUNIZATION ADM,INTRAMUSCULAR INJ,SEVERE AC RESPIRATORY SYNDROME CORONAVIR 2 (SARSCOV-2) (CORONAVIR DIS [COVID-19]) VACC,MRNALNP,SPIKE PROT,PRESRV FREE,30 MCG/0.3ML DOS,DILUENT RECONSTITUT;1ST DOSE 04/04 DoD INJECTION(S); SINGLE OR MULTIPLE TRIGGER POINT(S), 1 OR 2 MUSCLE(S) 04/01 [facility] OUTPATIENT CLINIC VISIT SPECIMEN COLLECTION FOR SEVERE ACUTE RESPIRATORY SYNDROME CORONAVIRUS 2 (SARS-COV-2) (CORONAVIRUS DISEASE [COVID-19]), ANY SPECIMEN SOURCE 03/25 DoD WAIVER SERVICES; NOT OTHERWISE SPECIFIED (NOS) 03/07 DoD INJECTION(S); SINGLE OR MULTIPLE TRIGGER POINT(S), 1 OR 2 MUSCLE(S) 03/04 DoD INJECTION(S); SINGLE OR MULTIPLE TRIGGER POINT(S), 3 OR MORE MUSCLES 02/01 DoD WAIVER SERVICES; NOT OTHERWISE SPECIFIED (NOS) 01/10 DoD WAIVER SERVICES; NOT OTHERWISE SPECIFIED (NOS) 12/28 DoD WAIVER SERVICES; NOT OTHERWISE SPECIFIED (NOS) 12/18 DoD WAIVER SERVICES; NOT OTHERWISE SPECIFIED (NOS) 10/26 [facility] MILD TO MODERATE DEPRESSIVE SYMPTOMS CATEGORIZED BY USING A STANDARDIZED DEPRESSION SCREENING/ASSESSME NT TOOL (MDD) 01/17 [facility] PHYSICAL THERAPY EVALUATION 03/02 [facility] SCREENING PAPANICOLAOU SMEAR; OBTAINING, PREPARING AND CONVEYANCE OF CERVICAL OR VAGINAL SMEAR TO LABORATORY 10/03 [facility] NEEDLE ELECTROMYOGRAPHY; 1 EXTREMITY WITH OR WITHOUT RELATED PARASPINAL AREAS 02/27 [facility] NERVE CONDUCTION, AMPLITUDE AND LATENCY/VELOCITY STUDY, EACH NERVE; SENSORY 02/27 [facility] INJECTION, KETOROLAC TROMETHAMINE, PER 15 MG 09/02 [facility] ARTHROCENTESIS, ASPIRATION AND/OR INJECTION, MAJOR JOINT OR BURSA (EG, SHOULDER, HIP, KNEE, SUBACROMIAL BURSA); WITHOUT ULTRASOUND GUIDANCE 02/28 [facility] ARTHROCENTESIS, ASPIRATION AND/OR INJECTION, MAJOR JOINT OR BURSA (EG, SHOULDER, HIP, KNEE, SUBACROMIAL BURSA); WITHOUT ULTRASOUND GUIDANCE 08/29 [facility] ARTHROCENTESIS, ASPIRATION AND/OR INJECTION, MAJOR JOINT OR BURSA (EG, SHOULDER, HIP, KNEE, SUBACROMIAL BURSA); WITHOUT ULTRASOUND GUIDANCE 07/10 [facility] APPLICATION OF A MODALITY TO 1 OR MORE AREAS; IONTOPHORESIS, EACH 15 MINUTES 06/25 DoD APPLICATION OF A MODALITY TO 1 OR MORE AREAS; IONTOPHORESIS, EACH 15 MINUTES 06/14 DoD APPLICATION OF A MODALITY TO 1 OR MORE AREAS; IONTOPHORESIS, EACH 15 MINUTES 06/11 DoD APPLICATION OF A MODALITY TO 1 OR MORE AREAS; IONTOPHORESIS, EACH 15 MINUTES 06/04 DoD APPLICATION OF A MODALITY TO 1 OR MORE AREAS; IONTOPHORESIS, EACH 15 MINUTES 05/31 [facility] PHYSICAL THERAPY RE-EVALUATION 05/30 [facility] APPLICATION OF A MODALITY TO 1 OR MORE AREAS; IONTOPHORESIS, EACH 15 MINUTES 05/28 DoD APPLICATION OF A MODALITY TO 1 OR MORE AREAS; IONTOPHORESIS, EACH 15 MINUTES 05/24 DoD APPLICATION OF A MODALITY TO 1 OR MORE AREAS; IONTOPHORESIS, EACH 15 MINUTES 05/21 [facility] THERAPEUTIC PROCEDURE,1 OR MORE AREAS,EACH 15 MINUTES;NEUROMUSCU LAR REEDUCATION OF MOVEMENT,BALANCE,C OORDINATION,KINEST HETIC SENSE,POSTURE,AND/ OR PROPRIOCEPTION FOR SITTING AND/OR STANDING ACTIVITIES 05/17 [facility] APPLICATION OF A MODALITY TO 1 OR MORE AREAS; IONTOPHORESIS, EACH 15 MINUTES 05/14 [facility] THERAPEUTIC PROCEDURE, 1 OR MORE AREAS, EACH 15 MINUTES; THERAPEUTIC EXERCISES TO DEVELOP STRENGTH AND ENDURANCE, RANGE OF MOTION AND FLEXIBILITY 05/10 [facility] OSTEOPATHIC MANIPULATIVE TREATMENT (OMT); 5-6 BODY REGIONS INVOLVED 05/08 [facility] FITTING OF SPECTACLES, EXCEPT FOR APHAKIA; MONOFOCAL 03/09 [facility] CARE VISIT () 06/13 [facility] SUBSEQ CARE VISIT () [EXCLS:PATIENTS WHO ARE SEEN FOR A CONDITION UNREL TO / CARE (EG,AN UP RESPIR INFECT;PATIENTS SEEN FOR CONSULTATION ONLY,NOT FOR CONT CARE)] 04/27 [facility] SUBSEQ CARE VISIT () [EXCLS:PATIENTS WHO ARE SEEN FOR A CONDITION UNREL TO / CARE (EG,AN UP RESPIR INFECT;PATIENTS SEEN FOR CONSULTATION ONLY,NOT FOR CONT CARE)] 04/13 [facility] TISSUE EXAMINATION BY GINA SLIDE OF SAMPLES FROM SKIN, HAIR, OR NAILS FOR FUNGI OR ECTOPARASITE OVA OR MITES (EG, SCABIES) 03/23 [facility] SUBSEQ CARE VISIT () [EXCLS:PATIENTS WHO ARE SEEN FOR A CONDITION UNREL TO / CARE (EG,AN UP RESPIR INFECT;PATIENTS SEEN FOR CONSULTATION ONLY,NOT FOR CONT CARE)] 03/21 [facility] SUBSEQ CARE VISIT () [EXCLS:PATIENTS WHO ARE SEEN FOR A CONDITION UNREL TO / CARE (EG,AN UP RESPIR INFECT;PATIENTS SEEN FOR CONSULTATION ONLY,NOT FOR CONT CARE)] 03/07 [facility] EXTERNAL ELECTROCARDIOGRAPH IC RECORDING UP TO 48 HOURS BY CONTINUOUS RHYTHM RECORDING AND STORAGE; SCANNING ANALYSIS WITH REPORT 03/06 [facility] EXTERNAL ELECTROCARDIOGRAPH IC RECORDING UP TO 48 HOURS BY CONTINUOUS RHYTHM RECORDING AND STORAGE; REVIEW AND INTERPRETATION BY A PHYSICIAN OR OTHER QUALIFIED HEALTH MANAGER SMALL BUSINESS 03/06 [facility] SUBSEQ CARE VISIT () [EXCLS:PATIENTS WHO ARE SEEN FOR A CONDITION UNREL TO / CARE (EG,AN UP RESPIR INFECT;PATIENTS SEEN FOR CONSULTATION ONLY,NOT FOR CONT CARE)] 02/22 [facility] SUBSEQ CARE VISIT () [EXCLS:PATIENTS WHO ARE SEEN FOR A CONDITION UNREL TO / CARE (EG,AN UP RESPIR INFECT;PATIENTS SEEN FOR CONSULTATION ONLY,NOT FOR CONT CARE)] 02/06 [facility] SUBSEQ CARE VISIT () [EXCLS:PATIENTS WHO ARE SEEN FOR A CONDITION UNREL TO / CARE (EG,AN UP RESPIR INFECT;PATIENTS SEEN FOR CONSULTATION ONLY,NOT FOR CONT CARE)] 01/06 [facility]D SUBSEQ CARE VISIT () [EXCLS:PATIENTS WHO ARE SEEN FOR A CONDITION UNREL TO / CARE (EG,AN UP RESPIR INFECT;PATIENTS SEEN FOR CONSULTATION ONLY,NOT FOR CONT CARE)] 12/09 [facility]D SUBSEQ CARE VISIT () [EXCLS:PATIENTS WHO ARE SEEN FOR A CONDITION UNREL TO / CARE (EG,AN UP RESPIR INFECT;PATIENTS SEEN FOR CONSULTATION ONLY,NOT FOR CONT CARE)] 11/11 DoD INITIAL CARE VISIT (REPORT AT 1ST ENCOUN W HEALTH MANAGER SMALL BUSINESS PROVIDING OBSTETRIC CARE. REPORT ALSO DATE OF VISIT &,IN A SEPARATE FIELD,THE DATE OF THE LAST MENSTRUAL PERIOD) 10/14 [facility] MEDICAL NUTRITION THERAPY; GROUP (2 OR MORE INDIVIDUAL(S)), EACH 30 MINUTES 09/14 [facility] SCREENING PAPANICOLAOU SMEAR; OBTAINING, PREPARING AND CONVEYANCE OF CERVICAL OR VAGINAL SMEAR TO LABORATORY 07/29 [facility] THERAPEUTIC PROCEDURE, 1 OR MORE AREAS, EACH 15 MINUTES; THERAPEUTIC EXERCISES TO DEVELOP STRENGTH AND ENDURANCE, RANGE OF MOTION AND FLEXIBILITY 01/08 [facility] SCREENING PAPANICOLAOU SMEAR; OBTAINING, PREPARING AND CONVEYANCE OF CERVICAL OR VAGINAL SMEAR TO LABORATORY 10/21 DoD CHIROPRACTIC MANIPULATIVE TREATMENT (CMT); SPINAL, 3-4 REGIONS 09/15 [facility] ULTRASOUND, TRANSVAGINAL 07/18 DoD INITIAL CARE VISIT (REPORT AT 1ST ENCOUN W HEALTH MANAGER SMALL BUSINESS PROVIDING OBSTETRIC CARE. REPORT ALSO DATE OF VISIT &,IN A SEPARATE FIELD,THE DATE OF THE LAST MENSTRUAL PERIOD) 07/07 DoD CHIROPRACTIC MANIPULATIVE TREATMENT (CMT); SPINAL, 3-4 REGIONS 06/30 DoD CHIROPRACTIC MANIPULATIVE TREATMENT (CMT); SPINAL, 3-4 REGIONS 06/23 DoD CHIROPRACTIC MANIPULATIVE TREATMENT (CMT); SPINAL, 3-4 REGIONS 06/18 DoD CHIROPRACTIC MANIPULATIVE TREATMENT (CMT); SPINAL, 3-4 REGIONS 06/12 DoD CHIROPRACTIC MANIPULATIVE TREATMENT (CMT); SPINAL, 3-4 REGIONS 05/13 DoD THERAPEUTIC PROCEDURE, 1 OR MORE AREAS, EACH 15 MINUTES; THERAPEUTIC EXERCISES TO DEVELOP STRENGTH AND ENDURANCE, RANGE OF MOTION AND FLEXIBILITY 04/29 [facility] HANDLING AND/OR CONVEYANCE OF SPECIMEN FOR TRANSFER FROM THE OFFICE TO A LABORATORY 03/05 [facility] Physical Therapy: ___ Se ion Segments, 15 Minutes Each Physical Therapy: ___ Session Segments, 15 Minutes Each [id number] 05/28 ARASELI OLEARY Physical Therapy: ___ Se ion Segments, 15 Minutes Each Physical Therapy: ___ Session Segments, 15 Minutes Each [id number] 05/24 NIC SOTO Modalities Iontophoresis Modalities Iontophoresis 86542 05/24 NIC SOTO Modalities Iontophoresis Modalities Iontophoresis 88717 05/21 ARASELI OLEARY Physical Therapy: ___ Se ion Segments, 15 Minutes Each Physical Therapy: ___ Session Segments, 15 Minutes Each 01270 05/21 ARASELI OLEARY Physical Therapy Neuromuscular Re-education Physical Therapy Neuromuscular Re-education 24036 05/17 CAITLYN MCNEILL Modalities Iontophoresis Modalities Iontophoresis 60372 05/17 CAITLYN MCNEILL Physical Therapy: ___ Se ion Segments, 15 Minutes Each Physical Therapy: ___ Session Segments, 15 Minutes Each 12475 05/17 CAITLYN MCNEILL Modalities Iontophoresis Modalities Iontophoresis 03796 05/14 CAITLYN MCNEILL Physical Therapy: ___ Se ion Segments, 15 Minutes Each Physical Therapy: ___ Session Segments, 15 Minutes Each 27933 05/14 CAITLYN MCNEILL Exercises A isted Exercises For ROM Exercises Assisted Exercises For ROM 28298 05/10 BALJEET MASSEY [facility] Physical Medicine Physical Therapy Evaluation Physical Medicine Physical Therapy Evaluation 44109 05/10 BALJEET MASSEY [facility] Osteopathic Manip Treatment (OMT) 5-6 Body Regions Involved Osteopathic Manip Treatment (OMT) 5-6 Body Regions Involved 53832 05/08 DUTCH HUNTER [facility] Spectacles Services Fitting Monofocals (Not For Aphakia) [facility]acles Services Fitting Monofocals (Not For Aphakia) 93033 03/09 WEN ALVARADO SPEC FIT 1X [facility] Determination Of Refractive State Determination Of Refractive State 04471 03/09 WEN ALVARADO [facility] Ophthalmological New Patient Start Comprehensive Care Ophthalmological New Patient Start Comprehensive Care 54718 03/09 WEN ALVARADO [facility] Obstetrical Services Care Visit Obstetrical Services Care Visit 0503F 06/13 AKIKO CARDENAS [facility] OB Services Antepartum Care Only Subsequent Single Visit OB Services Antepartum Care Only Subsequent Single Visit 0502F 04/27 ELIAZAR DESOUZA [facility] OB Services Antepartum Care Only Subsequent Single Visit OB Services Antepartum Care Only Subsequent Single Visit 0502F 04/13 ELIAZAR DESOUZA [facility] Vaginal Wet [place] Vaginal [place] 83416 03/23 TARA MILLS [facility] Vaginal GINA Prep Vaginal GINA Prep 52243 03/23 TARA MILLS [facility] OB Services Antepartum Care Only Subsequent Single Visit OB Services Antepartum Care Only Subsequent Single Visit 0502F 03/21 ELIAZAR DESOUZA [facility] OB Services Antepartum Care Only Subsequent Single Visit OB Services Antepartum Care Only Subsequent Single Visit 0502F 03/07 RADHA GUAJARDO DoD OB Services Antepartum Care Only Subsequent Single Visit OB Services Antepartum Care Only Subsequent Single Visit 0502F 02/22 STANTON MENDOZA DoD OB Services Antepartum Care Only Subsequent Single Visit OB Services Antepartum Care Only Subsequent Single Visit 0502F 02/06 RADHA GUAJARDO Ultrasound [place] [address] 01/06 STACY SAMS DoD OB Services Antepartum Care Only Subsequent Single Visit OB Services Antepartum Care Only Subsequent Single Visit 0502F 01/06 STACY SAMS L DoD OB Services Antepartum Care Only Subsequent Single Visit OB Services Antepartum Care Only Subsequent Single Visit 0502F 11/11 RADHA GUAJARDO Ultrasound [place] [address] 10/14 RADHA GUAJARDO Ultrasound Obstetric Limited Evaluation Ultrasound Obstetric Limited Evaluation 82216 10/14 RADHA GUAJARDO Screening papanicolaou smear; obtaining, preparing and conveyance of cervical or vaginal smear to laboratory 10/14 RADHA GUAJARDO [facility] OB Services Antepartum Care Only First Visit, With Report OB Services Antepartum Care Only First Visit, With Report 0500F 10/14 RADHA GUAJARDO [facility] Screening papanicolaou smear; obtaining, preparing and conveyance of cervical or vaginal smear to laboratory 07/29 KEVIN WILLIAMSON [facility] Non-Physician Phone Call To Patient/Provider Brief (5-10min) Non-Physician Phone Call To Patient/Provider Brief (5-10min) 29268 06/07 DEBRA CORMIER Case Management, each 15 minutes 05/[address] Supervised Injection Subcutaneous Supervised Injection Subcutaneous 15941 05/[address] Supervised Injection Intramuscular Supervised Injection Intramuscular 83947 05/26 UYEN MANCIA Physical Therapy Mobilization Joint Physical Therapy Mobilization Joint 34364 02/12 MONIKA AGGARWAL [facility] Physical Therapy: ___ Se ion Segments, 15 Minutes Each Physical Therapy: ___ Session Segments, 15 Minutes Each 15705 02/12 MONIKA AGGARWAL [facility] Case Management, each 15 minutes 05/15 AUSTYN COLE [facility] Preventive Med Standardized Depre ion Screening: Mild To Moderate Symptoms Preventive Med Standardized Depression Screening: Mild To Moderate Symptoms 3353F 05/23 KARYNA HERNANDEZ [facility] Preventive Med Standardized Depre ion Screening: Mild To Moderate Symptoms Preventive Med Standardized Depression Screening: Mild To Moderate Symptoms 3353F 01/17 ELIA PERALTA [facility] Orthopedic Strapping Wrist Orthopedic Strapping Wrist 45149 01/12 NAVI CHATTERJEE [facility] Health And Behav A e mt Each 15 Min Joshua e ment Health And Behav Assessmt Each 15 Min Reassessment 12035 12/07 FARTUN DENIS [facility] Spectacles Services Fitting Monofocals (Not For Aphakia) [facility] Fitting Monofocals (Not For Aphakia) 64207 11/21 ANTONY AGUILAR Determination Of Refractive State Determination Of Refractive State 15020 11/21 ANTONY AGUILAR Ophthalmological New Patient Start Comprehensive Care Ophthalmological New Patient Start Comprehensive Care 15851 11/21 ANTONY AGUILAR [facility] Physical Therapy Neuromuscular Re-education Physical Therapy Neuromuscular Re-education 50894 08/30 YOLIS WADE Physical Medicine Physical Therapy Evaluation Physical Medicine Physical Therapy Evaluation 21601 08/[address] Supervised Injection Intramuscular Supervised Injection Intramuscular 07335 03/08 JOBY MARCUS [facility] Physical Medicine Physical Therapy Evaluation Physical Medicine Physical Therapy Evaluation 94452 03/02 DENNIS HAINES [facility] Screening papanicolaou smear; obtaining, preparing and conveyance of cervical or vaginal smear to laboratory 10/03 TARUN VERDUZCO [facility] EMG Of One Extremity and Related Paraspinal Areas EMG Of One Extremity and Related Paraspinal Areas 15040 02/28 NERY PATINO [facility] NCS Right Ulnar Nerve Sensory Function (Orthodromic) NCS Right Ulnar Nerve Sensory Function (Orthodromic) 80721 02/28 NERY PATINO [facility] NCS Right Radial Nerve Sensory Function NCS Right Radial Nerve Sensory Function 15216 02/28 NERY PATINO NCS Right Median Nerve Sensory Function (Orthodromic) NCS Right Median Nerve Sensory Function (Orthodromic) 13431 02/28 NERY PATINO NCS Right Median Nerve Motor Function NCS Right Median Nerve Motor Function 15044 02/28 NERY PATINO NCS Right Ulnar Nerve Motor Function NCS Right Ulnar Nerve Motor Function 80514 02/28 NERY PATINO [facility] Injection, ketorolac tromethamine, per 15 mg 09/[address] Supervised Injection Intramuscular Supervised Injection Intramuscular 05360 09/02 MATTHEW HEREDIA Arthrocentesis Injection Of Bursa Of Major Joint Arthrocentesis Injection Of Bursa Of Major Joint 02/28 JUAN ANDREW Platelet Rich Plasma injection into trochanteric bursa of both hips. [facility] Arthrocentesis Injection Of Bursa Of Major Joint Arthrocentesis Injection Of Bursa Of Major Joint 08/29 JUAN ANDREW GPS - platelet gel injection - right trochanteric bursa [facility] Arthrocentesis Injection Of Bursa Of Major Joint Arthrocentesis Injection Of Bursa Of Major Joint 30637 07/11 BROTHJUAN BERRY see proc note [facility] Modalities Iontophoresis Modalities Iontophoresis 10524 06/25 RAMIREZ ULRICH [facility] Physical Therapy: ___ Se ion Segments, 15 Minutes Each Physical Therapy: ___ Session Segments, 15 Minutes Each 60657 06/25 MOJGAN RAMIREZ Fabiana [facility] Physical Therapy Neuromuscular Re-education Physical Therapy Neuromuscular Re-education 45791 06/25 RAMIREZ ULRICH [facility] Physical Therapy: ___ Se ion Segments, 15 Minutes Each Physical Therapy: ___ Session Segments, 15 Minutes Each 92739 06/14 MOJGAN RAMIREZ Fabiana [facility] Physical Therapy Neuromuscular Re-education Physical Therapy Neuromuscular Re-education 04156 06/14 MOJGAN RAMIREZ Fabiana [facility] Modalities Iontophoresis Modalities Iontophoresis 27194 06/14 RAMIREZ LURICH Fabiana [facility] Modalities Iontophoresis Modalities Iontophoresis 70738 06/11 ANIYAH GOMEZ [facility] Physical Therapy Neuromuscular Re-education Physical Therapy Neuromuscular Re-education 18586 06/11 ANIYAH GOMEZ [facility] Physical Therapy: ___ Se ion Segments, 15 Minutes Each Physical Therapy: ___ Session Segments, 15 Minutes Each 17866 06/11 ANIYAH GOMEZ [facility] Modalities Iontophoresis Modalities Iontophoresis 18400 06/04 ARASELI OLEARY [facility] Physical Therapy Neuromuscular Re-education Physical Therapy Neuromuscular Re-education 73018 06/04 ARASELI OLEARY [facility] Physical Therapy: ___ Se ion Segments, 15 Minutes Each Physical Therapy: ___ Session Segments, 15 Minutes Each 72121 06/04 ARASELI OLEARY [facility] Physical Therapy Neuromuscular Re-education Physical Therapy Neuromuscular Re-education 43178 05/31 CAITLYN MCNEILL [facility] Modalities Iontophoresis Modalities Iontophoresis 01912 05/31 CAITLYN MCNEILL [facility] Physical Therapy: ___ Se ion Segments, 15 Minutes Each Physical Therapy: ___ Session Segments, 15 Minutes Each 03203 05/31 CAITLYN MCNEILL [facility] Physical Medicine Physical Therapy Re-Evaluation Physical Medicine Physical Therapy Re-Evaluation 32494 05/30 BALJEET MASSEY Modalities Iontophoresis Modalities Iontophoresis 05134 05/28 ARASELI OLEARY Acupunct One Or More [place] W/O Stimulation Initial 15 Min Acupunct One Or More [place] W/O Stimulation Initial 15 Min 34430 LILYJESSAHARMANARANZAUNIQUE L Wai Manipulation By Physician, Additional Area Manipulation By Physician, Additional Area 94294 LILYJESSAHARMANARANZAUNIQUE Diane Carreno Osteopathic Manip Treatment (OMT) 1-2 Body Regions Involved Osteopathic Manip Treatment (OMT) 1-2 Body Regions Involved 94913 LILYJESSAHARMAN UNIQUE Contreras Wai Osteopathic Manip Treatment (OMT) 3-4 Body Regions Involved Osteopathic Manip Treatment (OMT) 3-4 Body Regions Involved 69422 LILYJESSAUNIQUE HAMMER Wai Modalities Vasopneumatic Device Modalities Vasopneumatic Device 23885 LILYJESSAUNIQUE HAMMER Wai Waiver services; not otherwise specified (NOS) ANUP MARC Injection Of Trigger Point(s) Three Or More Muscle Group(s) Injection Of Trigger Point(s) Three Or More Muscle Group(s) 13968 FUENTES, TALAL M Bilateral cervical paraspinal muscles Bilateral upper trapezius muscles DoD Injection Of Trigger Point(s) One Or Two Muscle Group(s) Injection Of Trigger Point(s) One Or Two Muscle Group(s) 16027 FUENTES, TALAL M Bilateral cervical paraspinal and upper trapezius muscle trigger point injections DoD Nerve Block Greater Occipital Nerve Block Greater Occipital 41895 FUENTES, TALAL M Bilateral DoD Injection Of Trigger Point(s) One Or Two Muscle Group(s) Injection Of Trigger Point(s) One Or Two Muscle Group(s) 06064 FUENTES, TALAL M DoD Nerve Block Greater Occipital Nerve Block Greater Occipital 55405 FUENTES, TALAL M DoD Vaccines Vaccines 72430 ANGELA GIORDANO COVID-19 Pfizer; Series #: 2; 0.3 mL; IM; Left Arm; Mfg: [id number]; Lot: [id number]. [facility] Screening papanicolaou smear; obtaining, preparing and conveyance of cervical or vaginal smear to laboratory ANNA SHIN Non-Physician Phone Call To Patient/Provider Brief (5-10min) Non-Physician Phone Call To Patient/Provider Brief (5-10min) 06259 EMILIE JHA [facility] Injection Of Trigger Point(s) One Or Two Muscle Group(s) Injection Of Trigger Point(s) One Or Two Muscle Group(s) FREDRICK DILL Cervical paraspinal and upper trapezius muscle chemodenervation injection with Xeomin total of 100 units [facility] Injection Of Trigger Point(s) Three Or More Muscle Group(s) Injection Of Trigger Point(s) Three Or More Muscle Group(s) FREDRICK DILL [facility] outpatient clinic visit specimen collection for severe acute respiratory syndrome coronavirus 2 (sars-cov-2) (coronavirus disease [covid-19]), any specimen source PHIL SUAREZ [facility] Urethral Catheterization Straight (Non-Balloon) Urethral Catheterization Straight (Non-Balloon) 30613 KIN STUBBS Y [facility] Social History Combined list of available smoking, tobacco, and other social history from [facility] facilities. Social History Type Response Date Comment Sour e Sex Representation Female (finding) 12/26/2022 Unknown Organization Sexual Orientation [facility] Gender identity [facility] This section is an empty social history section. DoD Assessment and Plan Combined list of future care activities from [facility] and [facility] facilities (e.g., assessment and plan notes, appointments, orders, and referrals). Additional future care activities may be listed in the Plan of Care section. Result Assessment and Plan Date Source Assessment and Plan No data available for this section 06/01/2025 Ambulatory [facility]acy Functional Status Combined list of recent functional and cognitive assessments recorded at [facility] Functional Reeves Measurement (FIM) Scale: 1 = Total Assistance (Subject = 0% +), 2 = Maximal Assistance (Subject = 25% +), 3 = Moderate Assistance (Subject = 50% +), 4 = Minimal Assistance (Subject = 75% +), 5 = Supervision, 6 = Modified Reeves (Device), 7 = Complete Reeves (Timely, Safely). Assessment Date/Time Source Assessment Type Assessment Skill Assessment Score Assessment Details No data available for this section
--- OUTSIDE RECORDS SUMMARY | 2025-06-01 14:58 | XMS_ITS | Clinical Summary ---
Author Organization [facility] Address [address] [place] [address] Care Team Providers Care Graining Machine Operator Name Role Phone Luigi Damon MD Primary Care Provider [phone] Source Comments [facility],non-owned Affiliates and Associated Physician Practices is amultiple site organization consisting of ambulatory clinics and hospital sitesin [place], [place], [place] and [place]. This disclosure is being madepursuant to the Care Everywhere program and may not contain all information available regarding this patient. Last updated 18.[facility] Allergies Active Allergy Reactions Criticality Noted Date [...] document. Alwaysverify current medications with the patient. triamcinolone acetonide (Kenalog) injection 1 mL Active ALPRAZolam (Xanax) 0.5 MG tablet 12/18/19 24 Active cetirizine (ZyrTEC) 10 MG tablet Active Estradiol (ESTROGEL TD) 07/20/20 23 Active LORazepam (Ativan) 0.5 MG tablet 03/06/20 23 Active liothyronine (Cytomel) 5 MCG tablet Active meclizine (Antivert) 12.5 MG tablet 12/14/19 24 Active meloxicam (Mobic) 15 MG tablet 11/17/19 23 Active naltrexone 1 mg/ml compd solution 10/19/20 23 Active testosterone 100 mg/DHEA 50mg/g 100 mg/50 mg/gm CREA topical compd 07/20/20 23 Active progesterone 100 MG SUPP SUPP 07/20/20 23 Active spironolactone (Aldactone) 100 MG tablet 04/05/20 24 Active SUMAtriptan (Imitrex) 50 MG tablet 11/17/19 23 Active Testosterone 11/03/20 23 Active topiramate (Topamax) 100 MG tablet Active topiramate (Topamax) 50 MG tablet 04/19/20 12 Active traZODone (Desyrel) 50 MG tablet 04/19/20 11 Active levothyroxine (Synthroid) 25 MCG tablet Take 1 (one) tablet by mouth 03/08/20 24 Active eszopiclone (Lunesta) 3 MG tablet Take 1 (one) tablet by mouth 03/08/20 24 Active buPROPion XL 24hr (Wellbutrin-XL) 150 MG tablet Take 1 (one) tablet by mouth 01/12/20 24 Active erenumab-aooe (Aimovig) 70 MG/ML auto injector pen Inject 1 mL subcutaneously 04/04/20 24 Active baclofen (Lioresal) 10 MG tablet Take 1 (one) tablet by mouth 01/12/20 24 Active ROPivacaine 5 MG/ML SOLN 50 mL, EPINEPHrine 1 MG/ML SOLN 0.3 mg, morphine 4 MG/ML SOLN 4 mg, ketorolac 30 mg/mL SOLN 30 mg Active Galcanezumab-gn lm (Emgality) 120 MG/ML auto-injector pen Inject 1 mL subcutaneously 03/31/20 24 Active tirzepatide (Mounjaro) 7.5 MG/0.5ML injection Inject 12.5 mg subcutaneously every 7 days Takes on Fridays Active estradiol 0.0125% vaginal cream Insert 1 (one) g into the vagina at bedtime Active oxyCODONE, immediate release, (Roxicodone) 5 MG tabletIndicatio ns:Bilateral occipital neuralgia Take 1 (one) tablet by mouth every 6 hours as needed for Pain 20 tablet 05/23/20 24 Active Additional Information Patient not taking.Reported on 11/02/2024 acetaminophen (Tylenol) 325 MG tablet Take 2 (two) tablets by mouth Every 6 Hours (03,09,15,21) Maximum allowable Acetaminophen amount = 4 Grams (4000 mg) / 24 hours. 60 tablet 05/23/20 Active gabapentin (Neurontin) 300 MG capsule Take 1 (one) capsule by mouth 2 times daily 60 capsule 05/23/20 Active Additional Information Patient not taking.Reported on 11/02/2024 oxyCODONE, immediate release, (Roxicodone) 5 MG tabletIndicatio ns:Bilateral occipital neuralgia Take 1 (one) tablet by mouth every 6 hours as needed for Pain 15 tablet 05/25/20 Active Additional Information Patient not taking.Reported on 11/02/2024 traMADol (Ultram) 50 MG tablet Take 1 (one) tablet by mouth once Takes at night Active methylPREDNISol one (Medrol Dosepak) 4 MG tablet Take by mouth as directed Take as directed by mouth per package instructions. 21 tablet 06/08/20 Active Additional Information Patient not taking.Reported on 11/02/2024 gabapentin (Neurontin) 100 MG capsuleIndicati ons:Bilateral occipital neuralgia,Chron ic migraine w/o aura w/o status migrainosus, not intractable,Flu id collection at surgical site, initial encounter Take 1 (one) capsule by mouth at bedtime 30 capsule 11/02/20 Active tirzepatide (Mounjaro) 7.5 MG/0.5ML injection as directed Subcutaneous Active azithromycin (Zithromax) 250 MG tablet TK 2 TS PO ON DAY 1, THEN TK 1 T PO D FOR 4 DAYS 09/16/20 Active benzonatate (Tessalon) 100 MG capsule Take 1 (one) capsule by mouth 3 times daily as needed for cough 10/12/20 Active cefUROXime (Ceftin) 500 MG tablet Take 1 (one) tablet by mouth every 12 hours 10/10/20 Active diazePAM (Valium) 10 MG tablet 1 tablet Orally once, prior to MRI for 1 days As needed 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 06/09/20 Active doxycycline (Oracea) 40 MG capsule 1 capsule in the morning on an empty stomach Orally Once a day Active dulaglutide (Trulicity) 0.75 MG/0.5ML injection Active Naltrexone HCl, Pain, (Lotrexone) 1.5 MG CAPS Take by mouth once daily Active ondansetron, disintegrating, (Zofran ODT) 4 MG tablet DISSOLVE 1 TABLET ON THE TONGUE EVERY 8 HOURS NEEDED FOR NAUSEA OR VOMITING 12/08/19 25 Active oxyCODONE-aceta minophen (Percocet) 5-325 MG tablet Take 1 (one) tablet by mouth every 6 hours as needed pain 12/06/19 25 Active Klor-Con 20 MEQ packet DISSOLVE CONTENTS OF 1 PACKET IN LIQUID AND TAKE BY MOUTH DAILY 11/14/20 24 Active Active Problems Problem Noted Date Diagnosed [...] = 0.6 oz pur e alcohol) rare Comments No Sex and Gender Information Value Date Recorded Sex Assigned at Not on file Legal Sex Female 6:58 AM CDT Gender Identity Not on file Sexual Orientation Not on file Last Filed Vital Signs Vital Sign Reading Time Taken Comments Blood Pressure 98/74 11/02/2024 10:19 AM [employer]LESO[employer] HRMS DEVELOPER Pulse 105 12/14/2024 1:23 PM [employer]LES[employer] HRMS DEVELOPER Temperature 37.1 C (98.8 F) 12/14/2024 1:23 PM [employer]OPLESOFT HRMS DEVELOPER Respiratory Rate 18 12/14/2024 1:23 PM PEOPLESOFT HRMS DEVELOPER Oxygen Saturation 99% 12/14/2024 1:23 PM PEOPLESO[employer] HRMS DEVELOPER Inhaled Oxygen Concentration - - Weight 65.8 kg (145 lb) 12/14/2024 1:23 PM PEOPLESO[employer] HRMS DEVELOPER Height 160 cm (5' 3) 12/14/2024 1:23 PM PEOPLESOFT HRMS DEVELOPER Body Mass Index 25.69 12/14/2024 1:23 PM [employer]LESO[employer] HRMS DEVELOPER Plan of Treatment Health Maintenance Due Date Last Done Comments COLOGUARD (AGES 45-75) - COLON CA SCREENING 1973 COLON MONITORING 1973 COLONOSCOPY - COLON CA SCREENING 1973 CT COLONOGRAPHY - COLON CA SCREENING 1973 Colorectal Cancer Screening 1973 FIT - COLON CA SCREENING 1973 FLEX SIG - COLON CA SCREENING 1973 LIPID TESTING 1973 MAMMOGRAM 1973 HIV SCREENING 1988 HEPATITIS C SCREENING 08/29/1991 DTAP/TDAP/TD VACCINES (1 - Tdap) 1992 HEPATITIS B VACCINE (1 of 3 - 19+ 3-dose series) 1992 PAP SMEAR 1994 PNEUMOCOCCAL VACCINE 50+ (1 of 1 - PCV) 2023 ZOSTER VACCINE (1 of 2) 2023 COVID-19 VACCINE (4 - season) 2024 03/31/2022, 06/14/2021, 04/04/2021 DEPRESSION SCREENING 11/16/2024 INFLUENZA VACCINE (#1) 2025 7, 08/29/2014, 08/24/2013, Additional history exists SCREENING FOR DIABETES 05/29/2026 , 05/29/2023, 05/29/2023 HIB VACCINE Aged Out No longer eligi ble based on patient's age to complete this topic HPV VACCINE Aged Out No longer eligi ble based on patient's age to complete this topic MENINGOCOCCAL (Group B) VACCINE SHARED DECISION-MAKING Aged Out No longer eligible based on patient's age to complete this topic MENINGOCOCCAL GROUPS A/C/Y/W VACCINE Aged Out No longer eligible based on patient's age to complete this topic Insurance [facility] [place] Care Teams Graining Machine Operator Relationship Specialty Start Date End Date Luigi Damon MD [address] [place] [address] PCP - General Family Medicine 06/03/24
--- OUTSIDE RECORDS SUMMARY | 2025-06-01 14:58 | XMS_ITS | Clinical Summary ---
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 Gender Identity Not on file Sexual Orientation Not on file Plan of Treatment Health Maintenance Due Date Last Done Comments DTAP/TDAP/TD VACCINES (1 - Tdap) 1992 HEPATITIS B VACCINES (1 of 3 - 19+ 3-dose series) 08/16 HPV/Cotest (21-29) 1994 CERVICAL CANCER SCREENING 2003 HPV/Cotest (30-65) 2003 PAP SMEAR 2003 BREAST CANCER SCREENING 2013 COLORECTAL SCREENING 2018 Colorectal Cancer Screening 2018 FIT-DNA Q 3 years 2018 FIT/FOBT Q 1 year 2018 Flex Sig/CT Colonography Q 5 years 2018 ZOSTER VACCINE (1 of 2) 2023 INFLUENZA VACCINE (#1) 2025 Insurance RX [employer] (INTERNAL) [facility]
--- OUTSIDE RECORDS SUMMARY | 2025-06-01 14:59 | XMS_ITS | Continuity of Care Document ---
Author Organization [facility] Address [address] [place] [address] [place] [address] Phone Care Team Providers Care Director Of Group Counseling Program Name Role Phone Jamison Ontiveros MD Unavailable [...] Providers Copied on Encounter OFFICE/OUTPA TIENT VISIT, [facility], [address] [place], [place], [id number], tel:[phone] [facility] anxiety1 (chief complaint) Generalized Anxiety Disorder 4 Weston Garcia [address] [facility] [place], [address] , [place]. tel:[phone] [facility], [address] [place], [address], [place] tel:[phone] [facility] No Information 3 Weston Garcia [address], [address], [place], [address] , [place]. tel:[phone] OFFICE/OUTPA TIENT VISIT, [facility], [address] [place], [address], [place] tel:[phone] [facility] hashimoto1 (chief complaint) back pain1 (chief complaint) sick (chief complaint) insomnia1 (chief complaint) weight gain1 (chief complaint) Primary insomniaHashimoto's thyroiditisOther spondylosis, lumbar regionAbnormal weight gainViral infection 3 Weston Swift. [address], [place], [place], [address] , [place]. tel:[phone] OFFICE/OUTPA TIENT VISIT, [facility], [address] [place], [address], [place] tel:[phone] [facility] urine creatine (chief complaint) hematuria1 (chief complaint) UTI1 (chief complaint) Asymptomatic microscopic hematuriaAcute cystitis without hematuriaRenal disease 3 Weston Swift. [address] [facility] [place], [address] , [place]. tel:[phone] OFFICE/OUTPA TIENT VISIT, [facility], [address] [place], [address], [place] tel:[phone] [facility] urine creatine1 (chief complaint) allergy1 (chief complaint) insomnia1 (chief complaint) hashimoto1 (chief complaint) back pain1 (chief complaint) Other spondylosis, lumbar regionHashimoto's thyroiditisAllergic rhinitis due to pollenPrimary insomniaAsymptomati c microscopic hematuria 3 Weston Swift. [address], [place], [place], [address] , [place]. tel:[phone] OFFICE/OUTPA TIENT VISIT, EST [facility], [address] [place], [address], [place] tel:[phone] [facility] anxiety1 (chief complaint) insomnia1 (chief complaint) tachycardi a1 (chief complaint) weight1 (chief complaint) Primary insomniaGeneralized Anxiety DisorderPalpitation sAbnormal weight gain Feb- 3 Weston Swift. [address], [address], [place], [place], [address] , [place]. tel:[phone] OFFICE/OUTPA TIENT VISIT, [facility], [address], [place], [place], [address], [place] tel:[phone] [facility] tachycardi a1 (chief complaint) anxiety1 (chief complaint) weight gain1 (chief complaint) PalpitationsHashimo to's thyroiditisGenerali zed Anxiety DisorderAbnormal weight gain 3 Ontiveros Jamison. [address], [place], [place], [address] , [place]. tel:[phone] OFFICE/OUTPA TIENT VISIT, [facility], [address], [place], [place], [address], [place] tel:[phone] [facility] polyp1 (chief complaint) tachycardi a1 (chief complaint) anxiety1 (chief complaint) Generalized Anxiety DisorderHashimoto's thyroiditisPolyp of colonPalpitations 3 Ontiveros Jamison. [address], [place], [place], [address] , [place]. tel:[phone] OFFICE/OUTPA TIENT VISIT, [facility], [address], [place], [place], [address], [place] tel:[phone] [facility] hashimoto1 (chief complaint) b12 (chief complaint) joint pain1 (chief complaint) anxiety1 (chief complaint) Murali's thyroiditisGenerali zed Anxiety DisorderPain in unspecified jointVitamin B12 deficiencyEncounter for oth screening for malignant neoplasm of breastEncounter for screening for malignant neoplasm of colon 3 Ontiveros Jamison. [address], [address], [place], [place], [address] , [place]. tel:[phone] OFFICE/OUTPA TIENT VISIT, [facility], [address], [place], [place], [address], [place] tel:[phone] [facility] anxiety1 (chief complaint) Generalized Anxiety DisorderDyspnea 3 Weston Swift. [address], [place], [place], [address] , [place]. tel:[phone] OFFICE/OUTPA TIENT VISIT, [facility], [address], [place], [place], [address], [place] tel:[phone] [facility] insomnia1 (chief complaint) hashimoto1 (chief complaint) weight1 (chief complaint) joint pain1 (chief complaint) anxiety1 (chief complaint) Primary insomniaHashimoto's thyroiditisPain in unspecified jointAbnormal weight gainPain in right hipGeneralized Anxiety Disorder 3 Weston Swift. [address], [address], [place], [place], [address] , [place]. [phone] OFFICE/OUTPA TIENT VISIT, [facility], [address], [place], [place], [address], [place] tel:[phone] [facility] weight gain1 (chief complaint) Murali's thyroiditisAbnormal weight gain 3 Weston Swift. [address], [place], [place], [address] , [place]. [phone] OFFICE/OUTPA TIENT VISIT, [facility], [address], [place], [place], [address], [place] tel:[phone] [facility] hashimoto1 (chief complaint) anxiety1 (chief complaint) insomnia1 (chief complaint) OAB (chief complaint) headache1 (chief complaint) neck pain1 (chief complaint) Abnormal weight gainPrimary insomniaTension headacheHashimoto's thyroiditisOveracti ve bladderCervicalgiaD epressionDecreased libido 3 Weston Swift. [address], [place], [place], [address] , [place]. tel:[phone] Family History Family Member Type Diagnosis Age [...] PRn and doing ok Pt did not turkey picker refill for ativan from last year [...] Referred To: Stephanie Rosenberg MD [address] [place], [place], [address] Ordered: Referrals: Stephanie Rosenberg MD. Evaluate and treat ordered Referral Ordered: SHAHNAZ BLACK -Allopathic & Osteopathic Physicians : Orthopaedic Surgery (related to Pain in right hip) ordered Referral Referred To: SHAHNAZ BLACK [facility] [place], [place], [phone] Ordered: Referrals: Allopathic & Osteopathic Physicians : Orthopaedic Surgery. SHAHNAZ BLACK. Evaluate and treat ordered Referral Ordered: Neurology (related to Tension headache) ordered Referral Ordered: Urology (related to Overactive bladder) ordered Referral Ordered: Manjinder Bowles MD -[facility]opathic [facility] Osteopathic Physicians : Obstetrics & Gynecology (related to Decreased libido) ordered Referral Referred To: Manjinder Bowles MD [address] [place], [place], [phone] Ordered: Referrals: Allopathic & Osteopathic Physicians : [...] PRn and doing ok Pt did not turkey picker refill for ativan from last year and the script . Pt only takes ativan PRn. Pt denies any suicidal or homicidal thought or any crying spells . hashimoto1 Pt has murali . Pt is on synthroid Pt saw a MULESER at chiropractor office and she is on progesterone ,T3. T4 and naltrexone and DHEA and she was referred to endo by her rabbet operator and she is waiting for blanca. [...] urin creatine on UA from lab from [facility] .pt had repeat 24 hour urine creatine [...] creatine1 Pt did some lab work from [facility] recently and her renal function and serum creatine is ok but urine creatine is high around 300, then 100s .she also has some hematuria as well. pt denies any urinary symptoms insomnia1 Pt has chronic i nsomnia Pt takes lunesta qhs and doing well Pt denies any snoring anxiety1 Pt has chronic a nxiety and depression Pt takes wellbutrin and ativan and she is doing well Pt denies any suicidal or homicidal thought. Pt denies any crying spells Pt take ativan 0.5 mg in AM and she takes 1 mg at night which works very well for her. Pt is off buspar. weight1 Pt stared trulic ity 1.5 mg sc weekly and she notices appetite suppression Pt has not lost much weight yet tachycardia1 Pt has mild tach ycardia with palpitation, which resolved without cytomel. Pt has blanca with cardiology next week. tachycardia1 Pt recently went to ER due [...] first started the synthroid but now returned. anxiety1 Pt has chronic a nxiety and depression Pt takes wellbutrin and buspar and she is doing better Pt denies any suicidal or homicidal thought pt denies any crying spells Pt states that buspar does help with anxiety joint pain1 Pt has bilateral hip, wrist and chronic neck pain. ,pt has mildly high ETA protein. Her RA and lupus all negative. Pt does have chronic neck pain post multiple cervical surgery. b12 Pt has high b12 Pt has been taking b12 supplement anxiety1 Pt has chronic a nxiety and [...] mybetriq and doing ok. Pt needs uro channel program manager referral. insomnia1 Pt has chronic i nsomnia [...] Mental Status Date Cognitive Assessment Orientation - [place] ed to time, place, person, situation.
--- OUTSIDE RECORDS SUMMARY | 2025-06-01 14:59 | XMS_ITS | Data Portability ---
Author Organization [place] [facility], Main Office Address [address] [place] [address] Care Team Providers Care Bobj Developer Name Role Phone VICENTE MELISSA Primary Care Provider [phone] VICENTE MELISSA Referring Provider [phone] Assessment Encounter Date Assessment Date Assessment LastModified [...] of therapy for pete hip 2022 023 [facility] [place] [facility], [address], [place], [address], 09:57:33 Procedures None recorded. Surgeries None recorded. Imaging None recorded. Medication Orders None recorded. Patient TargetsNo targets recorded. Patient InstructionsNo instructions recorded. Reason for Referral Physical Therapist Referral for Pain of bilateral hip joints Pete hip continuation of therapy for pete hip Referring Physician: Freddy Hagen, Orthopedic Surgery, Encounter Date: 02/20/2023 Results Created Date Observation Date Name Description Value Unit Range Abnormal Flag Note LastModifiedBy Organization Detail LastModifiedTime 12/31/19 23 12/31/2022 XR, hip, unila teral , 2 or 3 view No observ ation record ed. [id number] [place] [address], [place], [address], 01/15/2023 01:52:19 Result Notes None recorded. Problems Name Problem SNOMED Code Status Onset Date Resolution Date Notes Provider Name and Address Organization Details Recorded Time Pain of bilateral hip joints 89062181760828 100 Active 2022 BEATRICE Cabrera, [place] - [facility] 10:48:42 Problem Notes None recorded. Procedures Surgical History Date Name Laterality Status Provider Name and Address Organization Details Recorded Time Neck Surgeries completed Not Available [facility] 01/15/2023 01:48:46 Imaging Results None recorded. Procedure Notes None recorded. Medical Equipment None Reported. Allergies Allergen ID Allergen Name Allergen Category Reaction Reaction Severity Criticality Documentation Date Start Date Code Code System Note Provider Name and Address Organization Details Recorded Time 13101 Benadryl medicatio n Not available Not available Not available 01/15/202394483 7 RxNorm Not Available [facility] 01:52:15 Medications Name Sig Start Date Stop [...] injection administe red by the provider active [facility]: 0003- 0494- 20 Not Available Not Available [...] Take 20 mg by injection route. active [facility] [phone] Not Available Not Available Not Available Myrbetriq 25 mg tablet,exte nded release active Not Available Not Available Not Available Trulicity 0.75 mg/0.5 mL subcutaneou s pen injector active Not Available Not Available Not Available Addyi 100 mg tablet TAKE 1 TABLET BY MOUTH EVERY NIGHT AT BEDTIME active Not Available Not Available No t Available Nurtec ODT 75 mg disintegrat ing tablet 12/31 completed Not Available Not Available Not Available Vitals Date Recorded Body mass index (BMI) Body height Body weight Provider Name and Address Organization Details Last Updated DateTime 12/31/2022 25.3 kg/m2 167.64 cm 71019 g Not Available [facility] 01/15/2023 01:49:27 Date Recorded Body height Body mass index (BMI) Body weight Provider Name and Address Organization Details Last Updated DateTime 02/20/2023 167.64 cm 24.7 kg/m2 54640.63 g BEATRICE Cabrera [place] [facility] [place] [facility] 02/20/2023 10:48:20 Social History None recorded. Functional Status None recorded. Mental Status None recorded. Family History Relationship Description Onset Age of this Age Resolved Age Notes LastModified by Organization Details LastModified Time Mother Cerebrovascu lar accident [id number] Not available 01/15/2023 01:48:49 Mother Family history of malignant neoplasm [id number] Not available 01/15/2023 01:48:50 Father Hypertensive disorder [id number] Not available 01/15/2023 01:48:50 Father Diabetes mellitus [id number] Not available 01/15/2023 01:48:50 Medical History Condition Response SKIN PROBLEMS Y ARTHRITIS Y URINARY/BLADDER/KIDNEY PROBLEMS Y Gynecological HistoryNo gynecological history recorded. Obstetrics History GPAL:G 0 P 0 0 0 0 Past Encounters Encounter ID Performer Location Encounter Start Date Encounter Closed Date Diagnosis/Indication Diagnosis SNOMED-CT Code Diagnosis ICD10 Code Diagnosis Note [id number] Freddy Hagen MD [facility] [place] [address] [facility] [address] [place] [address] 12/31/2022 00:00:00 12/31/2022 12:16:48 [id number] Freddy Hagen MD [facility] [place] [address] [address] [place] [address] 02/20/2023 10:46:35 02/20/2023 11:27:24 Pain of bilateral hip joints 8421033892 [id number] M25.551 M25.552 Health Concerns Section Related Observation LastModified by Organization Detai ls LastModified Time None Recorded Concern Status LastModified by Organization Details LastModified Time None Recorded Advance Directives Directive None Recorded Payers Insurance Date Sequence Insurance Name Policy Number Policy Hartman Covered Member ID Hartman Member ID Guarantor Name 02/24/2023 1 [facility] () Andrew Ortega [id number] Aliya Ortega OBGyn Episode No OBEpisode recorded.
--- OUTSIDE RECORDS SUMMARY | 2025-06-01 14:59 | XMS_ITS | Data Portability ---
Author Organization [place] - [facility], Main Office - [facility] Address [address] [place] [address] Assessment No assessment recorded. Plan of Treatment Reminders Order Date Submit Date Provider Last Modified By Organization Details Last Modified Time Details Appointments None recorded. Lab None recorded. Referral None recorded. Procedures None recorded. Surgeries None recorded. Imaging XR, cervical spine, 2 or 3 view 2017 018 [email or web address] 0 [facility], [address] [place] [address], [address], 8 14:32:51 XR, cervical spine, 4 or 5 view 2017 018 [email or web address] 0 [facility], [address] [address], [address], 8 09:22:09 electromyo gram - Bilateral Upper Extremity EMG/NCS. Please FAX report to [email or web address] [place] [address]), [address] [place], [address], 8 11:40:33 Medication Orders hydrocodon e 10 mg-acetami nophen 325 mg tablet 2017 018 [email or web address] #84318, [address], [place], [id number], 8 14:34:11 tizanidine 4 mg tablet 2017 018 [email or web address] #38479, [address], [place], [id number], 8 14:34:11 hydrocodon e 10 mg-acetami nophen [address] [facility] #17500, [address], [place], [id number], 8 13:29:47 Lunesta 2 mg tablet 2017 [facility] #65695, [address], [place], [id number], 8 13:29:47 tizanidine 4 mg tablet 2017 [facility] #60150, [address], [place], [id number], 8 13:26:32 carisoprod ol 350 mg tablet 2017 018 [facility] #85337, [address], [place], [id number], 8 10:58:55 Senokot-S 8.6 mg-50 mg tablet 2017 018 [facility] #59482, [address], [place], [id number], 8 10:57:35 hydrocodon e 10 mg-acetami nophen 325 [address] tablet [address] [facility] #92339, [address], [place], [id number], 8 10:58:55 Patient TargetsNo targets recorded. 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 dpahl Not available 09/30/2018 13:30:15 10/21/2018 [id number] Routine precautions and restrictions were provided for [...] needed. This note was written using a scribeCassandra CMA. 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 [place] [id number], [place], [address], 09/20/2018 16:15:33 09/18/20 18 09/17/2018 XR, cervi kati spine No observ ation record ed. [place] [id number] [address], [place], [address], 09/20/2018 16:18:06 Result Notes None recorded. Procedures Surgical History Date Name Laterality Status Provider Name and Address Organization Details Recorded Time 09/22/20 18 ANTERIOR CERVICAL DISCECTOMY AND FUSION FOR DECOMPRESSION (SURG) completed Rachel Paul [facility] 09/22/2018 11:21:50 Neck or Cervical Spine Surgery completed Lily Pang [facility] 07/22/2018 08:22:21 tonsilectomy/joya oids completed Lily Pang [facility] 07/22/2018 08:22:24 Ol[place] Teeth Extraction completed Lily Pang [facility] 07/22/2018 08:22:27 General Surgery completed Lily Pang [facility] 07/22/2018 08:22:32 Imaging Results None recorded. Procedure Notes None recorded. Medical Equipment None Reported. Allergies Allergen ID Allergen Name Allergen Category Reaction Reaction Severity Criticality Documentation Date Start Date Code Code System Note Provider Name and Address Organization Details Recorded Time [id number] Phenergan medicatio n Not available Not available Not available 07/22/2018 39850 8 RxNorm LILY Noriega - [facility], 8 08:19:04 [id number] Benadryl medicatio n Not available Not available Not available 07/22/2018 48880 7 RxNorm LILY Noriega - [facility], 8 08:19:12 Medications Name Sig Start Date Stop Date [...] t Available Vitals Date Recorded Heart rate Body height Body mass index (BMI) Body weight Systolic And Diastolic Provider Name and Address Organization Details Last Updated DateTime 07/22/2018 109 /min 167.64 cm 23.4 kg/m2 22066.89 g 123/85 mm[Hg] Lily Pang [facility], 07/22/2018 08:18:39 Date Recorded Body height Body mass index (BMI) Body weight Heart rate Systolic And Diastolic Provider Name and Address Organization Details Last Updated DateTime 10/21/2018 167.64 cm 23.4 kg/m2 62452.89 g 97 /min 113/77 mm[Hg] Jagruti Samuel [facility], 10/21/2018 14:00:10 Social History Question Answer Notes LastModified by Organizat ion Details LastModified Time Tobacco Smoking Status Never Smoker Lily schultz [facility], 07/22/2018 08:20:49 Do You Have An Advance Directive? Yes Information not available 07/22/2018 How Many Years Have You Consumed Alcohol? 0 Information not available 07/22/2018 Is Blood Transfusion Acceptable In An Emergency? Yes Information not available 07/22/2018 How Much Tobacco Do You Chew? None Information not available 07/22/2018 Which Illicit Or Recreational Drugs Have You Used? None Information not available 07/22/2018 Who Is Your Employer? Retired Information not available 07/22/2018 Which Of Your Hands Is Dominant? Right Information not available 07/22/2018 Single Or Multi-level Home/work? Multi Level Home Information not available 07/22/2018 How Many Years Have You Used Illicit Or Recreational Drugs? 0 Information not available 07/22/2018 Live Alone Or With Others? With Others Information not available 07/22/2018 Jehovah'S Witness Preference Cheondoism Information not available 07/22/2018 Ethnic Identity Informati on not available 07/22/2018 Diet Type Regular Information no t available 07/22/2018 Education Level College Informati on not available 07/22/2018 Current Resident Of [facility] No Information not available [...] of alcohol consumption? None Information not available 07/22/2018 Are you currently employed? No Information not available 07/22/2018 Are you able to care for yourself? Yes Information n ot available 07/22/2018 What is your occupation? Retired Information not available 07/22/2018 What is your exercise level? [...] N HEENT - Wears corrective lenses Y Depression Y COPD N Pneumonia N History of head and neck tumor N Peptic ulcer disease N NEURO - Cerebral palsy N Skin infection N Active aids N Mitral valve prolapse N Renal failure N HIV positive N GI - GERD N Joint injury N Hypercholesterolemia N Hypoparathyroidism N MS - Fracture N Fibromyalgia N Cerebrovascular accident N Neuromuscular disease N PSYCHE - Claustrophobia Y Poliomyelitis / post polio N ENDOCRINE - Obesity N Hearing impairment N Dysvascular amputation LE N Other diagnosis Y Anxiety disorder N Deformity N CHEST - Sleep apnea N Crohn's disease N Pulmonary embolism N Chronic venous stasis disease N Psychosis N Coagulopathy N Asthma N Blood clotting disorder N Cardiac valvular disease N Are you under pain mgmt treatment N Fragility fracture N Vertigo N Hepatitis N Neuropathy N Coronary artery disease N Pressure sore N Diabetes Type II (NIDDM) N Skin ulceration N Bipolar disorder N Glaucoma N Legally blind N Hypothyroidism N Sinusitis / sinus infection N Pacemaker N Peripheral vascular disease N Cystic fibrosis N Cholecystitis N Sickle cell N VASCULAR - Deep venous thrombosis N Osteomyelitis N SKIN - Rash N INFECTIOUS - Current active infection N Heart murmur N Previous myocadial infarction N Itp / ttp N Lupus Arthritis N Congestive heart failure N Skin bruising N Diabetes Type I (IDDM) N HEART - Arrhythmia N Chemically anticoagulated N Dental caries / gingivitis N Fracture non-union N Dysvascular gangrene N - Cystitis N Renal dialysis N Dementia N Diverticulitis N Ulcerative colitis N Seizure disorder N MISC - Cancer N Organ transplant N Hypertension N Osteoporosis N Gynecological HistoryNo gynecological history recorded. Obstetrics History GPAL:G 0 P 0 0 0 0 Past Encounters Encounter ID Performer Location Encounter Start Date Encounter Closed Date Diagnosis/Indication Diagnosis SNOMED-CT Code Diagnosis ICD10 Code Diagnosis Note [id number] Nick Reddy MD [facility] [address] [place] [address] 07/22/2018 08:09:01 07/22/2018 09:22:08 Neck pain 44558241 M54.2 Carpal meg martin syndrome 60103439 G56.03 bilateral Cervical s pondylosis without myelopathy 760190609 M47.812 C5-6 Cervical radiculitis 110 36651 M54.12 bilateral [id number] Nick Reddy MD [facility] [address] [place] [address] 09/16/2018 10:24:08 09/16/2018 11:16:22 Cervical radiculitis 73898479 M54.12 bilateral Cervical s pondylosis without myelopathy 440111704 M47.812 C5-6 Carpal meg martin syndrome 21469112 G56.03 bilateral Neck pain 46319142 M54.2 Spinal citlaly nosis in cervical region 33598610 M48.02 ACDF C4-5, C6-7; GISELLE with fusion [...] completed. 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 Postproced ural state finding 716852223 Z98.890 s/p ACDF C4-5, C6-7; GISELLE with fusion exploratio n at C5-6 on 09/17/2018 . [id number] Nick Reddy MD [facility] [address] [place] [address] 10/21/2018 13:54:54 10/21/2018 14:32:51 Spinal stenosis in cervical region 26561539 M48.02 Resolved s/p ACDF C4-5, C6-7; GISELLE with fusion exploratio n at C5-6 on 09/17/2018 . Postproced ural state finding 621231661 Z98.890 s/p ACDF C4-5, C6-7; GSIELLE with fusion exploratio n at C5-6 on 09/17/2018 . Health Concerns Section Related Observation LastModified by Organization Detai ls LastModified Time None Recorded Concern Status LastModified by Organization Details LastModified Time None Recorded Advance Directives Directive Y: Payers Insurance Date Sequence Insurance Name Policy Number Policy Hartman Covered Member ID Hartman Member ID Guarantor Name 10/18/2018 1 [facility] () Andrew Ortega [id number] Aliya Ortega Notes Date Note Type Note Provider Name and Address Organization Details Recorded Time 07/22/2018 text/html C-spineReported bypatient.Location:b miateral Quality:constant Severity:severe Duration:18 years Context:cannot identify Alleviating Factors:rest; OTC medication; NSAIDs; antispasmodics Aggravating Factors:lifting; carrying; twisting; pushing/pulling; ROM; weightbearing; previous surgery; computer use Associated Symptoms:instability (tripping);radiati on down arm Previous Surgery:surgical procedure: (Fusion [...] pain and had surgery in 2010 at [place]. She has had trigger point injections, facet [...] on her cervical spine. Nick Reddy MD [address] [place], [address], [facility] - [facility] 07/22/2018 09:22:15 09/16/2018 text/html C-spineReported bypatient.Location:b ilateral Quality:constant Severity:severe Duration:18 years Context:cannot identify Alleviating Factors:rest; OTC medication; NSAIDs; antispasmodics Aggravating Factors:lifting; carrying; twisting; pushing/pulling; ROM; weightbearing; previous surgery; computer use Associated Symptoms:instability (tripping);radiati on down arm Previous Surgery:surgical procedure: (Fusion [...] pain and had surgery in 2010 at [place]. She has had trigger point injections, facet [...] fusion exploration at C5-6. Nick Reddy MD [address] [place], [address], [facility] - [facility] 09/16/2018 12:30:11 09/30/2018 text/html Fracture/Post-Op Follow UpReported bypatient.Numbness:n one Weakness:none Tingling:none 07/22/2018 42 year old female here today for evaluation of her cervical spine. She is known to me as I have operated on her . She has had about 18 years of neck pain and had surgery in 2010 at [place]. She has had trigger point injections, facet [...] being in the . Nick Reddy MD [address] [place], [address], [facility] - [facility], 09/30/2018 13:30:26 10/21/2018 text/html Fracture/Post-Op Follow UpReported bypatient.Numbness:n one Weakness:none Tingling:none 07/22/2018 42 year old female here today for evaluation of her cervical spine. She is known to me as I have operated on her . She has had about 18 years of neck pain and had surgery in 2010 at [place]. She has had trigger point injections, facet [...] well without complaints. She is moving to [place] for her husbands job. Nick Reddy MD [address] [place], [address], [facility] - [facility], 10/21/2018 14:43:36 OBGyn Episode No OBEpisode recorded.
[2025-06-01 15:12] LABS: Hematocrit 38.0 % (37.0-47.0); Hemoglobin 12.9 g/dL (12.0-15.0); Immature Granulocyte Percent A 0.2 % (0-0.5); Lymphocytes Absolute Auto 1.96 K/mm3 (0.9-3.2); Mean Corpuscular HGB Conc 33.9 g/dl (32-36); Mean Corpuscular Hemoglobin 31.5 pg (26-34); Mean Corpuscular Volume 92.9 fl (80-100); Nucleated Red Blood Cells Absolute Auto 0.000 K/mm3 (0.0-0.012); Nucleated Red Blood Cells Perc 0.0 % (0.0-0.2); Platelet Count Result 348 k/mm3 (150-375); Red Blood Count 4.09 M/mm3 (4.2-5.4); White Blood Count 5.8 K/mm3 (4.5-10.0)
[2025-06-01 15:48] LABS: Alanine Aminotransferase 13 U/L (6-35); Albumin Level 4.2 g/dL (3.5-5.1); Alkaline Phosphatase 62 U/L (38-126); Anion Gap 6 mmol/L (4-12); Aspartate Amino Transferase 25 U/L (14-36); Bilirubin,Total 0.2 mg/dL (0.2-1.3); Blood Urea Nitrogen 13 mg/dL (7-17); Calcium 9.5 mg/dL (8.4-10.2); Carbon Dioxide 26 mmol/L (22-30); Chloride 106 mmol/L (98-107); Estimated Glomerular Filt Rate 55; Glucose 95 mg/dL (65-110); Lipase 75 U/L (23-300); Sodium 138 mmol/L (137-145); Total Protein 7.3 g/dL (6.3-8.2)
[2025-06-01 15:56] LABS: Potassium 3.9 mmol/L (3.4-5.0)
== END 2025-06-01 14:50 | disposition home or self-care (01) ==
LOC: ANHLAB 14:50
PROVIDERS: PCP Family Medicine; Visit Provider Nurse Practitioner Family
DX: R10.11 Right upper quadrant pain (principal); R11.0 Nausea
CPT/HCPCS: 36415; 80048; 80076; 83690; 85025

== ENCOUNTER 2025-06-21 01:01 | Day surgery (SDC) | payer OTHER, SELFPAY ==
[2025-06-05 14:29] VITALS: BMI 21.3
--- OUTSIDE RECORDS SUMMARY | 2025-06-21 01:09 | XMS_ITS | Patient Health Record ---
Author Organization [facility] ([address] Address [address] [place] [address] Care Team Providers Care Ceo & Board Director Name Role Phone Marisol YARBROUGH, Luigi Primary Care Provider Dr. Peyman Yen Unavailable [phone] Sharmin Santos Unavailable [phone] Allergies Allergen (clinical drug ingredient) Drug/Non Drug Allergy documented on EMR Reaction Allergy Type Onset Date Status diphenhydramine Benadryl Allergy other reaction Drug Allergy Active ondansetron Ondansetron other reaction Drug Allergy Active Reason For Referral Reason Evaluate and treat PT for myofascial work and scar tissue massage Diagnosis 1 Cervicalgia (M54.2) Diagnosis 2 Myalgia, unspecified site (M79.10) Referring Provider First Name Sharmin Referring Provider Last Name Tom Referring Provider Speciality Neurology Referred Provider [facility] [place] Referral Priority Routine Reason [id number] Referral Organization [facility] Referring Provider First Name Luigi Referring Provider Last Name Marisol Referred Organization [facility] Referred Provider Peyman Alberto Referred Address [address] [place], [place],[address], Referred Provider Specialty Neurology Referral Priority Routine Reason Evaluate and treat Diagnosis 1 Cervicalgia (M54.2) Diagnosis 2 Myalgia, unspecified site (M79.10) Referral Organization [facility] ([address]) Referring Provider First Name Sharmin Referring Provider Last Name Tom Referring Provider Speciality Neurology Referred Provider Jodi Uriostegui Referred Provider Specialty Neurological Surgery Referral Priority Routine Reason Evaluate and treat Diagnosis 1 Cervicalgia (M54.2) Diagnosis 2 Myalgia, unspecified site (M79.10) Referral Organization [facility] ([address]) Referring Provider First Name Sharmin Referring Provider Last Name Tom Referring Provider Speciality Neurology Referred Provider IPC, Home Care Manager Referral Priority Routine Referring Provider First Name Luigi Referring Provider Last Name Marisol Referred Organization [facility] ([address]) Referred Provider Sharmin Santos Referred Address [address],[place], [place],[address],[place] Referred Provider Specialty Neurology Referral Priority Routine Reason Referral for EMG-jennyfer ded botulinum toxin injection Diagnosis 1 Spasmodic torticolli s (G24.3) Referral Organization [facility] ([address]) Referring Provider First Name Sharmin Referring Provider Last Name Tom Referring Provider Speciality Neurology Referred Organization [facility] [place] Referred Provider Peyman Alberto Referred Address [address] [place], [place],[address],[place] Referred Provider Specialty Neurology Referral Priority Routine Medications Medication SIG (Take, Route, Frequency, Duration) Notes Start Date End Date Status ZyrTEC Allergy 10 MG 1 tab(s) orally once a day Active Topamax 50 MG 1 tab(s) orally 2 times a day; Duration: 30 days Active Ajovy 225 MG/1.5ML 1.5 mL Subcutaneous once a month; Duration: 90 days 01/05/2025 Active Imitrex 100 MG 1 tab(s) orally once, may repeat x1 after 2-4 hours; Duration: 30 days As needed Active Baclofen 10 MG 1 tab(s) orally 3 times a day Active Pregabalin 100 MG 1 capsule Orally twice a day; Duration: 30 days 03/23/2025 Active traMADol HCl 50 MG 1 tab(s) orally every 6 hours Active Testosterone 10 MG/0.5 G 4 PUMP(S) TRANSDERMALLY ONCE A DAY (IN THE MORNING) *Please review and pick correct strength-formulat ion from Medispan options. If intended option is not shown, discontinue and re-order from Quick Search* Active Naltrexone HCl 50 MG 1 tab(s) orally once a day Active Tirzepatide 7.5 MG/0.5ML as directed Subcutaneous Active diazePAM 10 MG 1 tablet Orally once, prior to MRI; Duration: 1 days As needed Patient needs a mobile lounge driver 06/09/2024 Active HYDROcodone-Acetami nophen 5-325 MG 1 tablet Orally every 6 hrs; Duration: 30 days As needed 12/19/2024 Active Doxycycline 40 MG 1 capsule in the morning on an empty stomach Orally Once a day Not-Taking Levothyroxine Sodium 25 MCG 1 tab(s) orally once a day Active Lunesta 3 MG 1 tab(s) orally once a day (at bedtime) Active Social History Tobacco Use: Social History Observation Description Date Details (start date - stop date) Never Smoker NA - NA Sex Assigned At : Social History Observation Description Sex Assigned At Female Smoking Smart Form: Question Answer Notes Are you a: never smoker Tobacco Control (Standard) Question Answer Notes Tobacco use: Nonsmoker Problems Problem Type SNOMED Code ICD Code Onset Dates Problem Status W/U Status Risk Notes Problem Spasmodic torticollis (42140295) Spasmodic 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) Active confirmed Problem Chronic migraine without aura, non-refractory (disorder) (931546692044054 ) Migraine without aura, not intractable, without status migrainosus (G43.009) Active confirmed Problem Migraine with aura (7257778) Migraine with aura, not intractable, without status migrainosus (G43.109) Active confirmed Problem Chronic migraine without aura, non-intractable (246513550102255 ) Chronic migraine without aura, not intractable, without status migrainosus (G43.709) Active confirmed Problem Insomnia (406762461) Insomnia, unspecified (G47.00) Active confirmed Problem Cervicalgia (85180976) Cervicalgia (M54.2) Active confirmed Problem Occipital neuralgia (14350298) Occipital neuralgia (M54.81) Active confirmed Problem Paresthesia (finding) (58321244) Paresthesia of skin (R20.2) Active confirmed Vital Signs Respiratory Rate 17 /min 01/26/2025 Oximetry 100 % 01/26/2025 Blood pressure diastolic 75 mm Hg 01/26/2025 Height 67 in 01/26/2025 Blood pressure systolic 113 mm Hg 01/26/2025 Weight 138.8 lbs 01/26/2025 BMI 21.74 kg/m2 01/26/2025 Encounters Encounter Location Date Provider Diagnosis [place] [address] [address] [facility] [address] [address] 09/08/2024 Sharmin Santos Chronic migraine without aura, not intractable, without status migrainosus G43.709 ; Cervicalgia M54.2 ; Myalgia, unspecified site M79.10 and Occipital neuralgia M54.[address] [address] 11/01/2024 Sharmin Santos Chronic migraine without aura, not intractable, without status migrainosus G43.709 ; Cervicalgia M54.2 ; Myalgia, unspecified site M79.10 and Occipital neuralgia M54.[address] [facility] [address] [address] 12/15/2024 Sharmin Santos Chronic migraine without aura, not intractable, without status migrainosus G43.709 ; Cervicalgia M54.2 ; Myalgia, unspecified site M79.10 and Occipital neuralgia M54.81 [address] [address] 01/05/2025 Sharmin Santos Chronic migraine without aura, not intractable, without status migrainosus G43.709 ; Cervicalgia M54.2 ; Myalgia, unspecified site M79.10 and Occipital neuralgia M54.[address] [address] 01/26/2025 Sharmin Santos Chronic migraine without aura, not intractable, without status migrainosus G43.709 ; Cervicalgia M54.2 ; Myalgia, unspecified site M79.10 ; Occipital neuralgia M54.81 and Spasmodic torticollis G24.[address] [facility] [address] [address] 03/09/2025 Sharmin Santos Chronic migraine without aura, not intractable, without status migrainosus G43.709 ; Cervicalgia M54.2 ; Myalgia, unspecified site M79.10 and Occipital neuralgia M54.81 [place] [address] [place] [address] [place] [address] 06/01/2025 Sharmin Santos Chronic migraine without aura, not intractable, without status migrainosus G43.709 ; Cervicalgia M54.2 ; Myalgia, unspecified site M79.10 and Occipital neuralgia M54.81 [facility] [place] [address] [place] [address] 06/21/2024 Peyman Alberto [facility] [place] [address] [place] [address] 06/23/2024 Peyman Alberto [facility] [place] [address] [place] [address] 08/23/2024 Peyman Alberto [facility] [place] [address] [place] [address] 11/01/2024 Sharmin Santos [facility] [place] [address] [place] [address] 11/02/2024 Sharmin Santos [facility] [address] [place] [address] 11/29/2024 Peyman Alberto [facility] [place] [address] [place] [address] 12/14/2024 Peyman Alberto [facility] [place] [address] [place] [address] 12/19/2024 Sharmin Santos [facility] [place] [address] [place] [address] 12/29/2024 Peyman Alberto [facility] [place] [address] [place] [address] 01/03/2025 Sharmin Santos [facility] [place] [address] [place] [address] 01/04/2025 Peyman Alberto [facility] [place] [address] [place] [address] 01/05/2025 [facility]min [facility] [place] [address] [place] [address] 01/26/2025 Sharmin Santos [facility] [place] [address] [place] [address] 03/23/2025 Sharmin Santos Cervicalgia M54.2 Assessments Encounter Date Diagnosis (ICD Code) Assessment Notes Treatment Notes Treatment Clinical Notes Section Notes 09/08/2024 Chronic migraine without aura, not intractable, [...] nerve decompression surgery. -Abortive treatment plan: Continue Sumatriptan.-Preven tive treatment plan: Discontinue Aimovig. Continue Topamax. Continue [...] myofascial work and scar tissue massage to [facility] in [place]. 11/01/2024 Chronic migraine without aura, not intractable, without status migrainosus (ICD-10 - G43.709) -Abortive treatment plan: Continue sumatriptan-Prevent chiara treatment plan: Continue topamax 100 mg daily. [...] with Dr. Chapman (s/p nerve decompression surgery). 12/15/2024 Chronic migraine without aura, not intractable, without status migrainosus (ICD-10 - G43.709) -Abortive treatment plan: Continue sumatriptan. -Preventive treatment plan: Continue Botox. Continue Qulipta. Continue topiramate.-Educate d the patient on migraine lifestyle recommendations. I [...] daily as supplements; keep scheduled follow-up appointments 12/15/2024 Cervicalgia (ICD-10 - M54.2) Referral to pain management. Referral to Dr. Jodi Uriostegui. Start hydrocodone 5 mg every 6 hours prn for pain. #15. No refills. 01/05/2025 Chronic migraine without aura, not intractable, without status migrainosus (ICD-10 - G43.709) -Discussed with patient that no additional refills of hydrocodone would be provided as we are not a pain management clinic. I offered trigger point injections and she was agreeable. She is scheduled with neurosurgery, Dr. Conde, next week. -Abortive treatment plan: Continue sumatriptan.-Preven tive treatment plan: Continue Botox. Discontinue Qulipta. Start Ajovy 225 mg. Sample given in office. LOT [id number] Exp April 2025-Educated the patient on migraine lifestyle recommendations. I [...] daily as supplements; keep scheduled follow-up appointments 01/05/2025 Cervicalgia (ICD-10 - M54.2) Assess effect of trigger point injections today. 01/26/2025 Chronic migraine without aura, not intractable, without status migrainosus (ICD-10 - G43.709) -Abortive treatment plan: Continue sumatriptan. -Preventive treatment plan: Continue Botox. Continue Ajovy. Continue Topamax -Educated the patient on migraine lifestyle recommendations. [...] daily as supplements; keep scheduled follow-up appointments 01/26/2025 Cervicalgia (ICD-10 - M54.2) Continue pregabalin. Follow up with neurosurgery. Follow up with pain management. 03/09/2025 Chronic migraine without aura, not intractable, without status migrainosus (ICD-10 - G43.709) -Abortive treatment plan: Continue sumatriptan.-Preven tive treatment plan: Continue Botox. Continue Ajovy. Continue Topamax-Educated the patient on migraine lifestyle recommendations. I [...] daily as supplements; keep scheduled follow-up appointments 03/09/2025 Cervicalgia (ICD-10 - M54.2) Continue pregabalin. Follow up with neurosurgery. Follow up with pain management. 03/23/2025 Cervicalgia (ICD-10 - M54.2) 06/01/2025 Chronic migraine without aura, not intractable, without status migrainosus (ICD-10 - G43.709) 06/01/2025 Cervicalgia (ICD-10 - M54.2) 03/09/2025 Myalgia, unspecified site (ICD-10 - M79.10) Continue pregabalin. Follow up with neurosurgery. Follow up with pain management. 06/01/2025 Myalgia, unspecified site (ICD-10 - M79.10) 01/26/2025 Myalgia, unspecified site (ICD-10 - M79.10) Continue pregabalin. Follow up with neurosurgery. Follow up with pain management. 01/05/2025 Myalgia, unspecified site (ICD-10 - M79.10) Assess effect of trigger point injections today. 12/15/2024 Myalgia, unspecified site (ICD-10 - M79.10) Referral to pain management. Referral to Dr. Jodi Uriostegui. Start hydrocodone 5 mg every 6 hours prn for pain. #15. No refills. 09/08/2024 Myalgia, unspecified site (ICD-10 - M79.10) Referral to PT for myofascial work and scar tissue massage to [facility] in [place]. 11/01/2024 Myalgia, unspecified site (ICD-10 - M79.10) Resume PT for myofascial work and scar tissue massage when possible. 11/01/2024 Occipital neuralgia (ICD-10 - M54.81) Follow up with Dr. Chapman (s/p nerve decompression surgery). 09/08/2024 Occipital neuralgia (ICD-10 - M54.81) 12/15/2024 Occipital neuralgia (ICD-10 - M54.81) Follow up with Dr. Chapman. 01/26/2025 Occipital neuralgia (ICD-10 - M54.81) Continue pregabalin. Follow up with neurosurgery. Follow up with pain management. 01/05/2025 Occipital neuralgia (ICD-10 - M54.81) Start Pregabalin 100 mg TID. Follow up with pain management and neurosurgery. 03/09/2025 Occipital neuralgia (ICD-10 - M54.81) Continue pregabalin. Follow up with neurosurgery. Follow up with pain management. 06/01/2025 Occipital neuralgia (ICD-10 - M54.81) 01/26/2025 Spasmodic torticollis (ICD-10 - G24.3) Referral to Dr. Alberto for EMG-guided Botox. Plan Of Treatment Pending Test Test Name Order Date MRI : Brain (with and without gadolinium ) 06/09/2024 Next Appt Details Provider Name:Sharmin Nationyeimy steward, 08/24/2025 10:20:00 AM, [address], [address], Insurance Providers Payer Name Payer Address Payer Phone Subscriber Number Group Number Insured Name Patient Relationship to Insured Coverage Start Date Coverage End Date [facility] [address] [phone] [id number] Aliya Ortega Self - patient is the insured Medical (General) History Medical History History ICD Code Migraine with aura Cervical DDD s/p spinal fusion [facility] Surgical History Surgery Date(Month/Year) Cervical spinal fusion Tonsillectomy
--- OUTSIDE RECORDS SUMMARY | 2025-06-21 01:09 | XMS_ITS | Continuity of Care Document ---
Author Organization [facility] Address [address] [place] [address] [place] [address] Phone Care Team Providers Care Home Aid Name Role Phone Jamison Ontiveros MD Unavailable [...] route every day 10 MG - Active Synthroid 25 mcg tablet take 1 tablet by oral route every day 25 MCG - Active trazodone 50 mg tablet take 1 tablet by oral route every bedtime after meals 50 MG - Active cyclobenzaprine 10 mg tablet [...] Providers Copied on Encounter OFFICE/OUTPA TIENT VISIT, [facility], [address] [place], [place], [address], tel:[phone] [facility] anxiety1 (chief complaint) Generalized Anxiety Disorder 4 Weston Garcia [address] [facility] [place], [address] , [place]. tel:[phone] [facility], [address] [place], [address], [place] tel:[phone] [facility] No Information 3 Weston Garcia [address], [address] [place], [address] , [place]. tel:[phone] OFFICE/OUTPA TIENT VISIT, [facility], [address] [place], [address], [place] tel:[phone] [facility] hashimoto1 (chief complaint) back pain1 (chief complaint) sick (chief complaint) insomnia1 (chief complaint) weight gain1 (chief complaint) Primary insomniaHashimoto's thyroiditisOther spondylosis, lumbar regionAbnormal weight gainViral infection 3 Weston Swift. [address], [place], [place], [address] , [place]. tel:[phone] OFFICE/OUTPA TIENT VISIT, [facility], [address] [place], [address], [place] tel:[phone] [facility] urine creatine (chief complaint) hematuria1 (chief complaint) UTI1 (chief complaint) Asymptomatic microscopic hematuriaAcute cystitis without hematuriaRenal disease 3 [address] Swift[address] [facility] [place], [address] , [place]. tel:[phone] OFFICE/OUTPA TIENT VISIT, [facility], [address] [place], [address], [place] tel:[phone] [facility] urine creatine1 (chief complaint) allergy1 (chief complaint) insomnia1 (chief complaint) hashimoto1 (chief complaint) back pain1 (chief complaint) Other spondylosis, lumbar regionHashimoto's thyroiditisAllergic rhinitis due to pollenPrimary insomniaAsymptomati c microscopic hematuria 3 Weston Swift. [address], [place], [place], [address] , [place]. tel:[phone] OFFICE/OUTPA TIENT VISIT, EST [facility], [address] [place], [address], [place] tel:[phone] [facility] anxiety1 (chief complaint) insomnia1 (chief complaint) tachycardi a1 (chief complaint) weight1 (chief complaint) Primary insomniaGeneralized Anxiety DisorderPalpitation sAbnormal weight gain Feb- 3 Weston Swift. [address], [address], [place], [place], [address] , [place]. tel:[phone] OFFICE/OUTPA TIENT VISIT, [facility], [address], [place], [place], [address], [place] tel:[phone] [facility] tachycardi a1 (chief complaint) anxiety1 (chief complaint) weight gain1 (chief complaint) PalpitationsHashimo to's thyroiditisGenerali zed Anxiety DisorderAbnormal weight gain 3 Ontiveros Jamison. [address], [place], [place], [address] , [place]. tel:[phone] OFFICE/OUTPA TIENT VISIT, [facility], [address], [place], [place], [address], [place] tel:[phone] [facility] polyp1 (chief complaint) tachycardi a1 (chief complaint) anxiety1 (chief complaint) Generalized Anxiety DisorderHashimoto's thyroiditisPolyp of colonPalpitations 3 Ontiveros Jamison. [address], [address], [place], [place], [address] , [place]. tel:[phone] OFFICE/OUTPA TIENT VISIT, [facility], [address], [place], [place], [address], [place] tel:[phone] [facility] hashimoto1 (chief complaint) b12 (chief complaint) joint pain1 (chief complaint) anxiety1 (chief complaint) Murali's thyroiditisGenerali zed Anxiety DisorderPain in unspecified jointVitamin B12 deficiencyEncounter for oth screening for malignant neoplasm of breastEncounter for screening for malignant neoplasm of colon 3 Ontiveros Jamison. [address], [address], [place], [place], [address] , [place]. tel:[phone] OFFICE/OUTPA TIENT VISIT, [facility], [address], [place], [place], [address], [place] tel:[phone] [facility] anxiety1 (chief complaint) Generalized Anxiety DisorderDyspnea 3 Weston Swift. [address], [place], [place], [address] , [place]. tel:[phone] OFFICE/OUTPA TIENT VISIT, [facility], [address], [place], [address], [place] tel:[phone] [facility] insomnia1 (chief complaint) hashimoto1 (chief complaint) weight1 (chief complaint) joint pain1 (chief complaint) anxiety1 (chief complaint) Primary insomniaHashimoto's thyroiditisPain in unspecified jointAbnormal weight gainPain in right hipGeneralized Anxiety Disorder 3 West[address] Swift. [address], [address], [place], [place], [address] , [place]. [phone] OFFICE/OUTPA TIENT VISIT, [facility], [address], [place], [place], [address], [place] tel:[phone] [facility] weight gain1 (chief complaint) Murali's thyroiditisAbnormal weight gain 3 Weston Swift. [address], [place], [place], [address] , [place]. [phone] OFFICE/OUTPA TIENT VISIT, [facility] [place], [address], [place], [place], [address], [place] tel:[phone] [facility] hashimoto1 (chief complaint) anxiety1 (chief complaint) insomnia1 (chief complaint) OAB (chief complaint) headache1 (chief complaint) neck pain1 (chief complaint) Abnormal weight gainPrimary insomniaTension headacheHashimoto's thyroiditisOveracti ve bladderCervicalgiaD epressionDecreased libido 3 Weston Swift. [address], [place], [place], [address] , [place]. 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
[address] [place], [place], [id number] Ordered: Referrals: Stephanie Rosenberg MD. Evaluate and treat ordered Referral Ordered: SHAHNAZ BLACK -[facility]opathic [facility] Osteopathic Physicians : Orthopaedic Surgery (related to Pain in right hip) ordered Referral Referred To: SHAHNAZ BLACK [facility] [place], [place], [phone] Ordered: Referrals: [facility]opathic & Osteopathic Physicians : Orthopaedic Surgery. SHAHNAZ BLACK. 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 Pt only takes ativan PRn. Pt denies any suicidal or homicidal thought or any crying spells . hashimoto1 Pt has murali . Pt is on synthroid Pt saw a TANKER TRUCK DRIVER at chiropractor office and she is on progesterone ,T3. T4 and naltrexone and DHEA and she was referred to endo by her construction framer and she is waiting for blanca. Pt [...] urin creatine on UA from lab from [facility] .pt had repeat 24 hour urine creatine [...] creatine1 Pt did some lab work from [facility] recently and her renal function and serum [...] mybetriq and doing ok. Pt needs uro stain applicator referral. headache1 Pt has chronic t ension [...] Mental Status Date Cognitive Assessment Orientation - [place] ed to time, place, person, situation.
--- OUTSIDE RECORDS SUMMARY | 2025-06-21 01:09 | XMS_ITS | Encounter Summary ---
Author Organization [facility] Address [facility] [place] [address] Care Team Providers Care Onboarding Specialist Name Role Phone Jamison Ontiveros MD Primary Care Provider [phone] Luigi Damon MD Primary Care Provider [phone] Encounter Details Date Type Department Care Team (Late st Contact Info) Description 03/22/2025 Pre-Procedure Call [facility] [place] [address] Yeni Shell, RAG CUTTING MACHINE OPERATOR [address] [facility] [address] [place] [address] Anesthesia Record Procedure Summary Procedure [...] Date: 03/29/25; Removal Time: 1152; Removal Person: DONOR RELATIONS MANAGER; Removal Reason: End of Case 03/29/25 1100 by Zhanna Hollingsworth CRNA 03/29/25 1152 by Manuel Sommer CRNA documented in this encounter Social History Tobacco Use Types Packs/Day Years Used Date Smoking Tobacco: Former Cigarettes 0.5 32.6 S tarted: 1992 Smokeless Tobacco: Former Tobacco [...] test, Echo?) 2022 Do you see a child nurse? Who is it? None 0800 Arrival, will drive her home and stay ovenright NPO after midnight documented in this encounter OR Notes * OR PreOp - Kellen Obando CNP - 03/22/2025 3:52 PM CDT Chart reviewed. Per phone interview, patient denies any SOB/CP with 2 FOS or recent changes in activity tolerance in past 6 months. Per phone interview, patient denies having a child nurse. Previoustesting 2/2 palpitations available and results copied. [...] on filedocumented in this encounter Care Teams Onboarding Specialist Relationship Specialty Start Date End Date Jamison Ontiveros MD [address] [place] [address] PCP - General FAMILY PRACTICE 02/26/23 03/27/25 Luigi Damon MD [address] [place] [place] [address] PCP - General FAMILY PRACTICE 03/28/25 documented as of this encounter
--- OUTSIDE RECORDS SUMMARY | 2025-06-21 01:10 | XMS_ITS | Referral Summary ---
Author Organization 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
--- OUTSIDE RECORDS SUMMARY | 2025-06-21 01:10 | XMS_ITS | Clinical Summary ---
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
--- OUTSIDE RECORDS SUMMARY | 2025-06-21 01:10 | XMS_ITS | Continuity of Care Document ---
Author Name [facility] Organization [facility] Care Team Providers Care Campus President Name Role Phone [facility] Unavailable Unavailable Problems Combined list of problems from Department of Defense and Veterans Affairs facilities. It does not include entries that were removed or entered in error. Problem Status Onset Date Problem Type Date of Resolution Comments Source Chronic pain syndrome Active 6 Condition DoD Major depressive disorder, recurrent, unspecified Inactive 6 Condition DoD Post-traumatic stress disorder, chronic Active 6 Condition DoD Occipital neuralgia Active 6 Condition DoD Cervicalgia Active 6 Condition As she has already tried PT, chiropractor, and pain managment w/o success for this, I will place referral for Dr. Martinez. DoD joint pain, localized in the shoulder Inactive 3 Condition DoD PAIN SYNDROMES Inactive 3 Condition DoD highly irritable Inactive 2 Condition [facility] visit for: physical medical evaluation board (MEB) Inactive 2 Condition DoD Other specified disorders of bone density and structure, unspecified site Active 2 Condition DoD Premenstrual tension syndrome Inactive 1 Condition DoD BURSITIS TROCHANTERIC Inactive 9 Condition [facility] TENDONITIS CALCIFIC Inactive 9 Condition DoD Hypermetropia, unspecified eye Active 9 Condition DoD MIGRAINE HEADACHE Active 7 Condition DoD Headache Inactive 7 Condition Patient instructed to discontinue tramadol, as it is a category C. for . Take Tylenol 500 mg two p.o. Q6 to 8 hours p.r.n. for headache. Dispense 15 no refills. Continue food and fluids as tolerated. Patient placed on quarters for 48 hours. Patient is asked to follow-up with her PCM if her symptoms worsen or persist. May consider Zofran for control and nausea. If it persists beyond the first trimester. DoD Decreased libido Active 9 Condition DoD Adjustment disorder with mixed anxiety and depressed mood Active 9 Condition DoD Insomnia, unspecified Active 9 Condition DoD Claustrophobia Active Condition DoD Fear of flying Active Condition DoD Autoimmune thyroiditis Active Condition DoD Hyperlipidemia, unspecified Active Condition DoD Other spondylosis with radiculopathy, cervical region Active Condition DoD Stress incontinence (female) (male) Active Condition DoD Encounter for other screening for malignant neoplasm of breast Inactive Condition DoD Urticaria due to cold and heat Active Condition DoD Post-traumatic stress disorder, unspecified Inactive Condition DoD DERMATITIS Inactive Condition DoD visit for: services physical Inactive Condition DoD visit for: issue repeat prescription for medication Inactive Condition DoD PHARYNGITIS STREPTOCOCCUS, GROUP A: BETA HEMOLYTIC Inactive Condition DoD Preventive Medicine Establ. Patient Checkup Adult 18-39 Inactive Condition DoD CONSTIPATION Inactive Condition DoD visit for: issue repeat prescription Inactive Condition DoD PHARYNGITIS Inactive Condition DoD Aftercare Orthopedic Inactive Condition DoD GASTROENTERITIS Inactive Condition DoD Other Physical Therapy Inactive Condition DoD Inquiry And Counseling: Family Planning Inactive Condition DoD Contraceptives Inactive Condition DoD joint pain, localized in the hip Inactive Condition DoD EYESTRAIN Inactive Condition DoD NORMAL ROUTINE OPHTHALMOLOGICAL EXAM Inactive Condition DoD visit for: occupational health / fitness exam Inactive Condition DoD SINUSITIS Inactive Condition DoD ROUTINE GYNECOLOGICAL EXAM WITH CERVICAL PAP SMEAR Inactive Condition DoD NORMAL ROUTINE HISTORY AND PHYSICAL - Inactive Condition Doing well will reschedule for annual exam in 2 wks. DoD Patient Counseling: Inactive Condition D oD feared medical condition not demonstrated Inactive Condition FHT reactive. SROM check negative (neg nitrazine, neg pooling, neg fern). Cx L/Th/Closed. BP slightly elevated but all below 140/90. No PreE sx's other than extremity swelling. Recent 24 hr protein below 300. - Recommended adequate hydration, limitation of salt intake per previous OB recs - Recommended elevating legs as much as possible during day to decrease LE swelling - Reviewed s/sx of PTL, PreE - Send home with f/u as scheduled with OB - plan d/w staff (Case) DoD bleeding during Inactive Condition 32 yo @ 32w2 by LMP (Jul 23) who reports spotting this morning 3x dime sized BRB when wiping, not on panty liner. ABO B+ placenta posterior by US on . No blood visualized in vaginal vault but vaginal discharge thick/white consistent with lennie visualized. Digitial exam of cervix revealed small 1mm spot of blood from cervix but no blood from OS. Cervical OS closed, thick and -4. UA, CBC, FFN will be obtained. FHR reassuring with baseline 150, mod tan and accels. irregular ctx every 10-15 noted. Will await FFN test and monitor pt for NST. FFN negative, reactive NST, will discharge pt to home with labor precautions and educate regarding si/sx of placental abruption. DoD VAGINITIS LENNIE ALBICANS Inactive Condition Branching hyphae and budding yeast noted on wet prep with GINA consistent with Yeast infection. Possible source for small amount of bleeding noted above. will treat with Monostat. DoD ANEMIA Inactive Condition will incre ase iron to bid DoD lightheadedness Inactive Condition Singh er monitor completed today DoD URINARY TRACT INFECTION Inactive Condition Patient is instructed to complete all her antibiotics as prescribed. She is to push fluids. She is to follow-up in [facility] for any further problems. [facility] INFLUENZA Inactive Condition The patien t is encouraged to continue pushing fluids and rest as needed. [facility] NORMAL CHECKUP (6 - 42 Wk) Inactive Condition Parvovir us panel ordered in [facility] 1. Pt is GBBS positive on culture done 04/24/08. Precautions reviewed. DoD nausea Inactive Condition [facility] PREG COMPLICATIONS: ANTEPARTUM COND OR PRIOR COMP DELIVERY Inactive Condition h/o Pre E per chart review [facility] ACUTE BRONCHITIS Inactive Condition 1. Trial of Augmentin 875 bid x 10 days (cat B), Robitussin with Codeine (use sparingly), saline mist sprays, and Tylenol as needed.2. Salt water gargles tid. DoD UPPER RESPIRATORY INFECTION Inactive Condition Patient was placed a quarter for 24 hours. Additionally instructed to take Tylenol p.r.n. for fever increase clear liquids. vitamins were ordered today the patient was positive test recently. profile initiated today. [facility] Administrative Evaluation Services Inactive Condition [facility] UPPER RESPIRATORY INFECTION ACUTE Inactive Condition DoD visit for: administrative purpose Inactive Condition [facility] Gynecologic Service Prescrip Of Contracept Agent - Repeat Rx Inactive Condition DoD ROUTINE PELVIC EXAM Inactive Condition D oD Cervical Pap Smear Inactive Condition Do D Oral Contraceptives Inactive Condition D oD VAGINITIS Inactive Condition DoD Medications Combined list of outpatient medications from Department of Defense and Veterans Affairs facilities.Medications provided include 1) outpatient medications from the last 15 months, and 2) patient-reported medications. Medication Details Route Status Patient Instructions Prescription Expires Prescription Number Last Dispense Date Ordering Provider Order Date Order Qty Source Aimovig 70 mg/mL autoinjecto r [1mL] = 1 mL, SubCutan eous, # 1 mL, 5 total refill(s ), Hard Stop SubCut aneous (under the skin) Complet ed 04/04/2025 4 2024 1.0 Ambulat ory Pharmac y baclofen 10 mg oral tablet TAKE ONE TABLET BY MOUTH THREE TIMES A DAY NEEDED FOR MUSCLE SPASMS, # 90 EA, 3 total refill(s ), Acute Complet ed 10/20/2023 2 2022 90.0 Ambulat ory Pharmac y baclofen 10 mg tablet See Instruct ions, # 90 EA, 1 total refill(s ), Acute Complet ed 10/20/2023 3 2022 90.0 Ambulat ory Pharmac y baclofen 10 mg tablet 10 mg, Oral, BID, # 60 EA, 3 total refill(s ), Hard Stop Oral (given by mouth) Complet ed 01/11/2025 4 2024 60.0 Ambulat ory Pharmac y benzonatate 200 mg oral capsule TAKE ONE CAPSULE BY MOUTH EVERY 8 HOURS NEEDED FOR COUGH, # 30 EA, 1 total refill(s ), Acute Complet ed 10/16/2023 2 2022 30.0 Ambulat ory Pharmac y buPROPion 300 mg/24 hours (XL) oral tablet, extended release TAKE ONE TABLET BY MOUTH DAILY, # 90 EA, 3 total refill(s ), Acute Complet ed 10/20/20232022 90.0 Ambulat ory Pharmac y buPROPion XL 150 mg/24 hour tablet 150 mg, Oral, every morning, # 90 EA, 3 total refill(s ), Hard Stop Oral (given by mouth) Complet ed 01/11/2025 4 2024 90.0 Ambulat ory Pharmac y buPROPion XL 300 mg/24 hour tablet See Instruct ions, # 90 EA, 3 total refill(s ), Acute Complet ed 12/16/2023 3 2023 90.0 Ambulat ory Pharmac y cetirizine 10 mg oral tablet TAKE ONE TABLET DAILY, # 90 EA, 3 total refill(s ), Acute Complet ed 04/12/2024 3 2023 90.0 Ambulat ory Pharmac y conjugated estrogens 0.625 mg/g vaginal cream with applicator APPLY PEA-SIZE D AMOUNT (0.5 GRAMS) INTRAVAG INALLY TWO TIMES PER WEEK, # 30 g, 2 total refill(s ), Acute Complet ed 10/20/2023 2 2022 30.0 Ambulat ory Pharmac y Emgality 120 mg/mL inj-pen [1mL] = 1 mL, SubCutan eous, # 1 mL, 11 total refill(s ), Hard Stop SubCut aneous (under the skin) Complet ed 03/31/2025 4 2024 1.0 Ambulat ory Pharmac y eszopiclone 3 mg tablet 3 mg, Oral, every day at bedtime, # 90 EA, 1 total refill(s ), Hard Stop Oral (given by mouth) Complet ed 03/12/2024 4 2023 90.0 Ambulat ory Pharmac y eszopiclone 3 mg tablet See Instruct ions, # 90 EA, 1 total refill(s ), Acute Complet ed 09/01/2023 3 2022 90.0 Ambulat ory Pharmac y eszopiclone 3 mg tablet 3 mg, Oral, Daily, # 90 EA, 1 total refill(s ), Hard Stop Oral (given by mouth) Complet ed 09/04/2024 4 2023 90.0 Ambulat ory Pharmac y Galcanezuma b 120mg/mL Solution, Injection, Pen Injector Take or use exactly as directed .refrige rateStor e in original package. Check with your doctor before becoming . 03/31/2025 [id number] 4 2023 1 [facility] Yony AUGUSTIN ([facility] levothyroxi ne (Synthroid) 25 mcg tablet 25 mcg, Oral, Daily, # 90 EA, 3 total refill(s ), Hard Stop Oral (given by mouth) Discont inued 08/05/2024 2023 90.0 Ambulat ory Pharmac y levothyroxi ne (Synthroid) 25 mcg tablet See dose instruct ions in comments , # 90 EA, 3 total refill(s ), Acute Complet ed 04/12/2024 4 2023 90.0 Ambulat ory Pharmac y levothyroxi ne (Synthroid) 50 mcg tablet See Instruct ions, # 30 EA, 3 total refill(s ), Hard Stop Ordered 08/04/2025 4 2023 30.0 Ambulat ory Pharmac y levothyroxi ne 25 mcg (0.025 mg) oral tablet TAKE ONE TABLET DAILY, # 90 EA, 0 total refill(s ), Acute Complet ed 01/16/20242023 90.0 Ambulat ory Pharmac y Levothyroxi ne Sodium (Levothroid ) Tablet 25 mcg Oral Take on empty stomach. Take with plenty of water.Be careful if taking OTCs.Aston e or use exactly as directed . 03/08/2025 [id number] 4 2023 90 [facility] Yony AUGUSTIN ([facility]) meloxicam 15 mg oral tablet TAKE 1 TABLET BY MOUTH EVERY DAY, # 90 EA, 3 total refill(s ), Acute Complet ed 10/20/2023 2 2022 90.0 Ambulat ory Pharmac y mirabegron 25 mg oral tablet, extended release TAKE ONE TABLET BY MOUTH EVERY DAY, # 30 EA, 6 total refill(s ), Acute Complet ed 09/01/2023 3 2022 30.0 Ambulat ory Pharmac y mirabegron 25 mg oral tablet, extended release TAKE 1 TABLET BY MOUTH DAILY, # 30 EA, 9 total refill(s ), Acute Complet ed 09/01/2023 2 2022 30.0 Ambulat ory Pharmac y SPIRONOLACT ONE (spironolac tone), 100 MG, TABLET, ORAL, [place], 100 ea. BOTTLE Active [id number] 4 2023 30 Pharmac y Data Trans[employer] tion Service Facilit y SPIRONOLACT ONE (spironolac tone), 50 MG, TABLET, ORAL, [employer], 100 ea. BOTTLE Active [id number] 4 2023 10 Pharmac y Data Transac t[employer] Service Facilit y SUMAtriptan 50 mg oral tablet TAKE ONE TABLET BY MOUTH AT HEADACHE ONSET MAY REPEAT IN 2 HRS IF NEEDED, LIMIT 2 PER DAY OR 5 PER WEEK, # 9 EA, 3 total refill(s ), Acute Complet ed 10/20/2023 2 2022 9.0 Ambulat ory Pharmac y SUMAtriptan 50 mg oral tablet TAKE ONE TABLET BY MOUTH AT HEADACHE ONSET. MAY REPEAT IN 2 HOURS IF NEEDED, LIMIT 2 PER DAY OR 5 PER WEEK., # 9 EA, 1 total refill(s ), Acute Complet ed 10/20/2023 3 2022 9.0 Ambulat ory Pharmac y topiramate 100 mg oral tablet TAKE ONE TABLET BY MOUTH EVERY NIGHT, # 90 EA, 1 total refill(s ), Acute Complet ed 10/20/2023 2 2022 90.0 Ambulat ory Pharmac y topiramate 50 mg oral tablet TAKE ONE TABLET TWICE DAILY, # 60 EA, 1 total refill(s ), Acute Complet ed 12/31/2023 3 2023 60.0 Ambulat ory Pharmac y traZODone 50 mg oral tablet TAKE ONE TABLET BY MOUTH EVERY NIGHT, # 30 EA, 5 total refill(s ), Acute Complet ed 10/20/2023 2 2022 30.0 Ambulat ory Pharmac y traZODone 50 mg tablet 50 mg, Oral, Daily, # 90 EA, 0 total refill(s ), Hard Stop Oral (given by mouth) Complet ed 09/12/2024 4 2023 90.0 Ambulat ory Pharmac y traZODone 50 mg tablet See Instruct ions, # 90 EA, 3 total refill(s ), Acute Complet ed 04/13/2024 4 2023 90.0 Ambulat ory Pharmac y Trulicity Pen 1.5 mg/0.5 mL [4EA=2mL] See Instruct ions, # 2 mL, 2 total refill(s ), Hard Stop Complet ed 07/27/2024 3 2023 2.0 Ambulat ory Pharmac y Trulicity Pen 1.5 mg/0.5 mL [4EA=2mL] See dose instruct ions in comments , # 2 mL, 2 total refill(s ), Acute Complet ed 03/04/2024 3 2023 2.0 Ambulat ory Pharmac y Allergies, Adverse Reactions, Alerts Combined list of allergies from Department of Defense and Veterans Affairs facilities. It does not include entries that were removed or entered in error. Substance Category Reaction Severity Reaction type Status Date Reported Comments Source BENADRYL (DIPHENHYDRA MINE HCL) Drug allergy (disorder) Elevated blood-pres sure reading without diagnosis of hypertensi on active 8 [facility] diphenhydrAM INE Propensity to adverse reactions to drug Elevated blood-pres sure reading without diagnosis of hypertensi on Active 8 Raised B/P when given IV during Unknown Organiza tion PHENERGAN Drug allergy (disorder) Unknown active [address] [place] [address] Group PROMETHAZINE Drug allergy (disorder) Unknown active [address] [place] [address] Group promethazine Propensity to adverse reactions to drug Unknown Active 8 Reaction(s ): Unknown: Shakes, Lack of Control
Reaction (s): Unknown; Note: SHAKES, LACK OF CONTROL Unknown Organiza tion Immunizations Combined list of available immunizations from the Department of Defense and Veterans Affairs facilities. 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 Comments Source COVID Vaccine Pfizer 2021 Esa ch Arm [id number] PFIZER complet ed COVID Vaccine Pfizer 03/31/22 Given Ambulat ory Pharmac y SARS-COV-2 (COVID-19) vaccine, mRNA, spike protein, LNP, preservative free, 30 mcg/0.3mL dose 3 2021 MAJOR TREADWELL [id number] Pfizer, Inc (PFR) complet ed SARS-COV- 2 (COVID-19 ) vaccine, mRNA, spike protein, LNP, preservat chiara free, 30 mcg/0.3mL dose DoD COVID Vaccine Pfizer 2020 [facility] Arm [id number] PFIZER complet ed COVID Vaccine Pfizer 06/14/21 Given Ambulat ory Pharmac y SARS-COV-2 (COVID-19) vaccine, mRNA, spike protein, LNP, preservative free, 30 mcg/0.3mL dose 2 2020 ANGELA GIORDANO [id number] Pfizer, Inc (PFR) complet ed SARS-COV- 2 (COVID-19 ) vaccine, mRNA, spike protein, LNP, preservat chiara free, 30 mcg/0.3mL dose DoD COVID Vaccine Pfizer 2020 [facility] Arm [id number] PFIZER complet ed COVID Vaccine [facility] 04/04/21 Given Ambulat ory Pharmac y SARS-COV-2 (COVID-19) vaccine, mRNA, spike protein, LNP, preservative free, 30 mcg/0.3mL dose 1 2020 RADHA VALIENTE [id number] 208 Pfizer, Inc (PFR) complet ed SARS-COV- 2 (COVID-19 ) vaccine, mRNA, spike protein, LNP, preservat chiara free, 30 mcg/0.3mL dose DoD influenza, injectable, quadrivalent- pf 2016 Chai Arm [id number] 150 GlaxoSmithKli ne complet ed influenza , injectabl e, quadrival ent-pf 11/12/17 Given Ambulat ory Pharmac y influenza, injectable, quadrivalent- pf 2016 [id number] 150 GlaxoSmithKli ne complet ed influenza , injectabl e, quadrival ent-pf 11/12/17 Given Ambulat ory Pharmac y Influenza, injectable, quadrivalent, preservative free 1 2016 Unknown, Provider [id number] 150 [facility] (SKB) complet ed Influenza , injectabl e, quadrival ent, preservat chiara free DoD hepatitis B adult vaccine 2013 zzLef t Arm [id number] 43 GlaxoSmithKli ne complet ed hepatitis B adult vaccine 08/29/14 Given Ambulat ory Pharmac y influenza, live, intranasal,qu adrivalent 2013 [id number] 149 Medimmune Inc comple t ed influenza , live, intranasa l,quadriv alent 08/29/14 Given Ambulat ory Pharmac y influenza, live, intranasal,qu adrivalent 2013 [id number] 149 Medimmune Inc comple t ed influenza , live, intranasa l,quadriv alent 08/29/14 Given Ambulat ory Pharmac y hepatitis B adult vaccine 2013 [id number] 43 GlaxoSmithKli ne complet ed hepatitis B adult vaccine 08/29/14 Given Ambulat ory Pharmac y hepatitis B vaccine, adult dosage 1 2013 Unknown, Provider [id number] 43 [employer] (SKB) complet ed hepatitis B vaccine, adult dosage DoD influenza, live, intranasal, quadrivalent 1 2013 Unknown, Provider [id number] 149 [employer] (MED) complet ed influenza , live, intranasa l, quadrival ent DoD hepatitis B adult vaccine 2013 [id number] 43 GlaxoSmithKli ne complet ed hepatitis B adult vaccine 03/20/14 Given Ambulat ory Pharmac y hepatitis B adult vaccine 2013 [id number] 43 GlaxoSmithKli ne complet ed hepatitis B adult vaccine 03/20/14 Given Ambulat ory Pharmac y hepatitis B vaccine, adult dosage 2 2013 [id number] 43 [employer] (SKB) complet ed hepatitis B vaccine, adult dosage DoD hepatitis B adult vaccine 2013 [id number] 43 GlaxoSmithKli ne complet ed hepatitis B adult vaccine 02/14/14 Given Ambulat ory Pharmac y hepatitis B adult vaccine 2013 [id number] 43 GlaxoSmithKli ne complet ed hepatitis B adult vaccine 02/14/14 Given Ambulat ory Pharmac y hepatitis B vaccine, adult dosage 1 2013 [id number] 43 [employer] (SKB) complet ed hepatitis B vaccine, adult dosage DoD influenza, live, intranasal,qu adrivalent 2012 [id number] 149 Medimmune Inc comple t ed influenza , live, intranasa l,quadriv alent 08/24/13 Given Ambulat ory Pharmac y influenza, live, intranasal,qu adrivalent 2012 [id number] 149 Medimmune Inc comple t ed influenza , live, intranasa l,quadriv alent 08/24/13 Given Ambulat ory Pharmac y influenza, live, intranasal, quadrivalent 15 2012 [id number] 149 MedImmune, Inc. (MED) complet ed influenza , live, intranasa l, quadrival ent DoD influenza, seasonal, injectable-pf 2011 [id number] 140 [facility] complet ed influenza , seasonal, injectabl e-pf 10/01/12 Given Ambulat ory Pharmac y influenza, seasonal, injectable-pf 2011 [id number] 140 [facility] complet ed influenza , seasonal, injectabl e-pf 10/01/12 Given Ambulat ory Pharmac y Influenza, seasonal, injectable, preservative free 14 2011 [id number] 140 [facility] [employer] (CSL) complet ed Influenza , seasonal, injectabl e, preservat chiara free DoD tetanus, diphtheria, acellular pertu is 2011 [id number] 115 GlaxoSmithKli ne complet ed tetanus, diphtheri a, acellular pertussis 05/13/12 Given Ambulat ory Pharmac y tetanus, diphtheria, acellular pertu is 2011 [id number] 115 GlaxoSmithKli ne complet ed tetanus, diphtheri a, acellular pertussis 05/13/12 Given Ambulat ory Pharmac y tetanus toxoid, reduced diphtheria toxoid, and acellular pertu is vaccine, adsorbed 0 2011 [id number] 115 [place] ([place] complet ed tetanus toxoid, reduced diphtheri a toxoid, and acellular pertussis vaccine, adsorbed DoD influenza virus vaccine, live 2010 [id number] 111 Medimmune Inc [facility] t ed influenza virus vaccine, live 08/14/11 Given Ambulat ory Pharmac y influenza virus vaccine, live 2010 [id number] 111 [employer] Inc comple t ed influenza virus vaccine, live 08/14/11 Given Ambulat ory Pharmac y influenza virus vaccine, live, attenuated, for intranasal use 13 2010 [id number] 111 MedImmune, Inc. (MED) complet ed influenza virus vaccine, live, attenuate d, for intranasa l use DoD influenza virus vaccine, live 2009 [id number] 111 Medimmune Inc comple t ed influenza virus vaccine, live 09/02/10 Given Ambulat ory Pharmac y influenza virus vaccine, live 2009 [id number] 111 Medimmune Inc comple t ed influenza virus vaccine, live 09/02/10 Given Ambulat ory Pharmac y influenza virus vaccine, live, attenuated, for intranasal use 1 2009 [id number] 111 MedImmune, Inc. (MED) complet ed influenza virus vaccine, live, attenuate d, for intranasa l use DoD Novel influenza-H1N 1-09, injectable 2009 [id number] 127 Nov[employer]is [employer] ls complet ed Novel influenza -[id number], injectabl e 12/24/09 Given Ambulat ory Pharmac y Novel influenza-H1N 1-09, injectable 2009 [id number] 1A 127 Nov[employer]is [employer] ls complet ed Novel influenza -[id number], injectabl e 12/24/09 Given Ambulat ory Pharmac y Novel influenza-H1N 1-09, injectable 1 2009 [id number] 1A 127 Novartis [employer] Lucy. (NOV) complet ed Novel influenza -[id number], injectabl e DoD influenza virus vaccine, live 2008 [id number] 111 Medimmune Inc comple t ed influenza virus vaccine, live 08/09/09 Given Ambulat ory Pharmac y influenza virus vaccine, live 2008 [id number] 111 Med[employer] Inc comple t ed influenza virus vaccine, live 08/09/09 Given Ambulat ory Pharmac y influenza virus vaccine, live, attenuated, for intranasal use 1 2008 [id number] 111 MedImmune, Inc. (MED) complet ed influenza virus vaccine, live, attenuate d, for intranasa l use DoD influenza virus vaccine, live 2007 [id number] 111 Medimmune Inc comple t ed influenza virus vaccine, live 10/16/08 Given Ambulat ory Pharmac y influenza virus vaccine, live 2007 [id number] 111 Medimmune Inc comple t ed influenza virus vaccine, live 10/16/08 Given Ambulat ory Pharmac y influenza virus vaccine, live, attenuated, for intranasal use 1 2007 [id number] 111 [employer] (MED) complet ed influenza virus vaccine, live, attenuate d, for intranasa l use DoD influenza virus vaccine,split 2006 15 complet ed influenza virus vaccine,s plit 10/28/07 Given Ambulat ory Pharmac y influenza virus vaccine,split 2006 15 complet ed influenza virus vaccine,s plit 10/28/07 Given Ambulat ory Pharmac y influenza virus vaccine, split virus (incl. purified surface antigen)-reti red CODE 2 2006 15 Transcribed (TRS) complet ed influenza virus vaccine, split virus (incl. purified surface antigen)- retired CODE DoD influenza virus vaccine,split 2005 [id number] 15 sanofi pasteur complet ed influenza virus vaccine,s plit 11/05/06 Given Ambulat ory Pharmac y influenza virus vaccine,split 2005 [id number] 15 sanofi pasteur complet ed influenza virus vaccine,s plit 11/05/06 Given Ambulat ory Pharmac y influenza virus vaccine, split virus (incl. purified surface antigen)-reti red CODE 1 2005 [id number] 15 Sanofi Pasteur (PMC) complet ed influenza virus vaccine, split virus (incl. purified surface antigen)- retired CODE [facility] varicella virus vaccine 0 2005 21 () Not Given varicella virus vaccine DoD influenza virus vaccine,split 2004 [id number] 15 sanofi pasteur complet ed influenza virus vaccine,s plit 10/15/05 Given Ambulat ory Pharmac y influenza virus vaccine,split 2004 [id number] 15 sanofi pasteur complet ed influenza virus vaccine,s plit 10/15/05 Given Ambulat ory Pharmac y influenza virus vaccine, split virus (incl. purified surface antigen)-reti red CODE 1 2004 [id number] 15 Sanofi Pasteur (PMC) complet ed influenza virus vaccine, split virus (incl. purified surface antigen)- retired CODE [facility] meningococcal polysaccharid e (MPSV4) 2004 [id number] 32 sanofi pasteur complet ed meningoco ccal polysacch aride (MPSV4) 02/06/05 Given Ambulat ory Pharmac y meningococcal polysaccharid e (MPSV4) 2004 [id number] 32 sanofi pasteur complet ed meningoco ccal polysacch aride (MPSV4) 02/06/05 Given Ambulat ory Pharmac y meningococcal polysaccharid e vaccine (MPSV4) 1 2004 [id number] 32 Sanofi Pasteur (PMC) complet ed meningoco ccal polysacch aride vaccine (MPSV4) DoD influenza virus vaccine, whole virus 2002 16 complet ed influenza virus vaccine, whole virus 09/18/03 Given Ambulat ory Pharmac y influenza virus vaccine, whole virus 2002 16 complet ed influenza virus vaccine, whole virus 09/18/03 Given Ambulat ory Pharmac y influenza virus vaccine, whole virus 0 2002 16 () complet ed influenza virus vaccine, whole virus DoD tetanus-dipht h toxoids (Td) adult/adol 2002 [id number] 09 sanofi pasteur complet ed tetanus-d iphth toxoids (Td) adult/ado l 05/31/03 Given Ambulat ory Pharmac y tetanus-dipht h toxoids (Td) adult/adol 2002 [id number] 09 sanofi pasteur complet ed tetanus-d iphth toxoids (Td) adult/ado l 05/31/03 Given Ambulat ory Pharmac y tetanus and diphtheria toxoids, adsorbed, preservative free, for adult use (2 Lf of tetanus toxoid and 2 Lf of diphtheria toxoid) 0 2002 [id number] 09 Sanofi Pasteur (PMC) complet ed tetanus and diphtheri a toxoids, adsorbed, preservat chiara free, for adult use (2 Lf of tetanus toxoid and 2 Lf of diphtheri a toxoid) DoD tuberculin purified protein derivative 2002 zzLef t Arm [id number] 96 sanofi pasteur complet ed Patient Tolerance : Negative Ambulat ory Pharmac y tuberculin purified protein derivative 2002 [id number] 96 sanofi pasteur complet ed tuberculi n purified protein derivativ e 01/30/03 Given Ambulat ory Pharmac y tuberculin skin test; purified protein derivative solution, intradermal 1 2002 Unknown, Provider [id number] 96 Sanofi Pasteur (PMC) complet ed tuberculi n skin test; purified protein derivativ e solution, intraderm al DoD influenza virus vaccine, whole virus 2000 [id number] 16 [employer] complet ed influenza virus vaccine, whole virus 02/01/01 Given Ambulat ory Pharmac y hepatitis A adult vaccine 2000 [id number] 52 [employer] complet ed hepatitis A adult vaccine 02/01/01 Given Ambulat ory Pharmac y influenza virus vaccine, whole virus 2000 [id number] 16 [employer] complet ed influenza virus vaccine, whole virus 02/01/01 Given Ambulat ory Pharmac y hepatitis A adult vaccine 2000 [id number] 52 [employer] Inc complet ed hepatitis A adult vaccine 02/01/01 Given Ambulat ory Pharmac y influenza virus vaccine, whole virus 0 2000 [id number] 16 [facility] complet ed influenza virus vaccine, whole virus DoD hepatitis A vaccine, adult dosage 2 2000 [id number] 52 Merck (MSD) complet ed hepatitis A vaccine, adult dosage DoD influenza virus vaccine, whole virus 1998 16 complet ed influenza virus vaccine, whole virus 09/10/99 Given Ambulat ory Pharmac y influenza virus vaccine, whole virus 0 1998 16 () complet ed influenza virus vaccine, whole virus DoD influenza virus vaccine, whole virus [id number] 16 [facility] complet ed influenza virus vaccine, whole virus 09/15/98 Given Ambulat ory Pharmac y influenza virus vaccine, whole virus [id number] 16 [facility] complet ed influenza virus vaccine, whole virus 09/15/98 Given Ambulat ory Pharmac y influenza virus vaccine, whole virus 0 [id number] 16 [facility] (CON) complet ed influenza virus vaccine, whole virus DoD hepatitis A adult vaccine 1996 52 complet ed hepatitis A adult vaccine 10/02/97 Given Ambulat ory Pharmac y hepatitis A adult vaccine 1996 52 complet ed hepatitis A adult vaccine 10/02/97 Given Ambulat ory Pharmac y hepatitis A vaccine, adult dosage 1 1996 52 () complet ed hepatitis A vaccine, adult dosage DoD influenza virus vaccine, whole virus 19966987 [id number] 16 [employer] complet ed influenza virus vaccine, whole virus 09/15/97 Given Ambulat ory Pharmac y influenza virus vaccine, whole virus [id number] 16 [employer] complet ed influenza virus vaccine, whole virus 09/15/97 Given Ambulat ory Pharmac y influenza virus vaccine, whole virus 0 [id number] [id number] 16 [employer] (Inactive) ([place]) complet ed influenza virus vaccine, whole virus DoD influenza virus vaccine, whole virus 19966075 [id number] 16 [employer] complet ed influenza virus vaccine, whole virus 08/25/97 Given Ambulat ory Pharmac y influenza virus vaccine, whole virus 19966279 [id number] 16 [employer] complet ed influenza virus vaccine, whole virus 08/25/97 Given Ambulat ory Pharmac y influenza virus vaccine, whole virus 0 19968337 [id number] 16 [employer] (Inactive) ([place]) complet ed influenza virus vaccine, whole virus [facility] typhoid, parenteral, AKD 1995 53 complet ed typhoid, parentera l, AKD 03/30/96 Given Ambulat ory Pharmac y yellow fever vaccine 1995 37 complet ed yellow fever vaccine 03/30/96 Given Ambulat ory Pharmac y typhoid, parenteral, AKD 1995 53 complet ed typhoid, parentera l, AKD 03/30/96 Given Ambulat ory Pharmac y yellow fever vaccine 1995 37 complet ed yellow fever vaccine 03/30/96 Given Ambulat ory Pharmac y yellow fever vaccine 0 1995 37 () complet ed yellow fever vaccine [facility] typhoid vaccine, parenteral, acetone-kille d, dried ([place] ) 2 1995 53 () complet ed typhoid vaccine, parentera l, acetone-k illed, dried ([place] ) [facility] tetanus-dipht h toxoids (Td) adult/adol 1992 09 complet ed tetanus-d iphth toxoids (Td) adult/ado l 06/17/93 Given Ambulat ory Pharmac y poliovirus vaccine, live, oral 1992 02 complet ed polioviru s vaccine, live, oral 06/17/93 Given Ambulat ory Pharmac y poliovirus vaccine, live, oral 1992 02 complet ed polioviru s vaccine, live, oral 06/17/93 Given Ambulat ory Pharmac y tetanus-dipht h toxoids (Td) adult/adol 1992 09 complet ed tetanus-d iphth toxoids (Td) adult/ado l 06/17/93 Given Ambulat ory Pharmac y trivalent poliovirus vaccine, live, oral 0 1992 02 () complet ed trivalent polioviru s vaccine, live, oral DoD measles, mumps and rubella virus vaccine 0 1992 03 () Not Given measles, mumps and rubella virus vaccine DoD tetanus and diphtheria toxoids, adsorbed, preservative free, for adult use (2 Lf of tetanus toxoid and 2 Lf of diphtheria toxoid) 0 1992 09 () complet ed tetanus and diphtheri a toxoids, adsorbed, preservat chiara free, for adult use (2 Lf of tetanus toxoid and 2 Lf of diphtheri a toxoid) DoD meningococcal polysaccharid e (MPSV4) 1992 32 complet ed meningoco ccal polysacch aride (MPSV4) 06/06/93 Given Ambulat ory Pharmac y meningococcal polysaccharid e vaccine (MPSV4) 0 1992 32 () complet ed meningoco ccal polysacch aride vaccine (MPSV4) DoD Encounters Combined list of: 1) Encounters from Department of Veterans Affairs facilities going backup to the last 18 months, not all VA inpatient encounters are included; 2) Encounters from the Department of Defense facilities going backup to 280 months. Location Location Details Encounter Type Encounter Number Reason For Visit Attending Provider ADM Date DC Date Status Disposition Source [facility]) TELE CONSULT [id number] referra l to osterpa COOPER Henley 04/21 [facility]ina [facility]) OUTPATIENT [id number] osteopa thy referra l COOPER DEGROOT 04/24 Released w/o Limitations [facility] [employer] [employer] [facility] ) [facility] OUTPATIENT [id number] poss yeast infecti on MOJGAN CONTRERAS A 06/30 Released w/o Limitations [facility](F [facility]) [facility](ZZ Rina [facility]) TELE CONSULT [id number] problem s with COOPER Fernando 07/29 [facility](Z Z [place] [facility] ) [facility]) OUTPATIENT [id number] pap/que stions/ bcp change KEVIN WILLIAMSON 07/29 Released w/o Limitations [facility]) [facility](ZZ [facility]) OUTPATIENT [id number] consult s to surgery done 11yrs ago.... ...mo COOPER DEGROOT 09/22 Released w/o Limitations [facility](Z [facility] [place] [employer] ) [facility]) OUTPATIENT [id number] profile ..BAUTISTA ABY 10/22 Released w/o Limitations [facility](Z [facility] [employer] ) [facility](ZAaliyah Rina [facility]) TELE CONSULT [id number] ER visit COOPER DEGROOT 10/28 [facility](Z [facility] [employer] [employer] ) [facility](ZAaliyah Rina [facility]) OUTPATIENT [id number] sore throat, cough chest congest ion..TL COOPER DEGROOT 12/31 Released w/o Limitations [facility](Z [facility] [employer] ) [facility](ZAaliyah Rina [facility]) TELE CONSULT [id number] renewal of referra COOPER Gregory 07/09 [facility](Z [facility] [employer] ) [facility]([employer] [facility]) TELE CONSULT [id number] Pregnan cy results ANGEL SOLANO 09/07 [facility](G [employer] [facility]) [facility] [employer] [facility]) TELE CONSULT [id number] Needing a pregnan cy profile SKYLAR ESPINO 09/08 [facility]([place] [facility]) [facility] [employer] [facility]) OUTPATIENT [id number] general cold sxs...J MERARI MCNEAL 09/15 Released w/o Limitations [facility]( [facility]) [facility]) OUTPATIENT [id number] possib le bronchi tis... .JH THA LARA 09/20 Released w/o Limitations [facility]( [facility]) [facility]) TELE CONSULT [id number] Nasty cold and body aches/p vanessat DANIELLE MORALES 09/30 [facility]( [facility]) [facility]) OUTPATIENT [id number] Pregnan t with continu ed cough/c ough symptom s THA LARA 09/30 Released w/o Limitations [facility]( [facility]) [facility](Obs tetrics EG) OUTPATIENT [id number] new ob...9w RADHA Mack 10/14 Released w/o Limitations [facility](O bstetri cs EG) [facility](Obs tetrics EG) TELE CONSULT [id number] ob f/u STACY SAMS 10/18 [facility](O bstetri cs EG) [facility] [employer] [facility]) OUTPATIENT [id number] headach e...CLAUDE Johnston 10/18 Sick at Home/Quarter s [facility]( [facility]) [facility]) TELE CONSULT [id number] ANDRADE Jacobo 10/20 [facility]( [facility]) [facility]([employer] [facility]) TELE CONSULT [id number] Bleedin g after interco RADHA Us ADONIS 11/01 [facility](G yn Behavio r Health) [facility](Obs tetrics EG) OUTPATIENT [id number] 2TT..15 wks..cc h RADHA GUAJARDO 11/11 Released w/o Limitations [facility](O bstetri cs EG) [facility](Obs tetrics EG) OUTPATIENT [id number] 17.3 wks STANTON MENDOZA 12/09 Released w/o Limitations [facility](O bstetri cs EG) [facility](Obs tetrics EG) OUTPATIENT [id number] 20.3 WKS RITCHIESTACY SHER Nuris 01/06 Released w/o Limitations [facility](O bstetri cs EG) [facility] [employer] [facility]) TELE CONSULT [id number] FLU SXS ARBEN SUMMERS 01/24 [facility]( [employer] [facility]) [facility](Obs tetrics EG) TELE CONSULT [id number] return of email RADHA GUAJARDO 01/24 [facility](O bstetri cs EG) [facility] [employer] [facility]) OUTPATIENT [id number] flu symptom s...jls NGOC SKY 01/30 Released w/o Limitations [facility](F [employer] [facility]) [facility](Obs tetrics EG) OUTPATIENT [id number] 26 wk f/u...c RADHA GUAJARDO 02/06 Released w/o Limitations [facility](O bstetri cs EG) [facility](Obs tetrics EG) TELE CONSULT [id number] Follow up from ER visit from Bessie Barajas DEBORAH LEE 02/20 [facility](O bstetri cs EG) [facility](Obs tetrics EG) OUTPATIENT [id number] 28 wks STANTON MENDOZA 02/22 Released w/o Limitations [facility](O bstetri cs EG) [facility](Obs tetrics EG) TELE CONSULT [id number] ADMINIS TRATIVE ISSUES COLE FERNANDES 02/28 [facility](O bstetri cs EG) [facility](Obs tetrics EG) OUTPATIENT [id number] 30wks RADHA GUAJARDO 03/07 Released w/o Limitations [facility] [facility](O bstetri cs EG) [facility](Obs tetrics EG) OUTPATIENT [id number] 32 wks ELIAZAR DESOUZA 03/21 Released w/o Limitations [facility](O bstetri cs EG) [facility] [employer](Obs tetrics EG) OUTPATIENT [id number] TARA Byrne 03/23 Released w/o Limitations [employer] [facility](O bstetri cs EG) [facility] [employer](Obs tetrics EG) OUTPATIENT [id number] 35 weeks ELIAZAR DESOUZA 04/13 Released w/o Limitations [facility] [employer] [facility](O bstetri cs EG) [facility](Obs tetrics EG) TELE CONSULT [id number] Pt is 36 wks, request ing lab results MELISSA MORRISON 04/17 [facility] [employer](O bstetri cs EG) [facility](Ob/ [employer] [facility]) OUTPATIENT [id number] leaking fluid?? FIFI MORAES 04/24 Released w/o Limitations [facility] [facility](O b/[employer] [facility] Eg) [facility](Obs tetrics EG) OUTPATIENT [id number] 37 weeks ELIAZAR DESOUZA 04/27 Released w/o Limitations [employer](O bstetri cs EG) [facility](Ob/ [employer] [facility] Eg) TELE CONSULT [id number] c/o pain, jelly dischar ZARA Crane 05/03 [facility](O b/[employer] [facility] Eg) [facility](Obs tetrics EG) OUTPATIENT [id number] AKIKO CARDENAS 06/13 Released w/o Limitations [employer](O bstetri cs EG) [facility] [employer] [facility]) OUTPATIENT [id number] wwe/pap ....FELIZ Hurley 10/19 Released w/o Limitations [facility]([place] [facility] [employer] [facility]) [facility] [employer] [facility]) OUTPATIENT [id number] Severe cold sxs...b es FELIZ GARCIA M 12/28 Released w/o Limitations [employer] [facility](F [facility]) [facility] [employer] [facility](Opt ometry Cl EG) OUTPATIENT [id number] VISION SCREENI WEN PLATT S 03/09 Released w/o Limitations [employer] [facility](O ptometr y Cl EG) [employer]([facility] Eg) OUTPATIENT [id number] resched from [facility] meds FELIZ GARCIA Abhay 03/22 Released w/o Limitations [employer] [facility](F [facility]) [facility] [facility] [employer] [facility]) TELE CONSULT [id number] MAY Hubbard 03/29 [employer] [facility]( am[facility]) [facility] [facility] [employer] [facility]) OUTPATIENT [id number] f/u...j della FELIZ GARCIA M 04/19 Released w/o Limitations [facility] [facility](F [facility]) [facility] [facility](Ort hopedic EG) OUTPATIENT [id number] joint pain, localiz ed in the hip JUANA ETIENNE 04/30 Released w/o Limitations [facility] [facility](O rthoped ic EG) [facility] [facility] [employer] [facility]) OUTPATIENT [id number] OMT.... DUTCH Mora 05/08 Released w/o Limitations [facility] [facility](F [facility]) [facility](Phy sical Therapy 0024) OUTPATIENT [id number] calcifi c tendoni tis/tro ch bursiti s rt hip BALJEET MASSEY 05/10 Released w/o Limitations [facility] [facility](P hysical Therapy 0024) [facility](Phy sical Therapy 0024) OUTPATIENT [id number] CAITLYN MCNEILL 05/14 Released w/o Limitations [facility] [facility](P hysical Therapy 0024) [facility](Phy sical Therapy 0024) OUTPATIENT [id number] CAITLYN MCNEILL 05/17 Released w/o Limitations [employer] [facility](P hysical Therapy 0024) [facility](Phy sical Therapy 0024) OUTPATIENT [id number] ARASELI OLEARY 05/21 Released w/o Limitations [facility] [facility](P hysical Therapy 0024) [facility](Phy sical Therapy 0024) OUTPATIENT [id number] NIC SOTO 05/24 Released w/o Limitations [facility] [facility](P hysical Therapy 0024) [employer] [facility](Ort hopedic EG) OUTPATIENT [id number] RIGHT HIP PAIN JUAN ANDREW 05/24 Released w/o Limitations [facility](O rthoped ic EG) [facility] [facility](Fam [facility]sy [employer] [facility]) OUTPATIENT [id number] vomitin g/diarr hea.... FELIZ Hurley 05/25 Released w/o Limitations [facility](F [facility]) [facility] [facility](Phy sical Therapy 0024) OUTPATIENT [id number] ARASELI OLEARY 05/28 Released w/o Limitations [facility] [facility](P hysical Therapy 0024) [facility](Phy sical Therapy 0024) OUTPATIENT [id number] BALJEET MASSEY 05/30 Released w/o Limitations [facility](P hysical Therapy 0024) [facility](Phy sical Therapy 0024) OUTPATIENT [id number] CAITLYN MCNEILL 05/31 Released w/o Limitations [facility](P hysical Therapy 0024) [facility](Phy sical Therapy 0024) OUTPATIENT [id number] ARASELI OLEARY 06/04 Released w/o Limitations [facility] [facility](P hysical Therapy 0024) [facility](Phy sical Therapy 0024) OUTPATIENT [id number] ANIYAH GOMEZ 06/11 Released w/o Limitations [facility](P hysical Therapy 0024) [facility](Phy sical Therapy 0024) OUTPATIENT [id number] RAMIREZ ULRICH 06/14 Released w/o Limitations [facility](P hysical Therapy 0024) [facility](Phy sical Therapy 0024) OUTPATIENT [id number] RAMIREZ ULRICH 06/25 Released w/o Limitations [facility](P hysical Therapy 0024) [facility]) OUTPATIENT [id number] Diarrhe a, nausea, body ache... CLAUDE Whittington 07/05 Released w/o Limitations [facility]) [facility](Ort hopedic EG) OUTPATIENT [id number] F/U JUAN ANDREW 07/10 Released w/o Limitations [facility](O rthoped ic EG) [facility] TELE CONSULT [id number] Pt with increas ed right hip pain which is radiati ng down right leg. MADHU BISWAS 08/[facility] Eg) [facility](Ort hopedic EG) OUTPATIENT [id number] GPS INJECTI ON LORRIE JUAN Gaston 08/29 Released w/o Limitations [facility](O rthoped ic EG) [facility] [employer]([facility]sy [facility]) OUTPATIENT [id number] sore throat/ chest congest ion FELIZ GARCIA 10/26 Released w/o Limitations [employer] [facility]) [facility] patsy Health [facility]) OUTPATIENT [id number] meet and greet; stress issues; lipid results FELIZ GARCIA 12/28 Released w/o Limitations [facility]) [facility] [employer](Ort hopedic EG) OUTPATIENT [id number] F/U JUAN ANDREW 01/08 Released w/o Limitations [employer] [facility] [employer](O rthoped ic EG) [facility]) OUTPATIENT [id number] visit for: occupat ional health / fitness exam OLINDA TORRE 01/10 Released w/o Limitations [facility] [place] [place]) OUTPATIENT [id number] med records BRENDA TORRERamiro Lawler 01/18 Released w/o Limitations [facility] [place]) [facility] [facility]) TELE CONSULT [id number] Med refill MAY AVINA 02/26 [facility] [facility]( [facility]) [facility](Ort hopedic EG) OUTPATIENT [id number] GPS bilater al hip Brother s BROTHERSJUAN Alek 02/28 Released w/o Limitations [employer] [facility](O rthoped ic EG) [facility] [employer]([facility] [employer] [facility]) TELE CONSULT [id number] RX RENEWAL KINGS ALVARADO 06/17 Referred for Appointment [facility]( [facility]) [facility]) OUTPATIENT [id number] f/u for medicat ion r/t chornic neck pain r/t GOMEZ Pak 06/21 Released w/o Limitations [employer] [facility]( [facility]) [facility] [employer] [facility]) TELE CONSULT [id number] Rx ref. ALEXANDRU GEE 07/15 Referred for Appointment [facility]([place] [facility] [employer] [facility]) [facility] [employer]([facility] [employer] [facility]) OUTPATIENT [id number] cold... MATTHEW Osorio 08/01 Released w/o Limitations [facility] [facility]( [facility]) [facility] [facility] D) OUTPATIENT [id number] out of meds and is deployi MATTHEW Valdez W 09/02 Released w/o Limitations [employer](W arrior Operati onal Medicin e D) [facility] [facility]) TELE CONSULT [id number] needs med. profile ARBEN SUMMERS 09/05 Referred for Appointment [facility](W arrior Operati onal Medicin e D) [facility] al Medicine D) TELE CONSULT [id number] med refills .. JUAN DAVID SUMMERSNatalia Graham 10/03 Referred for Appointment [facility](W arrior Operati onal Medicin e D) [facility] D) TELE CONSULT [id number] MED REFILLS . JUAN DAVID SUMMERSNatalia Graham 10/03 Referred for Appointment [facility](W arrior Operati onal Medicin e D) [facility] D) OUTPATIENT [id number] fu medicat ions..j af MATTHEW HEREDIA W 10/21 Released w/o Limitations [employer](W arrior Operati onal Medicin e D) [facility](War rior Operation al Medicine D) TELE CONSULT [id number] med request JUAN DAVID SUMMERSNatalia Graham 11/25 Referred for Appointment [employer](W arrior Operati onal Medicin e D) [facility] [employer](War rior Operation al Medicine D) TELE CONSULT [id number] Con Leave JUAN DAVID SUMMERSNatalia Graham 12/04 Referred for Appointment [employer](W arrior Operati onal Medicin e D) [facility] [employer](War rior Operation al Medicine D) TELE CONSULT [id number] MAY AVINA 01/09 [facility] [employer](W arrior Operati onal Medicin e D) [facility](War rior Operation al Medicine D) TELE CONSULT [id number] con leave EMANUEL WREN 01/22 Advice Assessment [employer](W arrior Operati onal Medicin e D) [facility] [employer](War rior Operation al Medicine D) OUTPATIENT [id number] Paper work MATTHEW HEREDIA W 02/13 Released with Work/Duty Limitations [facility] [employer](W arrior Operati onal Medicin e D) [facility] [employer](War rior Operation al Medicine D) TELE CONSULT [id number] NETWORK RESULT NEUROSU RGERY JAN 24 MATTHEW HEREDIA W 02/19 [facility] [employer](W arrior Operati onal Medicin e D) [facility] OUTPATIENT [id number] rue ncv NERY PATINO G 02/27 Released w/o Limitations [facility](N eurolog y Clinic) [facility]) OUTPATIENT [id number] ncv read NARAYANASW EDISON, TRICHINOPO LY R 02/27 Released w/o Limitations [facility](N eurolog y Clinic) [facility] rology Clinic) OUTPATIENT [id number] Pas entered the order NARAYANASW EDISON, TRICHINOPO LY R 02/27 Released w/o Limitations [facility](N eurolog y Clinic) [facility] [employer](War rior Operation al Medicine D) TELE CONSULT [id number] Con Leave extensi on EMANUEL WREN 03/10 Other Not Elsewhere Classified [facility] [employer](W arrior Operati onal Medicin e D) [facility] [employer](War rior Operation al Medicine D) TELE CONSULT [id number] NETWORK RESULT- NEUROSU RG-03/06 MATTHEW HEREDIA W 03/13 [facility] [employer](W arrior Operati onal Medicin e D) [facility] [employer](War rior Operation al Medicine D) TELE CONSULT [id number] discuss getting second opinion EMANUEL WREN 03/14 Referred for Appointment [facility] [employer](W arrior Operati onal Medicin e D) [facility](War rior Operation al Medicine D) TELE CONSULT [id number] NETWORK RESULTS -NEURO- 03/06/11 MATTHEW HEREDIA W 03/27 [facility] [employer](W arrior Operati onal Medicin e D) [facility] [employer](War rior Operation al Medicine D) TELE CONSULT [id number] REQUEST EXTENSI ON ON CONVALE NCENT LEAVE EMANUEL WREN 04/08 Advice Assessment [facility] [employer](W arrior Operati onal Medicin e D) [facility](War rior Operation al Medicine D) TELE CONSULT [id number] Referra l 2nd opinion Neuro Surgeon . EMANUEL WREN 04/18 Advice Assessment [facility] [employer](W arrior Operati onal Medicin e D) [facility](War rior Operation al Medicine D) TELE CONSULT [id number] NETWORK RESULTS NEUROSU RGERY 1 MATTHEW HEREDIA W 04/22 [facility] [employer](W arrior Operati onal Medicin e D) [facility] [employer](War rior Operation al Medicine D) TELE CONSULT [id number] Con Leave/P CS extensi on EMANUEL WREN L 04/22 Advice Assessment [facility] [employer](W arrior Operati onal Medicin e D) [facility] [employer](War rior Operation al Medicine D) TELE CONSULT [id number] Con Leave EMANUEL WREN L 06/10 Referred for Appointment [facility] [employer](W arrior Operati onal Medicin e D) [facility] [employer](War rior Operation al Medicine D) TELE CONSULT [id number] process of HIB EMANUEL WREN Nuris 06/16 Advice Assessment [facility] [employer](W arrior Operati onal Medicin e D) [facility] [employer](War rior Operation al Medicine D) OUTPATIENT [id number] HIB MATTHEW HEREDIA Mikal 06/25 Released w/o Limitations [facility] [employer](W arrior Operati onal Medicin e D) [facility] [employer](War rior Operation al Medicine D) TELE CONSULT [id number] NETWORK RESULTS -CT-32 02/24 MATTHEW HEREDIA W 07/01 [facility] [employer](W arrior Operati onal Medicin e D) [facility] [employer](War rior Operation al Medicine D) TELE CONSULT [id number] request for call back to discuss profile ALEXANDRU GEE 07/04 [facility] [employer](W arrior Operati onal Medicin e D) [facility] [employer](War rior Operation al Medicine D) TELE CONSULT [id number] NETWORK RESULTS -MRI REPORT- 01/06/11 ALEXIS HUNG 08/04 [facility] [employer](W arrior Operati onal Medicin e D) [facility] [employer](War rior Operation al Medicine D) OUTPATIENT [id number] HIB appt TARUN VERDUZCO 08/11 Released w/o Limitations [facility] [employer](W arrior Operati onal Medicin e D) [facility] [employer](War rior Operation al Medicine D) TELE CONSULT [id number] NETWORK RESULTS NEUROLO GY NOTES F.U 1 AELXIS HUNG 08/14 [facility] [employer](W arrior Operati onal Medicin e D) [facility] [employer](War rior Operation al Medicine D) OUTPATIENT [id number] wwe pap.... ...gp TARUN VERDUZCO 10/02 Released w/o Limitations [facility] [employer](W arrior Operati onal Medicin e D) [facility] [employer](War rior Operation al Medicine D) OUTPATIENT [id number] head congest ion.nw ALEXIS HUNG 10/13 Released w/o Limitations [facility] [employer](W arrior Operati onal Medicin e D) [facility] [employer](War rior Operation al Medicine D) TELE CONSULT [id number] PCM: MATTHEW HEREDIA W: med renewal MAY AVINA 10/21 [facility] [employer](W arrior Operati onal Medicin e D) [facility] [employer](War rior Operation al Medicine D) TELE CONSULT [id number] Needs NAM appoint ment per KATIE Posey 01/15 [facility] [employer](W arrior Operati onal Medicin e D) [facility] [employer](War rior Operation al Medicine D) OUTPATIENT [id number] profile TARUN VERDUZCO 01/18 Released w/o Limitations [facility] [employer](W arrior Operati onal Medicin e D) [facility] [employer](War rior Operation al Medicine D) TELE CONSULT [id number] PCM AGNIESZKA (ONLY SEE DAX ) walk-in apt KATIE LAGUNAS 01/22 [facility] [employer](W arrior Operati onal Medicin e D) [facility] [employer](War rior Operation al Medicine D) TELE CONSULT [id number] KATIE LAGUNAS 01/26 [facility] [employer](W arrior Operati onal Medicin e D) [facility] [employer](War rior Operation al Medicine D) TELE CONSULT [id number] Notes Entered by: JONAS AGUILAR 03 Feb 2012 1302 ------- ------- ------- ------- -- NETWORK RESULTS NEVILLEU THIERNO 2 TARUN VERDUZCO Ramiro 02/02 [facility] [employer](W arrior Operati onal Medicin e D) [facility] Operation al Medicine D) OUTPATIENT [id number] [facility] TARUN VERDUZCO Ramiro 02/02 Released w/o Limitations [facility] [employer](W arrior Operati onal Medicin e D) [facility](War [facility] Operation al Medicine D) TELE CONSULT [id number] Notes Entered by: JIMENA BANSAL 06 Feb 2012 1432 ------- ------- ------- ------- -- INFO NEEDED AD DME KATIE VALIENTE 02/05 [facility] [employer](W arrior Operati onal Medicin e D) [facility] Operation al Medicine D) TELE CONSULT [id number] Notes Entered by: TARUN VERDUZCO 08 Feb 2012 1441 ------- ------- ------- ------- -- DURGAA KATIE Porter 02/07 [facility] [employer](W arrior Operati onal Medicin e D) [facility] Operation al Medicine D) TELE CONSULT [id number] Notes Entered by: ROSENDA WINCHESTER 20 Feb 2012 1144 ------- ------- ------- ------- -- BILLIE SWEET 02/19 Referred for Appointment [facility] [employer](W arrior Operati onal Medicin e D) [facility] [employer](Phy sical Therapy 0024) OUTPATIENT [id number] Cervica l spondyl DENNIS Dickson 03/02 Released w/o Limitations [facility] [employer](P hysical Therapy 0024) [facility] [employer](War rior Operation al Medicine D) OUTPATIENT [id number] flb...s ep LACI HEREDIAIC W 04/02 Released w/o Limitations [facility] [employer](W arrior Operati onal Medicin e D) [facility] [employer]( rior Operation al Medicine D) OUTPATIENT [id number] Notes Entered by: MATTHEW HEREDIA 08 Apr 2012 0701 ------- ------- ------- ------- -- MEB Narrati ve - Cervica lgia with Radicul opathy AVANIMATTHEW MOODY W 04/08 Released w/o Limitations [facility] [employer](W arrior Operati onal Medicin e D) [facility] [employer]( rior Operation al Medicine D) OUTPATIENT [id number] 422/Spe cial duty LACI HEREDIAIC W 05/13 Released w/o Limitations [facility] [employer](W arrior Operati onal Medicin e D) [facility]( [facility] Operation al Medicine D) TELE CONSULT [id number] Notes Entered by: RIANNA PARSONS 24 May 2012 1434 ------- ------- ------- ------- -- Agnieszka. .pt needs Rx refill Tramado l HCL 50mg KATIE LAGUNAS 05/24 [facility] [employer](W arrior Operati onal Medicin e D) [facility]( [facility] Operation al Medicine D) OUTPATIENT [id number] f/u for meds MATTHEW HEREDIA W 06/16 Released w/o Limitations [facility] [employer](W arrior Operati onal Medicin e D) [facility] PHA Cell) OUTPATIENT [id number] Notes Entered by: STEPHEN FARIAS 03 Aug 2012 0832 ------- ------- ------- ------- -- JOLIE LOCKHART 08/03 Released w/o Limitations [facility](P ublic Health PHA Cell) [facility] Operation al Medicine D) TELE CONSULT [id number] Notes Entered by: Quan GARCIA 31 Aug 2012 1535 ------- ------- ------- ------- -- med refill issues KATIE LAGUNAS 08/31 [employer](W arrior Operati onal Medicin e D) [employer]([facility]) OUTPATIENT [id number] Notes Entered by: JHON BANSAL 14 Sep 2012 1517 ------- ------- ------- ------- -- Inproce ssing JHON BANSAL 09/14 Released w/o Limitations [employer]([facility]) [employer]([facility] _Team B Non-AD) TELE CONSULT [id number] Notes Entered by: JOBY VELÁZQUEZ 30 Sep 2012 0706 ------- ------- ------- ------- -- DELTA Aguilar 09/30 Referred for Appointment [employer]([facility] _[facility]_Te am B Non-AD) [employer]([facility] _Team [facility] Non-AD) OUTPATIENT [id number] med refill and discuss pasted neck surgery JOBY MARCUS 12/07 Released w/o Limitations [employer]([facility] _FMC_Te am B Non-AD) [employer]([facility] _Team B Non-AD) OUTPATIENT [id number] ongoing JOBY Zimmer 12/28 Released w/o Limitations [employer]([facility] _FMC_Te am B Non-AD) [employer]([facility] _Team B Non-AD) OUTPATIENT [id number] infecti on on eyelid JOBY MARCUS 01/06 Released w/o Limitations [employer]([facility] _FMC_Te am B Non-AD) [employer]([facility] _Team B Non-AD) TELE CONSULT [id number] Notes Entered by: Ramiro UPTON 24 Feb 2013 0715 ------- ------- ------- ------- -- Request ing renewal of NGOC Matute 02/24 Referred for Appointment [employer]([facility] _F[facility]_Te am B Non-AD) [employer]([facility] _Team B Non-AD) OUTPATIENT [id number] neck pain JOBY MARCUS 03/08 Released w/o Limitations [employer]([facility] _[facility]_Te am B Non-AD) [employer]([facility] _Team B Non-AD) TELE CONSULT [id number] Notes Entered by: SARINA MATTHEWS 12 May 2013 0911 ------- ------- ------- ------- -- MIHAELA Olson 05/12 Referred for Appointment [employer]([facility] _F[facility]_Te am B Non-AD) [employer]([facility] _Team B Non-AD) TELE CONSULT [id number] Notes Entered by: JOBY VELÁZQUEZ 18 May 2013 1100 ------- ------- ------- ------- -- pain DELTA BARTON 05/18 Referred for Appointment [employer]([facility] _FMC_Te am B Non-AD) [employer](PHA Cell) OUTPATIENT [id number] Notes Entered by: Natalia CARROLL 18 Aug 2013 0925 ------- ------- ------- ------- -- PHA MEERA ELIAS 08/18 Released w/o Limitations [employer](P [facility] Cell) [employer]([facility] _Team B Non-AD) OUTPATIENT [id number] RILO JOBY MARCUS 08/22 Released w/o Limitations [employer]([facility] _FMC_Te am B Non-AD) [employer](PHA Cell) OUTPATIENT [id number] Notes Entered by: LUISA WINCHESTER 24 Aug 2013 0948 ------- ------- ------- ------- -- FACE-TO -FACE PHA ARMAAN WALTERS 08/24 Released w/o Limitations [employer](P [facility] Cell) [employer](Phy sical Therapy (BLAA)) OUTPATIENT [id number] Neck pain YOLIS PHIPPS 08/30 Released w/o Limitations [employer](P hysical Therapy (BLAA)) [employer]([facility] _Team B Non-AD) OUTPATIENT [id number] profile JOBY MARCUS 10/20 Released w/o Limitations [employer]([facility] _FMC_Te am B Non-AD) [employer]([facility] _Team B Non-AD) TELE CONSULT [id number] Notes Entered by: SARINA MATTHEWS 29 Nov 2013 0740 ------- ------- ------- ------- -- OEM-Ref erral Request (Neuros urgery) MIHAELA ORTIZ 11/29 Other Not Elsewhere Classified [employer]([facility] _FMC_Te am B Non-AD) [employer]([facility] _Team B Non-AD) TELE CONSULT [id number] Notes Entered by: SARINA MATTHEWS 08 Dec 2013 1110 ------- ------- ------- ------- -- OEM-Med ication VIVIAN EATON 12/08 [employer]([facility] _FMC_Te am B Non-AD) [employer]([facility] _Team B Non-AD) OUTPATIENT [id number] hives all over body JOBY MARCUS 01/30 Released w/o Limitations [employer]([facility] _FMC_Te am B Non-AD) [employer]([facility] _Team B Non-AD) OUTPATIENT [id number] f/u JOBY Shelton 02/02 Released w/o Limitations [employer]([facility] _FMC_Te am B Non-AD) [employer]([facility] _Team B Non-AD) TELE CONSULT [id number] Notes Entered by: LIBERTY MUJICA 16 May 2014 1018 ------- ------- ------- ------- -- Appoint ment LIBERTY MUJICA 05/16 Referred for Appointment [employer]([facility] _FMC_Te am B Non-AD) [employer]_F HC_Team A) OUTPATIENT [id number] DALE SCHWARZ 05/23 Released w/o Limitations [employer]([facility]) [employer] HC_Team A) TELE CONSULT [id number] Notes Entered by: TRAE DINH 06 Jun 2014 1602 ------- ------- ------- ------- -- Refill of medicat ions DALE RUSSELL 06/06 [employer](Z [employer]ZNcirl ik_C_ Team A) [employer](ZZ [employer]_F HC_Team A) OUTPATIENT [id number] medicat ion appoint NEVAEH Montero 07/26 Released w/o Limitations [employer]([facility]) [employer](Opt ometry) OUTPATIENT [id number] eye exam, ANTONY Crooks 11/21 Released w/o Limitations [employer](O ptometr y) [employer]_F HC_Team A) OUTPATIENT [id number] elbow, shoulde r issues, 4-5 mos RUSSELL, DALE M 11/27 Released w/o Limitations [employer](Z ZZNcirl ik_FHC_ Team A) [employer]_F HC_Team A) OUTPATIENT [id number] sleepin g NAVI aNva 12/07 Released w/o Limitations [employer](Z ZZNcirl ik_FHC_ Team A) [facility](EFM P [employer]irlik) TELE CONSULT [id number] Notes Entered by: FARTUN DENIS 07 Dec 2014 1109 ------- ------- ------- ------- -- Review of records and EFMP enrollm ent. FARTUN DENIS 12/07 [employer](E FMP Incirli k) [employer]_[facility] HC_Team A) OUTPATIENT [id number] f/u on EFMP inquiry NAVI CHATTERJEE 12/18 Released w/o Limitations [employer](Z ZZNcirl ik_FHC_ Team A) [facility]([employer]_F HC_Team A) OUTPATIENT [id number] f/u on medicat ion (*symba lta 30mg) it is for pain NAVI CHATTERJEE 01/12 Released w/o Limitations [employer](Z ZZNcirl ik_FHC_ Team A) [facility]([employer]_F HC_Team A) TELE CONSULT [id number] Notes Entered by: Johann FIELDS 01 Mar 2015 1232 ------- ------- ------- ------- -- Medicat ion Refill for Ultram. [id number] CLAUDE GRUBBS 03/01 [employer](Z ZZNcirl ik_FHC_ Team A) [employer]_F HC_Team A) OUTPATIENT [id number] Mbr request ed apointm ent to get medicat ion Ultrum NAVI CHATTERJEE 03/07 Released w/o Limitations [employer]([facility]_ Team A) [facility] Tm D-AD) OUTPATIENT [id number] New patient request med refills ......MERARI Bustillo lg 04/20 Released w/o Limitations [employer]([facility] Med Clinic Tm D-AD) [facility](War ri[facility] Op Med Clinic Tm D-AD) TELE CONSULT [id number] Notes Entered by: YUE BERGER 17 May 2015 1453 ------- ------- ------- ------- -- REG medicat ion GENARO WATKINS 05/17 [facility](W [facility] Op Med Clinic Tm D-AD) [facility](War [facility] Op Med Clinic Tm D-AD) OUTPATIENT [id number] medicat ion.... ..MERARI Hammond 06/11 Released w/o Limitations [facility](W [facility] Op Med Clinic Tm D-AD) [facility] Op Med Clinic Tm D-AD) TELE CONSULT [id number] Notes Entered by: MATIAS BYRD 06 Jul 2015 1308 ------- ------- ------- ------- -- Pt is request ing a CT scan... . PERFECTO WREN 07/06 [facility] Op Med Clinic Tm D-AD) [facility] Op Med Clinic Tm D-AD) OUTPATIENT [id number] new pt/exte nsive hx med managem ent/has pain managem ent consult ELIA PERALTA 07/13 Released w/o Limitations [facility] Op Med Clinic Tm D-AD) [facility] Tm D-AD) TELE CONSULT [id number] Notes Entered by: ELIA PERALTA 23 Jul 2015 1255 ------- ------- ------- ------- -- labs ELIA PERALTA 07/23 [facility](W [facility] Op Med Clinic Tm D-AD) [facility] Med Clinic Tm D-AD) TELE CONSULT [id number] Notes Entered by: EDISON KHANNA 22 Oct 2015 1515 ------- ------- ------- ------- -- Med refills . P: PERFECTO Jade 10/22 [facility] Op Med Clinic Tm D-AD) [facility]) OUTPATIENT [id number] Notes Entered by: ISAAC SINHA 17 Nov 2015 1612 ------- ------- ------- ------- -- nerve pain EMANUEL SZYMANSKI 11/17 Released with Work/Duty Limitations [facility]) [facility] Op Med Clinic Tm D-AD) TELE CONSULT [id number] Notes Entered by: ALEXI LUCAS 13 Dec 2015 1529 ------- ------- ------- ------- -- Medicat ion refill ELIA PERALTA 12/13 [facility] Op Med Clinic Tm D-AD) [facility](War ri[facility] Op Med Clinic Tm D-AD) TELE CONSULT [id number] Notes Entered by: EDISON KHANNA 19 Dec 2015 1543 ------- ------- ------- ------- -- Pt. needs more medicat ion to get through to appt with you on Jan 01. GENARO Clay 12/19 [facility](W [facility] Op Med Clinic Tm D-AD) [facility](War rior Op Med Clinic Tm D-AD) TELE CONSULT [id number] Notes Entered by: ALEXI LUCAS 14 Jan 2016 1239 ------- ------- ------- ------- -- Med renewal THEA NIELSEN Ajay [facility]( [facility] Tm D-AD) OUTPATIENT [id number] Chronic Pain/Na rcotic Use ELIA PERALTA 01/16 Released w/o Limitations [facility]( [facility]) [facility] Tm A-AD) TELE CONSULT [id number] Notes Entered by: DIDI REECE 29 Feb 2016 1512 ------- ------- ------- ------- -- NETWORK RESULTS - NEURO/M RI 01/01 ELIA PERALTA 02/28 [facility]( [facility](Aris garrido [facility]) OUTPATIENT [id number] Notes Entered by: PARAG DEL CID 20 Mar 2016 1518 ------- ------- ------- ------- -- O NARAYAN RAY 03/20 Released w/o Limitations [address] [place] [address]( sully [facility]) [address] [place], [place] [address]([facility]-AD) TELE CONSULT [id number] Notes Entered by: JAKE SWANN 23 Apr 2016 1024 ------- ------- ------- ------- -- Ludwin belcher during move. Request PERFECTO Griffin 04/[address] [place] [address]([facility]) [facility] Treatment [facility] [place] [address]([facility] _Team E) OUTPATIENT [id number] Pt request ed irlanda for Tramado l/Pt Advocat e Issue KARYNA MEDINA 05/23 Released w/o Limitations ARTIE [place] [address]([place] _[facility]_Te am E) [place] [address]([facility] Med Lift Team,[facility] C) TELE CONSULT [id number] Notes Entered by: Marko MCNEILL 12 Feb 2017 1259 ------- ------- ------- ------- -- No BIMAL Harris 02/12 Referred for Appointment [facility] [place] [address](F am Med Lift Team,[facility]) [place] [address]([facility] Med Lift Team,[facility] C) OUTPATIENT [id number] EVAL FOR HOT FLASHES /BLEEDI [facility] KIRBY HAWKINS 04/10 Released w/o Limitations [facility] [place] [address](F am Med Lift Team,[facility]) [place] [address]([employer] [facility], [facility]) OUTPATIENT [id number] Other specifi ed abnorma l uterine and vaginal bleedin LUIS ARMANDO Dumont S 05/04 Released w/o Limitations [facility] [place] [address]([facility], [facility]) [place] [address]([facility], [facility]) OUTPATIENT [id number] Notes Entered by: AUSTYN COLE 15 May 2017 1053 ------- ------- ------- ------- -- Care coordin ya AUSTYN COLE 05/15 Released w/o Limitations [facility] [place] [address](Fabiana Montes ent, [facility]) [place] [address](Kanchan alvarez [facility] Team A) TELE CONSULT [id number] Notes Entered by: Ramiro HAWKINS 25 May 2017 1734 ------- ------- ------- ------- -- pelvic ultraso und JACOB PRIETO 05/25 [facility] [place] [address](L [facility] Team A) [place] [address]([facility] Team A) TELE CONSULT [id number] Notes Entered by: EDMUNDO MCDERMOTT 03 Jun 2017 1155 ------- ------- ------- ------- -- FCR/NAJMA BARBER Appt request this wk. rodney lucas med EFMP. [phone] KIRBY GOODWIN N 06/03 [facility] [place] [address]([facility] Team A) [place] [address]([facility] Team A) OUTPATIENT [id number] angélica lucas paperwo KIRBY Franks 06/05 Released w/o Limitations [facility] [place] [address]([facility] Team A) [employer]([facility] [employer] [facility]) TELE CONSULT [id number] Notes Entered by: Marko SAINZ 07 Jul 2017 1401 ------- ------- ------- ------- -- Appt fabiana [place] GONZALEZ 07/07 Referred for Appointment [employer](G yn Clinic) [employer]([facility] [employer] [facility]) OUTPATIENT [id number] F/U ULTRASO UND KATE MARES 07/24 Released w/o Limitations [employer](G yn Clinic) [employer](War [facility] Op Med Cl Tm A-AD) TELE CONSULT [id number] Notes Entered by: Marko SAINZ 29 Jul 2017 1404 ------- ------- ------- ------- -- Cont. Of MAE Narvaez 07/29 Referred for Appointment [employer](W arrior Op Med Cl Tm A-AD) [employer](War [facility] Op Med Cl Tm A-AD) OUTPATIENT [id number] Need for referra nuris/ARTURO Bassett pt 08/03 Released w/o Limitations [employer](W arrior Op Med Cl Tm A-AD) [employer](War rior Op Med Cl Tm A-AD) OUTPATIENT [id number] dizzy, nausea SIL FALL 08/19 Released w/o Limitations [employer](W arrior Op Med Cl Tm A-AD) [employer](War rior Op Med Cl Tm A-AD) TELE CONSULT [id number] Notes Entered by: SIL FALL 20 Aug 2017 1301 ------- ------- ------- ------- -- +UTI GAURANG FARNSWORTH V 08/20 Referred for Appointment [employer](W arrior Op Med Cl Tm A-AD) [employer](War rior Op Med Cl Tm A-AD) OUTPATIENT [id number] severe back pain and vomitin g SIL FALL 08/27 Released w/o Limitations [employer](W arrior Op Med Cl Tm A-AD) [employer](War rior Op Med Cl Tm A-AD) OUTPATIENT [id number] medicat ion renewal ARTURO LARSON 08/31 Released w/o Limitations [employer](W arrior Op Med Cl Tm A-AD) [employer](War rior Op Med Cl Tm A-AD) TELE CONSULT [id number] Notes Entered by: Natalia BENNETT V 2017 1358 ------- ------- ------- ------- -- CHINMAY Jenkins 09/02 Other Not Elsewhere Classified [employer](W arrior Op Med Cl Tm A-AD) [employer]([facility] [employer] [facility]) TELE CONSULT [id number] Notes Entered by: Natalia BENNETT V 16 Sep 2017 1318 ------- ------- ------- ------- -- Needs second opinion CHINMAY ARREOLA 09/16 Referred for Appointment [employer](G yn Clinic) [employer](War rior Op Med Cl Tm A-AD) OUTPATIENT [id number] med renewal ARTURO LARSON 09/21 Released w/o Limitations [employer](W arrior Op Med Cl Tm A-AD) [employer](War rior Op Med Cl Tm A-AD) TELE CONSULT [id number] Notes Entered by: Natalia BENNETT V 23 Sep 2017 1204 ------- ------- ------- ------- -- [facility] MAE MERRILL 09/23 Other Not Elsewhere Classified [employer](W arrior Op Med Cl Tm A-AD) [employer]([facility] [employer] [facility]) TELE CONSULT [id number] Notes Entered by: Marko SAINZ 29 Sep 2017 0737 ------- ------- ------- ------- -- Surgery angélica gerardoi ALBINO Boggs 09/29 Referred for Appointment [employer](G yn Clinic) [employer](War rior Op Med Cl Tm A-AD) TELE CONSULT [id number] Notes Entered by: BLAINE RAMOS 06 Nov 2017 1438 ------- ------- ------- ------- -- Med renewal ALLISON SANCHEZ 11/06 [employer](W arrior Op Med Cl Tm A-AD) [employer](War rior Op Med Cl Tm A-AD) OUTPATIENT [id number] medicat ion refill ARTURO LARSON 11/10 Released w/o Limitations [employer](W arrior Op Med Cl Tm A-AD) [employer](War rior Op Med Cl Tm A-AD) TELE CONSULT [id number] Notes Entered by: DALE FARMER 24 Nov 2017 0850 ------- ------- ------- ------- -- Change GAURANG Lieberman V 11/24 Referred for Appointment [employer](W arrior Op Med Cl Tm A-AD) [employer]([facility]) TELE CONSULT [id number] Notes Entered by: Cristian MARES 25 Jan 2018 0813 ------- ------- ------- ------- -- Pap result CHINMAY ARREOLA 01/25 Referred for Appointment [employer](G yn Clinic) [employer](Phy sical Therapy Clinic) OUTPATIENT [id number] MONIKA AGGARWAL 02/12 Released w/o Limitations [employer](P hysical Therapy Clinic) [employer](Fam Med Cl Tm B Non-Ad) OUTPATIENT [id number] severe back pain UYEN MANCIA 05/26 Released w/o Limitations [employer](F am Med Cl Tm B Non-Ad) [employer](Dima e [employer]agemen t Services) TELE CONSULT [id number] Notes Entered by: NIMCO RIDER 27 May 2018 1630 ------- ------- ------- ------- -- CAMILA Rios 05/27 Referred for Appointment [employer](C ase Managem ent Service s) [employer](Fam Med Cl Tm B Non-Ad) TELE CONSULT [id number] Notes Entered by: GAMALIEL SAENZ 13 Sep 2018 1417 ------- ------- ------- ------- -- Request for refill GAMALIEL SAENZ 09/13 [employer](F am Med Cl Tm B Non-Ad) [facility] Yony AUGUSTIN ([facility])(Fam patsy Med Tm B Non-AD BCC) OUTPATIENT [id number] new patient /meds/r jitendra when showenrique membreno / ALLISON EATON 11/18 Released w/o Limitations [address] [place] [address])(F amily Med Tm B Non-AD BCC) [address] [place] [address])([facility] ) OUTPATIENT [id number] Red blotchy itchy rash after showers x 3 - 4 months DONN GUADALUPE 01/18 Released w/o Limitations [address] [place] [address])(S cott [facility] Tm) [address] [place] [address])([facility] ) TELE CONSULT [id number] Notes Entered by: YANETH OQUENDO 17 Feb 2019 1433 ------- ------- ------- ------- -- Med refill/ PA Miranda/ DONN MATTA 02/[address] [place] [address])(S cott [facility] Medicin [facility] Tm) [address] [place] [address])([facility] ) TELE CONSULT [id number] Notes Entered by: JACKLYN CADET 17 Feb 2019 1518 ------- ------- ------- ------- -- Cyclobe nzaprin e medicat ion refill PAMELA CADET 02/17 Medication Refill Forwarded [address] [place] [address])(S cott [facility] Tm) [address] [place] [address])([facility] ) TELE CONSULT [id number] Notes Entered by: DESTINEE JAIMES 12 May 2019 1351 ------- ------- ------- ------- -- Rx refill request DONN GUADALUPE 05/[address] [place] [address])(S cott [facility] Tm) [address] [place] [address])([facility] ) TELE CONSULT [id number] Notes Entered by: TJ RODRIGUEZ 02 Jun 2019 1113 ------- ------- ------- ------- -- Appt request /nico s/ eld DESTINEE JAIMES 06/02 Referred for Appointment [facility])(S cott Flight Medicin e Tm) [address] [place] [address])([facility] ) OUTPATIENT [id number] Rx switch request . Current ly on lunesta , possibl y xanax for anxiety /insomn i DONN GUADALUPE 06/03 Released w/o Limitations [address] [place] [address] [facility])(S cott Flight Medicin e Tm) [address] [place] [address])([facility] ) TELE CONSULT [id number] Notes Entered by: YANETH OQUENDO 07 Jun 2019 1041 ------- ------- ------- ------- -- Med issues/ PA Miranda/ DEBRA DAVIS 06/07 Referred for Appointment [address] [place] [address] [facility])(S cott Flight Medicin e Tm) [address] [place] [address])([facility] ) OUTPATIENT [id number] Notes Entered by: DARLINE MALONE 10 Jun 2019 1027 ------- ------- ------- ------- -- SLEEP ISSUES SYED PINEDA 06/10 Released w/o Limitations [address] [place] [address])(S [facility] Tm) [address] [place] [address])([facility] ) OUTPATIENT [id number] F/U SYED PINEDA 07/15 Released w/o Limitations [address] [place] [address])(S cott [facility] Medicin e Tm) [address] [place] [address])([facility] ) TELE CONSULT [id number] Notes Entered by: DARLINE MALONE 25 Jul 2019 1059 ------- ------- ------- ------- -- LAB RESULTS MONIKA LUONG 07/25 Advice Assessment [address] [place] [address] Yony [facility])(S cott Flight Medicin e Tm) [address] [place] [address])([facility] ) TELE CONSULT [id number] Notes Entered by: DARLINE MALONE 02 Aug 2019 0911 ------- ------- ------- ------- -- LAB RESULTS MONIKA LEDEZMA 08/[address] [place] [address] Yony [facility])(S Digital Assent Flight Medicin e Tm) [address] [place] [address])([facility] ) TELE CONSULT [id number] Notes Entered by: FRANCISCO REYEZ 05 Aug 2019 1018 ------- ------- ------- ------- -- lab results /Jarrett cronin/MONIKA Eller 08/05 Other Not Elsewhere Classified [address] [place] [address] [facility])(S [employer] Flight Medicin e Tm) [address] [place] [address])([facility] ) TELE CONSULT [id number] Notes Entered by: DARLINE MALONE 15 Aug 2019 1017 ------- ------- ------- ------- -- THYROID ULTRASO UND RESULTS MONIKA LUONG 08/15 Other Not Elsewhere Classified [address] [place] [address] Yony [facility])(S [employer] Flight Medicin e Tm) [address] [place] [address])(Acu puncture) OUTPATIENT [id number] Acup 2nd floor SAFB/ce rvicalg ia/PTSD /Anxiet y UNIQUE WHITE 08/30 Released w/o Limitations [address] [place] [address] Yony [facility])(A cupunct ure) [address] [place] [address] Yony [facility])(Sco tt [facility] Fam Res Tm Green) OUTPATIENT [id number] Acup F/U shoulde r/PTSD anxiety UNIQUE WHITE 09/12 Released w/o Limitations [address] [place] [address] Yony [facility])([facility] Fam Res Tm Green) [facility])([facility] ) TELE CONSULT [id number] Notes Entered by: EDISON HERRERA 07 Oct 2019 1433 ------- ------- ------- ------- -- refill on med DESTINEE JAIMES A 10/07 Medication Refill Forwarded [address] [place] [address])([facility] Medicin e ) [address] [place] [address])([facility] ) TELE CONSULT [id number] Notes Entered by: DARLINE MALONE 14 Nov 2019 1304 ------- ------- ------- ------- -- MEDICAT ION REFILL SYED PINEDA 11/[address] [place] [address])([facility] Medicin e ) [address] [place] [address])([facility] Peds Team [place]) TELE CONSULT [id number] Notes Entered by: Mikal FAM 13 Dec 2019 1129 ------- ------- ------- ------- -- flu positiv e family SAM FAM 12/13 Released to Self Care [address] [place] [address])([facility] Team [place]) [address] [place] [address])([facility] ) TELE CONSULT [id number] Notes Entered by: DARLINE MALONE 19 Dec 2019 1202 ------- ------- ------- ------- -- MAMMOGR AM REQUEST SYED PINEDA 12/[address] [place] [address])([facility] Medicin e ) [address] [place] [address])([facility] ) TELE CONSULT [id number] Notes Entered by: FRANCISCO REYEZ 20 Dec 2019 1419 ------- ------- ------- ------- -- medicat ion refill/ Herchle r/kmp SYED PINEDA 12/[address] [place] [address])( [employer] Medicin e Tm) [address] [place] [address])([facility] Medicine ) TELE CONSULT [id number] Notes Entered by: DESTINEE JAIMES 09 Jan 2020 1338 ------- ------- ------- ------- -- Rx renewal DESTINEE JAIMES 01/09 Other Not Elsewhere Classified [address] [place] [address])([facility] e ) [address] [place] [address])([facility] Medicine ) TELE CONSULT [id number] Notes Entered by: FRANCISCO REYEZ 01 Feb 2020 1107 ------- ------- ------- ------- -- medicat ion request /Jarrett er/kmp DESTINEE JAIMES 01/31 Medication Refill Forwarded [address] [place] [address])([facility] Medicin e ) [address] [place] [address])([facility] Medicine ) TELE CONSULT [id number] Notes Entered by: FADIA KLINE 02 May 2020 1035 ------- ------- ------- ------- -- Wellbut rin XL takes once a day (Herchl er) FADIA KLINE 05/02 Released to Self Care [address] [place] [address])([facility] Medic[facility] e ) [address] [place] [address])([facility] Medicine ) TELE CONSULT [id number] Notes Entered by: DESTINEE JAIMES 07 May 2020 0839 ------- ------- ------- ------- -- L shoulde r pain and Neck spasm DESTINEE JAIMES 05/07 Referred for Appointment [address] [place] [address])(S [facility] Flight Medicin e Tm) [address] [place] [address])([facility] Medicine ) OUTPATIENT [id number] L shoulde r pain and Neck spasm. Pt will be here at 1000. SYED PINEDA 05/07 Released w/o Limitations [address] [place] [address] Yony [facility])(S [employer] [facility] e ) [address] [place] [address])([facility] Medicine ) TELE CONSULT [id number] Notes Entered by: DARLINE MALONE 30 May 2020 1258 ------- ------- ------- ------- -- RAD RESULTS SYED PINEDA 05/[address] [place] [address] Yony [facility])([facility] Medicin e ) [address] [place] [address])([facility] Medicine ) OUTPATIENT [id number] Notes Entered by: YOGESH CAVANAUGH 01 Jun 2020 1335 ------- ------- ------- ------- -- Clinic f/u SYED PINEDA 06/01 Released w/o Limitations [address] [place] [address])([facility] Medicin e ) [address] [place] [address])([facility] Medicine ) TELE CONSULT [id number] Notes Entered by: DESTINEE JAIMES 27 Jun 2020 1545 ------- ------- ------- ------- -- Rx refill request DESTINEE JAIMES 06/27 Medication Refill Forwarded [address] [place] [address])(S cott Flight Medicin e Tm) [address] [place] [address]([facility] ) TELE CONSULT [id number] Notes Entered by: ARIELLA IYER 07 Aug 2020 0926 ------- ------- ------- ------- -- Emergen cy Deepak IYER ARIELLA Villalpando 08/07 [employer](P harmD_D over) [employer]([facility]) TELE CONSULT [id number] Notes Entered by: Jb PACHECO 07 Aug 2020 1000 ------- ------- ------- ------- -- Control led medicat ion refill SAMANTHA ANDERSON 08/07 [employer]([facility]) [facility] Yony AUGUSTIN ([facility])(Sco tt Flight Medicine Tm) OUTPATIENT [id number] Medicat ion Refill SYED PINEDA 08/29 Released w/o Limitations [facility] Yony AUGUSTIN ([facility])(S cott Flight Medicin e Tm) [facility] [place] (Fam Prac Red FB)) OUTPATIENT [id number] meds/vh / ANUP MARC 10/25 Released w/o Limitations [facility]( [facility] [place] (Fam Prac Red FB)) [facility] [place] (Fam Prac Red FB)) TELE CONSULT [id number] Notes Entered by: ANUP MARC 30 Oct 2020 1306 ------- ------- ------- ------- -- MRI order for consult GAMA EASTMAN 10/30 [facility]( [facility] [place] (Fam Prac Red FB)) [facility] [place] (Fam Prac Red FB)) TELE CONSULT [id number] Notes Entered by: Cristian HUTTON 10 Dec 2020 1118 ------- ------- ------- ------- -- Medicat ion Refill by GAMA Almaraz 12/10 [facility]( [facility] [place] (Fam Prac Red FB)) [facility] [place] (Fam Prac Red FB)) OUTPATIENT [id number] phone call med managem ent ANUP MARC 12/10 Released w/o Limitations [facility]( [facility] [place] (Fam Prac Red FB)) [facility] [place] (Fam Prac Red FB)) OUTPATIENT [id number] VH/rest art medicat ion/441 [id number] [email or web address] ANUP Hollins O 12/26 Released w/o Limitations [facility]( [facility] [place] (Fam Prac Red FB)) [facility]) OUTPATIENT [id number] Cervica lgia/RE F BOOK(MR I:Bring ing disc) DAVI GREENFIELD 01/01 Released w/o Limitations [facility]( [facility]) [facility](AM [facility] [place] (Fam Prac Red FB)) TELE CONSULT [id number] Notes Entered by: SUDHIR WREN 08 Jan 2021 1616 ------- ------- ------- ------- -- Referra l Request by BEN Hernandez 01/08 [facility]( [facility] [place] (Fam Prac Red FB)) [facility] [place] (Fam Prac Red FB)) OUTPATIENT [id number] virtual for referra lawler ANUP MARC Mariaa 01/09 Released w/o Limitations [facility]( [facility] [place] (Fam Prac [facility] FB)) [facility](Pa in Mgmt Cl FB) OUTPATIENT [id number] F2F Chronic pain syndrom e [id number] ERIKA PRITCHETT U 01/22 Released w/o Limitations [facility]( Pain Mgmt Cl FB) [facility](Pa in Mgmt Cl FB) OUTPATIENT [id number] CHRONIC PAIN FUENTES, TALAL M 01/24 Released w/o Limitations [facility]( Pain Mgmt Cl FB) [facility](Pa in Mgmt Cl FB) OUTPATIENT [id number] Cervica l and [place] TPI FUENTES, TALAL M 02/01 Released w/o Limitations [facility]( Pain Mgmt Cl FB) [facility] [place]) OUTPATIENT [id number] F2F Cervica lgia [id number] JOHN MOISE 02/05 Released w/o Limitations [facility]( [facility] [place] [facility]) [facility] [place] (Fam Prac Red FB)) TELE CONSULT [id number] Notes Entered by: Cristian HUTTON 18 Feb 2021 1304 ------- ------- ------- ------- -- General Questio n by GAMA Almaraz 02/18 [facility]( [facility] [place] (Fam Prac Red FB)) [facility](Pa in Mgmt Cl FB) OUTPATIENT [id number] S/P Cervica l and [place]rap[place] ius TPI's FREDRICK DILL 03/01 Released w/o Limitations [facility]( Pain Mgmt Cl FB) [facility](Pa in Mgmt Cl FB) OUTPATIENT [id number] Cervica l and [place] TPI FREDRICK DILL 03/04 Released w/o Limitations [facility]( Pain Mgmt Cl FB) [facility] [place] (Fam Prac Red FB)) TELE CONSULT [id number] Notes Entered by: KAMI TINAJERO 05 Mar 2021 1339 ------- ------- ------- ------- -- Med Renewal s BEN LEÓN 03/05 [facility]( [facility] [place] (Fam Prac Red FB)) [facility] [place] (Fam Prac Red FB)) OUTPATIENT [id number] medicat ion renewal [phone] ANUP MARC 03/06 Released w/o Limitations [facility]( [facility] [place] (Fam Prac Red FB)) [facility] [place] (Fam Prac Red FB)) OUTPATIENT [id number] f2f/705 [id number] /been sick the last 4 days and wants to be checked out JULIO RICARDO 03/25 Released w/o Limitations [facility]( [facility] [place] (Fam Prac Red FB)) [facility] [place] (Fam Prac Red FB)) TELE CONSULT [id number] Notes Entered by: JULIO RICARDO 27 Mar 2021 1431 ------- ------- ------- ------- -- Lab result MOHINDER LIND SHAKIRA 03/27 [facility]( [facility] [place] (Fam Prac Red FB)) [facility](Pa in Mgmt Cl FB) OUTPATIENT [id number] Cervica l [place] TPI FUENTESMICHELLECINDY Blank 04/01 Released w/o Limitations [facility]( Pain Mgmt Cl FB) [facility](Im munizatio n FB) OUTPATIENT [id number] Notes Entered by: SINTIA ROSE 04 Apr 2021 1144 ------- ------- ------- ------- -- COVID 19 VACCINE DOSE # 1 RADHA VALIENTE 04/04 Released w/o Limitations [facility]( Immuniz ation FB) [facility] [place] (Fam Prac Red FB)) OUTPATIENT [id number] medicat ion refill [phone] ANUP MARC 04/11 Released w/o Limitations [facility]( [facility] [place] (Fam Prac Red FB)) [facility](Pa in Mgmt Cl FB) OUTPATIENT [id number] CERVICA L/TRAPE ZIUS TPI, OCCIPIT AL NERVE BLOCK PER MICHELLE FINNEYCINDY M 05/14 Released w/o Limitations [facility]( Pain Mgmt Cl FB) [facility] [place] (Fam Prac Red FB)) TELE CONSULT [id number] Notes Entered by: Cristian VANESSA 24 May 2021 1333 ------- ------- ------- ------- -- General Questio n by BEN Montana 05/24 [facility]( [facility] [place] (Fam Prac Red FB)) [facility] [place] (Fam Prac Red FB)) OUTPATIENT [id number] referra [phone] ANUP MARC 05/28 Released w/o Limitations [facility]( [facility] [place] (Fam Prac Red FB)) [facility](Im munizatio n FB) OUTPATIENT [id number] Notes Entered by: ANGELA GIORDANO 14 Jun 2021 1102 ------- ------- ------- ------- -- COVID VACCINE ANGELA GIORDANO 06/14 Released w/o Limitations [facility]( Immuniz ation FB) [facility] [place] (Fam Prac Red FB)) OUTPATIENT [id number] F2F/WEL L WOMAN/P AP/850. 758.010 [email or web address] [email or web address] MAE 06/20 Released w/o Limitations [facility]( [facility] [place] (Fam Prac Red FB)) [facility] [place] (Fam Prac Red FB)) TELE CONSULT [id number] Notes Entered by: RADU DELEON 15 Jul 2021 1221 ------- ------- ------- ------- -- Return call EMILIE JHA 07/15 [facility]( [facility] [place] (Fam Prac Red FB)) [facility](AM H [facility] [place] [place] ([facility])) OUTPATIENT [id number] to discuss lab results [phone] ANUP MARC 07/16 Released w/o Limitations [facility]( [facility] [place] [facility] [place] [facility] [place] [facility] TELE CONSULT [id number] 2 Notes Entered by: MATTHEW CRISTOBAL 03 Sep 2021 1416 ------- ------- ------- ------- -- Medicat ion Refill ANUP MARC 09/03 [facility]( [facility] [place] [facility] [place] [facility] [place] [facility] [place] [facility] OUTPATIENT [id number] 'per provide r to discuss medicti on ANUP MARC O 09/05 Released w/o Limitations [facility]( [facility] [place] [facility] [place] [facility]am [facility](Pa in Mgmt Cl FB) OUTPATIENT [id number] Cervica l Trapezi us TPI Occipit al Nerve Block FREDRICK DILL M 09/11 Released w/o Limitations [facility]( Pain Mgmt Cl FB) [facility] [place] [facility] [place] [facility])) TELE CONSULT [id number] Notes Entered by: HOSSEIN HUNTER 15 Oct 2021 1040 ------- ------- ------- ------- -- Medicat ion Refill by EMILIE Barkley 10/15 [facility]( [facility] [place] [facility] [place] [facility] [place] [facility] [place] [facility] OUTPATIENT [id number] Medicat ion managem ent ANUP MARC O 11/01 Released w/o Limitations [facility]( [facility] [place] [facility] [place] [facility] [place] [facility] [place] [facility])) TELE CONSULT [id number] Notes Entered by: Kwasi BRANDT 23 Dec 2021 1420 ------- ------- ------- ------- -- No refill :EMILIE Gao 12/23 [facility]( [facility] [place] [facility] [place] [facility] [place] [facility] [place] [facility])) TELE CONSULT [id number] 9 Notes Entered by: MIGUEL ANGEL BYERS 24 Dec 2021 1104 ------- ------- ------- ------- -- Medicat ion Issue BEN LEÓN 12/24 [facility]( [facility] [place] [facility] [place] [facility] [place] [facility] [place] [facility] OUTPATIENT [id number] medicat ion follow up [phone] ANUP MARC 12/25 Released w/o Limitations [facility]( [facility] [place] [facility] [place] [facility])) [facility](Pa in Mgmt Cl FB) OUTPATIENT [id number] Cervica l and trap botox TPI and occipit al NB FREDRICK DILL M 12/30 Released w/o Limitations [facility]( Pain Mgmt Cl FB) [facility](Gy necolog Cl FB) OUTPATIENT [id number] Decreas ed AARON Buitrago 01/02 Released w/o Limitations [facility]( Gynecol og Cl FB) [facility](Gy necolog Cl FB) TELE CONSULT [id number] Notes Entered by: Jyotsna ESCOBAR 10 Jan 2022 191 ------- ------- ------- ------- -- lab results follow- up AARON JACOB 01/11 [facility]( Gynecol og Cl FB) [facility](Ob stetric Cl FB) TELE CONSULT [id number] Notes Entered by: MESHA JOYCE 17 Jan 2022 1452 ------- ------- ------- ------- -- pt in clinic desires call back from attendi AARON Nieves 01/17 [facility]( Obstetr ic Cl FB) [facility](Gy necolog Cl FB) OUTPATIENT [id number] Notes Entered by: CONG LARA 23 Jan 2022 1424 ------- ------- ------- ------- -- pt walked in upset MATILDA LEONARD 01/23 Released w/o Limitations [facility]( Gynecol og Cl FB) [facility](Gy necolog Cl FB) TELE CONSULT [id number] Notes Entered by: HARSH GURPREET Rubio 04 Feb 2022 142 ------- ------- ------- ------- -- Request for prior authori AARON Estrella 02/04 [facility]( Gynecol og Cl FB) [facility](Gy necolog Cl FB) TELE CONSULT [id number] Notes Entered by: ERIK JACOB 11 Feb 2022 0814 ------- ------- ------- ------- -- labs/fo llow up GURPREET HOUSE 02/11 [facility]( Gynecol og Cl FB) [facility](Im munizatio n FB) OUTPATIENT [id number] Notes Entered by: IGNACIO BARAJAS 31 Mar 2022 1254 ------- ------- ------- ------- -- MAJOR LEWIS 03/31 Released w/o Limitations [facility]( Immuniz ation FB) [facility] [place] [facility] [place] [facility]Fam Prac Silv FB)) TELE CONSULT [id number] Notes Entered by: INOCENCIO PAZ 31 Mar 20221426 ------- ------- ------- ------- -- Pt advocac y-initi ateHONG Mejía 03/31 [facility]( [facility] [place] [facility] [place] [facility])) [facility] [place] [facility] [place] [facility])) TELE CONSULT [id number] Notes Entered by: Quan VANESSA 16 Apr 2022 1213 ------- ------- ------- ------- -- General Julieth n by GAMA Farfan 04/16 [facility]( [facility] [place] [facility] [place] [facility] [place] [facility] [place] [facility])) OUTPATIENT [id number] request ing med for travel ANUP MARC Mariaa 04/16 Released w/o Limitations [facility]( [facility] [place] [facility] [place] [facility])) [facility](OP Surge Multi-Spe cialty Cl FB) OUTPATIENT [id number] Notes Entered by: SEN HERNANDEZ 17 Apr 2022 0818 ------- ------- ------- ------- -- OT JERARDO SUAREZ PHIL MIRACLE 04/17 Released w/o Limitations [facility]( OP Surge Multi-S pecialt y Cl FB) [facility] [place] [facility] [place] [facility])) TELE CONSULT [id number] Notes Entered by: ROSENDA EASTMAN 18 Apr 2022 0739 ------- ------- ------- ------- -- med manage ent GAMA EASTMAN 04/18 [facility]( [facility] [place] [facility] [place] [facility] [place] [facility] [place] [facility])) TELE CONSULT [id number] Notes Entered by: Abhay NUNN 18 Jun 2022 1547 ------- ------- ------- ------- -- OMAR Thurman 06/18 Released to Self Care [facility]( [facility] [place] [facility] [place] [facility])) [facility] [place] [facility] [place] [facility])) TELE CONSULT [id number] Notes Entered by: PREETI MELENDEZ 26 Jun 2022 1139 ------- ------- ------- ------- -- OMAR ANGELO 06/26 Released to Self Care [facility]( [facility] [place] [facility] [place] [facility])) [facility] [place] [facility] [place] [facility])) OUTPATIENT [id number] [facility] for [id number]/em:nuris badillo 73[facility] JULIO RICARDO 07/14 Released w/o Limitations [facility]( [facility] [place] [facility] [place] [facility])) [facility](Pa in Mgmt Cl FB) OUTPATIENT [id number] FREDRICK Spencer 07/15 Released w/o Limitations [facility]( Pain Mgmt Cl FB) [facility] [place] [facility] [place] [facility])) TELE CONSULT [id number] 5 Notes Entered by: Abhay VANESSA 12 Aug 2022 0945 ------- ------- ------- ------- -- Labwork by OMAR Fuchs 08/12 Released to Self Care [facility]( [facility] [place] [facility] [place] [facility])) [facility] [place] [facility] [place] [facility] FB)) OUTPATIENT [id number] discuss labs/po c ANUP MARC 08/13 Released w/o Limitations [facility]( [facility] [place] [facility] [place] [facility])) [facility] [place] [facility] [place] [facility])) TELE CONSULT [id number] Notes Entered by: ANUP MARC 14 Aug 2022 1544 ------- ------- ------- ------- -- BENJAMIN Foster 08/14 [facility]( [facility] [place] [facility] [place] [facility](Ur ogynecolo gy Cl FB) OUTPATIENT [id number] Unspeci fied dyspare KIN Phillip 08/30 Released w/o Limitations [facility]( Urogyne cology Cl FB) [facility] [place] [facility] [place] [facility])) OUTPATIENT [id number] LAB RESULTS ANUP MARC 09/09 Released w/o Limitations [facility]( [facility] [place] [facility] [place] [facility])) [facility] [place] [facility] [place] [facility])) TELE CONSULT [id number] Notes Entered by: ANUP MARC 10 Sep 2022 0728 ------- ------- ------- ------- -- lab order date changed per her request ROMELIA, BEN F 09/10 [facility]( [facility] [place] [facility] [place] [facility] [place] [facility] [place] [facility])) TELE CONSULT [id number] Notes Entered by: ADRIANNA GARCIA 06 Oct 2022 1637 ------- ------- ------- ------- -- General Questio n by OMAR Lopez 10/06 Released to Self Care [facility]( [facility] [place] [facility] [place] [facility] [place] [facility] [place] [facility])) TELE CONSULT [id number] Notes Entered by: Abhay MARES 16 Oct 2022 0730 ------- ------- ------- ------- -- Same Day Appoint ment by OMAR CARSON 10/16 Released to Self Care [facility]( [facility] [place] [facility] [place] [facility] [place] [facility] [place] [facility])) OUTPATIENT [id number] possibl e bronchi tis NOHEMI HURTADO 10/17 Released w/o Limitations [facility]( [facility] [place] [facility] [place] [facility])) [facility] [place] [facility] [place] [facility])) OUTPATIENT [id number] med refill [phone] ANUP MARC 10/20 Released w/o Limitations [facility]( [facility] [place] [facility] [place] [facility])) [facility](Pa in Mgmt Cl FB) OUTPATIENT [id number] BOTOX TPI&OCC IPITAL NB (SPOKE W/JUSTO ,FTR ON 12.8 BOOKED TO AFFIRM PROC) FREDRICK DILL 10/27 Released w/o Limitations [facility]( Pain Mgmt Cl FB) [facility](Gy necolog Cl FB) TELE CONSULT [id number] Notes Entered by: DELLA JAMIL 27 Oct 2022 1011 ------- ------- ------- ------- -- Express GURPREET Mcdaniel 10/27 [facility]( Gynecol og Cl FB) [facility] [place] [facility] [place] [facility] FB)) TELE CONSULT [id number] Notes Entered by: JERMAINE ALLEN 29 Oct 2022 1618 ------- ------- ------- ------- -- NOHEMI Chakraborty 10/29 [facility]( [facility] [place] [facility] [place] ([facility]am [facility] FB)) [address] [place] [address])([employer]) TELE CONSULT [id number] Notes Entered by: JUSTINE SAAVEDRA 07 Jan 2023 1306 ------- ------- ------- ------- -- BALWINDER Childress 01/[address] [place] [address])(G ynecolo gy) [address] [place] [address])([employer]) OUTPATIENT [id number] ROFR; endomet riosis and fibroid pain/8 [phone] EDGAR DUMAS 01/16 Released w/o Limitations [address] [place] [address])(G ynecolo gy) [address] [place] [address])(Ob/ [employer]) TELE CONSULT [id number] Notes Entered by: DEIRDRE DUMAS 13 Feb 2023 0518 ------- ------- ------- ------- -- US result EDGAR DUMAS 02/[address] [place] [address])(O b/[employer]) Procedures Combined list of: 1) Procedures from Department of Veterans Affairs facilities going back up to thelast 18 months, not all VA non-surgical procedures are included; 2) All procedures from the Department of Defense facilities. Procedure Procedure Type Code Date Perfomer Comments Sourc e No data available for this section [facility] OTHER DILATION AND CURETTAGE OF UTERUS 11/25 [facility] DESTRUCTION OF LESION OF CERVIX BY CAUTERIZATION 11/25 [facility] INJECTION(S), ANESTHETIC AGENT(S) AND/OR STEROID; GREATER OCCIPITAL NERVE 10/27 [facility] WAIVER SERVICES; NOT OTHERWISE SPECIFIED (NOS) 10/21 DoD WAIVER SERVICES; NOT OTHERWISE SPECIFIED (NOS) 09/11 DoD INSERTION OF NON-INDWELLING BLADDER CATHETER (EG, STRAIGHT CATHETERIZATION FOR RESIDUAL URINE) 09/02 [facility] ELECTROCARDIOGRAM, ROUTINE ECG WITH AT LEAST 12 LEADS; WITH INTERPRETATION AND REPORT 07/22 [facility] CHEMODENERVATION OF TRUNK MUSCLE(S); 1-5 MUSCLE(S) 07/15 [facility] WAIVER SERVICES; NOT OTHERWISE SPECIFIED (NOS) 07/15 Do[facility] WAIVER SERVICES; NOT OTHERWISE SPECIFIED (NOS) 04/17 [facility] HOSPITAL OUTPATIENT CLINIC VISIT SPECIMEN COLLECTION FOR SEVERE ACUTE RESPIRATORY SYNDROME CORONAVIRUS 2 (SARS-COV-2) (CORONAVIRUS DISEASE [COVID-19]), ANY SPECIMEN SOURCE 04/17 [facility] SEVERE AC RESPIRATORY SYNDROME CORONAVIRUS 2 (SARSCOV-2) [...] TRIGGER POINT(S), 1 OR 2 MUSCLE(S) 04/01 DoD HOSPITAL OUTPATIENT CLINIC VISIT SPECIMEN COLLECTION FOR [...] WAIVER SERVICES; NOT OTHERWISE SPECIFIED (NOS) 10/26 DoD ALL POTASSIUM HYDROXIDE (GINA) PREPARATIONS 06/30 DoD TELE ASSESS & MGT SRV PROV QUAL NONPHYS HLTH CARE PRO TO EST PAT,PARENT,GUARD NOT ORIG REL ASSESS & MGT SRV PROV W/IN PREV 7 DAYS NOR LEAD ASSESS & MGT SRV/PX W/IN NXT 24 HR/SOON APT;5-10 MIN MED DIS 03/01 DoD STRAPPING; ELBOW OR WRIST 01/12 DoD HEALTH AND BEHAVIOR ASSESS (EG, HEALTH-FOC CLIN INTERVIEW, BEHAVIORAL OBSERVATIONS, PSYCHOPHYSICOLOGIC AL MON, HEALTH-ORIENTED QUESTIONNAIRES), EACH 15 MIN QBGE-AS-EEIO WITH THE PATIENT; RE-ASSESS 12/07 DoD FITTING OF SPECTACLES, EXCEPT FOR APHAKIA; MONOFOCAL 11/21 DoD APPLICATION OF A MODALITY TO 1 OR MORE AREAS; VASOPNEUMATIC DEVICES 09/13 DoD OSTEOPATHIC MANIPULATIVE TREATMENT (OMT); 1-2 BODY REGIONS INVOLVED 08/30 DoD TELE ASSESS & MGT SRV PROV QUAL NONPHYS HLTH CARE PRO TO EST PAT,PARENT,GUARD NOT ORIG REL ASSESS & MGT SRV PROV W/IN PREV 7 DAYS NOR LEAD ASSESS & MGT SRV/PX W/IN NXT 24 HR/SOON APT;5-10 MIN MED DIS 06/07 DoD BILATERAL BREAST IMPLANT 04/27 DoD CASE MANAGEMENT, EACH 15 MINUTES 05/27 DoD THERAPEUTIC, PROPHYLACTIC, OR DIAGNOSTIC INJECTION (SPECIFY SUBSTANCE OR DRUG); SUBCUTANEOUS OR INTRAMUSCULAR 05/26 DoD MANUAL THERAPY TECHNIQUES (EG, MOBILIZATION/ MANIPULATION, MANUAL LYMPHATIC DRAINAGE, MANUAL TRACTION), 1 OR MORE REGIONS, EACH 15 MINUTES 02/12 DoD THERAPEUTIC PROCEDURE,1 OR MORE AREAS,EACH 15 MINUTES;NEUROMUSCU LAR REEDUCATION OF MOVEMENT,BALANCE,C OORDINATION,KINEST HETIC SENSE,POSTURE,AND/ OR PROPRIOCEPTION FOR SITTING AND/OR STANDING ACTIVITIES 08/30 DoD THERAPEUTIC, PROPHYLACTIC, OR DIAGNOSTIC INJECTION (SPECIFY SUBSTANCE OR DRUG); SUBCUTANEOUS OR INTRAMUSCULAR 03/08 DoD MILD TO MODERATE DEPRESSIVE SYMPTOMS CATEGORIZED BY USING A STANDARDIZED DEPRESSION SCREENING/ASSESSME NT TOOL (MDD) 01/17 [facility] PHYSICAL THERAPY EVALUATION 03/02 [facility] SCREENING PAPANICOLAOU SMEAR; OBTAINING, PREPARING AND CONVEYANCE OF CERVICAL OR VAGINAL SMEAR TO LABORATORY 10/03 [facility] NEEDLE ELECTROMYOGRAPHY; 1 EXTREMITY WITH OR WITHOUT RELATED PARASPINAL AREAS 02/27 [facility] NERVE CONDUCTION, AMPLITUDE AND LATENCY/VELOCITY STUDY, EACH NERVE; SENSORY 02/27 [facility] INJECTION, KETOROLAC TROMETHAMINE, PER 15 MG 09/02 [facility] ARTHROCENTESIS, ASPIRATION AND/OR INJECTION, MAJOR JOINT OR BURSA (EG, SHOULDER, HIP, KNEE, SUBACROMIAL BURSA); WITHOUT ULTRASOUND GUIDANCE 02/28 [facility] ARTHROCENTESIS, ASPIRATION AND/OR INJECTION, MAJOR JOINT OR BURSA (EG, SHOULDER, HIP, KNEE, SUBACROMIAL BURSA); WITHOUT ULTRASOUND GUIDANCE 08/29 [facility] ARTHROCENTESIS, ASPIRATION AND/OR INJECTION, MAJOR JOINT OR BURSA (EG, SHOULDER, HIP, KNEE, SUBACROMIAL BURSA); WITHOUT ULTRASOUND GUIDANCE 07/10 [facility] APPLICATION OF A MODALITY TO 1 OR [...] MORE AREAS; IONTOPHORESIS, EACH 15 MINUTES 05/31 [facility] PHYSICAL THERAPY RE-EVALUATION 05/30 [facility] APPLICATION OF A MODALITY TO 1 OR MORE AREAS; IONTOPHORESIS, EACH 15 MINUTES 05/28 DoD APPLICATION OF A MODALITY TO 1 OR MORE AREAS; IONTOPHORESIS, EACH 15 MINUTES 05/24 DoD APPLICATION OF A MODALITY TO 1 OR MORE AREAS; IONTOPHORESIS, EACH 15 MINUTES 05/21 [facility] THERAPEUTIC PROCEDURE,1 OR MORE AREAS,EACH 15 MINUTES;NEUROMUSCU LAR REEDUCATION OF MOVEMENT,BALANCE,C OORDINATION,KINEST HETIC SENSE,POSTURE,AND/ OR PROPRIOCEPTION FOR SITTING AND/OR STANDING ACTIVITIES 05/17 [facility] APPLICATION OF A MODALITY TO 1 OR MORE AREAS; IONTOPHORESIS, EACH 15 MINUTES 05/14 [facility] THERAPEUTIC PROCEDURE, 1 OR MORE AREAS, EACH 15 MINUTES; THERAPEUTIC EXERCISES TO DEVELOP STRENGTH AND ENDURANCE, RANGE OF MOTION AND FLEXIBILITY 05/10 [facility] OSTEOPATHIC MANIPULATIVE TREATMENT (OMT); 5-6 BODY REGIONS INVOLVED 05/08 [facility] FITTING OF SPECTACLES, EXCEPT FOR APHAKIA; MONOFOCAL 03/09 [facility] CARE VISIT () 06/13 [facility] SUBSEQ CARE VISIT () [EXCLS:PATIENTS WHO ARE SEEN FOR A CONDITION UNREL TO / CARE (EG,AN UP RESPIR INFECT;PATIENTS SEEN FOR CONSULTATION ONLY,NOT FOR CONT CARE)] 04/27 [facility] SUBSEQ CARE VISIT () [EXCLS:PATIENTS WHO ARE SEEN FOR A CONDITION UNREL TO / CARE (EG,AN UP RESPIR INFECT;PATIENTS SEEN FOR CONSULTATION ONLY,NOT FOR CONT CARE)] 04/13 [facility] TISSUE EXAMINATION BY GINA SLIDE OF SAMPLES FROM SKIN, HAIR, OR NAILS FOR FUNGI OR ECTOPARASITE OVA OR MITES (EG, SCABIES) 03/23 [facility] SUBSEQ CARE VISIT () [EXCLS:PATIENTS WHO ARE SEEN FOR A CONDITION UNREL TO / CARE (EG,AN UP RESPIR INFECT;PATIENTS SEEN FOR CONSULTATION ONLY,NOT FOR CONT CARE)] 03/21 [facility] SUBSEQ CARE VISIT () [EXCLS:PATIENTS WHO ARE SEEN FOR A CONDITION UNREL TO / CARE (EG,AN UP RESPIR INFECT;PATIENTS SEEN FOR CONSULTATION ONLY,NOT FOR CONT CARE)] 03/07 [facility] EXTERNAL ELECTROCARDIOGRAPH IC RECORDING UP TO 48 HOURS BY CONTINUOUS RHYTHM RECORDING AND STORAGE; SCANNING ANALYSIS WITH REPORT 03/06 [facility] EXTERNAL ELECTROCARDIOGRAPH IC RECORDING UP TO 48 HOURS BY CONTINUOUS RHYTHM RECORDING AND STORAGE; REVIEW AND INTERPRETATION BY A PHYSICIAN OR OTHER QUALIFIED HEALTH APPEALS OFFICER 03/06 [facility] SUBSEQ CARE VISIT () [EXCLS:PATIENTS WHO ARE SEEN FOR A CONDITION UNREL TO / CARE (EG,AN UP RESPIR INFECT;PATIENTS SEEN FOR CONSULTATION ONLY,NOT FOR CONT CARE)] 02/22 [facility] SUBSEQ CARE VISIT () [EXCLS:PATIENTS WHO ARE SEEN FOR A CONDITION UNREL TO / CARE (EG,AN UP RESPIR INFECT;PATIENTS SEEN FOR CONSULTATION ONLY,NOT FOR CONT CARE)] 02/06 [facility] SUBSEQ CARE VISIT () [EXCLS:PATIENTS WHO ARE [...] VISIT (REPORT AT 1ST ENCOUN W HEALTH APPEALS OFFICER PROVIDING OBSTETRIC CARE. REPORT ALSO DATE OF VISIT &,IN A SEPARATE FIELD,THE DATE OF THE LAST MENSTRUAL PERIOD) 10/14 [facility] MEDICAL NUTRITION THERAPY; GROUP (2 OR MORE INDIVIDUAL(S)), EACH 30 MINUTES 09/14 [facility] SCREENING PAPANICOLAOU SMEAR; OBTAINING, PREPARING AND CONVEYANCE OF CERVICAL OR VAGINAL SMEAR TO LABORATORY 07/29 [facility] THERAPEUTIC PROCEDURE, 1 OR MORE AREAS, EACH 15 MINUTES; THERAPEUTIC EXERCISES TO DEVELOP STRENGTH AND ENDURANCE, RANGE OF MOTION AND FLEXIBILITY 01/08 [facility] SCREENING PAPANICOLAOU SMEAR; OBTAINING, PREPARING AND CONVEYANCE OF CERVICAL OR VAGINAL SMEAR TO LABORATORY 10/21 [facility] CHIROPRACTIC MANIPULATIVE TREATMENT (CMT); SPINAL, 3-4 REGIONS 09/15 [facility] ULTRASOUND, TRANSVAGINAL 07/18 DoD INITIAL CARE VISIT (REPORT AT 1ST ENCOUN W HEALTH APPEALS OFFICER PROVIDING OBSTETRIC CARE. REPORT ALSO DATE OF [...] MANIPULATIVE TREATMENT (CMT); SPINAL, 3-4 REGIONS 05/13 [facility] THERAPEUTIC PROCEDURE, 1 OR MORE AREAS, EACH 15 MINUTES; THERAPEUTIC EXERCISES TO DEVELOP STRENGTH AND ENDURANCE, RANGE OF MOTION AND FLEXIBILITY 04/29 [facility] HANDLING AND/OR CONVEYANCE OF SPECIMEN FOR TRANSFER FROM THE OFFICE TO A LABORATORY 03/05 [facility] Non-Physician Phone Call To Patient/Provider Brief (5-10min) Non-Physician Phone Call To Patient/Provider Brief (5-10min) 34161 06/07 DEBRA CORMIER [facility] Case Management, each 15 minutes 05/[address] Supervised Injection Subcutaneous Supervised Injection Subcutaneous 25019 05/[address] Supervised Injection Intramuscular Supervised Injection Intramuscular 82180 05/26 UYEN MANCIA Physical Therapy Mobilization Joint Physical Therapy Mobilization Joint 28373 02/12 MONIKA AGGARWAL [facility] Physical Therapy: ___ Se ion Segments, 15 Minutes Each Physical Therapy: ___ Session Segments, 15 Minutes Each 48026 02/12 MONIKA AGGARWAL [facility] Case Management, each 15 minutes 05/15 AUSTYN COLE [facility] Preventive Med Standardized Depre ion Screening: Mild To Moderate Symptoms Preventive Med Standardized Depression Screening: Mild To Moderate Symptoms 3353F 05/23 KARYNA HERNANDEZ [facility] Preventive Med Standardized Depre ion Screening: Mild To Moderate Symptoms Preventive Med Standardized Depression Screening: Mild To Moderate Symptoms 3353F 01/17 ELIA PERALTA [facility] Orthopedic Strapping Wrist Orthopedic Strapping Wrist 13995 01/12 NAVI CHATTERJEE [facility] Health And Behav A e mt Each 15 Min Ada e ment Health And Behav Assessmt Each 15 Min Reassessment 58236 12/07 FARTUN DENIS [facility] Spectacles Services Fitting Monofocals (Not For Aphakia) [facility] Services Fitting Monofocals (Not For Aphakia) 77360 11/21 ANTONY AGUILAR Determination Of Refractive State Determination Of Refractive State 43268 11/21 ANTONY AGUILAR Ophthalmological New Patient Start Comprehensive Care Ophthalmological New Patient Start Comprehensive Care 95567 11/21 ANTONY AGUILAR Physical Therapy Neuromuscular Re-education Physical Therapy Neuromuscular Re-education 91791 08/30 YOLIS WADE [facility] Physical Medicine Physical Therapy Evaluation Physical Medicine Physical Therapy Evaluation 56360 08/[address] Supervised Injection Intramuscular Supervised Injection Intramuscular 47395 03/08 JOBY MARCUS [facility] Physical Medicine Physical Therapy Evaluation Physical Medicine Physical Therapy Evaluation 67156 03/02 DENNIS HAINES [facility] Screening papanicolaou smear; obtaining, preparing and conveyance of cervical or vaginal smear to laboratory 10/03 TARUN VERDUZCO [facility] EMG Of One Extremity and Related Paraspinal Areas EMG Of One Extremity and Related Paraspinal Areas 25085 02/28 NERY PATINO [facility] NCS Right Ulnar Nerve Sensory Function (Orthodromic) NCS Right Ulnar Nerve Sensory Function (Orthodromic) 74186 02/28 MAGGIE PATINOIMO G [facility] NCS Right Radial Nerve Sensory Function NCS Right Radial Nerve Sensory Function 85221 02/28 NERY PATINO [facility] NCS Right Median Nerve Sensory Function (Orthodromic) NCS Right Median Nerve Sensory Function (Orthodromic) 08017 02/28 ЮЛИЯ PATINOISIMO G [facility] NCS Right Median Nerve Motor Function NCS Right Median Nerve Motor Function 15776 02/28 NERY PATINO [facility] NCS Right Ulnar Nerve Motor Function NCS Right Ulnar Nerve Motor Function 08911 02/28 NERY PATINO [facility] Injection, ketorolac tromethamine, per 15 mg 09/[address] Supervised Injection Intramuscular Supervised Injection Intramuscular 31881 09/02 MATTHEW HEREDIA Arthrocentesis Injection Of Bursa Of Major Joint Arthrocentesis Injection Of Bursa Of Major Joint 02/28 JUAN ANDREW Platelet Rich Plasma injection into trochanteric bursa of both hips. [facility] Arthrocentesis Injection Of Bursa Of Major Joint Arthrocentesis Injection Of Bursa Of Major Joint 08/29 JUAN ANDREW GPS - platelet gel injection - right trochanteric bursa DoD Arthrocentesis Injection Of Bursa Of Major Joint Arthrocentesis Injection Of Bursa Of Major Joint 07/11 JUAN ANDREW see proc note DoD Modalities Iontophoresis Modalities Iontophoresis 72233 06/25 RAMIREZ ULRICH [facility] Physical Therapy: ___ Se ion Segments, 15 Minutes Each Physical Therapy: ___ Session Segments, 15 Minutes Each 25832 06/25 MOJGANRAMIREZ [facility] Physical Therapy Neuromuscular Re-education Physical Therapy Neuromuscular Re-education 57787 06/25 MOJGANRAMIREZ [facility] Physical Therapy: ___ Se ion Segments, 15 Minutes Each Physical Therapy: ___ Session Segments, 15 Minutes Each 56251 06/14 RAMIREZ ULRICH [facility] Physical Therapy Neuromuscular Re-education Physical Therapy Neuromuscular Re-education 63059 06/14 RAMIREZ ULRICH [facility] Modalities Iontophoresis Modalities Iontophoresis 56272 06/14 RAMIREZ ULRICH [facility] Modalities Iontophoresis Modalities Iontophoresis 19098 06/11 ANIYAH GOMEZ [facility] Physical Therapy Neuromuscular Re-education Physical Therapy Neuromuscular Re-education 21936 06/11 ANIYAH GOMEZ [facility] Physical Therapy: ___ Se ion Segments, 15 Minutes Each Physical Therapy: ___ Session Segments, 15 Minutes Each 10705 06/11 ANIYAH GOMEZ [facility] Modalities Iontophoresis Modalities Iontophoresis 66016 06/04 ARASELI OLEARY [facility] Physical Therapy Neuromuscular Re-education Physical Therapy Neuromuscular Re-education 61013 06/04 ARASELI OLEARY [facility] Physical Therapy: ___ Se ion Segments, 15 Minutes Each Physical Therapy: ___ Session Segments, 15 Minutes Each 47594 06/04 ARASELI OLEARY [facility] Physical Therapy Neuromuscular Re-education Physical Therapy Neuromuscular Re-education 54425 05/31 CAITLYN MCNEILL [facility] Modalities Iontophoresis Modalities Iontophoresis 24483 05/31 CAITLYN MCNEILL [facility] Physical Therapy: ___ Se ion Segments, 15 Minutes Each Physical Therapy: ___ Session Segments, 15 Minutes Each 86318 05/31 CAITLYN MCNEILL [facility] Physical Medicine Physical Therapy Re-Evaluation Physical Medicine Physical Therapy Re-Evaluation 11673 05/30 BALJEET MASSEY [facility] Modalities Iontophoresis Modalities Iontophoresis 00770 05/28 ARASELI OLEARY Acupunct One Or More Alexander W/O Stimulation Initial 15 Min Acupunct One Or More Alexander W/O Stimulation Initial 15 Min 47689 UNIQUE WHITE Manipulation By Physician, Additional Area Manipulation By Physician, Additional Area [id number] UNIQUE WHITE Osteopathic Manip Treatment (OMT) 1-2 Body Regions Involved Osteopathic Manip Treatment (OMT) 1-2 Body Regions Involved 26915 UNIQUE WHITE Osteopathic Manip Treatment (OMT) 3-4 Body Regions Involved Osteopathic Manip Treatment (OMT) 3-4 Body Regions Involved 15501 UNIQUE WHITE Modalities Vasopneumatic Device Modalities Vasopneumatic Device 16367 UNIQUE WHITE Waiver services; not otherwise specified (NOS) ANUP MARC Injection Of Trigger Point(s) Three Or More Muscle Group(s) Injection Of Trigger Point(s) Three Or More Muscle Group(s) 29579 FUENTES, TALAL M Bilateral cervical paraspinal muscles Bilateral upper trapezius muscles DoD Injection Of Trigger Point(s) One Or Two Muscle Group(s) Injection Of Trigger Point(s) One Or Two Muscle Group(s) 39263 FUENTES, TALAL M Bilateral cervical paraspinal and upper trapezius muscle trigger point injections DoD Nerve Block Greater Occipital Nerve Block Greater Occipital 59677 FUENTES, TALAL M Bilateral DoD Injection Of Trigger Point(s) One Or Two Muscle Group(s) Injection Of Trigger Point(s) One Or Two Muscle Group(s) 95897 FUENTES, TALAL M DoD Nerve Block Greater Occipital Nerve Block Greater Occipital 75865 FUENTES, TALAL M [facility] Vaccines Vaccines 38567 ANGELA GIORDANO COVID-19 Pfizer; Series #: 2; 0.3 mL; IM; Left Arm; Mfg: [employer]; Lot: [id number]. Wai Screening papanicolaou smear; obtaining, preparing and conveyance of cervical or vaginal smear to laboratory ANNA SHIN Non-Physician Phone Call To Patient/Provider Brief (5-10min) Non-Physician Phone Call To Patient/Provider Brief (5-10min) 29978 EMILIE JHA Injection Of Trigger Point(s) One Or Two Muscle Group(s) Injection Of Trigger Point(s) One Or Two Muscle Group(s) FUENTESMICHELLECINDY Cervical paraspinal and upper trapezius muscle chemodenervation injection with Xeomin total of 100 units [facility] Injection Of Trigger Point(s) Three Or More Muscle Group(s) Injection Of Trigger Point(s) Three Or More Muscle Group(s) FUENTES, FREDRICK Blank [facility] outpatient clinic visit specimen collection for severe acute respiratory syndrome coronavirus 2 (sars-cov-2) (coronavirus disease [covid-19]), any specimen source PHIL SUAREZ [facility] Urethral Catheterization Straight (Non-Balloon) Urethral Catheterization Straight (Non-Balloon) 16557 KIN STUBBS Physical Therapy: ___ Se ion Segments, 15 Minutes Each Physical Therapy: ___ Session Segments, 15 Minutes Each 18486 05/28 ARASELI OLEARY Physical Therapy: ___ Se ion Segments, 15 Minutes Each Physical Therapy: ___ Session Segments, 15 Minutes Each 61910 05/24 NIC SOTO Modalities Iontophoresis Modalities Iontophoresis 91056 05/24 NIC SOTO Modalities Iontophoresis Modalities Iontophoresis 81340 05/21 ARASELI OLEARY Physical Therapy: ___ Se ion Segments, 15 Minutes Each Physical Therapy: ___ Session Segments, 15 Minutes Each 59739 05/21 ARASELI OLEARY Physical Therapy Neuromuscular Re-education Physical Therapy Neuromuscular Re-education 55810 05/17 CAITLYN MCNEILL Modalities Iontophoresis Modalities Iontophoresis 58872 05/17 CAITLYN MCNEILL Physical Therapy: ___ Se ion Segments, 15 Minutes Each Physical Therapy: ___ Session Segments, 15 Minutes Each 76385 05/17 CAITLYN MCNEILL Modalities Iontophoresis Modalities Iontophoresis 26713 05/14 CAITLYN MCNEILL Physical Therapy: ___ Se ion Segments, 15 Minutes Each Physical Therapy: ___ Session Segments, 15 Minutes Each 47443 05/14 CAITLYN MCNEILL Exercises A isted Exercises For ROM Exercises Assisted Exercises For ROM 80226 05/10 BALJEET MASSEY [facility] Physical Medicine Physical Therapy Evaluation Physical Medicine Physical Therapy Evaluation 86601 05/10 BALJEET MASSEY [facility] Osteopathic Manip Treatment (OMT) 5-6 Body Regions Involved Osteopathic Manip Treatment (OMT) 5-6 Body Regions Involved 91702 05/08 DUTCH HUNTER [facility] Spectacles Services Fitting Monofocals (Not For Aphakia) Spectacles Services Fitting Monofocals (Not For Aphakia) 36403 03/09 SARANYAWEN VELÁZQUEZ Marko SPEC FIT 1X [facility] Determination Of Refractive State Determination Of Refractive State 18364 03/09 WEN ALVARADO Marko [facility] Ophthalmological New Patient Start Comprehensive Care Ophthalmological New Patient Start Comprehensive Care 51542 03/09 WEN ALVARADO [facility] Obstetrical Services Care Visit Obstetrical Services Care Visit 0503F 06/13 AKIKO CARDENAS [facility] OB Services Antepartum Care Only Subsequent Single Visit OB Services Antepartum Care Only Subsequent Single Visit 0502F 04/27 ELIAZAR DESOUZA [facility] OB Services Antepartum Care Only Subsequent Single Visit OB Services Antepartum Care Only Subsequent Single Visit 0502F 04/13 ELIAZAR DESOUZA [facility] Vaginal Wet [place] Vaginal [place] 99517 03/23 TARA MILLS [facility] Vaginal GINA Prep Vaginal GINA Prep 75603 03/23 TARA MILLS [facility] OB Services Antepartum Care Only Subsequent Single Visit OB Services Antepartum Care Only Subsequent Single Visit 0502F 03/21 ELIAZAR DESOUZA [facility] OB Services Antepartum Care Only Subsequent Single Visit OB Services Antepartum Care Only Subsequent Single Visit 0502F 03/07 RADHA GUAJARDO DoD OB Services Antepartum Care Only Subsequent Single Visit OB Services Antepartum Care Only Subsequent Single Visit 0502F 02/22 STANTON MENDOZA DoD OB Services Antepartum Care Only Subsequent Single Visit OB Services Antepartum Care Only Subsequent Single Visit 0502F 02/06 RADHA GUAJARDO [facility] Ultrasound Trans[place] [address] 01/06 STACY SAMS DoD OB Services Antepartum Care Only Subsequent Single Visit OB Services Antepartum Care Only Subsequent Single Visit 0502F 01/06 STACY SAMS [facility] OB Services Antepartum Care Only Subsequent Single Visit OB Services Antepartum Care Only Subsequent Single Visit 0502F 11/11 RADHA GUAJARDO [facility] Ultrasound [place] [address] 10/14 RADHA GUAJARDO [facility] Ultrasound Obstetric Limited Evaluation Ultrasound Obstetric Limited Evaluation 59628 10/14 RADHA GUAJARDO ADONIS [facility] Screening papanicolaou smear; obtaining, preparing and conveyance of cervical or vaginal smear to laboratory 10/14 RADHA GUAJARDO [facility] OB Services Antepartum Care Only First Visit, With Report OB Services Antepartum Care Only First Visit, With Report 0500F 10/14 RADHA GUAJARDO [facility] Screening papanicolaou smear; obtaining, preparing and conveyance of cervical or vaginal smear to laboratory 07/29 KEVIN WILLIAMSON [facility] Social History Combined list of available smoking, tobacco, and other social history from [facility] facilities. Social History Type Response Date Comment Sourc e Sex Representation Female (finding) 12/26/2022 Unknown [...] Plan No data available for this section 06/21/2025 Ambulatory Pharmacy Functional Status Combined list of recent functional and cognitive assessments recorded at [facility] Functional [place] Measurement (FIM) Scale: 1 = Total Assistance (Subject = 0% +), 2 = Maximal Assistance (Subject = 25% +), 3 = Moderate Assistance (Subject = 50% +), 4 = Minimal Assistance (Subject = 75% +), 5 = Supervision, 6 = Modified [place] (Device), 7 = Complete [place] (Timely, Safely). Assessment Date/Time Source Assessment Type Assessment Skill Assessment Score Assessment Details No data available for this section
--- OUTSIDE RECORDS SUMMARY | 2025-06-21 01:10 | XMS_ITS | Clinical Summary ---
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 Role Phone Luigi Damon MD Primary Care Provider [phone] Allergies Active Allergy Reactions Criticality Noted Date [...] - 05/30/2025 11:59 PM CDT Hospital Encounter [facility] [place] [address] Jodi Uriostegui MD Discharge Disposition: Home or Self Care (Routine Discharge) 05/30/2025 Travel 03/29/2025 10:52 AM CDT Anesthesia Event [facility] [place] [place] [address] Vania Singh MD Jarvis, Brittany L, BUDGET COORDINATOR 03/29/2025 7:55 AM CDT - 03/29/2025 1:07 PM CDT Hospital Encounter [facility] [place] [address] Yeni Shell FNP Non-Staff, Provider Discharge Disposition: Home or Self Care (Routine Discharge) 03/29/2025 Travel 03/22/2025 Pre-Procedure Call [facility] [place] [address] Capar, Yeni R, BEAUTY CULTURIST from Last 3 Months Family History Medical [...] Name Priority Date/Time Associated Diagnosis Comments CT CERV SPINE WO CON Routine 05/30/2025 1:00 PM CDT Neck pain MRI CERV SPINE WWO CON Routine 03/29/2025 12:01 PM CDT Neck pain from Last 3 Months Results * CT CERV SPINE WO CON (05/30/2025 1:00 PM CDT) Anatomical Region Laterality Modality Spine Computed Tomogra phy 06/06/2025 1:43 PM CDT Impressions 06/09/2025 9:20 AM CDT IMPRESSION: 1. Postsurgical and multilevel degenerative changes in the cervical spine, as detailed above. Preliminary: Jeremiah Donahue DO06/08/2025 11:49 AM The attending radiologist has reviewed the image(s) and agrees with the content of this report. Ordered By: JODI URIOSTEGUI Interpreted By: Jeremiah Donahue DO, 06/06/2025 1:43 PM Narrative 06/09/2025 9:20 AM CDT [address] [address] DATE: 05/30/2025 12:48 PM EXAMINATION: CT Cervical Spine without contrast CLINICAL HISTORY: Neck pain. History of anterior cervical fusion. COMPARISON: MRI cervical spine with and without contrast 03/29/2025. TECHNIQUE: CT examination of the cervical spine was performed without contrast. Axial and multiplanar reformatted images were obtained. A dose lowering technique was used for this procedure, which may include, but is not limited to, dose reduction technique, automated exposure control, the use of iterative reconstruction, and ALARA (As Low As Reasonably Achievable) / Image Gently techniques. FINDINGS: There are surgical changes of discectomy and anterior fusion at C4-C5 and C6-C7 with interbody spacers at C4-C5, C5-C6, and C6-C7. There is a minimally displaced fracture of the left fixation screw at C7. There is mature osseous fusion at C5-C6. There is suggestion of partial osseous fusion on the right at C4-C5 and to a lesser degree on the left at C6-C7. Lucency versus fragmentation of the interbody spacer material at C6-C7. There is straightening of the expected cervical lordosis. Facet alignment is maintained. There is multilevel uncovertebral hypertrophy, marginal osteophyte formation, and bilateral facet hypertrophy throughout the cervical spine. No soft tissue mass or abnormal fluid collection is identified. The paraspinal musculature is symmetric. Mild pleural parenchymal scarring at the bilateral lung apices. The extraspinal soft tissues are otherwise unremarkable. Individual disc levels are as follows. C2-C3: Uncovertebral hypertrophy and mild left facet hypertrophy. No significant osseous spinal canal or neural foraminal stenosis. C3-C4: Uncovertebral hypertrophy and mild bilateral facet hypertrophy, left greater than right. Mild disc bulge. Flattening of the ventral thecal sac. No osseous right neural foraminal stenosis. Mild left osseous neural foraminal stenosis. C4-C5: Surgical changes as above. Uncovertebral hypertrophy. Left-sided facet ankylosis and hypertrophy. Mild right facet hypertrophy. No significant osseous spinal canal stenosis. No significant osseous neural foraminal stenosis. C5-C6: Surgical changes as above. Osseous fusion of C5-C6. Uncovertebral hypertrophy and mild bilateral facet hypertrophy. No significant osseous spinal canal or neural foraminal stenosis. C6-C7: Surgical changes as above. Uncovertebral hypertrophy and posterior marginal osteophyte formation with partial effacement of the ventral thecal sac. There is mild to moderate bilateral facet hypertrophy, left greater than right. No significant right osseous neural foraminal stenosis. Mild left osseous neural foraminal stenosis. C7-T1: Facet hypertrophy. No significant osseous spinal canal or neural foraminal stenosis. Procedure Note Orville Saavedra MD - 06/09/2025 [facility] [address] [place], [place] [address] DATE: 05/30/2025 12:48 PM EXAMINATION: CT Cervical Spine without contrast CLINICAL HISTORY: Neck pain. History of anterior cervical fusion. COMPARISON: MRI cervical spine with and without contrast 03/29/2025. TECHNIQUE: CT examination of the cervical spine was performed withoutcontrast. Axial and multiplanar reformatted images were obtained. A dose lowering technique was used for this procedure, which may include,but is not limited to, dose reduction technique, automated exposurecontrol, the use of iterative reconstruction, and ALARA (As Low AsReasonably Achievable) / Image Gently techniques. FINDINGS: There are surgical changes of discectomy and anterior fusion at C4-C5 andC6-C7 with interbody spacers at C4-C5, C5-C6, and C6-C7. There is aminimally displaced fracture of the left fixation screw at C7. There ismature osseous fusion at C5-C6. There is suggestion of partial osseousfusion on the right at C4-C5 and to a lesser degree on the left at C6-C7.Lucency versus fragmentation of the interbody spacer material at C6-C7. There is straightening of the expected cervical lordosis. Facet alignmentis maintained. There is multilevel uncovertebral hypertrophy, marginalosteophyte formation, and bilateral facet hypertrophy throughout thecervical spine. No soft tissue mass or abnormal fluid collection isidentified. The paraspinal musculature is symmetric. Mild pleuralparenchymal scarring at the bilateral lung apices. The extraspinal softtissues are otherwise unremarkable. Individual disc levels are as follows. C2-C3: Uncovertebral hypertrophy and mild left facet hypertrophy. Nosignificant osseous spinal canal or neural foraminal stenosis. C3-C4: Uncovertebral hypertrophy and mild bilateral facet hypertrophy,left greater than right. Mild disc bulge. Flattening of the ventral thecalsac. No osseous right neural foraminal stenosis. Mild left osseous neuralforaminal stenosis. C4-C5: Surgical changes as above. Uncovertebral hypertrophy. Left-sidedfacet ankylosis and hypertrophy. Mild right facet hypertrophy. Nosignificant osseous spinal canal stenosis. No significant osseous neuralforaminal stenosis. C5-C6: Surgical changes as above. Osseous fusion of C5-C6. Uncovertebralhypertrophy and mild bilateral facet hypertrophy. No significant osseousspinal canal or neural foraminal stenosis. C6-C7: Surgical changes as above. Uncovertebral hypertrophy and posteriormarginal osteophyte formation with partial effacement of the ventralthecal sac. There is mild to moderate bilateral facet hypertrophy, leftgreater than right. No significant right osseous neural foraminalstenosis. Mild left osseous neural foraminal stenosis. C7-T1: Facet hypertrophy. No significant osseous spinal canal or neuralforaminal stenosis. IMPRESSION: 1. Postsurgical and multilevel degenerative changes in the cervical spine,as detailed above. Preliminary: Jeremiah Donahue DO06/08/2025 11:49 AM The attending radiologist has reviewed the image(s) and agrees with thecontent of this report. Ordered By: JODI URIOSTEGUI Interpreted By: Jeremiah Donahue DO, 06/06/2025 1:43 PM Jodi Uriostegui MD CT Final Result * MRI CERV SPINE WWO CON (03/29/2025 12:01 PM CDT) Anatomical Region Laterality Modality Spine Magnetic Resonan ce 04/03/2025 10:0 7 AM CDT Impressions 04/05/2025 9:16 AM CDT IMPRESSION: Mild multilevel cervical spondylosis, as described above. Ordered By: YENI SHELL Interpreted By: Andrew Ignacio MD, 04/03/2025 10:07 AM Narrative 04/05/2025 9:16 AM CDT [address] [address] Examination: MRI CERV SPINE WWO CON, 03/29/2025 [...] Procedure Note Andrew Ignacio MD - 04/05/[address] [address] Examination: MRI CERV SPINE [facility], 03/29/2025 10:50 AM. Technique: Multiplanar multisequence magnetic [...] By: Andrew Ignacio MD, 04/03/2025 10:07 AM Yeni Shell BEAUTY CULTURIST MRI Final Result from Last 3 Months Insurance Care Teams Roughing Mill Operator Relationship Specialty Start Date End Date Luigi Damon MD [address] [address] PCP - General FAMILY PRACTICE 03/28/25
--- OUTSIDE RECORDS SUMMARY | 2025-06-21 01:11 | XMS_ITS ---
Author Organization [employer] [place] ([address]) Address [address] [place] [address] Care Team Providers Care Repairer Hairspring Name Role Phone Marisol YARBROUGH, Luigi Primary Care Provider UnavailDr. 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 If intended option is not shown, discontinue and re-order from Quick Search* Active traMADol HCl 50 MG 1 tab(s) orally every 6 hours Active Naltrexone HCl 50 MG 1 tab(s) orally once a day Active Baclofen 10 MG 1 tab(s) orally 3 times a day Active Tirzepatide 7.5 MG/0.5ML as directed Subcutaneous Active ZyrTEC Allergy 10 MG 1 tab(s) orally once a day Active Doxycycline 40 MG 1 capsule in the morning on an empty stomach Orally Once a day Not-Taking Levothyroxine Sodium 25 MCG 1 tab(s) orally once a day Active Lunesta 3 MG 1 tab(s) orally once a day (at bedtime) Active Imitrex 100 MG 1 tab(s) orally once Active Ajovy 225 MG/1.5ML 1.5 mL Subcutaneous once a month 01/05/2025 Active HYDROcodone-Acetami nophen 5-325 MG 1 tablet Orally every 6 hrs; Duration: 30 days As needed 12/19/2024 Active Topamax 50 MG 1 tab(s) orally 2 times a day Active Pregabalin 100 MG 1 capsule Orally three times a day; Duration: 30 days 03/23/2025 Active Social History Tobacco Use: Social History Observation Description Date Details (start date - stop date) Never Smoker NA - NA Sex Assigned At : Social History Observation Description Sex Assigned At Female Smoking Smart Form: Question Answer Notes Are you a: never smoker Tobacco Control (Standard) Question Answer Notes Tobacco use: Nonsmoker Encounters Encounter Location Date Provider Diagnosis [facility] [address] [place] [address] 04/20/2025 Sharmin Santos Chronic migraine without aura, not intractable, without status migrainosus G43.709 ; Cervicalgia M54.2 ; Myalgia, unspecified site M79.10 and Occipital neuralgia M54.81 Assessments Encounter Date Diagnosis (ICD Code) Assessment Notes Treatment Notes Treatment Clinical Notes Section Notes 04/20/2025 Chronic migraine without aura, not intractable, without status migrainosus (ICD-10 - G43.709) 04/20/2025 Cervicalgia (ICD-10 - M54.2) 04/20/2025 Myalgia, unspecified site (ICD-10 - M79.10) 04/20/2025 Occipital neuralgia (ICD-10 - M54.81) Plan Of Treatment Next Appt Details Follow Up: , Reason: Evaluat ion and Management Provider Name:Sharmin steward, 08/24/2025 10:20:00 AM, [address], [place], [address], Progress Notes * Darnell BANSAL: [birth year] (49 yo F)Acc No.[id number]:04/20/2025 Progress Notes Patient: Aliya CHIN Provider: Santos Santos APRN :1975 A ge:49 Y S ex:Female Date:04/20/2025 Address:[address] [place], [place] [id number] Pcp:Luigi Damon MD Subjective: * Chief Complaints: * 1 . Nerve Block. * HPI: * Introduction: HPI: I had the pleasure of seeing Aliya Bansal, who presented for nerve block. * Initial History: INITIAL VISIT HISTORY: -Headache Onset: At age [...] squeezing pain. These are chronic cervicogenic tension-type headaches.-Headache Description #2: She gets visual aura with [...] LAST VISIT HISTORY: Last visit was on 0 01/26/2025. She presents to clinic for botox injections and a follow up. She reports that she has not been seen by pain management. She has upcoming MRI scans scheduled with neurosurgery. Her migraines have been less intense since starting Ajovy and pregabalin. She is able to tolerate 100-200 mg daily of pregabalin. She continues to have numbness on the left side of her face. This has persisted for several months now with no cause identified. She denies any recent procedures or dental work. * Previous Impression & Plan: Notes P revious Diagnoses: 1 . Chronic migraine without aura, not intractable, without status migrainosus - G43.709 (Primary) 2 . Cervicalgia - M54.2 3 . Myalgia, unspecified site - M79.10 4 . Occipital neuralgia - M54.81 P revious Recommendations: 1 . Abortive: Continue sumatriptan. Preventive: Continue Botox. Continue Ajovy. Continue Topamax. 2 . Continue pregabalin. Follow up with neurosurgery. Follow up with pain management. 3 . Continue pregabalin. Follow up with neurosurgery. Follow up with pain management. 4 . Continue pregabalin. Follow up with neurosurgery. Follow up with pain management. * Interval History: Notes P harmacologic Treatment: C urrent abortive treatment: S umatriptan 100 mg (effective, but causes sedation) P revious abortive treatment: N urtec (ineffective) C urrent preventive treatment: Botox (effective), Topiramate 100 mg daily, Ajovy (reduces intensity), pregabalin 100 mg BID P revious preventive treatment: A imovig 70 mg q4 weeks, Gabapentin (took for > 2 months few years back, ineffective), fluoxetine (took for > 2 months few years back, ineffective, Qulipta (ineffective) M edication overuse: Not present O ther modalities: Chiropractic, Physical Therapy, Acupuncture, Massage, Cervical facet ablation, Occipital nerve blocks were beneficial for few weeks H eadache Frequency: I nitial/baseline headache/migraine days/month: 30/12-15 (prior to Botox) L ast visit headache/migraine days/month: 30 (less intense)/3-4 ( Botox + Ajovy) C urrent headache/migraine days/month: / I nterval History: L ast visit was on 0 03/09/2025 for Botox injection.. * ROS: A LLERGY: runny nose Y es. s cratchy throat N o. i tchy eyes Y es. s inus congestion N o. C ONSTITUTIONAL: night sweats N o. w eight gain Y es. l oss of appetite N o. f ever N o. w eakness Y es. w eight loss N o. f atigue?Yes. E NT: cold N o. c ough N o. e pistaxis N o. h earing loss N o. c hange in voice Y es. s ore throat N o. r inging in ears?Yes. s inus pain Y es. R ESPIRATORY: shortness of breath Y es. c hest pain Y es. c hest congestion N o. c ough N o. O PHTHALMOLOGY: itching N o. s ensitivity to light Y es. s welling of the eyelids Y es. r edness N o. d iminished vision Y es. e ye irritation N o. d rainage from eyes N o. b lurring of vision Y es. s easonal eye sx?No. l oss of vision Y es. E NDOCRINOLOGY: fatigue Y es. p olydipsia N o. p olyuria N o. w eight loss N o. s leep disturbance Y es. c old intolerance N o. h eat intolerance Y es. d iabetes N o. C ARDIOLOGY: dizziness Y es. c hest pain Y es. p alpitations?Yes. l eg edema N o. s hortness of breath Y es. G ASTROENTEROLOGY: nausea Y es. i ndigestion N o. h emorrhoids?No. v omiting N o. d ysphagia Y es. a bdominal pain N o. d iarrhea?No. c onstipation Y es. b lood in stool N o. U ROLOGY: difficulty urinating N o. b lood in urine Y es.?frequent urination Y es. u rinary incontinence Y es. v oiding dysfunction N o.?recurrent UTI N o. D ERMATOLOGY: rash N o. m ole Y es. l umps N o. d ry or sensitive skin Y es. h kranthi (urticaria) Y es. a cne N o. s kin cancer?No. N EUROLOGY: syncope N o. h eadache Y es. t ingling numbness?Yes. s eizures N o. i nsomnia Y es. m jhon loss Y es. d izziness?Yes. g ait abnormality Y es. H EMATOLOGY/LYMPH: Positive for P atient denies history of excessive bruising or bleeding diasthesis. M USCULOSKELETAL: gout N o. j oint stiffness Y es. l eg cramps?No. j oint pain Y es. j oint swelling N o. s ciatica N o. o steoporosis Y es. f racture N o. c arpal tunnel Y es. P SYCHOLOGY: depression Y es. s uicidal ideation N o. e ating disorder N o. m ental or physical abuse N o. a nxiety Y es. * Medical History: M igraine with aura, Cervical DDD s/p spinal fusion, Buster's. * Surgical History: C ervical spinal fusion , Tonsillectomy . * Family History: F ather: Yes. M other: No. P aternal Grand Father: No. P aternal Grand Mother: No.?Maternal Grand Father: No. M aternal Grand Mother: No. P aternal uncle: Yes. P aternal aunt: No. M aternal uncle: No. M aternal aunt: Yes. S iblings: Yes. C hildren: Yes. There is no other family history of cancer, CF, diabetes, emphysema or heart disease. * Social History: M arital Status What is your marital status? m arried A lcohol Screening Do you ever drink alcoholic beverages? N o C affeine: Yes. S moking Are you a : n ever smoker S moking Smart Form Are you a: n ever smoker E xercise What kind(s) of exercise do you perform regularly? w alking How often do you perform this exercise? m onthly O ccupation Are you currenly employed? N o Have you had any job with high exposure to fumes, chemicals, dust or other noxious substances? N o Are you currently a student? N o T obacco Control (Standard) Tobacco use: N onsmoker * Medications: T aking Tirzepatide 7.5 MG/0.5ML Solution Pen-injector as directed Subcutaneous [...] *Please review and pick correct strength-formulation from Cart[employer]cuer options. 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 Objective: * Vitals: * Examination: G eneral examination: General appearance: P leasant, well-developed, no distress.? HEENT: N ormocephalic, atraumatic. Neck, thyroid : S upple. Neurologic exam: A lert and oriented x 4. Fluent speech. CN II-XII intact. Motor 5/5 strength in all extremities. Reflexes 2+/2 and symmetric in all extremities. Cerebellar testing no tremors. Gait normal. Assessment: * Assessment: 1. C hronic migraine without aura, not intractable, without status migrainosus - G43.709 (Primary) 2 . C ervicalgia - M54.2 3 . M yalgia, unspecified site - M79.10 4 . O ccipital neuralgia - M54.81 Plan: * Treatment: * Procedure Codes: 9 6160 PT-FOCUSED HLTH RISK ASSMT, G8427 DOC MEDS VERIFIED W/PT OR RE, G2211 Complex e/m visit add on * Follow Up: R ken: Evaluation and Management * Billing Information: * Visit Code: 31787 Office Visit, Est Pt., Level 4. Modifiers: 87326 Office Visit, Est Pt., Level 3. Modifiers: 26537 Office Visit, Est Pt., Level 5. Modifiers: 25 * Procedure Codes: 79183 PT-FOCUSED HLTH RISK ASSMT. G8427 DOC MEDS VERIFIED W/PT OR RE. G2211 Complex e/m visit add on. * Electronic signature of CARLOS Caceres on 06/21/2025 at 01:11 AM CDT Sign off status: Pending * Provider: Santos Santos APRN Date: 0 04/20/2025 Generated for Constantino membreno/Carla/Maylin on: 06/21/2025 01:11 AM CDT History and Physical Notes * HPI (History of Present Illness) Category Sub-Category Detail Notes Category Not es *Introduction HPI: I had the pleasu re of seeing Aliya Bansal, who presented for nerve block *Initial History INITIAL VISIT HISTORY: -Headache Onset: [...] squeezing pain. These are chronic cervicogenic tension-type headaches.-Headache Description #2: She gets visual aura with some headaches, sees spots migrating in her vision, lasts for several minutes. Headache is bifrontotemporal/bi lateral retroorbital pain, throbbing, worsen with movement, significant [...] LAST VISIT HISTORY: Last visit was on 01/26/2025. She presents to clinic for botox injections and a follow up. She reports that she has not been seen by pain management. She has upcoming MRI scans scheduled with neurosurgery. Her migraines have been less intense since starting Ajovy and pregabalin. She is able to tolerate 100-200 mg daily of pregabalin. She continues to have numbness on the left side of her face. This has persisted for several months now with no cause identified. She denies any recent procedures or dental work *Previous Impression & Plan Notes Previous Diagnoses:1. Chroni c migraine without aura, not intractable, without status migrainosus - G43.709 (Primary)2. Cervicalgia - M54.23. Myalgia, unspecified site - M79.104. Occipital neuralgia - M54.81Previous Recommendations:1. Abortive: Continue sumatriptan. Preventive: Continue Botox. Continue Ajovy. Continue Topamax.2. Continue pregabalin. Follow up with neurosurgery. Follow up with pain management. 3. Continue pregabalin. Follow up with neurosurgery. Follow up with pain management. 4. Continue pregabalin. Follow up with neurosurgery. Follow up with pain management *Interval History Notes Pharmacologic Treatment:Current abortive treatment: Sumatriptan 100 mg (effective, but causes sedation)Previous abortive treatment: Nurtec (ineffective)Current preventive treatment: Botox (effective), Topiramate 100 mg daily, Ajovy (reduces intensity), pregabalin 100 mg BIDPrevious preventive treatment: Aimovig 70 mg q4 weeks, Gabapentin (took for > 2 months few years back, ineffective), fluoxetine (took for > 2 months few years back, ineffective, Qulipta (ineffective)Medication overuse: Not presentOther modalities: Chiropractic, Physical Therapy, Acupuncture, Massage, Cervical facet ablation, Occipital nerve blocks were beneficial for few weeksHeadache Frequency:Initial/baseline headache/migraine days/month: 30/12-15 (prior to Botox)Last visit headache/migraine days/month: 30 (less intense)/3-4 (Botox + Ajovy)Current headache/migraine days/month: /Interval History:Last visit was on 03/09/2025 for Botox injection. Examination Category Sub-Category Detail Notes Category Not es General examination HEENT: Normocephalic, atraum atic Neck, thyroid : Supple General appearance: Pleasant, well-devel oped, no distress Neurologic exam: Alert and oriented x 4. Fluent speech. CN II-XII intact. Motor 5/5 strength in all extremities. Reflexes 2+/2 and symmetric in all extremities. Cerebellar testing no tremors. Gait normal
--- OUTSIDE RECORDS SUMMARY | 2025-06-21 01:11 | XMS_ITS | Clinical Summary ---
Author Organization [facility] Address [address] [place] [address] Care Team Providers Care Co Supervisor Grounds And Landscape Name Role Phone Luigi Damon MD Primary Care Provider [phone] Source Comments [facility],non-owned Affiliates and Associated Physician Practices is amultiple site organization consisting of ambulatory clinics and hospital sitesin [place], [place], [place] and [place]. This disclosure is being madepursuant to the Care Everywhere program and may not contain all information available regarding this patient. 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 a construction driver 06/09/20 Active doxycycline (Oracea) 40 MG [...] Comments Blood Pressure 98/74 11/02/2024 10:19 AM MEDIA ANALYST Pulse 105 12/14/2024 1:23 PM MEDIA ANALYST Temperature 37.1 C (98.8 F) 12/14/2024 1:23 PM MEDIA ANALYST Respiratory Rate 18 12/14/2024 1:23 PM MEDIA ANALYST Oxygen Saturation 99% 12/14/2024 1:23 PM MEDIA ANALYST Inhaled Oxygen Concentration - - Weight 65.8 kg (145 lb) 12/14/2024 1:23 PM MEDIA ANALYST Height 160 cm (5' 3) 12/14/2024 1:23 PM MEDIA ANALYST Body Mass Index 25.69 12/14/2024 1:23 PM MEDIA ANALYST Plan of Treatment Health Maintenance Due Date [...] patient's age to complete this topic Insurance [facility] Care Teams Co Supervisor Grounds And Landscape Relationship Specialty Start Date End Date Luigi Damon MD [address] [place] [address] PCP - General Family Medicine 06/03/24
--- OUTSIDE RECORDS SUMMARY | 2025-06-21 01:11 | XMS_ITS | Clinical Summary ---
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
--- NOTE | 2025-06-21 07:52 | P.PNAN_ITS ---
Anes - Initial Pre Proc Eval Procedure: Operation Date: 06/21/25 14:45 Proposed Procedures p Esophagogastroduodenoscopy - Daryl Khan MD Date/Time: 06/21/25 07:52 Surgeon: Daryl Khan MD Pre Op Diagnosis: Right upper quadrant pain Patient Data Age: 49 Gender: F Height: 1.68 m Weight: 60 kg Allergies Allergy/AdvReac Type Severity Reaction Status Date / Time promethazine (From Phenergan) AdvReac Intermediate Confusion Verified 06/21/25 13:31 diphenhydramine (From AdvReac Hypertensio Verified 06/21/25 13:31 Benadryl) n fexofenadine AdvReac Other Verified 06/21/25 13:31 Home Medications ?Medication ?Instructions ?Recorded ?Confirmed ?Type baclofen 20 mg tablet 20 mg PO BID #60 tabs 03/13/25 06/21/25 Rx naltrexone 1.5 mg capsule 4.5 mg PO HS 03/13/25 06/21/25 History pregabalin 100 mg capsule (Lyrica) 100 mg PO TID 03/13/25 06/21/25 History tirzepatide (weight loss) 12.5 12.5 mg subcut WEEKLY 03/13/25 06/05/25 History mg/0.5 mL subcutaneous pen injector (Zepbound) eszopiclone 3 mg tablet 3 mg PO QHS #30 tabs 03/18/25 06/21/25 Rx magnesium oxide 400 mg PO DAILY #30 tabs 03/31/25 06/21/25 Rx omeprazole 40 mg capsule,delayed 40 mg PO BID #60 caps 03/31/25 06/21/25 Rx release ondansetron 4 mg disintegrating 4 mg PO Q8H PRN nausea and 03/31/25 06/05/25 Rx tablet vomiting #30 tabs trazodone 50 mg tablet 50 mg PO QHS #90 tabs 05/29/25 06/21/25 Rx cetirizine 10 mg tablet (Zyrtec) 10 mg PO DAILY 06/05/25 06/21/25 History galcanezumab-gnlm 120 mg/mL 120 mg subcut MONTHLY 06/05/25 06/21/25 History subcutaneous pen injector (Emgality Pen) lorazepam 1 mg tablet 1 mg PO BID 06/05/25 06/21/25 History progesterone micronized 200 mg 100 mg PO DAILY 06/05/25 06/21/25 History capsule Patient hx anesthesia problems: none Family hx anesthesia problems: none Results Review: All pre-operative results and documents have been reviewed as part of the pre- operative evaluation. 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 Leonard Hx of abdominoplasty Status post hysteroscopic ablation of endometrium H/O cervical spine surgery History of breast augmentation Family History Family History Father Multiple sclerosis Diabetes mellitus Mother Carcinoma of colon Sibling No problems noted. Other Neuromuscular scoliosis, multiple sites in spine Social History Social History Smoking status: Never smoker Second hand tobacco smoke exposure: No Alcohol intake: never Substance use: never Substance use type: does not use Do You Feel Safe in your Home?: Yes Lack of Transportation: No Lack of Food: Never True Current Housing: I Have Housing Concerned About Future Housing: No Difficulty Paying Gas/Electric Bills: No Difficulty Paying for Meds: No Currently Unemployed: No Education: Bachelor's Degree Difficulty w/ Childcare or Family Care: No Living arrangements: with family Occupation/Education: retired Additional occupation/education comments: [employer] Gender identity (if verbalized by the patient): Female Spiritual care concerns: No Anes - Eval Final PreProcedure Day of Procedure 06/21/25 07:52 Patient weight: normal Heart: regular rate and rhythm Lungs: clear to auscultation and normal air movement Airway: Mallampati scale class II Neurological: alert and oriented Last oral intake: >/= 8 hours ASA classification: II Emergent: no Anesthetic plan: proceed Anesthesia type and monitoring: general GIVS and standard monitoring Results Review: All pre-operative results and documents have been reviewed as part of the pre- operative evaluation. Informed Consent: The patient's anesthetic plan and its attendant risks and benefits were discussed with the patient/family/POA. Questions were solicited and answers prov ided to the satisfaction of the patient/family/POA.
[2025-06-21 13:34] VITALS: BP 97/57; PULSE 79; RESP 20; TEMP 36.3; O2SAT 100; BMI 22.1
[2025-06-21] MEDS: LACTATED RINGERS 1,000 ML 150 ML IV CONT (13:37)
--- NOTE | 2025-06-21 14:34 | PM.HPGS ---
History of Present Illness History of Present Illness Consent: Risks, benefits, and alternatives have been discussed and questions answered. Patient agrees to proceed with procedure. 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 Leonard Hx of abdominoplasty Status post hysteroscopic ablation of endometrium H/O cervical spine surgery History of breast augmentation Family History Family History Father Multiple sclerosis Diabetes mellitus Mother Carcinoma of colon Sibling No problems noted. Other Neuromuscular scoliosis, multiple sites in spine Social History Social History Smoking status: Never smoker Second hand tobacco smoke exposure: No Alcohol intake: never Substance use: never Substance use type: does not use Do You Feel Safe in your Home?: Yes Lack of Transportation: No Lack of Food: Never True Current Housing: I Have Housing Concerned About Future Housing: No Difficulty Paying Gas/Electric Bills: No Difficulty Paying for Meds: No Currently Unemployed: No Education: Bachelor's Degree Difficulty w/ Childcare or Family Care: No Living arrangements: with family Occupation/Education: retired Additional occupation/education comments: [employer] Gender identity (if verbalized by the patient): Female Spiritual care concerns: No Meds Home Medications and Allergies Home Medications ?Medication ?Instructions ?Recorded ?Confirmed ?Type baclofen 20 mg tablet 20 mg PO BID #60 tabs 03/13/25 06/21/25 Rx naltrexone 1.5 mg capsule 4.5 mg PO HS 03/13/25 06/21/25 History pregabalin 100 mg capsule (Lyrica) 100 mg PO TID 03/13/25 06/21/25 History tirzepatide (weight loss) 12.5 12.5 mg subcut WEEKLY 03/13/25 06/05/25 History mg/0.5 mL subcutaneous pen injector (Zepbound) eszopiclone 3 mg tablet 3 mg PO QHS #30 tabs 03/18/25 06/21/25 Rx magnesium oxide 400 mg PO DAILY #30 tabs 03/31/25 06/21/25 Rx omeprazole 40 mg capsule,delayed 40 mg PO BID #60 caps 03/31/25 06/21/25 Rx release ondansetron 4 mg disintegrating 4 mg PO Q8H PRN nausea and 03/31/25 06/05/25 Rx tablet vomiting #30 tabs trazodone 50 mg tablet 50 mg PO QHS #90 tabs 05/29/25 06/21/25 Rx cetirizine 10 mg tablet (Zyrtec) 10 mg PO DAILY 06/05/25 06/21/25 History galcanezumab-gnlm 120 mg/mL 120 mg subcut MONTHLY 06/05/25 06/21/25 History subcutaneous pen injector (Emgality Pen) lorazepam 1 mg tablet 1 mg PO BID 06/05/25 06/21/25 History progesterone micronized 200 mg 100 mg PO DAILY 06/05/25 06/21/25 History capsule Allergies Allergy/AdvReac Type Severity Reaction Status Date / Time promethazine (From Phenergan) AdvReac Intermediate Confusion Verified 06/21/25 13:31 diphenhydramine (From AdvReac Hypertensio Verified 06/21/25 13:31 Benadryl) n fexofenadine AdvReac Other Verified 06/21/25 13:31 Vital Signs Vital Signs - 24 hr 06/21/25 13:34 Temperature 97.3 F L Pulse Rate 79 Respiratory Rate 20 Blood Pressure 97/57 L Pulse Oximetry 100 Oxygen Delivery Room Air Exam Const: General: comfortable and no acute distress HENMT: Face/Nose/Sinus: Normal nares present Eyes: General: appearance normal, both eyes and all related structures Neck: Neck: no JVD Resp: Auscultation: clear to auscultation bilaterally Cardio: Rate: regular rate Rhythm: regular rhythm GI: Inspection: non-distended GI Palp: Yes Soft to palpation Skin: General skin exam: normal color Neuro: General: gait normal Speech: normal speech Extrem: General: normal to inspection Psych: Mental Status: mental status grossly normal Assessment and Plan Assessment and plan (1) RUQ pain: Code(s): R10.11 - Right upper quadrant pain Status: Acute Assessment and Plan: egd with bx (2) S/P laparoscopic cholecystectomy: Code(s): Z90.49 - Acquired absence of other specified parts of digestive tract Status: Acute
--- NOTE | 2025-06-21 14:38 | S_PTH ---
PATIENT: Aliya Ortega LOC: [facility]#:[id number] AGE/SX: 49/F ROOM: RE06/21/[address]: Daryl Khan MD : 1975 BED: DIS: 06/21/2025 SPEC #: [id number] RECD: 06/22/25 09:22 STATUS: CLAUDY REQ #: [id number] ANTHONY: 06/21/25 14:[address]: Daryl Khan DEPT: [facility] Surgical RECD BY: Jeny Tapia ENTERED: 06/22/25 09:23 SP TYPE: Surgical OTHR DR: Luigi Damon MD Tissues: A - Gastric Biopsy B - Small Bowel Bx Procedures: Hematoxylin and Eosin Stain Gross and Microscopic Level 4
[2025-06-21 14:43] VITALS: BP 86/35; PULSE 77; RESP 19; O2SAT 100
[2025-06-21 14:53] VITALS: BP 90/53; PULSE 77; RESP 19; O2SAT 100
[2025-06-21 15:03] VITALS: BP 99/52; PULSE 80; RESP 18; O2SAT 100
== END 2025-06-21 15:15 | disposition home or self-care (01) ==
PROVIDERS: PCP Family Medicine; Referring Provider Nurse Practitioner Family; Visit Provider Internal Medicine Gastroenterology
PROC: 0DJ08ZZ Inspection of Upper Intestinal Tract, Via Natural or Artificial Opening Endoscopic (ICD-10-PCS; CPT 43239; principal; 2025-06-21 14:45)
DX: R10.11 Right upper quadrant pain (principal); Z90.49 Acquired absence of other specified parts of digestive tract
CPT/HCPCS: 43239; 88305; J7120

== ENCOUNTER 2025-10-31 13:20 | Outpatient (CLI) | payer OTHER, SELFPAY ==
--- NOTE | ~2025-10-31 | US_ITS ---
Clinical History: R09.89 - Other specified symptoms and signs involving the... Examination: US carotid duplex BI Comparison: None Technique: Grayscale, color, duplex/spectral Doppler sonography carotid and vertebral arteries. Distal CCA and Peak ICA systolic velocities provided. Society of Radiologists in Ultrasound (SRU) consensus criteria utilized, indirectly assessing stenosis by velocities. Findings: No significant plaque. Right side: CCA - 83 cm/sec. ICA - 100 cm/sec. ICA/CCA - 1.2 Left Side: CCA - 113 cm/sec. ICA - 84 cm/sec. ICA/CCA - 0.8 Normal antegrade flow measured bilateral vertebral arteries. IMPRESSION: 1. No hemodynamically significant ICA stenosis (i.e., if any stenosis, less than 50%). 2. Normal bilateral antegrade vertebral artery flow. Stenosis measured by Society of Radiologists in Ultrasound (SRU) criteria. Reviewed, dictated and finalized at location R. DDED SOFTWARE ENGINEER IMPRESSION: 1. No hemodynamically significant ICA stenosis (i.e., if any stenosis, less th an 50%). 2. Normal bilateral antegrade vertebral artery flow. Stenosis measured by Society of Radiologists in Ultrasound (SRU) criteria.
--- NOTE | ~2025-10-31 | XR_ITS ---
EXAMINATION: XR chest 2V, 10/31/2025 13:36 PHLEBOTOMY DIRECTOR HISTORY: R07.9 - Chest pain, unspecified COMPARISON: No comparisons available. Technique: 2 views obtained. Findings: The lungs are clear, no effusion. No pneumothorax. Heart is normal size. Mediastinal and hilar contours are within normal limits. Bony thorax no acute abnormality. Impression: No acute cardiopulmonary abnormality. Reviewed, dictated and finalized at location P. BOTOMY DIRECTOR Impression: No acute cardiopulmonary abnormality.
== END 2025-10-31 13:21 | disposition home or self-care (01) ==
LOC: MICIMG 13:21
PROVIDERS: PCP Family Medicine; Visit Provider Nurse Practitioner Adult Health
DX: R07.9 Chest pain, unspecified (principal); R09.89 Other specified symptoms and signs involving the circulatory and respiratory systems
CPT/HCPCS: 71046; 93880